=== PATIENT | male | born 1965 | race Caucasian/White ===

== ENCOUNTER 2016-10-05 10:27 | Emergency (ER) | payer OTHER ==
[2016-10-05 10:33] VITALS: BP 132/97; PULSE 76; TEMP 98; BMI 24.4
--- NOTE | 2016-10-05 11:18 | PDOC ---
History of Present Illness - General History Source: Patient, Spouse Exam Limitations: No Limitations <Jacinto Hannah - Last Filed: 10/05/16 11:18> - General History Source: Patient Exam Limitations: No Limitations - History of Present Illness Initial Comments: 10/05/16 11:23 The patient is a 51 year old male, with a significant past medical history of a- fib, HTN, seizures, EtOH abuse, who presents to the emergency department with detox for EtOH. The patient reports being sober for the past 7 months, but notes these past 2 days drinking heavily. He reports drinking several beers over the span of these past 2 days, with his last drink being at 4am. He denies any recent fevers, chills, headache or dizziness. He denies any recent nausea, vomit, diarrhea or constipation. He denies any recent chest pain or shortness of breath. He denies any recent dysuria, frequency, urgency or hematuria. Allergies: NKA Past surgical history: None reported. Social History: Nonsmoker. Denies EtOH recreational drug use. Primary Care Physician: Dr.Pushpinder Hawthorne <Ruddy Berry - Last Filed: 10/05/16 11:23> - General Chief Complaint: Alcohol intoxication Stated Complaint: INTOX Time Seen by Provider: 10/05/16 11:10 Past History - Past Medical History Anemia: No Asthma: No Cancer: No Cardiac Disorders: Yes (AFIB) CVA: No COPD: No CHF: No Dementia: No Diabetes: No GI Disorders: No Disorders: No HTN: Yes Hypercholesterolemia: No Kidney Stones: No Liver Disease: No Suicide Attempt (Hx): No Seizures: Yes (ALCOHOL RELATED) Thyroid Disease: No - Surgical History Abdominal Surgery: No Appendectomy: No Cardiac Surgery: No Cholecystectomy: No Lung Surgery: No Neurologic Surgery: No Orthopedic Surgery: No - Reproductive History Testicular Surgery: No - Psycho/Social/Smoking Cessation Hx Anxiety: No Suicidal Ideation: No Smoking History: Never smoked Have you smoked in the past 12 months: No Hx Alcohol Use: Yes Drug/Substance Use Hx: No Substance Use Type: None Hx Substance Use Treatment: Yes ([facility]) <Jacinto Hannah - Last Filed: 10/05/16 11:18> <Ruddy Berry - Last Filed: 10/05/16 11:23> - Past Medical History Allergies/Adverse Reactions: Allergies Allergy/AdvReac Type Severity Reaction Status Date / Time No Known Allergies Allergy Verified 10/05/16 10:32 Home Medications: Ambulatory Orders Dabigatran Etexilate Mesylate [Pradaxa -] 150 mg PO BID #60 cap 09/28/15 Diltiazem Cd [Cardizem Cd -] 240 mg PO DAILY #30 cap.cd.24h 09/28/15 Metoprolol Succinate [Toprol XL -] 50 mg PO DAILY #30 tab.sr.24h 09/28/15 Thiamine HCl [Vitamin B1 -] 100 mg PO DAILY #30 tablet 09/28/15 Chlordiazepoxide [Librium -] 10 mg PO QID #6 capsule MDD 4 01/03/16 Folic Acid - 1 mg PO DAILY tablet 01/03/16 Review of Systems - Review of Systems Able to Perform ROS?: Yes Comments:: 10/05/16 11:21 GENERAL/CONSTITUTIONAL: No fever or chills. No weakness. HEAD, EYES, EARS, NOSE AND THROAT: No change in vision. No ear pain or discharge. No sore throat. CARDIOVASCULAR: No chest pain or shortness of breath. RESPIRATORY: No cough, wheezing, or hemoptysis. GASTROINTESTINAL: No nausea, vomiting, diarrhea or constipation. GENITOURINARY: No dysuria, frequency, or change in urination. MUSCULOSKELETAL: No joint or muscle swelling or pain. No neck or back pain. SKIN: No rash NEUROLOGIC: No headache, vertigo, loss of consciousness, or change in strength/ sensation. ENDOCRINE: No increased thirst. No abnormal weight change. HEMATOLOGIC/LYMPHATIC: No anemia, easy bleeding, or history of blood clots. ALLERGIC/IMMUNOLOGIC: No hives or skin allergy. <Ruddy Berry - Last Filed: 10/05/16 11:23> *Physical Exam - Vital Signs Last Vital Signs Temp Pulse Resp BP Pulse Ox 98.0 F 76 20 132/97 97 10/05/16 10:29 10/05/16 10:29 10/05/16 10:29 10/05/16 10:29 10/05/16 10:29 <Jacinto Hannah - Last Filed: 10/05/16 11:18> - Vital Signs Last Vital Signs Temp Pulse Resp BP Pulse Ox 98.0 F 76 20 132/97 97 10/05/16 10:29 10/05/16 10:29 10/05/16 10:29 10/05/16 10:29 10/05/16 10:29 - Physical Exam Comments: 10/05/16 11:21 GENERAL: Awake, alert, and fully oriented, in no acute distress HEAD: No signs of trauma EYES: PERRLA, EOMI, sclera anicteric, conjunctiva clear ENT: Auricles normal inspection, hearing grossly normal, nares patent, oropharynx clear without exudates. Moist mucosa NECK: Normal ROM, supple, no lymphadenopathy, JVD, or masses LUNGS: Breath sounds equal, clear to auscultation bilaterally. No wheezes, and no crackles HEART: Regular rate and rhythm, normal S1 and S2, no murmurs, rubs or gallops ABDOMEN: Soft, nontender, normoactive bowel sounds. No guarding, no rebound. No masses EXTREMITIES: Normal range of motion, no edema. No clubbing or cyanosis. No cords, erythema, or tenderness NEUROLOGICAL: Cranial nerves II through XII grossly intact. Normal speech, normal gait SKIN: Warm, Dry, normal turgor, no rashes or lesions noted. <Ruddy Berry - Last Filed: 10/05/16 11:23> Medical Decision Making - Medical Decision Making 10/05/16 11:15 A portion of this note was documented by scribe services under my direction. I have reviewed the details of the note, within reason, and agree with the documentation with the following case summary and management plan written by me. Patient treated in the ED. Nursing notes are reviewed and incorporated into the medical decision-making. Vital signs reviewed. Peripheral IV access obtained by the nurse, laboratory studies are drawn and sent, reviewed and interpreted by myself. Vital Signs Temp Pulse Resp BP Pulse Ox 98.0 F 76 20 132/97 97 10/05/16 10:29 10/05/16 10:29 10/05/16 10:10/05/16 10:29 10/05/16 10:29 51 year old male c/ hx of atrial fibrillation on pradaxa, HTN, alcohol abuse presents with requesting alcohol detox. The patient is present with his . The patient was sober for several months until he relapsed 2 days ago. Started drinking several beers. Last drink this morning at 4 am. Came in with requesting detox. Has NO symptoms at this point. Patient is not intoxicated or in withdrawal at this time (I suspect that he is sobered up but not at point of withdrawal). I had spoken with the nurse practitioner Diandra who accepts the patient to detox. Will send patient to [facility] detox. <Jacinto Hannah - Last Filed: 10/05/16 11:18> *DC/Admit/Observation/Transfer <Jacinto Hannah - Last Filed: 10/05/16 11:18> - Attestations Scribe Attestion: 10/05/16 11:22 Documentation prepared by Ruddy Berry, acting as medical administrative technician for Jacinto Hannah MD. <Ruddy Berry - Last Filed: 10/05/16 11:23> Diagnosis at time of Disposition: Alcohol dependence Qualifiers: Substance use status: uncomplicated Qualified Code(s): F10.20 - Alcohol dependence, uncomplicated - Discharge Dispostion Disposition: I.P. ALCOHOL/SUBS ABUSE REHAB Condition at time of disposition: Stable - Referrals Referrals: Stacy Hawthorne MD [Primary Care Provider] - - Patient Instructions Printed Discharge Instructions: DI for Alcohol Abuse Additional Instructions: Please go straight to the detox center.
== END 2016-10-05 11:55 | disposition other institution (70) ==
LOC: JER 10:27
DX: F10.20 Alcohol dependence, uncomplicated (principal); I48.91 Unspecified atrial fibrillation; I10 Essential (primary) hypertension; Z86.69 Personal history of other diseases of the nervous system and sense organs
CPT/HCPCS: 99282-25

== ENCOUNTER 2016-10-05 12:18 | Inpatient (IN) | payer OTHER ==
[2016-10-05 13:33] VITALS: BMI 23.6
--- NOTE | 2016-10-05 13:38 | HP ---
CIWA Score - CIWA Score Nausea/Vomitin Muscle Tremors: 4-Moderate,w/Arms Extend Anxiety: 4-Mod. Anxious/Guarded Agitation: 4-Moderately Restless Paroxysmal Sweats: 3 Orientation: 0-Oriented Tacttile Disturbances: 0-None Auditory Disturbances: 0-None Visual Disturbances: 0-None Headache: 2-Mild CIWA-Ar Total Score: 22 Admission ROS BHS - HPI Chief Complaint: I am here today for detox from alcohol. Allergies/Adverse Reactions: Allergies Allergy/AdvReac Type Severity Reaction Status Date / Time No Known Allergies Allergy Verified 10/05/16 13:21 History of Present Illness: pt is a 51yr old male with a history of alcohol dependence seeking detox for treatment. pt was sent here from [facility] for alcohol withdrawals report received from . Exam Limitations: No Limitations - Ebola screening Have you traveled outside of the country in the last 21 days: No Have you had contact with anyone from an Ebola affected area: No Have you been sick,other than usual withdrawal symptoms: No Do you have a fever: No - Review of Systems Constitutional: Chills, Diaphoresis EENT: reports: Tearing Respiratory: reports: No Symptoms reported Cardiac: reports: No Symptoms Reported GI: reports: Nausea, Poor Appetite, Poor Fluid Intake, Vomiting, Indigestion : reports: No Symptoms Reported Musculoskeletal: reports: No Symptoms Reported Integumentary: reports: Flushing, Sweating Neuro: reports: Seizure (a year ago alcohol r/t), Tingling, Tremors Endocrine: reports: Flushing, Intolerance to Cold, Intolerance to Heat Hematology: reports: No Symptoms Reported Psychiatric: reports: Judgement Intact, Mood/Affect Appropiate, Orientated x3, Agitated, Anxious Other Systems: Reviewed and Negative Patient History - Patient Medical History Hx Anemia: No Hx Asthma: No Hx Chronic Obstructive Pulmonary Disease (COPD): No Hx Cancer: No Hx Cardiac Disorders: Yes (HX OF AFIB) Hx Congestive Heart Failure: No Hx Hypertension: Yes Hx Hypercholesterolemia: No Hx Pacemaker: No HX Cerebrovascular Accident: No Hx Seizures: Yes (ETOH RELATED LAST 1 YR AGO) Hx Dementia: No Hx Diabetes: No Hx Gastrointestinal Disorders: No Hx Liver Disease: No Hx Genitourinary Disorders: No Hx Sexually Transmitted Disorders: No Hx Renal Disease (ESRD): No Hx Thyroid Disease: No Hx Human Immunodeficiency Virus (HIV): No Hx Hepatitis C: No Hx Depression: No Hx Suicide Attempt: No (denies) Hx Bipolar Disorder: No Hx Schizophrenia: No - Patient Surgical History Past Surgical History: No Hx Neurologic Surgery: No Hx Cataract Extraction: No Hx Cardiac Surgery: No Hx Lung Surgery: No Hx Breast Surgery: No Hx Breast Biopsy: No Hx Abdominal Surgery: No Hx Appendectomy: No Hx Cholecystectomy: No Hx Genitourinary Surgery: No Hx Section: No Hx Orthopedic Surgery: No Anesthesia Reaction: No - PPD History Previous Implant?: Yes Documented Results: Negative w/o proof Implanted On Prior R Admission?: Yes PPD to be Administered?: Yes - Reproductive History Patient is a Female of Child Bearing Age (11 -55 yrs old): No - Smoking Cessation Smoking history: Never smoked Have you smoked in the past 12 months: No Hx Chewing Tobacco Use: No Initiated information on smoking cessation: No - Substance & Tx. History Hx Alcohol Use: Yes Substance Use Type: Alcohol Hx Substance Use Treatment: Yes (12months ago last detox at [facility]) - Substances Abused Alcohol Route: Oral Frequency: Daily Amount used: 12PK BEER AND MORE Age of first use: 17 Date of Last Use: 10/05/16 Family Disease History - Family Disease History Family Disease History: Other: Father ( STROKE AGE 42), Mother (HEALTHY) Admission Physical Exam S - Vital Signs Vital Signs: Vital Signs - 24 hr 10/05/16 13:29 Temperature 96.2 F L Pulse Rate 78 Respiratory 20 Rate Blood Pressure 144/110 - Physical General Appearance: Yes: Appropriately Dressed, Moderate Distress, Tremorous, Irritable, Sweating, Anxious HEENTM: Yes: Normal Voice Respiratory: Yes: Lungs Clear, Normal Breath Sounds, No Respiratory Distress Neck: Yes: No masses,lesions,Nodules Breast: Yes: Within Normal Limits Cardiology: Yes: Regular Rhythm, Regular Rate, S1, S2 Abdominal: Yes: Normal Bowel Sounds, Non Tender, Soft Genitourinary: Yes: Within Normal Limits Back: Yes: Normal Inspection Musculoskeletal: Yes: full range of Motion Extremities: Yes: Normal Inspection, Tremors Neurological: Yes: Fully Oriented, Alert, Normal Response Integumentary: Yes: Normal Color, Diaphoresis Lymphatic: Yes: Within Normal Limits - Diagnostic (1) Alcohol dependence with uncomplicated withdrawal Current Visit: Yes Status: Chronic Comment: pt stated he is scheduled to attend rehab in [place]. Pt also stated he had been in AA in the past and is ammenible to attending meeting . (2) Atrial fibrillation Current Visit: Yes Status: Chronic Qualifiers: Atrial fibrillation type: unspecified Qualified Code(s): I48.91 - Unspecified atrial fibrillation (3) HTN (hypertension) with goal to be determined Current Visit: Yes Status: Chronic (4) Seizure disorder Current Visit: No Status: Suspected Cleared for Admission [facility] - Detox or Rehab [facility] Level of Care: Medically Managed Detox Regimen/Protocol: Librium [facility] Breath Alcohol Content Breath Alcohol Content: 0.262 Urine Drug Screen - Results Drug Screen Negative: Yes
[2016-10-05] MEDS ORDERED: MAGNESIUM CITRATE 300 ML BOTTLE PO PRN (13:42)
[2016-10-05] MEDS ORDERED: MAGNESIUM HYDROX 2400MG/30ML ORAL SUSPENSION 30 ML CUP PO PRN (13:42)
[2016-10-05] MEDS ORDERED: guaiFENesin/D-METHORPHAN HB 10 ML UNIT-DOSE CUPS PO PRN (13:42)
[2016-10-05] MEDS ORDERED: IBUPROFEN 400 MG TABLET (FP) PO PRN (13:42)
[2016-10-05] MEDS ORDERED: P-EPHED 60MG/TRIPROLIDI 2.5MG TABLET PO PRN (13:42)
[2016-10-05] MEDS ORDERED: ACETAMINOPHEN 325 MG TABLET (FP) PO PRN (13:42)
[2016-10-05] MEDS ORDERED: MENTHOL/PHENOL 1 EACH UD MM PRN (13:42)
[2016-10-05] MEDS ORDERED: hydrOXYzine PAMOATE 50 MG CAPSULE (FP) PO PRN (13:42)
[2016-10-05] MEDS ORDERED: LOPERAMIDE HCL 2 MG CAPSULE PO PRN (13:42)
[2016-10-05] MEDS ORDERED: TRIMETHOBENZAMIDE HCL 300 MG CAPSULE PO PRN (13:43)
[2016-10-05] MEDS ORDERED: TRIMETHOBENZAMIDE HCL 200MG/2ML INJ IM PRN (13:43)
[2016-10-05] MEDS ORDERED: chlordiazePOXIDE HCL 25 MG CAPSULE PO ONE (14:00)
[2016-10-05] MEDS ORDERED: TRIMETHOBENZAMIDE HCL 200MG/2ML INJ IM ONE (14:00)
[2016-10-05] MEDS ORDERED: DIGOXIN 0.125 MG TABLET (FP) PO SCH (14:30)
[2016-10-05] MEDS ORDERED: LISINOPRIL 5 MG PO SCH (14:52)
[2016-10-05] MEDS: DIGOXIN 0.125 MG TABLET (FP) PO SCH (16:39)
[2016-10-05] MEDS: chlordiazePOXIDE HCL 25 MG CAPSULE PO SCH ×2 (16:40→22:17)
[2016-10-05 17:43] LABS: URINE APPEARANCE CLEAR; URINE BILIRUBIN NEGATIVE (NEGATIVE); URINE BLOOD NEGATIVE (NEGATIVE); URINE COLOR DKYELLOW; URINE GLUCOSE (UA) NEGATIVE (NEGATIVE); URINE KETONE NEGATIVE (NEGATIVE); URINE LEUK ESTERASE NEGATIVE (NEGATIVE); URINE NITRITE NEGATIVE (NEGATIVE); URINE UROBILINOGEN 2.0 E.U/dl E.U./dl (0.2-1.0)
[2016-10-05 17:44] LABS: URINE PROTEIN 1+ (NEGATIVE)
[2016-10-05 17:53] LABS: URINE MUCUS RARE; URINE RBC <1 /hpf (0-3); URINE WBC <1 /hpf (3-5)
[2016-10-05] MEDS: chlordiazePOXIDE HCL 25 MG CAPSULE PO PRN (19:05)
[2016-10-05] MEDS: diphenhydrAMINE HCL 50 MG CAPSULE PO PRN (22:17)
[2016-10-05] MEDS: METOPROLOL TARTRATE 50 MG TABLET (FP) PO SCH (22:17)
[2016-10-05] MEDS: THIAMINE HCL 100 MG TABLET (FP) PO SCH (22:17)
[2016-10-05] MEDS: DABIGATRAN ETEXILATE MESYLATE 150 MG CAPSULE PO SCH (22:17)
[2016-10-05] MEDS: MAG HYDROX/AL HYDROX/SIMETH 30 ML UNIT-DOSE CUP PO PRN (22:51)
[2016-10-06] MEDS: diphenhydrAMINE HCL 50 MG CAPSULE PO PRN ×3 (00:27→22:16)
[2016-10-06] MEDS: chlordiazePOXIDE HCL 25 MG CAPSULE PO PRN (01:26)
[2016-10-06] MEDS: chlordiazePOXIDE HCL 25 MG CAPSULE PO SCH ×4 (05:48→22:16)
[2016-10-06 09:49] LABS: MCH 30.7 pg (25.7-33.7); MCHC 34.7 g/dl (32.0-35.9); MEAN CELL VOLUME 88.4 fl (80-96); MEAN PLT VOLUME 8.7 fl (7.5-11.1); PLATELET COUNT 99 K/MM3 (134-434); RDW 13.5 % (11.9-15.9); WHITE BLOOD COUNT 5.6 K/mm3 (4.0-10.0)
[2016-10-06] MEDS: SPIRONOLACTONE 25 MG TABLET (FP) PO SCH (10:32)
[2016-10-06] MEDS: LISINOPRIL 5 MG PO SCH (10:32)
[2016-10-06] MEDS: METOPROLOL TARTRATE 50 MG TABLET (FP) PO SCH ×2 (10:32→22:16)
[2016-10-06] MEDS: DABIGATRAN ETEXILATE MESYLATE 150 MG CAPSULE PO SCH ×2 (10:32→22:16)
[2016-10-06] MEDS: DIGOXIN 0.125 MG TABLET (FP) PO SCH (10:32)
[2016-10-06] MEDS: PRENATAL VITAMINS W/ FOLIC ACID TABLET (FP) PO SCH (10:32)
--- NOTE | 2016-10-06 12:42 | EKG ---
Test Reason : Blood Pressure : / mmHG Vent. Rate : 063 BPM Atrial Rate : 063 BPM P-R Int : 168 ms QRS Dur : 102 ms QT Int : 446 ms P-R-T Axes : 045 044 -14 degrees QTc Int : 456 ms NORMAL SINUS RHYTHM NONSPECIFIC T WAVE ABNORMALITY ABNORMAL ECG WHEN COMPARED WITH ECG OF 10-FEB-2016 19:13, SINUS RHYTHM HAS REPLACED ATRIAL FIBRILLATION VENT. RATE HAS DECREASED BY 39 BPM NONSPECIFIC T WAVE ABNORMALITY, WORSE IN INFERIOR LEADS Confirmed by ISELA CRUZ MD ([id number]) on 10/06/2016 12:41:56 PM Referred By: Confirmed By:ISELA CRUZ MD
[2016-10-06 13:27] LABS: ALBUMIN 3.9 g/dl (3.4-5.0); ALK PHOS 66 U/L (45-117); ANION GAP 14 (8-16); BILIRUBIN,TOTAL 1.5 mg/dL (0.2-1.0); CALCIUM 9.3 mg/dL (8.5-10.1); CO2 28 mmol/L (21-32); GLUCOSE,RANDOM 115 mg/dL (74-106); SGOT/AST 76 U/L (15-37); SGPT/ALT 42 U/L (12-78); TOT PROT 8.2 g/dl (6.4-8.2)
--- NOTE | 2016-10-06 14:22 | PN ---
S CIWA - CIWA Score Nausea/Vomitin Muscle Tremors: 4-Moderate,w/Arms Extend Anxiety: 3 Agitation: 1-Slight > Activity Paroxysmal Sweats: 2 Orientation: 0-Oriented Tacttile Disturbances: 2-Mild Itch/Numbness/Burn Auditory Disturbances: 0-None Visual Disturbances: 2-Mild Sensitivity Headache: 0-None Present CIWA-Ar Total Score: 19 BHS 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 (SOAP) Subjective: Vomiting, Sweating, Tremors. Objective: PT. A & O X 3. NO ACUTE DISTRESS. PT. DENIES CHEST PAIN. 10/06/16 14:17 Vital Signs Temperature 97.1 F L 10/06/16 13:10 Pulse Rate 75 10/06/16 13:10 Respiratory Rate 18 10/06/16 13:10 Blood Pressure 132/95 10/06/16 13:10 O2 Sat by Pulse Oximetry (%) Laboratory Tests 10/05/16 10/06/16 10/06/16 14:00 07:00 07:00 WBC 5.6 RBC 5.27 D Hgb 16.2 D Hct 46.6 MCV 88.4 MCHC 34.7 RDW 13.5 D Plt Count 99 L D MPV 8.7 D Sodium 133 L Potassium 4.0 Chloride 91 L D Carbon Dioxide 28 Anion Gap 14 BUN 15 D Creatinine 1.0 D Creat Clearance w eGFR > 60 Random Glucose 115 H D Calcium 9.3 Total Bilirubin 1.5 H AST 76 H D ALT 42 D Alkaline Phosphatase 66 Total Protein 8.2 D Albumin 3.9 Urine Color Dkyellow Urine Appearance Clear Urine pH 5.0 Ur Specific [place] 1.020 Urine Protein 1+ H Urine Glucose (UA) Negative Urine Ketones Negative Urine Blood Negative Urine Nitrite Negative Urine Bilirubin Negative Urine Urobilinogen 2.0 e.u/dl Ur Leukocyte Esterase Negative Urine RBC <1 Urine WBC <1 Ur Epithelial Cells Rare Urine Mucus Rare LABS NOTED. 10/06/16 14:22 Assessment: 10/06/16 14:18 WITHDRAWAL SYMPTOMS. Plan: CONTINUE DETOX. REPEAT AST ON 10/08/2016 FOR ELEVATED ADMISSION LEVEL.
[2016-10-06] MEDS: MAG HYDROX/AL HYDROX/SIMETH 30 ML UNIT-DOSE CUP PO PRN (19:54)
[2016-10-06] MEDS: THIAMINE HCL 100 MG TABLET (FP) PO SCH (22:16)
[2016-10-07] MEDS: chlordiazePOXIDE HCL 25 MG CAPSULE PO SCH ×2 (05:17→10:15)
[2016-10-07] MEDS: METOPROLOL TARTRATE 50 MG TABLET (FP) PO SCH ×2 (10:15→22:19)
[2016-10-07] MEDS: DIGOXIN 0.125 MG TABLET (FP) PO SCH (10:15)
[2016-10-07] MEDS: DABIGATRAN ETEXILATE MESYLATE 150 MG CAPSULE PO SCH ×2 (10:15→22:19)
[2016-10-07] MEDS: LISINOPRIL 5 MG PO SCH (10:15)
[2016-10-07] MEDS: PRENATAL VITAMINS W/ FOLIC ACID TABLET (FP) PO SCH (10:15)
[2016-10-07] MEDS: SPIRONOLACTONE 25 MG TABLET (FP) PO SCH (10:15)
--- NOTE | 2016-10-07 12:24 | PN ---
[facility] CIWA - CIWA Score Nausea/Vomitin-Mild Nausea/No Vomiting Muscle Tremors: 4-Moderate,w/Arms Extend Anxiety: 3 Agitation: 2 Paroxysmal Sweats: 2 Orientation: 2-Disoriented Date<2 days Tacttile Disturbances: 1-Very Mild Itch/Numbness Auditory Disturbances: 0-None Visual Disturbances: 2-Mild Sensitivity Headache: 0-None Present CIWA-Ar Total Score: 17 BHS 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 (SOAP) Subjective: Tremors, Sweating. Objective: PT. A & O X 2 (DISORIENTED ABOUT DAY / DATE). PT. OBSERVED AMBULATING ON UNIT. NO ACUTE DISTRESS. PT. DENIES CHEST PAIN. 10/07/16 12:23 Vital Signs Temperature 96.4 F L 10/07/16 09:42 Pulse Rate 86 10/07/16 10:15 Respiratory Rate 18 10/07/16 09:42 Blood Pressure 126/94 10/07/16 09:42 O2 Sat by Pulse Oximetry (%) Laboratory Tests 10/05/16 10/06/16 10/06/16 14:00 07:00 07:00 WBC 5.6 RBC 5.27 D Hgb 16.2 D Hct 46.6 MCV 88.4 MCHC 34.7 RDW 13.5 D Plt Count 99 L D MPV 8.7 D Sodium 133 L Potassium 4.0 Chloride 91 L D Carbon Dioxide 28 Anion Gap 14 BUN 15 D Creatinine 1.0 D Creat Clearance w eGFR > 60 Random Glucose 115 H D Calcium 9.3 Total Bilirubin 1.5 H AST 76 H D ALT 42 D Alkaline Phosphatase 66 Total Protein 8.2 D Albumin 3.9 Urine Color Dkyellow Urine Appearance Clear Urine pH 5.0 Ur Specific [place] 1.020 Urine Protein 1+ H Urine Glucose (UA) Negative Urine Ketones Negative Urine Blood Negative Urine Nitrite Negative Urine Bilirubin Negative Urine Urobilinogen 2.0 e.u/dl Ur Leukocyte Esterase Negative Urine RBC <1 Urine WBC <1 Ur Epithelial Cells Rare Urine Mucus Rare RPR Titer 10/06/16 07:00 WBC RBC Hgb Hct MCV MCHC RDW Plt Count MPV Sodium Potassium Chloride Carbon Dioxide Anion Gap BUN Creatinine Creat Clearance w eGFR Random Glucose Calcium Total Bilirubin AST ALT Alkaline Phosphatase Total Protein Albumin Urine Color Urine Appearance Urine pH Ur Specific [place] Urine Protein Urine Glucose (UA) Urine Ketones Urine Blood Urine Nitrite Urine Bilirubin Urine Urobilinogen Ur Leukocyte Esterase Urine RBC Urine WBC Ur Epithelial Cells Urine Mucus RPR Titer Nonreactive LABS NOTED. Assessment: 10/07/16 12:23 WITHDRAWAL SYMPTOMS. Plan: CONTINUE DETOX. ADVISED PATIENT TO FOLLOW-UP WITH [facility] AFTER DISCHARGE FROM DETOX FOR GENERAL MEDICAL ASSESSMENT AND FOR LOW ADMISSION PLATELET LEVEL.
[2016-10-07] MEDS: chlordiazePOXIDE 5 MG CAPSULE PO SCH ×2 (16:46→22:18)
[2016-10-07] MEDS: THIAMINE HCL 100 MG TABLET (FP) PO SCH (22:19)
[2016-10-08] MEDS: chlordiazePOXIDE 5 MG CAPSULE PO SCH ×2 (05:42→10:23)
[2016-10-08] MEDS: PRENATAL VITAMINS W/ FOLIC ACID TABLET (FP) PO SCH (10:23)
[2016-10-08] MEDS: DIGOXIN 0.125 MG TABLET (FP) PO SCH (10:23)
[2016-10-08] MEDS: METOPROLOL TARTRATE 50 MG TABLET (FP) PO SCH ×2 (10:23→22:16)
[2016-10-08] MEDS: SPIRONOLACTONE 25 MG TABLET (FP) PO SCH (10:23)
[2016-10-08] MEDS: DABIGATRAN ETEXILATE MESYLATE 150 MG CAPSULE PO SCH ×2 (10:23→22:16)
[2016-10-08] MEDS: LISINOPRIL 5 MG PO SCH (10:26)
--- NOTE | 2016-10-08 15:51 | PN ---
BHS 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 (SOAP) Subjective: Tremors only Detox symptom reported by patient today. Objective: PT. A & O X 2 (DISORIENTED ABOUT DAY / DATE). PT. OBSERVED AMBULATING ON UNIT. NO ACUTE DISTRESS. PT. DENIES CHEST PAIN. 10/08/16 15:47 Vital Signs Temperature 97.2 F L 10/08/16 14:04 Pulse Rate 82 10/08/16 14:04 Respiratory Rate 18 10/08/16 14:04 Blood Pressure 110/77 10/08/16 14:04 O2 Sat by Pulse Oximetry (%) Laboratory Tests 10/05/16 10/06/16 10/06/16 14:00 07:00 07:00 WBC 5.6 RBC 5.27 D Hgb 16.2 D Hct 46.6 MCV 88.4 MCHC 34.7 RDW 13.5 D Plt Count 99 L D MPV 8.7 D Sodium 133 L Potassium 4.0 Chloride 91 L D Carbon Dioxide 28 Anion Gap 14 BUN 15 D Creatinine 1.0 D Creat Clearance w eGFR > 60 Random Glucose 115 H D Calcium 9.3 Total Bilirubin 1.5 H AST 76 H D ALT 42 D Alkaline Phosphatase 66 Total Protein 8.2 D Albumin 3.9 Urine Color Dkyellow Urine Appearance Clear Urine pH 5.0 Ur Specific [place] 1.020 Urine Protein 1+ H Urine Glucose (UA) Negative Urine Ketones Negative Urine Blood Negative Urine Nitrite Negative Urine Bilirubin Negative Urine Urobilinogen 2.0 e.u/dl Ur Leukocyte Esterase Negative Urine RBC <1 Urine WBC <1 Ur Epithelial Cells Rare Urine Mucus Rare RPR Titer 10/06/16 10/08/16 07:00 08:00 WBC RBC Hgb Hct MCV MCHC RDW Plt Count MPV Sodium Potassium Chloride Carbon Dioxide Anion Gap BUN Creatinine Creat Clearance w eGFR Random Glucose Calcium Total Bilirubin AST 61 H ALT Alkaline Phosphatase Total Protein Albumin Urine Color Urine Appearance Urine pH Ur Specific [place] Urine Protein Urine Glucose (UA) Urine Ketones Urine Blood Urine Nitrite Urine Bilirubin Urine Urobilinogen Ur Leukocyte Esterase Urine RBC Urine WBC Ur Epithelial Cells Urine Mucus RPR Titer Nonreactive LABS NOTED. Assessment: 10/08/16 15:49 WITHDRAWAL SYMPTOMS. Plan: CONTINUE DETOX. ADVISED PATIENT TO FOLLOW-UP WITH [facility] AFTER DISCHARGE FROM DETOX FOR GENERAL MEDICAL ASSESSMENT AND FOR LOW ADMISSION PLATELET AND ELEVATED ADMISSION AST LEVELS.
[2016-10-08] MEDS: chlordiazePOXIDE HCL 10 MG CAPSULE PO SCH ×2 (17:19→22:16)
[2016-10-08] MEDS: THIAMINE HCL 100 MG TABLET (FP) PO SCH (22:15)
[2016-10-09] MEDS: diphenhydrAMINE HCL 50 MG CAPSULE PO PRN (00:19)
[2016-10-09] MEDS: chlordiazePOXIDE HCL 10 MG CAPSULE PO SCH (05:26)
[2016-10-09 06:17] VITALS: BP 118/85; PULSE 58; TEMP 97.4
--- NOTE | 2016-10-09 11:15 | DS ---
[facility] Detox Discharge Summary Admission Date: 10/05/16 Discharge Date: 10/09/16 - History Present History: Alcohol Dependence Pertinent Past History: A fib HTN Alcohol related seizure disorder - Physical Exam Results Vital Signs: Vital Signs Temperature 97.4 F L 10/09/16 06:16 Pulse Rate 58 L 10/09/16 06:16 Respiratory Rate 18 10/09/16 06:16 Blood Pressure 118/85 10/09/16 06:16 O2 Sat by Pulse Oximetry (%) Pertinent Admission Physical Exam Findings: Withdrawal symptoms Laboratory Tests 10/05/16 10/06/16 10/06/16 14:00 07:00 07:00 WBC 5.6 RBC 5.27 D Hgb 16.2 D Hct 46.6 MCV 88.4 MCHC 34.7 RDW 13.5 D Plt Count 99 L D MPV 8.7 D Sodium 133 L Potassium 4.0 Chloride 91 L D Carbon Dioxide 28 Anion Gap 14 BUN 15 D Creatinine 1.0 D Creat Clearance w eGFR > 60 Random Glucose 115 H D Calcium 9.3 Total Bilirubin 1.5 H AST 76 H D ALT 42 D Alkaline Phosphatase 66 Total Protein 8.2 D Albumin 3.9 Urine Color Dkyellow Urine Appearance Clear Urine pH 5.0 Ur Specific [place] 1.020 Urine Protein 1+ H Urine Glucose (UA) Negative Urine Ketones Negative Urine Blood Negative Urine Nitrite Negative Urine Bilirubin Negative Urine Urobilinogen 2.0 e.u/dl Ur Leukocyte Esterase Negative Urine RBC <1 Urine WBC <1 Ur Epithelial Cells Rare Urine Mucus Rare RPR Titer 10/06/16 10/08/16 07:00 08:00 WBC RBC Hgb Hct MCV MCHC RDW Plt Count MPV Sodium Potassium Chloride Carbon Dioxide Anion Gap BUN Creatinine Creat Clearance w eGFR Random Glucose Calcium Total Bilirubin AST 61 H ALT Alkaline Phosphatase Total Protein Albumin Urine Color Urine Appearance Urine pH Ur Specific [place] Urine Protein Urine Glucose (UA) Urine Ketones Urine Blood Urine Nitrite Urine Bilirubin Urine Urobilinogen Ur Leukocyte Esterase Urine RBC Urine WBC Ur Epithelial Cells Urine Mucus RPR Titer Nonreactive Labs noted - Treatment Hospital Course: Detox Protocol Followed, Detoxed Safely, Responded well, Discharged Condition Good - Medication Discharge Medications: Ambulatory Orders Dabigatran Etexilate Mesylate [Pradaxa -] 150 mg PO BID #60 cap 09/28/15 Digoxin 125 mcg PO DAILY 10/05/16 Furosemide [Lasix -] 20 mg PO DAILY 10/05/16 Lisinopril [Zestril] 2.5 mg PO DAILY 10/05/16 Metoprolol Tartrate 100 mg PO HS 10/05/16 Metoprolol Tartrate [Lopressor] 200 mg PO DAILY 10/05/16 Spironolactone 25 mg PO DAILY 10/05/16 - Diagnosis (1) Alcohol dependence with uncomplicated withdrawal Status: Acute (2) Atrial fibrillation Status: Chronic Qualifiers: Atrial fibrillation type: unspecified Qualified Code(s): I48.91 - Unspecified atrial fibrillation (3) HTN (hypertension) with goal to be determined Status: Chronic (4) Drug-induced seizure Status: Chronic - AMA Did Patient Leave Against Medical Advice: No
== END 2016-10-09 07:00 | disposition home or self-care (01) | DRG 897 ==
LOC: YASAS 12:18 → Y3N 13:39
PROVIDERS: ADMIT Internal Medicine; ATTEND Internal Medicine
PROC: HZ2ZZZZ Detoxification Services for Substance Abuse Treatment (ICD-10-PCS; principal; 2016-10-05)
DX: F10.230 Alcohol dependence with withdrawal, uncomplicated (principal); I48.91 Unspecified atrial fibrillation; I10 Essential (primary) hypertension; Z86.69 Personal history of other diseases of the nervous system and sense organs
CPT/HCPCS: 36415; 80053; 81003; 81015; 84450; 85027; 86593; 93005; 93010

== ENCOUNTER 2016-11-08 11:25 | Inpatient (IN) | payer OTHER ==
[2016-11-08 13:05] VITALS: BMI 25.4
--- NOTE | 2016-11-08 13:42 | HP ---
CIWA Score - CIWA Score Nausea/Vomitin Muscle Tremors: 3 Anxiety: 3 Agitation: 3 Paroxysmal Sweats: 2 Orientation: 0-Oriented Tacttile Disturbances: 2-Mild Itch/Numbness/Burn Auditory Disturbances: 2-Mild Harshness/Frighten Visual Disturbances: 2-Mild Sensitivity Headache: 2-Mild CIWA-Ar Total Score: 22 Admission ROS BHS - HPI Chief Complaint: i need help to stop drinking alcohol Allergies/Adverse Reactions: Allergies Allergy/AdvReac Type Severity Reaction Status Date / Time No Known Allergies Allergy Verified 11/08/16 13:36 History of Present Illness: this 51 years old male with alcohol dependence,seeking help to stop,last treatment [facility] 10/05/16 to 10/09/16 multiple admissions in the past but relapsing history of atrial fibrillation hypertension longest period of sobriety 7 months Exam Limitations: No Limitations - Ebola screening Have you traveled outside of the country in the last 21 days: No Have you had contact with anyone from an Ebola affected area: No Have you been sick,other than usual withdrawal symptoms: No Do you have a fever: No - Review of Systems Constitutional: Chills, Loss of Appetite, Malaise, Night Sweats, Changes in sleep, Weakness EENT: reports: Tearing, Nose Congestion Respiratory: reports: No Symptoms reported Cardiac: reports: No Symptoms Reported GI: reports: Diarrhea, Nausea, Vomiting, Abdominal cramping : reports: No Symptoms Reported Musculoskeletal: reports: Back Pain, Muscle Pain Neuro: reports: Tremors Endocrine: reports: No Symptoms Reported Hematology: reports: No Symptoms Reported Psychiatric: reports: No Sypmtoms Reported Patient History - Patient Medical History Hx Anemia: No Hx Asthma: No Hx Chronic Obstructive Pulmonary Disease (COPD): No Hx Cancer: No Hx Cardiac Disorders: Yes (HX OF AFIB) Hx Congestive Heart Failure: No Hx Hypertension: Yes Hx Hypercholesterolemia: No Hx Pacemaker: No HX Cerebrovascular Accident: No Hx Seizures: Yes (ETOH RELATED LAST 1 YR AGO) Hx Dementia: No Hx Diabetes: No Hx Gastrointestinal Disorders: No Hx Liver Disease: No Hx Genitourinary Disorders: No Hx Sexually Transmitted Disorders: No Hx Renal Disease (ESRD): No Hx Thyroid Disease: No Hx Human Immunodeficiency Virus (HIV): No (last 09/07 negative) Hx Hepatitis C: No Hx Depression: No Hx Suicide Attempt: No (denies) Hx Bipolar Disorder: No Hx Schizophrenia: No Other Medical History: no suicidal,no homicidal - Patient Surgical History Past Surgical History: No Hx Neurologic Surgery: No Hx Cataract Extraction: No Hx Cardiac Surgery: No Hx Lung Surgery: No Hx Breast Surgery: No Hx Breast Biopsy: No Hx Abdominal Surgery: No Hx Appendectomy: No Hx Cholecystectomy: No Hx Genitourinary Surgery: No Hx Section: No Hx Orthopedic Surgery: No Anesthesia Reaction: No - PPD History Previous Implant?: Yes Documented Results: Negative w/proof Date: 10/07/16 Results: 0MM PPD to be Administered?: No - Smoking Cessation Smoking history: Never smoked Have you smoked in the past 12 months: No Hx Chewing Tobacco Use: No - Substance & Tx. History Hx Alcohol Use: Yes Hx Substance Use: No Substance Use Type: Alcohol Hx Substance Use Treatment: Yes ([facility] 10/05/16 to 10/09/16) - Substances Abused Alcohol Route: Oral Frequency: Daily Amount used: 15-20 beers Age of first use: 15 Date of Last Use: 11/08/16 Family Disease History - Family Disease History Family Disease History: Other: Father ( STROKE AGE 42), Mother (HEALTHY) Admission Physical Exam S - Vital Signs Vital Signs: Vital Signs - 24 hr 11/08/16 13:01 Temperature 97.5 F L Pulse Rate 78 Respiratory 18 Rate Blood Pressure 129/96 - Physical General Appearance: Yes: Moderate Distress, Tremorous, Irritable, Sweating, Anxious HEENTM: Yes: ANIL, Pharynx Normal Respiratory: Yes: Lungs Clear, Normal Breath Sounds, No Respiratory Distress Neck: Yes: Within Normal Limits, Supple, Trachea in good position Breast: Yes: Within Normal Limits Cardiology: Yes: Within Normal Limits, Regular Rhythm, Regular Rate, S1, S2 Abdominal: Yes: Within Normal Limits, Normal Bowel Sounds, Non Tender, Flat, Soft Genitourinary: Yes: Within Normal Limits Back: Yes: Normal Inspection, Muscle Spasm Musculoskeletal: Yes: Back pain, Muscle Pain Extremities: Yes: Tremors 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 Pt also stated he had been in AA in the past and is ammenible to attending meeting . (2) Atrial fibrillation Current Visit: No Status: Chronic Qualifiers: Atrial fibrillation type: unspecified Qualified Code(s): I48.91 - Unspecified atrial fibrillation (3) HTN (hypertension) with goal to be determined Current Visit: No Status: Chronic (4) Seizure disorder Current Visit: No Status: Suspected Cleared for Admission [facility] - Detox or Rehab [facility] Level of Care: Medically Managed Detox Regimen/Protocol: Librium [facility] Breath Alcohol Content Breath Alcohol Content: 0.255 Urine Drug Screen - Results Drug Screen Negative: No Urine Drug Screen Results: MET-Methamphetamine, BZO-Benzodiazepines
[2016-11-08] MEDS ORDERED: MENTHOL/PHENOL 1 EACH UD MM PRN (13:50)
[2016-11-08] MEDS ORDERED: MAGNESIUM HYDROX 2400MG/30ML ORAL SUSPENSION 30 ML CUP PO PRN (13:50)
[2016-11-08] MEDS ORDERED: IBUPROFEN 400 MG TABLET (FP) PO PRN (13:50)
[2016-11-08] MEDS ORDERED: ACETAMINOPHEN 325 MG TABLET (FP) PO PRN (13:50)
[2016-11-08] MEDS ORDERED: P-EPHED 60MG/TRIPROLIDI 2.5MG TABLET PO PRN (13:50)
[2016-11-08] MEDS ORDERED: hydrOXYzine PAMOATE 25 MG CAPSULE (FP) PO PRN (13:50)
[2016-11-08] MEDS ORDERED: chlordiazePOXIDE HCL 25 MG CAPSULE PO PRN (13:50)
[2016-11-08] MEDS ORDERED: guaiFENesin/D-METHORPHAN HB 10 ML UNIT-DOSE CUPS PO PRN (13:50)
[2016-11-08] MEDS ORDERED: MAGNESIUM CITRATE 300 ML BOTTLE PO PRN (13:50)
[2016-11-08] MEDS ORDERED: LOPERAMIDE HCL 2 MG CAPSULE PO PRN (13:50)
[2016-11-08] MEDS ORDERED: chlordiazePOXIDE HCL 25 MG CAPSULE PO ONE (14:20)
[2016-11-08] MEDS: chlordiazePOXIDE HCL 25 MG CAPSULE PO SCH ×2 (17:01→22:19)
[2016-11-08] MEDS: MAG HYDROX/AL HYDROX/SIMETH 30 ML UNIT-DOSE CUP PO PRN (18:11)
[2016-11-08] MEDS: DABIGATRAN ETEXILATE MESYLATE 150 MG CAPSULE PO SCH (22:18)
[2016-11-08] MEDS: THIAMINE HCL 100 MG TABLET (FP) PO SCH (22:18)
[2016-11-08] MEDS: METOPROLOL TARTRATE 50 MG TABLET (FP) PO SCH (22:18)
[2016-11-08] MEDS: diphenhydrAMINE HCL 50 MG CAPSULE PO PRN (22:20)
[2016-11-08 22:37] LABS: URINE APPEARANCE CLEAR; URINE BILIRUBIN NEGATIVE (NEGATIVE); URINE BLOOD NEGATIVE (NEGATIVE); URINE COLOR YELLOW; URINE GLUCOSE (UA) NEGATIVE (NEGATIVE); URINE KETONE NEGATIVE (NEGATIVE); URINE LEUK ESTERASE NEGATIVE (NEGATIVE); URINE NITRITE NEGATIVE (NEGATIVE)
[2016-11-08 22:38] LABS: URINE PROTEIN 1+ (NEGATIVE)
[2016-11-08 22:44] LABS: GRANULAR CASTS 27 /lpf; URINE HYALINE CAST 35 /lpf; URINE MUCUS RARE; URINE RBC <1 /hpf (0-3); URINE WBC <1 /hpf (3-5)
[2016-11-08] MEDS: ONDANSETRON *ODT* 4 MG TABLET SL PRN (23:23)
[2016-11-09] MEDS: chlordiazePOXIDE HCL 25 MG CAPSULE PO SCH ×4 (05:17→22:17)
[2016-11-09] MEDS: ONDANSETRON *ODT* 4 MG TABLET SL PRN ×2 (05:19→10:19)
[2016-11-09] MEDS ORDERED: METOPROLOL TARTRATE 200 MG PO SCH (10:00)
[2016-11-09] MEDS: PRENATAL VITAMINS W/ FOLIC ACID TABLET (FP) PO SCH (10:10)
[2016-11-09] MEDS: METOPROLOL TARTRATE 50 MG TABLET (FP) PO SCH ×2 (10:10→22:17)
[2016-11-09] MEDS: SPIRONOLACTONE 25 MG TABLET (FP) PO SCH (10:10)
[2016-11-09] MEDS: FUROSEMIDE 20 MG TABLET (FP) PO SCH (10:10)
[2016-11-09] MEDS: DABIGATRAN ETEXILATE MESYLATE 150 MG CAPSULE PO SCH ×2 (10:10→22:17)
[2016-11-09] MEDS: DIGOXIN 0.125 MG TABLET (FP) PO SCH (10:12)
[2016-11-09] MEDS: LISINOPRIL 5 MG TABLET (FP) PO SCH (10:12)
[2016-11-09 10:36] LABS: MCH 31.3 pg (25.7-33.7); MCHC 34.4 g/dl (32.0-35.9); MEAN CELL VOLUME 91.2 fl (80-96); MEAN PLT VOLUME 9.4 fl (7.5-11.1); PLATELET COUNT 120 K/MM3 (134-434); RDW 16.5 % (11.9-15.9); WHITE BLOOD COUNT 3.9 K/mm3 (4.0-10.0)
--- NOTE | 2016-11-09 10:54 | PN ---
S CIWA - CIWA Score Nausea/Vomitin Muscle Tremors: 4-Moderate,w/Arms Extend Anxiety: 3 Agitation: 2 Paroxysmal Sweats: 1-Minimal Palms Moist Orientation: 2-Disoriented Date<2 days Tacttile Disturbances: 2-Mild Itch/Numbness/Burn Auditory Disturbances: 0-None Visual Disturbances: 0-None Headache: 0-None Present CIWA-Ar Total Score: 19 BHS 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 (SOAP) Subjective: Tremors, Stomach Cramping, Vomiting. Objective: PT. A & O X 2 (DISORIENTED AOBUT DAY / DATE). PT. OBSERVED AMBULATING ON UNIT. NO ACUTE DISTRESS. PT. DENIES CHEST PAIN. 11/09/16 10:50 Vital Signs Temperature 97.6 F 11/09/16 09:43 Pulse Rate 136 H 11/09/16 10:12 Respiratory Rate 20 11/09/16 09:43 Blood Pressure 129/96 11/09/16 09:43 O2 Sat by Pulse Oximetry (%) Laboratory Tests 11/08/16 11/09/16 18:00 06:00 WBC 3.9 L D RBC 5.02 Hgb 15.7 Hct 45.8 MCV 91.2 MCH 31.3 MCHC 34.4 RDW 16.5 H D Plt Count 120 L D MPV 9.4 Urine Color Yellow Urine Appearance Clear Urine pH 5.0 Urine Protein 1+ H Urine Glucose (UA) Negative Urine Ketones Negative Urine Blood Negative Urine Nitrite Negative Urine Bilirubin Negative Urine Urobilinogen 2.0 Ur Leukocyte Esterase Negative Urine RBC <1 Urine WBC <1 Hyaline Casts 35 Granular Casts 27 Urine Mucus Rare LABS NOTED. COMP. META. AND RPR RESULTS PENDING. 11/09/16 10:53 Assessment: 11/09/16 10:51 WITHDRAWAL SYMPTOMS. Plan: CONTINUE DETOX.
[2016-11-09 10:55] LABS: ALK PHOS 76 U/L (45-117); ANION GAP 15 (8-16); BILIRUBIN,TOTAL 0.9 mg/dL (0.2-1.0); CALCIUM 8.9 mg/dL (8.5-10.1); CO2 23 mmol/L (21-32); CREATININE 0.9 mg/dL (0.7-1.3); GLUCOSE,RANDOM 145 mg/dL (74-106); SGPT/ALT 74 U/L (12-78); TOT PROT 8.6 g/dl (6.4-8.2)
--- NOTE | 2016-11-09 11:11 | EKG ---
Test Reason : Blood Pressure : / mmHG Vent. Rate : 069 BPM Atrial Rate : 069 BPM P-R Int : 174 ms QRS Dur : 102 ms QT Int : 406 ms P-R-T Axes : 037 012 203 degrees QTc Int : 435 ms NORMAL SINUS RHYTHM LOW VOLTAGE QRS NONSPECIFIC T WAVE ABNORMALITY ABNORMAL ECG WHEN COMPARED WITH ECG OF 05-OCT-2016 13:14, NO SIGNIFICANT CHANGE WAS FOUND Confirmed by JOSEPH PETERSEN, NURY ([id number]) on 11/09/2016 11:11:35 AM Referred By: Confirmed By:NURY RUIZ MD
[2016-11-09 11:35] LABS: SGOT/AST 177 U/L (15-37)
[2016-11-09] MEDS: MAG HYDROX/AL HYDROX/SIMETH 30 ML UNIT-DOSE CUP PO PRN (16:45)
[2016-11-09] MEDS: diphenhydrAMINE HCL 50 MG CAPSULE PO PRN (22:17)
[2016-11-09] MEDS: THIAMINE HCL 100 MG TABLET (FP) PO SCH (22:17)
[2016-11-10] MEDS: chlordiazePOXIDE HCL 25 MG CAPSULE PO SCH ×2 (05:44→10:11)
[2016-11-10] MEDS: FUROSEMIDE 20 MG TABLET (FP) PO SCH (10:10)
[2016-11-10] MEDS: DABIGATRAN ETEXILATE MESYLATE 150 MG CAPSULE PO SCH ×2 (10:11→22:16)
[2016-11-10] MEDS: SPIRONOLACTONE 25 MG TABLET (FP) PO SCH (10:11)
[2016-11-10] MEDS: LISINOPRIL 5 MG TABLET (FP) PO SCH (10:11)
[2016-11-10] MEDS: PRENATAL VITAMINS W/ FOLIC ACID TABLET (FP) PO SCH (10:11)
[2016-11-10] MEDS: METOPROLOL TARTRATE 50 MG TABLET (FP) PO SCH ×2 (10:12→22:16)
[2016-11-10] MEDS: DIGOXIN 0.125 MG TABLET (FP) PO SCH (10:12)
--- NOTE | 2016-11-10 12:23 | PN ---
[facility] CIWA - CIWA Score Nausea/Vomitin-Mild Nausea/No Vomiting Muscle Tremors: 4-Moderate,w/Arms Extend Anxiety: 4-Mod. Anxious/Guarded Agitation: 3 Paroxysmal Sweats: 2 Orientation: 0-Oriented Tacttile Disturbances: 2-Mild Itch/Numbness/Burn Auditory Disturbances: 0-None Visual Disturbances: 2-Mild Sensitivity Headache: 0-None Present CIWA-Ar Total Score: 18 [facility] 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 (SOAP) Subjective: Anxious, Tremors. Objective: PT. A & O X 3, OBSERVED AMBULATING ON UNIT. NO ACUTE DISTRESS. PT. DENIES CHEST PAIN. 11/10/16 12:21 Vital Signs Temperature 97 F L 11/10/16 09:14 Pulse Rate 140 H 11/10/16 10:12 Respiratory Rate 20 11/10/16 09:14 Blood Pressure 123/92 11/10/16 09:14 O2 Sat by Pulse Oximetry (%) Laboratory Tests 11/08/16 11/09/16 11/09/16 18:00 06:00 06:00 WBC 3.9 L D RBC 5.02 Hgb 15.7 Hct 45.8 MCV 91.2 MCH 31.3 MCHC 34.4 RDW 16.5 H D Plt Count 120 L D MPV 9.4 Sodium 131 L Potassium 3.8 Chloride 93 L Carbon Dioxide 23 Anion Gap 15 BUN 7 D Creatinine 0.9 Creat Clearance w eGFR > 60 Random Glucose 145 H D Calcium 8.9 Total Bilirubin 0.9 D AST 177 H D ALT 74 D Alkaline Phosphatase 76 Total Protein 8.6 H Albumin 4.0 Urine Color Yellow Urine Appearance Clear Urine pH 5.0 Ur Specific [place] 1.010 Urine Protein 1+ H Urine Glucose (UA) Negative Urine Ketones Negative Urine Blood Negative Urine Nitrite Negative Urine Bilirubin Negative Urine Urobilinogen 2.0 Ur Leukocyte Esterase Negative Urine RBC <1 Urine WBC <1 Hyaline Casts 35 Granular Casts 27 Urine Mucus Rare RPR Titer 11/09/16 06:00 WBC RBC Hgb Hct MCV MCH MCHC RDW Plt Count MPV Sodium Potassium Chloride Carbon Dioxide Anion Gap BUN Creatinine Creat Clearance w eGFR Random Glucose Calcium Total Bilirubin AST ALT Alkaline Phosphatase Total Protein Albumin Urine Color Urine Appearance Urine pH Ur Specific [place] Urine Protein Urine Glucose (UA) Urine Ketones Urine Blood Urine Nitrite Urine Bilirubin Urine Urobilinogen Ur Leukocyte Esterase Urine RBC Urine WBC Hyaline Casts Granular Casts Urine Mucus RPR Titer Nonreactive LABS NOTED. Assessment: 11/10/16 12:21 WITHDRAWAL SYMPTOMS. Plan: CONTINUE DETOX. BGM ACBK X 1 TOMORROW AM FOR ELEVATED ADMISSION RANDOM GLUCOSE LEVEL.
[2016-11-10] MEDS: MAG HYDROX/AL HYDROX/SIMETH 30 ML UNIT-DOSE CUP PO PRN (15:27)
[2016-11-10] MEDS: chlordiazePOXIDE 5 MG CAPSULE PO SCH ×2 (17:22→22:16)
[2016-11-10] MEDS: THIAMINE HCL 100 MG TABLET (FP) PO SCH (22:16)
[2016-11-10] MEDS: diphenhydrAMINE HCL 50 MG CAPSULE PO PRN (22:16)
[2016-11-11] MEDS: chlordiazePOXIDE 5 MG CAPSULE PO SCH ×2 (05:39→10:16)
[2016-11-11] MEDS: FUROSEMIDE 20 MG TABLET (FP) PO SCH (10:16)
[2016-11-11] MEDS: DIGOXIN 0.125 MG TABLET (FP) PO SCH (10:16)
[2016-11-11] MEDS: DABIGATRAN ETEXILATE MESYLATE 150 MG CAPSULE PO SCH ×2 (10:16→22:15)
[2016-11-11] MEDS: PRENATAL VITAMINS W/ FOLIC ACID TABLET (FP) PO SCH (10:16)
[2016-11-11] MEDS: LISINOPRIL 5 MG TABLET (FP) PO SCH (10:17)
[2016-11-11] MEDS: METOPROLOL TARTRATE 50 MG TABLET (FP) PO SCH ×2 (10:17→22:15)
[2016-11-11] MEDS: SPIRONOLACTONE 25 MG TABLET (FP) PO SCH (10:17)
--- NOTE | 2016-11-11 12:56 | PN ---
[facility] 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 (SOAP) Subjective: Tremors only detox symptom reported by patient today. Objective: PT. A & O X 2 (DISORIENTED ABOUT DAY / DATE). PT. OBSERVED AMBULATING ON UNIT. NO ACUTE DISTRESS. 11/11/16 12:55 Vital Signs Temperature 98.2 F 11/11/16 09:13 Pulse Rate 103 H 11/11/16 10:16 Respiratory Rate 18 11/11/16 09:13 Blood Pressure 123/77 11/11/16 09:13 O2 Sat by Pulse Oximetry (%) Laboratory Tests 11/08/16 11/09/16 11/09/16 18:00 06:00 06:00 WBC 3.9 L D RBC 5.02 Hgb 15.7 Hct 45.8 MCV 91.2 MCH 31.3 MCHC 34.4 RDW 16.5 H D Plt Count 120 L D MPV 9.4 Sodium 131 L Potassium 3.8 Chloride 93 L Carbon Dioxide 23 Anion Gap 15 BUN 7 D Creatinine 0.9 Creat Clearance w eGFR > 60 POC Glucometer Random Glucose 145 H D Calcium 8.9 Total Bilirubin 0.9 D AST 177 H D ALT 74 D Alkaline Phosphatase 76 Total Protein 8.6 H Albumin 4.0 Urine Color Yellow Urine Appearance Clear Urine pH 5.0 Ur Specific [place] 1.010 Urine Protein 1+ H Urine Glucose (UA) Negative Urine Ketones Negative Urine Blood Negative Urine Nitrite Negative Urine Bilirubin Negative Urine Urobilinogen 2.0 Ur Leukocyte Esterase Negative Urine RBC <1 Urine WBC <1 Hyaline Casts 35 Granular Casts 27 Urine Mucus Rare RPR Titer 11/09/16 11/11/16 06:00 05:38 WBC RBC Hgb Hct MCV MCH MCHC RDW Plt Count MPV Sodium Potassium Chloride Carbon Dioxide Anion Gap BUN Creatinine Creat Clearance w eGFR POC Glucometer 102 Random Glucose Calcium Total Bilirubin AST ALT Alkaline Phosphatase Total Protein Albumin Urine Color Urine Appearance Urine pH Ur Specific [place] Urine Protein Urine Glucose (UA) Urine Ketones Urine Blood Urine Nitrite Urine Bilirubin Urine Urobilinogen Ur Leukocyte Esterase Urine RBC Urine WBC Hyaline Casts Granular Casts Urine Mucus RPR Titer Nonreactive LABS NOTED. Assessment: 11/11/16 12:55 WITHDRAWAL SYMPTOMS. Plan: CONTINUE DETOX.
[2016-11-11] MEDS: chlordiazePOXIDE HCL 10 MG CAPSULE PO SCH ×2 (17:24→22:15)
[2016-11-11] MEDS: THIAMINE HCL 100 MG TABLET (FP) PO SCH (22:15)
[2016-11-11] MEDS: diphenhydrAMINE HCL 50 MG CAPSULE PO PRN (22:15)
[2016-11-12] MEDS: chlordiazePOXIDE HCL 10 MG CAPSULE PO SCH (05:09)
[2016-11-12 06:21] VITALS: BP 119/79; PULSE 61; TEMP 97.2
--- NOTE | 2016-11-12 22:00 | DS ---
[facility] Detox Discharge Summary Admission Date: 11/08/16 Discharge Date: 11/12/16 - History Present History: Alcohol Dependence Additional Comments: PATIENT ELECTING TO GO HOME. 12-STEP/AA PROGRAMS RECOMMENDED FOR FOLLOW-UP AFTERCARE. NOTE: PATIENT INADVERTENTLY WALKED OF UNIT AND OUT OF BUILDING WITHOUT STAFF ESCORT AND PRIOR TO COMPLETE OF DISCHARGE PROCESS AND DISCHARGE PAPERWORK. Pertinent Past History: HTN, A-Fib, History of Seizures (ETOH-Related). - Physical Exam Results Vital Signs: Vital Signs Temperature 97.2 F L 11/12/16 06:20 Pulse Rate 61 11/12/16 06:20 Respiratory Rate 18 11/12/16 06:20 Blood Pressure 119/79 11/12/16 06:20 O2 Sat by Pulse Oximetry (%) Pertinent Admission Physical Exam Findings: WITHDRAWAL SYMPTOMS. Laboratory Tests 11/08/16 11/09/16 11/09/16 18:00 06:00 06:00 WBC 3.9 L D RBC 5.02 Hgb 15.7 Hct 45.8 MCV 91.2 MCH 31.3 MCHC 34.4 RDW 16.5 H D Plt Count 120 L D MPV 9.4 Sodium 131 L Potassium 3.8 Chloride 93 L Carbon Dioxide 23 Anion Gap 15 BUN 7 D Creatinine 0.9 Creat Clearance w eGFR > 60 POC Glucometer Random Glucose 145 H D Calcium 8.9 Total Bilirubin 0.9 D AST 177 H D ALT 74 D Alkaline Phosphatase 76 Total Protein 8.6 H Albumin 4.0 Urine Color Yellow Urine Appearance Clear Urine pH 5.0 Ur Specific [place] 1.010 Urine Protein 1+ H Urine Glucose (UA) Negative Urine Ketones Negative Urine Blood Negative Urine Nitrite Negative Urine Bilirubin Negative Urine Urobilinogen 2.0 Ur Leukocyte Esterase Negative Urine RBC <1 Urine WBC <1 Hyaline Casts 35 Granular Casts 27 Urine Mucus Rare RPR Titer 11/09/16 11/11/16 11/12/16 06:00 05:38 05:10 WBC RBC Hgb Hct MCV MCH MCHC RDW Plt Count MPV Sodium Potassium Chloride Carbon Dioxide Anion Gap BUN Creatinine Creat Clearance w eGFR POC Glucometer 102 91 Random Glucose Calcium Total Bilirubin AST ALT Alkaline Phosphatase Total Protein Albumin Urine Color Urine Appearance Urine pH Ur Specific [place] Urine Protein Urine Glucose (UA) Urine Ketones Urine Blood Urine Nitrite Urine Bilirubin Urine Urobilinogen Ur Leukocyte Esterase Urine RBC Urine WBC Hyaline Casts Granular Casts Urine Mucus RPR Titer Nonreactive LABS NOTED. - Treatment Hospital Course: Detox Protocol Followed, Detoxed Safely, Responded well, Discharged Condition Good Patient has Accepted a Rehab Referral to: PT. GOING HOME. 12-STEP/AA OUTPATIENT PROGRAMS RECOMMENDED FOR AFTERCARE. - Medication Discharge Medications: Ambulatory Orders Dabigatran Etexilate Mesylate [Pradaxa -] 150 mg PO BID #60 cap 09/28/15 Digoxin 125 mcg PO DAILY 10/05/16 Furosemide [Lasix -] 20 mg PO DAILY 10/05/16 Lisinopril [Zestril] 2.5 mg PO DAILY 10/05/16 Metoprolol Tartrate 100 mg PO HS 10/05/16 Metoprolol Tartrate [Lopressor] 200 mg PO DAILY 10/05/16 Spironolactone 25 mg PO DAILY 10/05/16 - Diagnosis (1) Alcohol dependence with uncomplicated withdrawal Status: Acute (2) Atrial fibrillation Status: Chronic Qualifiers: Atrial fibrillation type: unspecified Qualified Code(s): I48.91 - Unspecified atrial fibrillation (3) HTN (hypertension) with goal to be determined Status: Chronic (4) Seizure disorder Status: Suspected - AMA Did Patient Leave Against Medical Advice: No
== END 2016-11-12 08:55 | disposition home or self-care (01) | DRG 897 ==
LOC: YASAS 11:25 → Y3N 14:03
PROVIDERS: ADMIT Internal Medicine Addiction Medicine; ATTEND Internal Medicine Addiction Medicine
PROC: HZ2ZZZZ Detoxification Services for Substance Abuse Treatment (ICD-10-PCS; principal; 2016-11-12)
DX: F10.230 Alcohol dependence with withdrawal, uncomplicated (principal); I10 Essential (primary) hypertension; I48.91 Unspecified atrial fibrillation
CPT/HCPCS: 36415; 80053; 81003; 81015; 85027; 86593; 93005; 93010

== ENCOUNTER 2018-01-15 06:06 | Emergency (ER) | payer BC, OTHER ==
[2018-01-15 06:14] VITALS: BMI 25.1
--- NOTE | 2018-01-15 07:06 | PDOC ---
History of Present Illness - General Chief Complaint: Lightheaded Stated Complaint: DIZZINESS Time Seen by Provider: 01/15/18 06:19 History Source: Patient - History of Present Illness Initial Comments: 01/15/18 07:25 The patient is a 52 year old male with a PMH of AFib (on Eliquis), HTN, ETOH abuse who presents to our ED this morning c/o acute onset of lightheadedness, vertigo and weakness. Patient states he felt weak when he woke up this morning and intermittently thinks the room is spinning. No identifiable triggering or relieving factors. Denies any associated chest pain, shortness of breath, nausea/vomiting, visual changes. No prior noted h/o similar symptoms. Notes he drinks 5-6 bottles of Budweiser beer daily and his last drink was yesterday evening prior to sleeping around 11 p.m. Patient denies chest pain, shortness of breath, abdominal pain, nausea/vomiting , diarrhea/constipation, dysuria/hematuria, recent travel or sick contacts. As per EMR, patient last evaluated in our ED 01/2016 for acute alcohol intoxication at which time he was discharged to [facility]. Patient states he has no desire to seek alcohol treatment services at this time. NKDA Surgical: denies PMD: Dr. 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 Wright Past History - Past Medical History Allergies/Adverse Reactions: Allergies Allergy/AdvReac Type Severity Reaction Status Date / Time No Known Allergies Allergy Verified 01/15/18 06:13 Home Medications: Ambulatory Orders Digoxin 125 mcg PO DAILY 10/05/16 Furosemide [Lasix -] 20 mg PO DAILY 10/05/16 Lisinopril [Zestril] 2.5 mg PO DAILY 10/05/16 Metoprolol Tartrate [Lopressor] 200 mg PO DAILY 10/05/16 Spironolactone 25 mg PO DAILY 10/05/16 Apixaban [Eliquis] 5 mg PO DAILY 01/15/18 Anemia: No Asthma: No Cancer: No Cardiac Disorders: Yes (HX OF AFIB) CVA: No COPD: No CHF: No Dementia: No Diabetes: No GI Disorders: No Disorders: No HTN: Yes Hypercholesterolemia: No Kidney Stones: No Liver Disease: No Seizures: Yes (ETOH RELATED LAST 1 YR AGO) Thyroid Disease: No - Surgical History Abdominal Surgery: No Appendectomy: No Cardiac Surgery: No Cholecystectomy: No Lung Surgery: No Neurologic Surgery: No Orthopedic Surgery: No - Reproductive History Testicular Surgery: No - Suicide/Smoking/Psychosocial Hx Smoking History: Never smoked Have you smoked in the past 12 months: No Information on smoking cessation initiated: No Hx Alcohol Use: Yes Drug/Substance Use Hx: No Substance Use Type: None Hx Substance Use Treatment: Yes ([facility]hab 10/05/16 to 10/09/16) Review of Systems - Review of Systems Constitutional: No: Chills, Fever HEENTM: No: Blurred Vision, Double Vision, Hearing Loss Respiratory: No: Cough, Shortness of Breath Cardiac (ROS): Yes: Lightheadedness. No: Chest Pain, Palpitations, Syncope ABD/GI: No: Constipated, Diarrhea : No: Burning, Dysuria *Physical Exam - Vital Signs Last Vital Signs Temp Pulse Resp BP Pulse Ox 98.6 F 68 17 119/89 98 01/15/18 06:13 01/15/18 06:50 01/15/18 06:50 01/15/18 06:50 01/15/18 06:50 - Physical Exam General Appearance: Yes: Nourished, Alcohol on Breath Neck: positive: Trachea midline, Supple Respiratory/Chest: positive: Lungs Clear, Normal Breath Sounds. 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 negative: Confused, Disoriented ED Treatment Course - LABORATORY CBC & Chemistry Diagram: 01/15/18 08:00 01/15/18 08:00 Medical Decision Making - Medical Decision Making 01/15/18 07:30 52 year old male with a PMH of alcohol abuse and AFib (on Eliquis), HTN, ETOH abuse presents to our ED c/o acute onset of lightheadedness, vertigo and weakness. VS unremarkable Neurologically intact, normal cerebellar testing, alcohol on breath. Frontal diagnosis: r/o CVA/TIA, r/o ACS, sequelae of acute alcohol intoxication. Will obtain ECG, CT head, Troponin, basic labs. Reassess. 01/15/18 08:12 ECG shows NSR, HR 73, TWI in II, III, aVF, no MISTY/STD, poor R wave progression V1-V6 - non ischemic ECG; c/w ECG dated 11/08/16 Troponin (-) x1, CBC, CMP unremarkable. Patient c/o tremors - will give OTD of Librium. Denies any h/o DTs. 01/15/18 10:42 Patient ambulatory around unit w/o any vertiginous symptoms. Case d/w patient's PMD. Dr. Stacy Hawthorne. Agrees w/ D/C home and outpatient follow-up. Patient discharged home with return precautions. I discussed the physical exam findings, ancillary test results and final diagnoses with the patient. I answered all of the patient's questions. The patient was satisfied with the care received and felt comfortable with the discharge and treatment plan. The patient will return to the ED with any new, persistent or worsening symptoms. *DC/Admit/Observation/Transfer Diagnosis at time of Disposition: Weakness, Vertigo - Discharge Dispostion Disposition: HOME Condition at time of disposition: Good Decision to Admit order: No - Referrals Referrals: Stacy Hawthorne MD [Primary Care Provider] - - Patient Instructions Additional Instructions: Please make an appointment for follow-up with your primary care doctor, Dr. Stacy Hawthorne, within the next 2-3 days. Return to the Emergency Department for any new/worsening/concerning symptoms. - Post Discharge Activity
[2018-01-15] MEDS ORDERED: SODIUM CHLORIDE 0.9% 500 ML INFUS.BAG IV ONE (07:25)
[2018-01-15 08:04] LABS: BASO % 1.3 % (0-2.0); EOS % 0.7 % (0-4.5); HEMATOCRIT 43.8 % (35.4-49); HEMOGLOBIN 15.2 GM/dL (11.7-16.9); LYMPH % 13.3 % (8-40); MCH 34.5 pg (25.7-33.7); MCHC 34.6 g/dl (32.0-35.9); MEAN CELL VOLUME 99.8 fl (80-96); MEAN PLT VOLUME 9.2 fl (7.5-11.1); MONO % 16.8 % (3.8-10.2); NEUT % 67.9 % (42.8-82.8); PLATELET COUNT 202 K/MM3 (134-434); RBC 4.39 M/mm3 (4.00-5.60); RDW 12.8 % (11.9-15.9)
[2018-01-15 09:26] LABS: ALBUMIN 2.6 g/dl (3.4-5.0); ALK PHOS 52 U/L (45-117); ANION GAP 10 MMOL/L (8-16); BILIRUBIN,TOTAL 0.9 mg/dL (0.2-1); BLOOD UREA NITROGEN 5 mg/dL (7-18); CALCIUM 7.8 mg/dL (8.5-10.1); CHLORIDE 103 mmol/L (98-107); CO2 26 mmol/L (21-32); CREATININE 0.7 mg/dL (0.55-1.3); GLUCOSE,RANDOM 112 mg/dL (74-106); POTASSIUM 3.8 mmol/L (3.5-5.1); SGOT/AST 216 U/L (15-37); SGPT/ALT 48 U/L (13-61); SODIUM 139 mmol/L (136-145); TOT PROT 7.4 g/dl (6.4-8.2)
[2018-01-15] MEDS ORDERED: chlordiazePOXIDE HCL 25 MG CAPSULE PO ONE (10:20)
[2018-01-15] MEDS ORDERED: chlordiazePOXIDE HCL 25 MG CAPSULE ONE (10:22)
--- NOTE | 2018-01-15 10:54 | PDOC ---
Attending Attestation - Resident Resident Name: Veronica Ibarra - ED Attending Attestation I have performed the following: I have examined & evaluated the patient, The case was reviewed & discussed with the resident, I agree w/resident's findings & plan, Exceptions are as noted - HPI HPI: 01/15/18 10:30 Mr Beckford is a 52 yo M who presents to the ER with a complaint of lightheadedness and vertigo He was en route to work when he noted vertigo and a frontal headache No chest pain no shortness of breath No fevers or chills Upon my assessment, pt states that he actually feels better - Physicial Exam PE: 01/15/18 10:54 GENERAL: The patient is in no acute distress. HEAD: Normal with no signs of trauma. EYES: PERRLA, EOMI, sclera anicteric, conjunctiva clear. ENT: Dry mucous membranes, tongue fasciculations NECK: Normal range of motion, supple LUNGS: Breath sounds equal, clear to auscultation bilaterally. No wheezes, and no crackles. HEART:Regular rate and rhythm, normal S1 and S2 without murmur, rub or gallop. ABDOMEN: Soft, nontender, normoactive bowel sounds. No guarding, no rebound. No masses palpable. EXTREMITIES: Normal range of motion, no edema. (+) faint tremor NEUROLOGICAL: Cranial nerves II through XII grossly intact. Normal speech. No focal neurological deficits. MUSCULOSKELETAL: Back non-tender to palpation, no CVA tenderness SKIN: stigmata of chronic alcohol abuse - Medical Decision Making 01/15/18 10:[address] head ordered prior to day team arrival 01/15/18 10:58 Laboratory Tests 01/15/18 01/15/18 08:00 08:00 WBC 6.0 Hgb 15.2 Hct 43.8 Plt Count 202 D Neutrophils % 67.9 Lymphocytes % 13.3 D BUN 5 L Creatinine 0.7 Creatine Kinase 172 Creatine Kinase Index 1.0 CK-MB (CK-2) 1.8 Troponin I < 0.02 01/15/18 10:59 CT head: no acute findings of SAH, Mass, CVA pt states he feels better Case reviewed with PMD Will plan to discharge to home Follow up with PMD Return to the Er for any other concerns or complaints
[2018-01-15] MEDS ORDERED: morphine SULFATE 4 MG/ML VIAL ONE (11:33)
--- NOTE | 2018-01-15 11:44 | EKG ---
Test Reason : Blood Pressure : / mmHG Vent. Rate : 073 BPM Atrial Rate : 073 BPM P-R Int : 176 ms QRS Dur : 106 ms QT Int : 414 ms P-R-T Axes : 026 006 -43 degrees QTc Int : 456 ms NORMAL SINUS RHYTHM CANNOT RULE OUT ANTERIOR INFARCT , AGE UNDETERMINED T WAVE ABNORMALITY, CONSIDER INFERIOR ISCHEMIA ABNORMAL ECG WHEN COMPARED WITH ECG OF 08-NOV-2016 14:11, NO SIGNIFICANT CHANGE WAS FOUND Confirmed by NARENDRA PETERSEN, RENY ([id number]) on 01/15/2018 11:44:26 AM Referred By: Confirmed By:RENY MACKEY MD
[2018-01-15 12:02] VITALS: BP 115/65; PULSE 81; TEMP 98
== END 2018-01-15 10:45 | disposition home or self-care (01) ==
LOC: JER 06:06
DX: R42 Dizziness and giddiness (principal); R53.1 Weakness; I48.91 Unspecified atrial fibrillation; Z79.01 Long term (current) use of anticoagulants; I10 Essential (primary) hypertension; F10.10 Alcohol abuse, uncomplicated
CPT/HCPCS: 36415; 70450-TC; 71045-TC-FY; 80053; 82550; 82553; 84484; 85025; 93005; 93010; 99285-25

== ENCOUNTER 2018-07-28 20:26 | Emergency (ER) | payer BC ==
[2018-07-28 20:33] VITALS: TEMP 98; BMI 25.1
--- NOTE | 2018-07-28 20:42 | PDOC ---
History of Present Illness - General Chief Complaint: Nasal Bleeding Stated Complaint: NOSE BLEED Time Seen by Provider: 07/28/18 20:36 History Source: Patient Exam Limitations: No Limitations - History of Present Illness Initial Comments: 07/28/18 20:37 53YOM with h/o of A-fib on Eliquis, HTN, ETOH abuse (with h/o alcoholic cardiomyopathy and prior withdrawal seizures) who p/w nosebleed. Past History - Past Medical History Allergies/Adverse Reactions: Allergies Allergy/AdvReac Type Severity Reaction Status Date / Time No Known Allergies Allergy Verified 07/28/18 20:33 Home Medications: Ambulatory Orders Furosemide [Lasix -] 20 mg PO DAILY 10/05/16 Lisinopril [Zestril] 2.5 mg PO DAILY 10/05/16 Spironolactone 25 mg PO DAILY 10/05/16 Apixaban [Eliquis] 5 mg PO DAILY 01/15/18 Folic Acid - 1 mg PO DAILY #30 tablet 01/31/18 Metoprolol Tartrate [Lopressor -] 100 mg PO BID #60 tablet 01/31/18 Multivitamins [Multivit ([facility] Formul[facility])] 1 tab PO DAILY #30 tab 01/31/18 Thiamine HCl [Vitamin B1 -] 100 mg PO DAILY #30 tablet 01/31/18 Anemia: No Asthma: No Cancer: No Cardiac Disorders: Yes (HX OF AFIB) CVA: No COPD: No CHF: No Dementia: No Diabetes: No GI Disorders: No Disorders: No HTN: Yes Hypercholesterolemia: No Kidney Stones: No Liver Disease: No Seizures: Yes (ETOH RELATED LAST 1 YR AGO) Thyroid Disease: No - Surgical History Abdominal Surgery: No Appendectomy: No Cardiac Surgery: No Cholecystectomy: No Lung Surgery: No Neurologic Surgery: No Orthopedic Surgery: No - Reproductive History Testicular Surgery: No - Suicide/Smoking/Psychosocial Hx Smoking History: Never smoked Have you smoked in the past 12 months: No Information on smoking cessation initiated: No Hx Alcohol Use: Yes Drug/Substance Use Hx: No Substance Use Type: None Hx Substance Use Treatment: No *Physical Exam - Vital Signs Last Vital Signs Temp Pulse Resp BP Pulse Ox 98.0 F 125 H 16 144/103 H 100 07/28/18 20:30 07/28/18 20:30 07/28/18 20:30 07/28/18 20:30 07/28/18 20:30 *DC/Admit/Observation/Transfer - Referrals Referrals: Stacy Hawthorne MD [Primary Care Provider] - - Patient Instructions - Post Discharge Activity
[2018-07-28] MEDS ORDERED: SODIUM CHLORIDE 1,000 ML IV STA (21:03)
[2018-07-28] MEDS ORDERED: LORazepam 2 MG/ML SDV VIAL ONE ×2 (21:14→22:21)
[2018-07-28 21:16] LABS: BASO % 0.3 % (0-2.0); EOS % 1.1 % (0-4.5); HEMATOCRIT 43.4 % (35.4-49); HEMOGLOBIN 14.9 GM/dL (11.7-16.9); LYMPH % 29.8 % (8-40); MCH 32.5 pg (25.7-33.7); MCHC 34.3 g/dl (32.0-35.9); MEAN CELL VOLUME 94.8 fl (80-96); MEAN PLT VOLUME 9.7 fl (7.5-11.1); MONO % 20.1 % (3.8-10.2); NEUT % 48.7 % (42.8-82.8); PLATELET COUNT 91 K/MM3 (134-434); RBC 4.57 M/mm3 (4.00-5.60); RDW 14.5 % (11.9-15.9)
[2018-07-28] MEDS ORDERED: OXYMETAZOLINE 0.05% NASAL SOLUTION 15 ML BOTTLE NS ONE (21:17)
[2018-07-28 21:27] LABS: INR 1.17 (0.83-1.09); PROTHROMBIN TIME (PATIENT) 13.8 SEC (9.7-13.0)
--- NOTE | 2018-07-28 21:32 | PDOC ---
History of Present Illness - General Chief Complaint: Nasal Bleeding Stated Complaint: NOSE BLEED Time Seen by Provider: 07/28/18 20:36 History Source: Patient Exam Limitations: No Limitations - History of Present Illness Initial Comments: 07/28/18 21:30 Patient is a 53M with history of etoh abuse with withdrawal admissions and prior seizure, afib (on eliquis), and likely CHF (Patient reports a problem with his heart, on CHF medications) here today complaining of a nose bleed. Bleed started atraumatically from the right nare at about 8pm. Endorses nausea, and some dizziness. Patient reports that he drank 3 beers today, last one at 8pm , which is less than his usual intake. Past History - Past Medical History Allergies/Adverse Reactions: Allergies Allergy/AdvReac Type Severity Reaction Status Date / Time No Known Allergies Allergy Verified 07/28/18 20:33 Home Medications: Ambulatory Orders Furosemide [Lasix -] 20 mg PO DAILY 10/05/16 Lisinopril [Zestril] 2.5 mg PO DAILY 10/05/16 Spironolactone 25 mg PO DAILY 10/05/16 Apixaban [Eliquis] 5 mg PO DAILY 01/15/18 Folic Acid - 1 mg PO DAILY #30 tablet 01/31/18 Metoprolol Tartrate [Lopressor -] 100 mg PO BID #60 tablet 01/31/18 Multivitamins [Multivit ([facility] Formul[facility])] 1 tab PO DAILY #30 tab 01/31/18 Thiamine HCl [Vitamin B1 -] 100 mg PO DAILY #30 tablet 01/31/18 Anemia: No Asthma: No Cancer: No Cardiac Disorders: Yes (HX OF AFIB) CVA: No COPD: No CHF: No Dementia: No Diabetes: No GI Disorders: No Disorders: No HTN: Yes Hypercholesterolemia: No Kidney Stones: No Liver Disease: No Seizures: Yes (ETOH RELATED LAST 1 YR AGO) Thyroid Disease: No - Surgical History Abdominal Surgery: No Appendectomy: No Cardiac Surgery: No Cholecystectomy: No Lung Surgery: No Neurologic Surgery: No Orthopedic Surgery: No - Reproductive History Testicular Surgery: No - Suicide/Smoking/Psychosocial Hx Smoking History: Never smoked Have you smoked in the past 12 months: No Information on smoking cessation initiated: No Hx Alcohol Use: Yes Drug/Substance Use Hx: No Substance Use Type: None Hx Substance Use Treatment: No Review of Systems - Review of Systems Able to Perform ROS?: Yes Comments:: 07/28/18 21:36 GENERAL/CONSTITUTIONAL: No fever or chills. No weakness. HEAD, EYES, EARS, NOSE AND THROAT: No change in vision. No ear pain or discharge. No sore throat. +nosebleed CARDIOVASCULAR: No chest pain or shortness of breath RESPIRATORY: No cough, wheezing, or hemoptysis. GASTROINTESTINAL: +nausea, no vomiting, diarrhea or constipation. GENITOURINARY: No dysuria, frequency, or change in urination. MUSCULOSKELETAL: No joint or muscle swelling or pain. No neck or back pain. SKIN: No rash NEUROLOGIC: No headache, vertigo, loss of consciousness, or change in strength/ sensation. ENDOCRINE: No increased thirst. No abnormal weight change HEMATOLOGIC/LYMPHATIC: No anemia, or history of blood clots. ALLERGIC/IMMUNOLOGIC: No hives or skin allergy. *Physical Exam - Vital Signs Last Vital Signs Temp Pulse Resp BP Pulse Ox 98.0 F 125 H 16 144/103 H 100 07/28/18 20:30 07/28/18 20:30 07/28/18 20:30 07/28/18 20:30 07/28/18 20:30 - Physical Exam Comments: 07/28/18 21:37 GENERAL: Awake, alert, and fully oriented, HEAD: No signs of trauma, normocephalic, atraumatic EYES: PERRLA, EOMI, sclera anicteric, conjunctiva clear ENT: +r lateral anterior bleed, mouth with small amount of blood NECK: Normal ROM, supple, no lymphadenopathy, JVD, or masses LUNGS: No distress, speaks full sentences, clear to auscultation bilaterally HEART: Regular rate and rhythm, normal S1 and S2, no murmurs, rubs or gallops, peripheral pulses normal and equal bilaterally. ABDOMEN: Soft, nontender, normoactive bowel sounds. No guarding, no rebound. No masses EXTREMITIES: Normal inspection, Normal range of motion, no edema. No clubbing or cyanosis. NEUROLOGICAL: Cranial nerves II through XII grossly intact. Normal speech, no focal sensorimotor deficits, tremulous SKIN: Warm, Dry, normal turgor, no rashes or lesions noted ED Treatment Course - LABORATORY CBC & Chemistry Diagram: 07/28/18 21:10 07/28/18 21:10 - Medications Given in the ED: ED Medications Discontinued Medications Generic Name Dose Route Start Last Admin Trade Name Shilo PRN Reason Stop Dose Admin Lorazepam 2 mg 07/28/18 21:03 07/28/18 21:20 Ativan Injection - IVPUSH 07/28/18 21:04 2 mg ONCE ONE Administration Medical Decision Making - Medical Decision Making 07/28/18 21:38 Patient is 53M with history of etoh abuse with history of withdrawal and seizure , afib on eliquis here today complaining of nosebleed. Vitals notable for tachycardia, bp stable. Small amount of bleeding on exam, given withdrawal symptoms (CIWA 9), suspect etoh withdrawal causing tachycardia. DDx includes, but is not limited to: withdrawal, afib with rvr, hypovolemia. HR improved to 100-110 with 2 ativan. Will workup with cbc, cmp, pt/inr, ekg. Will treat with fluids in addition to ativan. 07/28/18 22:39 CBC normal EKG shows sinus tachycardia with rate of 105. No st elevations/depressions. Normal axis. Normal intervals. No significant t wave abnormalitise CMP reassuring. Bleeding continues to stop. [facility] contacted, bed available, [facility]. *DC/Admit/Observation/Transfer Diagnosis at time of Disposition: Bleeding nose, Alcohol dependence with uncomplicated withdrawal - Discharge Dispostion Disposition: HOME Condition at time of disposition: Good Decision to Admit order: No - Referrals Referrals: Stacy Hawthorne MD [Primary Care Provider] - - Patient Instructions Printed Discharge Instructions: DI for Nosebleed, DI for Drug or Alcohol Withdrawal Additional Instructions: You were seen today in the ED for a nosebleed. Please return if you have any new, worsening or concerning symptoms, especially increased bleeding and shortness of breath. Please go to [facility] to detox. You will likely not be able to stop drinking on your own. Please return if you start shaking, having hallucinations or have palpitations. - Post Discharge Activity
[2018-07-28 21:50] LABS: ALBUMIN 3.8 g/dl (3.4-5.0); ALK PHOS 78 U/L (45-117); ANION GAP 10 MMOL/L (8-16); BILIRUBIN,TOTAL 0.8 mg/dL (0.2-1); BLOOD UREA NITROGEN 6 mg/dL (7-18); CALCIUM 8.6 mg/dL (8.5-10.1); CHLORIDE 101 mmol/L (98-107); CO2 24 mmol/L (21-32); CREATININE 0.7 mg/dL (0.55-1.3); GLUCOSE,RANDOM 135 mg/dL (74-106); SGOT/AST 140 U/L (15-37); SGPT/ALT 59 U/L (13-61); SODIUM 135 mmol/L (136-145); TOT PROT 8.9 g/dl (6.4-8.2)
--- NOTE | 2018-07-28 22:03 | PDOC ---
Attending Attestation - HPI HPI: 07/28/18 22:04 The patient is a 53-year-old male with a past medical history significant for alcohol abuse, Afib (on Eliquis), and heart failure presents to the emergency department with epistasis. The patient reports about an hour prior to arrival the patient had an atraumatic start of right nare nose bleed. The patient reports associated symptom vomiting indicates he had an episode of dizziness while vomiting. The patient reports his last drink was today, which was 3 cans of beer. Allergies: NKDA PCP: Dr. Jen Hawthorne. [employer] Laborer: Dr. Whitaker - Physicial Exam PE: 07/28/18 22:05 Vitals: Triage Vital signs reviewed General Appearance: no acute distress, well nourished well developed, Head: Atraumatic, normocephalic Nose: +Dry epistasis to the right nare. Cardiac: +tachycardia, irregular irregular, no murmurs, no rubs, no gallops, Lungs: Clear to auscultation bilateral, good air movement bilaterally, Skin: Warm and dry, no rashes or lesions, no petechiae - Medical Decision Making 07/28/18 22:05 Plan Labs: CBC, CMP, Magnesium, PT/INR EKG: [facility] transfer: Case discussed with MEDICAL SECRETARY TEACHER Diof, male bed is available. Patient can go to the [facility] for admission. 07/28/18 22:05 Documentation prepared by Silvia Song, acting as medical illustrator for Sam Lucia MD. <Silvia Song - Last Filed: 07/28/18 22:29> - Resident Resident Name: Brooks Qiu - ED Attending Attestation I have performed the following: I have examined & evaluated the patient, The case was reviewed & discussed with the resident, I agree w/resident's findings & plan, Exceptions are as noted - Medical Decision Making 53 years old with alcohol withdrawal and epistaxis Epistaxis resolved no indication for packing here in the emergency department Labs within normal limits Status post Ativan patient's withdrawal symptoms are better controlled CIWA Scale 9. Patient amenable to detox. Confirmed with [facility] there is a bed available Patient to be transported to [facility] by they are expecting him Findings, need follow-up and strict return instructions discussed with patient. <Sam Lucia - Last Filed: 07/29/18 01:19>
[2018-07-28 22:12] VITALS: BP 121/84; PULSE 105
[2018-07-28 22:19] LABS: PLATELET ESTIMATE DECREASED
--- NOTE | 2018-07-29 18:06 | EKG ---
Test Reason : Blood Pressure : / mmHG Vent. Rate : 104 BPM Atrial Rate : 104 BPM P-R Int : 170 ms QRS Dur : 094 ms QT Int : 340 ms P-R-T Axes : 015 001 029 degrees QTc Int : 447 ms SINUS TACHYCARDIA POSSIBLE ANTERIOR INFARCT (CITED ON OR BEFORE 15-JAN-2018) ABNORMAL ECG WHEN COMPARED WITH ECG OF 31-JAN-2018 11:15, VENT. RATE HAS INCREASED BY 34 BPM QUESTIONABLE CHANGE IN INITIAL FORCES OF ANTERIOR LEADS Confirmed by JEROMY MANJARREZ MD ([id number]) on 07/29/2018 6:05:55 PM Referred By: Confirmed By:JEROMY MANJARREZ MD
== END 2018-07-28 23:35 | disposition home or self-care (01) ==
LOC: JER 20:26
PROC: 3E0337Z Introduction of Electrolytic and Water Balance Substance into Peripheral Vein, Percutaneous Approach (ICD-10-PCS; principal; 2018-07-28)
PROC: 3E033NZ Introduction of Analgesics, Hypnotics, Sedatives into Peripheral Vein, Percutaneous Approach (ICD-10-PCS; 2018-07-28)
PROC: 3E033NZ Introduction of Analgesics, Hypnotics, Sedatives into Peripheral Vein, Percutaneous Approach (ICD-10-PCS; 2018-07-28)
DX: R04.0 Epistaxis (principal); F10.230 Alcohol dependence with withdrawal, uncomplicated; I48.91 Unspecified atrial fibrillation; Z79.01 Long term (current) use of anticoagulants; I11.0 Hypertensive heart disease with heart failure; I50.9 Heart failure, unspecified; Z86.69 Personal history of other diseases of the nervous system and sense organs
CPT/HCPCS: 36415; 80053; 83735; 85025; 85610; 93005; 93010; 99282-25; J7030

== ENCOUNTER 2018-07-28 23:50 | Inpatient (IN) | payer BC ==
[2018-07-29 00:14] VITALS: BMI 24.7
--- NOTE | 2018-07-29 00:27 | HP ---
CIWA Score Nausea/Vomitin-No Nausea/No Vomiting Muscle Tremors: 4-Moderate,w/Arms Extend Anxiety: 4-Mod. Anxious/Guarded Agitation: 4-Moderately Restless Paroxysmal Sweats: 3 Orientation: 3-Disoriented Date>2 days Tacttile Disturbances: 0-None Auditory Disturbances: 0-None Visual Disturbances: 0-None Headache: 0-None Present CIWA-Ar Total Score: 18 - Admission Criteria OAS Guidelines: Admission for Medically Managed Detox: Requires at least one of the followin. CIWA greater than 12 2. Seizures within the past 24 hours 3. Delirium tremens within the past 24 hours 4. Hallucinations within the past 24 hours 5. Acute intervention needed for co occurring medical disorder 6. Acute intervention needed for co occurring psychiatric disorder 7. Severe withdrawal that cannot be handled at a lower level of care (continued vomiting, continued diarrhea, abnormal vital signs) requiring intravenous medication and/or fluids 8. Patient presents the following: CIWA greater than 12 Admission Criteria Met: Admission criteria met Admission ROS [facility] Chief Complaint: SEEKING DETOX FOR C/O WITHDRAWAL SX'S Allergies/Adverse Reactions: Allergies Allergy/AdvReac Type Severity Reaction Status Date / Time No Known Allergies Allergy Verified 07/29/18 00:16 History of Present Illness: 53 Y.O. MALE WITH ALCOHOLISM HERE FOR DETOX. CLIENT IS REFERRED BY [facility] AFTER PRESENTING THERE FOR EPISTAXIS. HE HAS SINCE BEEN TREATED AND REFERRED FOR DETOX DUE TO WITHDRAWAL SX'S. CLIENT PRESENT WITH CIWA 18. REPORT HX/O WITHDRAWAL SZ. REPORTS LONGEST CLEAN TIME 2 YEARS. MOST RECENT CLEANT TIME 4 MONTH RELAPSING 04/17/2018. DENIES SI/HI/AVH, LEGALS. DOMICILIED Exam Limitations: Intoxication - Ebola screening Have you traveled outside of the country in the last 21 days: No (N) Have you had contact with anyone from an Ebola affected area: No Do you have a fever: No - Review of Systems Constitutional: No Symptoms Reported EENT: reports: No Symptoms Reported Respiratory: reports: No Symptoms reported Cardiac: reports: No Symptoms Reported GI: reports: No Symptoms Reported : reports: No Symptoms Reported Musculoskeletal: reports: No Symptoms Reported Integumentary: reports: Flushing Neuro: reports: Seizure (HX/O R/T WITHDRAWAL), Tremors, Unsteady Gait (DUE TO INTOXICATION) Endocrine: reports: No Symptoms Reported Hematology: reports: Blood Clots, Easy Bleeding Psychiatric: reports: Anxious Other Systems: Reviewed and Negative Patient History - Patient Medical History Hx Anemia: No Hx Asthma: No Hx Chronic Obstructive Pulmonary Disease (COPD): No Hx Cancer: No Hx Cardiac Disorders: Yes (HX OF AFIB) Hx Congestive Heart Failure: No Hx Hypertension: No Hx Hypercholesterolemia: No Hx Pacemaker: No HX Cerebrovascular Accident: No Hx Seizures: Yes (2017) Hx Dementia: No Hx Diabetes: No Hx Gastrointestinal Disorders: No Hx Liver Disease: No Hx Genitourinary Disorders: No Hx Sexually Transmitted Disorders: No Hx Renal Disease (ESRD): No Hx Thyroid Disease: No Hx Human Immunodeficiency Virus (HIV): No Hx Hepatitis C: No Hx Depression: Yes Hx Suicide Attempt: No (denies) Hx Bipolar Disorder: No Hx Schizophrenia: No - Patient Surgical History Past Surgical History: No Hx Neurologic Surgery: No Hx Cataract Extraction: No Hx Cardiac Surgery: No Hx Lung Surgery: No Hx Breast Surgery: No Hx Breast Biopsy: No Hx Abdominal Surgery: No Hx Appendectomy: No Hx Cholecystectomy: No Hx Genitourinary Surgery: No Hx Section: No Hx Orthopedic Surgery: No Hx Hysterectomy: No Anesthesia Reaction: No - PPD History Previous Implant?: Yes Documented Results: Negative w/proof Implanted On Prior [facility] Admission?: Yes Date: 10/07/16 Results: 0MM PPD to be Administered?: Yes - Smoking Cessation Smoking history: Never smoked Have you smoked in the past 12 months: No Hx Chewing Tobacco Use: No Initiated information on smoking cessation: No - Substance & Tx. History Hx Alcohol Use: Yes Hx Substance Use: Yes Substance Use Type: Alcohol Hx Substance Use Treatment: Yes ([facility]) - Substances abused Alcohol Other (specify): BEER Substance route: Oral Frequency: Daily Amount used: 10 BOTTLES BEER Age of first use: 20 Date of last use: 07/29/18 Family Disease History - Family Disease History Family Disease History: Other: Father ( STROKE AGE 42), Mother (HEALTHY) Admission Physical Exam [facility] - Vital Signs Vital Signs: Vital Signs - 24 hr 07/29/18 00:11 Temperature 98.4 F Pulse Rate 108 H Respiratory 18 Rate Blood Pressure 134/92 - Physical General Appearance: Yes: Appropriately Dressed (BLOODY CLOTHES FROM EPISTAXIS), Mild Distress, Intoxicated, Tremorous, Anxious HEENTM: Yes: EOMI, Normocephalic, Normal Voice, ANIL, Pharynx Normal, Other ( DRY BLOOD ON RIGHT NOSTRIL) Respiratory: Yes: Chest Non-Tender, Lungs Clear, Normal Breath Sounds, No Respiratory Distress, No Accessory Muscle Use Neck: Yes: No masses,lesions,Nodules, Supple, Trachea in good position Breast: Yes: Breast Exam Deferred Cardiology: Yes: Regular Rhythm, Tachycardia Abdominal: Yes: Non Tender, Soft, Protuberent Genitourinary: Yes: Within Normal Limits Back: Yes: Normal Inspection Musculoskeletal: Yes: Other (UNSTEADY GAIT) Extremities: Yes: Normal Capillary Refill, Tremors Neurological: Yes: Alert, Motor Strength 5/5, Disoriented (DATE), Depressed Affect Integumentary: Yes: Warm (FLUSHED), Other (DRY MUCOUS MEMBRANES) Lymphatic: Yes: Within Normal Limits - Diagnostic (1) Epistaxis not due to trauma Current Visit: Yes Status: Acute (2) Alcohol withdrawal seizure Current Visit: Yes Status: Chronic Comment: HX/O (3) Dry mucous membranes Current Visit: Yes Status: Acute (4) At risk for dehydration due to poor fluid intake Current Visit: Yes Status: Acute (5) Intoxication Current Visit: Yes Status: Acute (6) Alcohol dependence with uncomplicated withdrawal Current Visit: Yes Status: Acute Comment: pt stated he is scheduled to attend rehab in [place]. Pt also stated he had been in AA in the past and is ammenible to attending meeting . (7) Atrial fibrillation Current Visit: Yes Status: Chronic Qualifiers: Atrial fibrillation type: unspecified Qualified Code(s): I48.91 - Unspecified atrial fibrillation Cleared for Admission [facility] - Detox or Rehab [facility] Level of Care: Medically Managed Detox Regimen/Protocol: Librium Claeared for Rehab Admission: No Breathalyzer - Breathalyzer Breathalyzer: 0.179 Urine Drug Screen - Test Device Lot number: [id number] Expiration date: 04/23/20 - Control Is test valid?: Yes - Results Drug screen NEGATIVE: Yes Inpatient Rehab Admission - Rehab Decision to Admit Inpatient rehab admission?: No
[2018-07-29] MEDS ORDERED: guaiFENesin 200 MG/10 ML 10 ML UNIT-DOSE CUPS PO PRN (00:45)
[2018-07-29] MEDS ORDERED: METHOCARBAMOL 500 MG TABLET PO PRN (00:45)
[2018-07-29] MEDS ORDERED: MAGNESIUM HYDROX 2400MG/30ML ORAL SUSPENSION 30 ML CUP PO PRN (00:45)
[2018-07-29] MEDS ORDERED: P-EPHED 60MG/TRIPROLIDI 2.5MG TABLET PO PRN (00:45)
[2018-07-29] MEDS ORDERED: ACETAMINOPHEN 325 MG TABLET (FP) PO PRN ×2 (00:45)
[2018-07-29] MEDS ORDERED: IBUPROFEN 400 MG TABLET (FP) PO PRN (00:45)
[2018-07-29] MEDS ORDERED: BISMUTH SUBSALICYLATE 524 MG/30 ML UD PO PRN (00:45)
[2018-07-29] MEDS ORDERED: chlordiazePOXIDE HCL 25 MG CAPSULE PO ONE ×3 (00:45→13:09)
[2018-07-29] MEDS ORDERED: chlordiazePOXIDE HCL 25 MG CAPSULE PO PRN (00:45)
[2018-07-29] MEDS ORDERED: MAG HYDROX/AL HYDROX/SIMETH 30 ML UNIT-DOSE CUP PO PRN (00:45)
[2018-07-29] MEDS ORDERED: MAGNESIUM CITRATE 300 ML BOTTLE PO PRN (00:45)
[2018-07-29] MEDS ORDERED: MENTHOL/PHENOL 1 EACH UD MM PRN (00:45)
[2018-07-29] MEDS ORDERED: hydrOXYzine PAMOATE 25 MG CAPSULE (FP) PO PRN (00:45)
[2018-07-29] MEDS: chlordiazePOXIDE HCL 25 MG CAPSULE PO SCH ×4 (05:15→22:18)
[2018-07-29] MEDS: PRENATAL VITAMINS W/ FOLIC ACID TABLET (FP) PO SCH (10:24)
[2018-07-29] MEDS: FUROSEMIDE 20 MG TABLET (FP) PO SCH (10:24)
--- NOTE | 2018-07-29 15:13 | PN ---
S CIWA - CIWA Score Nausea/Vomitin-Mild Nausea/No Vomiting Muscle Tremors: 4-Moderate,w/Arms Extend Anxiety: 3 Agitation: 2 Paroxysmal Sweats: 1-Minimal Palms Moist Orientation: 1-Uncertain about Date Tacttile Disturbances: 0-None Auditory Disturbances: 0-None Visual Disturbances: 0-None Headache: 1-Very Mild CIWA-Ar Total Score: 13 [facility] 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 (SOAP) Subjective: pharmacist as question about eliquise life underwriter call patient's with the permission of the patient confirmed that eliquis is 5 mg po daily x 1+ year patient is using [facility] script had filled "a week ago" Objective: 07/29/18 15:15 Vital Signs Temperature 99.1 F 07/29/18 13:40 Pulse Rate 126 H 07/29/18 14:30 Respiratory Rate 18 07/29/18 13:40 Blood Pressure 152/84 07/29/18 13:40 O2 Sat by Pulse Oximetry (%) 07/29/18 15:15 patient is waiting blood to be drawn Assessment: 07/29/18 15:20 withdrawal sx medication confirmed Plan: continue detox
[2018-07-29] MEDS: THIAMINE HCL 100 MG TABLET (FP) PO SCH (22:17)
[2018-07-29] MEDS: MELATONIN 5 MG TABLETS PO PRN (22:18)
[2018-07-29] MEDS: METOPROLOL TARTRATE 50 MG TABLET (FP) PO SCH (22:18)
[2018-07-30] MEDS: chlordiazePOXIDE HCL 25 MG CAPSULE PO SCH ×4 (05:17→22:18)
[2018-07-30] MEDS: PRENATAL VITAMINS W/ FOLIC ACID TABLET (FP) PO SCH (10:10)
[2018-07-30] MEDS: FUROSEMIDE 20 MG TABLET (FP) PO SCH (10:10)
[2018-07-30] MEDS: METOPROLOL TARTRATE 50 MG TABLET (FP) PO SCH ×2 (10:10→22:17)
[2018-07-30 10:17] LABS: HEMATOCRIT 39.7 % (35.4-49); HEMOGLOBIN 13.5 GM/dL (11.7-16.9); MCHC 34.1 g/dl (32.0-35.9); MEAN CELL VOLUME 96.7 fl (80-96); MEAN PLT VOLUME 9.7 fl (7.5-11.1); PLATELET COUNT 63 K/MM3 (134-434); RBC 4.11 M/mm3 (4.00-5.60); RDW 15.2 % (11.9-15.9); WHITE BLOOD COUNT 4.5 K/mm3 (4.0-10.0)
[2018-07-30 10:32] LABS: ALBUMIN 3.4 g/dl (3.4-5.0); ALK PHOS 68 U/L (45-117); ANION GAP 7 MMOL/L (8-16); BILIRUBIN,TOTAL 1.6 mg/dL (0.2-1); BLOOD UREA NITROGEN 9 mg/dL (7-18); CALCIUM 9.3 mg/dL (8.5-10.1); CHLORIDE 104 mmol/L (98-107); CO2 28 mmol/L (21-32); CREATININE 0.7 mg/dL (0.55-1.3); GLUCOSE,RANDOM 87 mg/dL (74-106); POTASSIUM 4.2 mmol/L (3.5-5.1); SGOT/AST 102 U/L (15-37); SGPT/ALT 47 U/L (13-61); SODIUM 139 mmol/L (136-145); TOT PROT 7.9 g/dl (6.4-8.2)
--- NOTE | 2018-07-30 11:20 | PN ---
[facility] CIWA - CIWA Score Nausea/Vomitin-No Nausea/No Vomiting Muscle Tremors: 3 Anxiety: 2 Agitation: 1-Slight > Activity Paroxysmal Sweats: 1-Minimal Palms Moist Orientation: 1-Uncertain about Date Tacttile Disturbances: 0-None Auditory Disturbances: 0-None Visual Disturbances: 0-None Headache: 1-Very Mild CIWA-Ar Total Score: 9 S 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 (SOAP) Subjective: reporting that he is feeling better today can walking on hallway and tolerate food and fluid well less tremor Objective: 07/30/18 11:19 Vital Signs Temperature 97.9 F 07/30/18 09:21 Pulse Rate 94 H 07/30/18 09:21 Respiratory Rate 18 07/30/18 09:21 Blood Pressure 132/90 07/30/18 09:21 O2 Sat by Pulse Oximetry (%) Laboratory Last Values WBC 4.5 K/mm3 (4.0-10.0) 07/30/18 07:00 RBC 4.11 M/mm3 (4.00-5.60) 07/30/18 07:00 Hgb 13.5 GM/dL (11.7-16.9) 07/30/18 07:00 Hct 39.7 % (35.4-49) 07/30/18 07:00 MCV 96.7 fl (80-96) H 07/30/18 07:00 MCH 33.0 pg (25.7-33.7) 07/30/18 07:00 MCHC 34.1 g/dl (32.0-35.9) 07/30/18 07:00 RDW 15.2 % (11.9-15.9) 07/30/18 07:00 Plt Count 63 K/MM3 (134-434) L D 07/30/18 07:00 MPV 9.7 fl (7.5-11.1) 07/30/18 07:00 Sodium 139 mmol/L (136-145) 07/30/18 07:00 Potassium 4.2 mmol/L (3.5-5.1) 07/30/18 07:00 Chloride 104 mmol/L (98-107) 07/30/18 07:00 Carbon Dioxide 28 mmol/L (21-32) 07/30/18 07:00 Anion Gap 7 MMOL/L (8-16) L 07/30/18 07:00 BUN 9 mg/dL (7-18) 07/30/18 07:00 Creatinine 0.7 mg/dL (0.55-1.3) 07/30/18 07:00 Creat Clearance w eGFR 118.89 (>60) 07/30/18 07:00 Random Glucose 87 mg/dL (74-106) 07/30/18 07:00 Calcium 9.3 mg/dL (8.5-10.1) 07/30/18 07:00 Total Bilirubin 1.6 mg/dL (0.2-1) H 07/30/18 07:00 AST 102 U/L (15-37) H 07/30/18 07:00 ALT 47 U/L (13-61) 07/30/18 07:00 Alkaline Phosphatase 68 U/L (45-117) 07/30/18 07:00 Total Protein 7.9 g/dl (6.4-8.2) 07/30/18 07:00 Albumin 3.4 g/dl (3.4-5.0) 07/30/18 07:00 lab noted continue eliquis 5 mg po od as per verification with 07/30/18 11:20 07/30/18 11:20 Assessment: alcohol withdrawal sx Plan: continue detox
[2018-07-30] MEDS ORDERED: APIXABAN 5 MG TABLET PO SCH ×2 (12:15→22:00)
[2018-07-30] MEDS: THIAMINE HCL 100 MG TABLET (FP) PO SCH (22:18)
[2018-07-30] MEDS: MELATONIN 5 MG TABLETS PO PRN (22:21)
[2018-07-31] MEDS ORDERED: chlordiazePOXIDE HCL 10 MG CAPSULE PO SCH (05:00)
[2018-07-31] MEDS ORDERED: chlordiazePOXIDE HCL 10 MG CAPSULE PO PRN (05:00)
[2018-07-31 09:14] VITALS: BP 121/80; PULSE 78; TEMP 97.1
--- NOTE | 2018-07-31 14:59 | DS ---
[facility] Detox Discharge Summary Admission Date: 07/29/18 Discharge Date: 07/31/18 - History Present History: Alcohol Dependence Additional Comments: 53 years old male admitted on 07/29/18 for alcohol withdrawal stabilization insists to leave the detox alert no acute distress denies suicidal ideation patient [facility] patient call his that his call a friend to moss picker patient today Pertinent Past History: patient has 3 months medication at home as per - Physical Exam Results Vital Signs: Vital Signs Temperature 97.1 F L 07/31/18 09:13 Pulse Rate 78 07/31/18 09:13 Respiratory Rate 18 07/31/18 09:13 Blood Pressure 121/80 07/31/18 09:13 O2 Sat by Pulse Oximetry (%) Pertinent Admission Physical Exam Findings: alcohol withdrawal sx Laboratory Last Values WBC 4.5 K/mm3 (4.0-10.0) 07/30/18 07:00 RBC 4.11 M/mm3 (4.00-5.60) 07/30/18 07:00 Hgb 13.5 GM/dL (11.7-16.9) 07/30/18 07:00 Hct 39.7 % (35.4-49) 07/30/18 07:00 MCV 96.7 fl (80-96) H 07/30/18 07:00 MCH 33.0 pg (25.7-33.7) 07/30/18 07:00 MCHC 34.1 g/dl (32.0-35.9) 07/30/18 07:00 RDW 15.2 % (11.9-15.9) 07/30/18 07:00 Plt Count 63 K/MM3 (134-434) L D 07/30/18 07:00 MPV 9.7 fl (7.5-11.1) 07/30/18 07:00 Sodium 139 mmol/L (136-145) 07/30/18 07:00 Potassium 4.2 mmol/L (3.5-5.1) 07/30/18 07:00 Chloride 104 mmol/L (98-107) 07/30/18 07:00 Carbon Dioxide 28 mmol/L (21-32) 07/30/18 07:00 Anion Gap 7 MMOL/L (8-16) L 07/30/18 07:00 BUN 9 mg/dL (7-18) 07/30/18 07:00 Creatinine 0.7 mg/dL (0.55-1.3) 07/30/18 07:00 Creat Clearance w eGFR 118.89 (>60) 07/30/18 07:00 Random Glucose 87 mg/dL (74-106) 07/30/18 07:00 Calcium 9.3 mg/dL (8.5-10.1) 07/30/18 07:00 Total Bilirubin 1.6 mg/dL (0.2-1) H 07/30/18 07:00 AST 102 U/L (15-37) H 07/30/18 07:00 ALT 47 U/L (13-61) 07/30/18 07:00 Alkaline Phosphatase 68 U/L (45-117) 07/30/18 07:00 Total Protein 7.9 g/dl (6.4-8.2) 07/30/18 07:00 Albumin 3.4 g/dl (3.4-5.0) 07/30/18 07:00 RPR Titer Nonreactive (NONREACTIVE) 07/30/18 07:00 lab noted - Treatment Hospital Course: Detox Protocol Followed, Responded well Patient has Accepted a Rehab Referral [facility]: [facility] - Medication Discharge Medications: Ambulatory Orders Furosemide [Lasix -] 20 mg PO DAILY 10/05/16 Lisinopril [Zestril] 2.5 mg PO DAILY 10/05/16 Spironolactone 25 mg PO DAILY 10/05/16 Apixaban [Eliquis] 5 mg PO BID 01/15/18 Metoprolol Tartrate [Lopressor -] 100 mg PO BID #60 tablet 01/31/18 - Diagnosis (1) Alcohol dependence with uncomplicated withdrawal Status: Acute (2) HTN (hypertension) Status: Chronic Qualifiers: Hypertension type: essential hypertension Qualified Code(s): I10 - Essential (primary) hypertension (3) HTN (hypertension) with goal to be determined Status: Chronic - AMA Did Patient Leave Against Medical Advice: Yes
[2018-07-31 15:08] LABS: EPI CELLS 0.2 /HPF (0-5/HPF); PH,URINE 7.5 (5.0-8.0); URINE APPEARANCE CLEAR; URINE BACTERIA 23.5 /hpf (NEGATIVE); URINE BILIRUBIN 1+ (NEGATIVE); URINE CASTS 0 /hpf (0-8); URINE COLOR DK YELLOW; URINE GLUCOSE (UA) NEGATIVE (NEGATIVE); URINE KETONE TRACE (NEGATIVE); URINE LEUK ESTERASE TRACE (NEGATIVE); URINE NITRITE NEGATIVE (NEGATIVE); URINE PROTEIN NEGATIVE (NEGATIVE); URINE WBC 0 /hpf (0-5)
[2018-07-31 15:41] LABS: URINE CRYSTALS CALCIUM OXALATE /hpf; URINE RBC 15.8 /hpf (0-4)
[2018-08-01] MEDS ORDERED: chlordiazePOXIDE HCL 10 MG CAPSULE PO SCH (05:00)
== END 2018-07-31 09:35 | disposition left against medical advice (07) | DRG 894 ==
LOC: YASAS 23:50 → Y3N 07-29 00:25
PROVIDERS: ADMIT Surgery; ATTEND Surgery
PROC: HZ2ZZZZ Detoxification Services for Substance Abuse Treatment (ICD-10-PCS; principal; 2018-07-29)
DX: F10.230 Alcohol dependence with withdrawal, uncomplicated (principal); F32.9 Major depressive disorder, single episode, unspecified; I10 Essential (primary) hypertension; I48.91 Unspecified atrial fibrillation; Z79.01 Long term (current) use of anticoagulants; R04.0 Epistaxis; R68.2 Dry mouth, unspecified; Z86.69 Personal history of other diseases of the nervous system and sense organs; Z91.89 Other specified personal risk factors, not elsewhere classified
CPT/HCPCS: 36415; 80053; 81003; 85027; 86593

== ENCOUNTER 2019-04-02 13:05 | Emergency (ER) | payer BC, OTHER ==
[2019-04-02 13:18] VITALS: BP 107/63; PULSE 71; BMI 21.7
--- NOTE | 2019-04-02 13:43 | PDOC ---
History of Present Illness - General Chief Complaint: Pain Stated Complaint: RT FOOT INJURY Time Seen by Provider: 04/02/19 13:42 Past History - Past Medical History Allergies/Adverse Reactions: Allergies Allergy/AdvReac Type Severity Reaction Status Date / Time No Known Allergies Allergy Verified 04/02/19 13:18 Home Medications: Ambulatory Orders Furosemide [Lasix -] 20 mg PO DAILY 10/05/16 Lisinopril [Zestril] 2.5 mg PO DAILY 10/05/16 Spironolactone 25 mg PO DAILY 10/05/16 Apixaban [Eliquis] 5 mg PO BID 01/15/18 Metoprolol Tartrate [Lopressor -] 100 mg PO BID #60 tablet 01/31/18 Anemia: No Asthma: No Cancer: No Cardiac Disorders: Yes (HX OF AFIB ON ELIQUIS) CVA: No COPD: No CHF: No Dementia: No Diabetes: No GI Disorders: No Disorders: No HTN: No Hypercholesterolemia: No Kidney Stones: No Liver Disease: No Seizures: Yes (2016) Thyroid Disease: No - Surgical History Abdominal Surgery: No Appendectomy: No Cardiac Surgery: No Cholecystectomy: No Lung Surgery: No Neurologic Surgery: No Orthopedic Surgery: No - Reproductive History Testicular Surgery: No - Immunization History Immunization Up to Date: Yes - Psycho Social/Smoking Cessation Hx Smoking History: Never smoked Have you smoked in the past 12 months: No Information on smoking cessation initiated: No Hx Alcohol Use: No Drug/Substance Use Hx: No Substance Use Type: Alcohol Hx Substance Use Treatment: Yes ([facility]) *Physical Exam - Vital Signs Last Vital Signs Temp Pulse Resp BP Pulse Ox 71 18 107/63 98 04/02/19 13:12 04/02/19 13:12 04/02/19 13:12 04/02/19 13:12
--- NOTE | 2019-04-02 14:29 | PDOC ---
History of Present Illness - General Chief Complaint: Pain Stated Complaint: RT FOOT INJURY Time Seen by Provider: 04/02/19 13:42 - History of Present Illness Initial Comments: 04/02/19 14:27 53-year-old male with coronary artery disease on anticoagulation presents for evaluation of 3 weeks of atraumatic right foot pain. No systemic symptoms Past History - Past Medical History Allergies/Adverse Reactions: Allergies Allergy/AdvReac Type Severity Reaction Status Date / Time No Known Allergies Allergy Verified 04/02/19 13:18 Home Medications: Ambulatory Orders Furosemide [Lasix -] 20 mg PO DAILY 10/05/16 Lisinopril [Zestril] 2.5 mg PO DAILY 10/05/16 Spironolactone 25 mg PO DAILY 10/05/16 Apixaban [Eliquis] 5 mg PO BID 01/15/18 Metoprolol Tartrate [Lopressor -] 100 mg PO BID #60 tablet 01/31/18 Anemia: No Asthma: No Cancer: No Cardiac Disorders: Yes (HX OF AFIB ON ELIQUIS) CVA: No COPD: No CHF: No Dementia: No Diabetes: No GI Disorders: No Disorders: No HTN: No Hypercholesterolemia: No Kidney Stones: No Liver Disease: No Seizures: Yes (2017) Thyroid Disease: No - Surgical History Abdominal Surgery: No Appendectomy: No Cardiac Surgery: No Cholecystectomy: No Lung Surgery: No Neurologic Surgery: No Orthopedic Surgery: No - Reproductive History Testicular Surgery: No - Immunization History Immunization Up to Date: Yes - Psycho Social/Smoking Cessation Hx Smoking History: Never smoked Have you smoked in the past 12 months: No Information on smoking cessation initiated: No Hx Alcohol Use: No Drug/Substance Use Hx: No Substance Use Type: Alcohol Hx Substance Use Treatment: Yes ([facility]) Review of Systems - Review of Systems Constitutional: No: Fever Respiratory: No: Cough, Shortness of Breath Musculoskeletal: Yes: See HPI, Joint Pain *Physical Exam - Vital Signs Last Vital Signs Temp Pulse Resp BP Pulse Ox 71 18 107/63 98 04/02/19 13:12 04/02/19 13:12 04/02/19 13:12 04/02/19 13:12 - Physical Exam 04/02/19 14:28 Right lower extremity skin color and temperature normal. There is mild swelling at the dorsum of the foot. Tenderness over the medial tubercle of the calcaneus. There is a subungual hematoma of the right great toe. Thigh and calf are soft and nontender. Negative Homans sign neurovascularly intact no other areas of tenderness ED Treatment Course - RADIOLOGY Radiology Studies Ordered: Category Date Time Status ANKLE & FOOT-RIGHT* [RAD] Stat Radiology 04/02/19 13:45 Taken FOOT-RIGHT [RAD] Stat Radiology 04/02/19 13:45 Taken LEG TIB/FIB-RIGHT [RAD] Stat Radiology 04/02/19 13:45 Taken Medical Decision Making - Medical Decision Making 04/02/19 14:28 Plantar fasciitis, weight-bear as tolerated with crutches follow-up with orthopedic surgery Discharge - Discharge Information Problems reviewed: Yes Clinical Impression/Diagnosis: Plantar fasciitis of right foot Condition: Stable Disposition: HOME - Admission No - Follow up/Referral Referrals: Gearrdo Blevins DO [Staff Physician] - - Patient Discharge Instructions Additional Instructions: Return to the emergency room for worsening symptoms. Tylenol as directed for pain. Follow-up with orthopedic surgery without fail in 2 to 3 days for further evaluation and treatment options. - Post Discharge Activity
== END 2019-04-02 14:36 | disposition home or self-care (01) ==
LOC: JERFT 13:05
DX: M72.2 Plantar fascial fibromatosis (principal); I48.91 Unspecified atrial fibrillation; Z79.01 Long term (current) use of anticoagulants; R56.9 Unspecified convulsions
CPT/HCPCS: 73590-TC-RT-FY; 73610-TC-RT-FY; 73630-TC-RT-FY; 99282-25

== ENCOUNTER 2020-01-03 13:42 | Inpatient (IN) | payer OTHER ==
[2020-01-03] MEDS ORDERED: SODIUM CHLORIDE 2,449 ML IV ONE (14:19)
--- NOTE | 2020-01-03 15:18 | PDOC ---
History of Present Illness - General Chief Complaint: Substance Abuse Stated Complaint: ALCOHOL WITHDRAWAL Time Seen by Provider: 01/03/20 15:18 - History of Present Illness Initial Comments: 54 YOM h/o alcohol abuse and AFIB on eliquis presents for weakness and lightheadedness. Patient suspects current syptoms are 2/2 alcohol withdrawal. Mentions that his last drink was 3 hours prior to arrival. Patients reports that the patient has been lightheaded and tremulous this afternoon prior to arrival. Patient also mentions mild productive cough. Denies fever, chills, chest pain, SOB, N/V/D. Denies recent travel of sick contacts. - Physicial Exam PE: GENERAL: The patient is awake, alert, and fully oriented, Nontoxic - in no acute distress. HEAD: Normocephalic, atraumatic. EYES: extraocular movements intact, sclera anicteric, conjunctiva clear. ENT: Normal voice, Moist mucous membranes. NECK: Normal range of motion, supple without lymphadenopathy, JVD, or masses. LUNGS: +rales at left base. clear to auscultation bilaterally. No wheezes, no crackles. HEART: Regular rate and rhythm, normal S1 and S2 without murmur, rub or gallop. ABDOMEN: Soft, nontender, normoactive bowel sounds. No guarding, no rebound. No masses. EXTREMITIES: Normal range of motion, no edema. No clubbing or cyanosis. No cords, erythema, or tenderness. NEUROLOGICAL:No tremors. No facial asymmetry, Normal speech, normal gait. PSYCH: Normal mood, normal affect. SKIN: Warm, Dry, normal turgor, no rashes or lesions noted. Past History - Medical History Allergies/Adverse Reactions: Allergies Allergy/AdvReac Type Severity Reaction Status Date / Time No Known Allergies Allergy Verified 01/03/20 13:48 Home Medications: Ambulatory Orders Furosemide [Lasix -] 20 mg PO DAILY 10/05/16 Lisinopril [Zestril] 2.5 mg PO DAILY 10/05/16 Spironolactone 25 mg PO DAILY 10/05/16 Apixaban [Eliquis] 5 mg PO BID 01/15/18 Metoprolol Tartrate [Lopressor -] 100 mg PO BID #60 tablet 01/31/18 Anemia: No Asthma: No Cancer: No Cardiac Disorders: Yes (HX OF AFIB ON ELIQUIS) CVA: No COPD: No CHF: No Dementia: No Diabetes: No GI Disorders: No Disorders: No HTN: No Hypercholesterolemia: No Kidney Stones: No Liver Disease: No Seizures: Yes (2017) Thyroid Disease: No Other medical history: Alcohol abuse - Surgical History Abdominal Surgery: No Appendectomy: No Cardiac Surgery: No Cholecystectomy: No Lung Surgery: No Neurologic Surgery: No Orthopedic Surgery: No - Reproductive History Testicular Surgery: No - Immunization History Immunization Up to Date: Yes - Psycho-Social/Smoking History Smoking History: Never smoked Have you smoked in the past 12 months: No Information on smoking cessation initiated: Yes - Substance Abuse Hx (Audit-C & DAST Scrn) How often the patient has a drink containing alcohol: 4 0r more times/wk Number of drinks the patient has on a typical day: 10 or more How often the patient has six or more drinks on one occasion: Daily or almost daily Score: In Men: 4 or > Positive; In Women: 3 or > Positive: 12 Screen Result (Pos requires Nsg. Audit-10AR): Positive In the last yr the pt used illegal drug/Rx for NonMed reason: No Score: Yes response is considered Positive: 0 Screen Result (Positive result requires Nsg. DAST-10): Negative Review of Systems - Review of Systems Constitutional: Yes: See HPI HEENTM: Yes: See HPI Respiratory: Yes: See HPI Cardiac (ROS): Yes: See HPI ABD/GI: Yes: See HPI : Yes: See HPI Musculoskeletal: Yes: See HPI Integumentary: Yes: See HPI Neurological: Yes: See HPI Endocrine: Yes: See HPI Hematologic/Lymphatic: Yes: See HPI *Physical Exam - Vital Signs Last Vital Signs Temp Pulse Resp BP Pulse Ox 100.7 F H 92 H 19 101/63 97 01/03/20 13:46 01/03/20 13:46 01/03/20 13:46 01/03/20 13:46 01/03/20 13:46 ED Treatment Course - LABORATORY CBC & Chemistry Diagram: 01/03/20 15:00 01/03/20 15:00 Medical Decision Making - Medical Decision Making 54 YOM h/o alcohol presents with cough, weakness, lightheadedness and possible tremor. - Febrile to 100.7 - Rhales in left lung base - + or - tremmor - Septic w/u - elevated lactate to 4.2 - CXR reveals hazy opacities in bilateral lower hemithorax - Fluids--> recheck lactate in 3 hours - abx for community aquired pneumonia; ceftriaxone and azithromycin - Will admit for pneumonia and elevated lactate 01/03/20 17:54 01/03/20 17:56 Discharge - Discharge Information Problems reviewed: Yes Clinical Impression/Diagnosis: Alcohol dependence, Weakness, Pneumonia - Follow up/Referral Referrals: Stacy Hawthorne MD [Primary Care Provider] - - Patient Discharge Instructions - Post Discharge Activity
[2020-01-03 15:20] LABS: INR 2.49 (0.83-1.09); PROTHROMBIN TIME (PATIENT) 29.6 SEC (9.7-13.0)
[2020-01-03 15:23] LABS: ACTIVATED PTT 41.6 SECONDS (25.2-36.5)
[2020-01-03 15:39] LABS: ALBUMIN 2.9 g/dl (3.4-5.0); BILIRUBIN,TOTAL 2.8 mg/dL (0.2-1); BLOOD UREA NITROGEN 7.7 mg/dL (7-18); CREATININE 0.9 mg/dL (0.55-1.3); POTASSIUM 3.6 mmol/L (3.5-5.1); TOT PROT 7.8 g/dl (6.4-8.2)
[2020-01-03] MEDS ORDERED: AZITHROMYCIN IVPB 500 MG in DEXTROSE 5%-WATER - 250 ML IVPB ONE (16:44)
[2020-01-03] MEDS ORDERED: CEFTRIAXONE 1 GM in DEXTROSE 5%-WATER - 50 ML IVPB ONE (16:44)
[2020-01-03] MEDS ORDERED: ACETAMINOPHEN 325 MG TABLET (FP) PO ONE (16:45)
[2020-01-03 17:07] LABS: BASO % 0.6 % (0-2.0); HEMATOCRIT 39.8 % (35.4-49); HEMOGLOBIN 13.7 GM/dL (11.7-16.9); LYMPH % 4.3 % (8-40); MCH 36.2 pg (25.7-33.7); MCHC 34.5 g/dl (32.0-35.9); MEAN CELL VOLUME 104.9 fl (80-96); MONO % 15.8 % (3.8-10.2); NEUT % 79.3 % (42.8-82.8); PLATELET COUNT 58 K/MM3 (134-434); RBC 3.79 M/mm3 (4.00-5.60); RDW 13.9 % (11.9-15.9); WHITE BLOOD COUNT 11.8 K/mm3 (4.0-10.0)
[2020-01-03] MEDS ORDERED: AZITHROMYCIN IVPB 500 MG/250 ML BAG IVPB ONE (17:19)
[2020-01-03] MEDS ORDERED: CEFTRIAXONE 1 GM/50 ML BAG ONE (17:19)
[2020-01-03] MEDS ORDERED: ACETAMINOPHEN 325 MG TABLET (FP) ONE (17:19)
--- NOTE | 2020-01-03 17:26 | PDOC ---
Documentation entered by Silvia Song SCRIBE, acting as scribe for Reese Diane MD. Reese Diane MD: This documentation has been prepared by the mendyibeDuncan Lincy, SCRIBE, under my direction and personally reviewed by me in its entirety. I confirm that the documentation accurately reflects all work, treatment, procedures, and medical decision making performed by me. Attending Attestation - Resident Resident Name: Andre Longoria - ED Attending Attestation I have performed the following: I have examined & evaluated the patient, The case was reviewed & discussed with the resident, I agree w/resident's findings & plan, Exceptions are as noted - HPI HPI: 01/03/20 16:49 The patient is a 54-year-old male with a past medical history significant for Afib (on Eliquis) and chronic alcohol use (daily alcohol use, last drink was this afternoon) who presents to the emergency department with weakness and lightheadedness. The patient presents with generalized weakness and feeling lightheadedness, the patients reports the patient had an episode of lightheadedness and shaking, like he was going to pass out, denies LOC. The patient reports associated symptoms of mild productive cough. Denies fever, chills, chest pain, leg swelling, shortness of breath, nausea, vomiting, back pain. Denies recent travel or sick contact. - Physicial Exam PE: 01/03/20 16:50 GENERAL: The patient is awake, alert, and fully oriented, Nontoxic - in no acute distress. HEAD: Normocephalic, atraumatic. EYES: extraocular movements intact, sclera anicteric, conjunctiva clear. ENT: Normal voice, Moist mucous membranes. NECK: Normal range of motion, supple without lymphadenopathy, JVD, or masses. LUNGS: +rales at left base. HEART: Regular rate and rhythm, normal S1 and S2 without murmur, rub or gallop. ABDOMEN: Soft, nontender, normoactive bowel sounds. No guarding, no rebound. No masses. EXTREMITIES: Normal range of motion, no edema. No clubbing or cyanosis. No cords, erythema, or tenderness. NEUROLOGICAL:No tremors. No facial asymmetry, Normal speech, moving all 4 ext spontaneously and symmetrically PSYCH: Normal mood, normal affect. SKIN: Warm, Dry, normal turgor, no rashes or lesions noted. - Medical Decision Making 01/03/20 17:26 pt with pna and elevatd alctic acid will hydrate started no HCAP coverage will admit for further management Discharge - Discharge Information Problems reviewed: Yes Clinical Impression/Diagnosis: Weakness Alcohol dependence Qualifiers: Substance use status: uncomplicated Qualified Code(s): F10.20 - Alcohol dependence, uncomplicated Pneumonia Qualifiers: Pneumonia type: due to unspecified organism Laterality: left Lung location: lower lobe of lung Qualified Code(s): J18.9 - Pneumonia, unspecified organism Condition: Guarded - Follow up/Referral - Patient Discharge Instructions - Post Discharge Activity
[2020-01-03 18:54] LABS: N-TERMINAL BNP 483.1 pg/ml (5-125)
[2020-01-03] MEDS ORDERED: FOLIC ACID INJECTION - 1 MG, THIAMINE HCL 100 MG, MULTIVIT INJECTION ADULT 10 ML in SOD... IVPB ONE (19:28)
[2020-01-03] MEDS ORDERED: THIAMINE HCL 200 MG/2 ML VIAL IM SCH (19:30)
--- NOTE | 2020-01-03 19:33 | HP ---
Admitting History and Physical - Primary Care Physician PCP: Stacy Hawthorne - Admission History of Present Illness: Pt seen in er earlier d/w pt/ d/w Er Physician also In Summary -- PEr Er notes and I concur The patient is a 54-year-old male with a past medical history significant for Afib (on Eliquis) and chronic alcohol use (daily alcohol use, last drink was this afternoon) who presents to the emergency department with weakness and lightheadedness. The patient presents with generalized weakness and feeling lightheadedness, the patients reports the patient had an episode of lightheadedness and shaking, like he was going to pass out, denies LOC. The patient reports associated symptoms of mild productive cough. Denies fever, chills, chest pain, leg swelling, shortness of breath, nausea, vomiting, back pain. Denies recent travel or sick contact. 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 Home Medications - Allergies Allergies/Adverse Reactions: Allergies Allergy/AdvReac Type Severity Reaction Status Date / Time No Known Allergies Allergy Verified 01/03/20 13:48 - Home Medications Home Medications: Ambulatory Orders Furosemide [Lasix -] 20 mg PO DAILY 10/05/16 Lisinopril [Zestril] 2.5 mg PO DAILY 10/05/16 Spironolactone 25 mg PO DAILY 10/05/16 Apixaban [Eliquis] 5 mg PO BID 01/15/18 Metoprolol Tartrate [Lopressor -] 100 mg PO BID #60 tablet 01/31/18 Review of Systems Findings/Remarks: See [place] Physical Examination Vital Signs: Vital Signs Temperature 100.7 F H 01/03/20 13:46 Pulse Rate 94 H 01/03/20 18:51 Respiratory Rate 19 01/03/20 13:46 Blood Pressure 101/63 01/03/20 13:46 O2 Sat by Pulse Oximetry (%) 95 01/03/20 18:51 Constitutional: Yes: No Distress, Anxious. No: Mild Distress Eyes: Yes: Conjunctiva Clear Neck: Yes: Supple Cardiovascular: Yes: Regular Rate and Rhythm Respiratory: Yes: Diminished, Rales Gastrointestinal: Yes: Soft Edema: No Neurological: Yes: Alert Labs: CBC, BMP 01/03/20 15:00 01/03/20 15:00 Imaging - Results Chest X-ray: Report Reviewed Problem List - Problems (1) Alcohol dependence Code(s): F10.20 - ALCOHOL DEPENDENCE, UNCOMPLICATED (2) Pneumonia Code(s): J18.9 - PNEUMONIA, UNSPECIFIED ORGANISM (3) Alcohol dependence with uncomplicated withdrawal Code(s): F10.230 - ALCOHOL DEPENDENCE WITH WITHDRAWAL, UNCOMPLICATED (4) Atrial fibrillation Code(s): I48.91 - UNSPECIFIED ATRIAL FIBRILLATION Qualifiers: Atrial fibrillation type: unspecified Qualified Code(s): I48.91 - Unspe cified atrial fibrillation Assessment/Plan Admit to floor Abx F/u cultures Covid pending Legionella/Mycoplasma -- ordered Banana Bag I/M thiaminin Hold lasix Librium Will follow
[2020-01-03 20:46] LABS: URINE APPEARANCE CLEAR; URINE BILIRUBIN 1+ (NEGATIVE); URINE COLOR DK YELLOW; URINE GLUCOSE (UA) NEGATIVE (NEGATIVE); URINE KETONE TRACE (NEGATIVE); URINE LEUK ESTERASE NEGATIVE (NEGATIVE); URINE NITRITE NEGATIVE (NEGATIVE); URINE PROTEIN NEGATIVE (NEGATIVE); URINE UROBILINOGEN 4.0 E.U/dl mg/dL (0.2-1.0)
[2020-01-03] MEDS ORDERED: METOPROLOL TARTRATE 50 MG TABLET (FP) PO SCH (22:00)
[2020-01-03] MEDS ORDERED: chlordiazePOXIDE 5 MG CAPSULE ONE (22:05)
[2020-01-03] MEDS ORDERED: THIAMINE HCL 200 MG/2 ML VIAL ONE (22:06)
[2020-01-03] MEDS: chlordiazePOXIDE 5 MG CAPSULE PO SCH (22:45)
[2020-01-03] MEDS ORDERED: METOPROLOL TARTRATE 50 MG TABLET (FP) ONE (23:01)
[2020-01-03] MEDS ORDERED: ACETAMINOPHEN 1000 MG/100 ML VIAL (NON FORMULARY) IVPB ONE (23:05)
[2020-01-03] MEDS ORDERED: SODIUM CHLORIDE 500 ML IV STA (23:06)
[2020-01-03] MEDS ORDERED: ACETAMINOPHEN INJECTION 100 ML IVPB ONE (23:08)
[2020-01-03] MEDS ORDERED: METOPROLOL TARTRATE 5 MG/5 ML VIAL IVPUSH ONE (23:44)
--- NOTE | 2020-01-03 23:53 | HOSP ---
Subjective - Review of Symptoms Events since last encounter: Hospitalist Encounter Notified by the RN, that the patient is tachycardic, febrile and has a Lactic Acid level of 5.3, was asked to assess. Arrived to bedside, patient is alert, oriented to name reports having palpitations. Patient examined see EMR Plan: EKG- stat Ofirmev NS 500ml bolus Cardiovascular: Yes: Palpitations Physical Examination Vital Signs: Vital Signs Temperature 102.8 F H 01/03/20 21:58 Pulse Rate 98 H 01/03/20 21:58 Respiratory Rate 01/03/20 21:58 Blood Pressure 127/78 01/03/20 21:58 O2 Sat by Pulse Oximetry (%) 95 01/03/20 21:58 Constitutional: Yes: Diaphoresis, Moderate Distress Eyes: Yes: Conjunctiva Clear, EOM Intact, PERRL HENT: Yes: Atraumatic, Normocephalic Neck: Yes: Supple, Trachea Midline Cardiovascular: Yes: Tachycardia, Pulse Irregular, S1, S2 Respiratory: Yes: Accessory Muscle Use, On Nasal O2, Rhonchi, Tachypnea Gastrointestinal: Yes: Normal Bowel Sounds, Soft, Abdomen, Obese ...Rectal Exam: Yes: Deferred Renal/: Yes: WNL Breast(s): Yes: WNL Musculoskeletal: Yes: WNL Extremities: Yes: WNL Edema: No Peripheral Pulses WNL: Yes Neurological: Yes: Alert, Cran Nerves II-XII Intact, Tremors Psychiatric: Yes: Alert Labs: CBC, BMP 01/03/20 15:00 01/03/20 15:00 Hospitalist Encounter Assessment: This is a 54 y/o male with a PMHx of Alcohol Abuse, Afib (on Eliquis). Admitted for Alcohol Withdrawal, Pneumonia. Outcome: EKG - Afib with RVR 180's, septal infarct age undetermined 23:06-Patient medicated- Metoprolol 100mg po by RN 23:40-Plan: Lopressor 5mg IV now, patient upgraded to Telemetry d/w RN 00:30- notified by the RN that the patient appeared to be having seizure like activity Arrived to bedside, patient is unresponsive, thrashing arms and legs. Ativan 1mg IVP ordered 00:45- patient is unresponsive, diaphoretic, desaturating. BVM used, HOB elevated no improvement Anesthesia paged overhead for intubation for airway management. 00:50- Dr Nina arrived to the ED, discussed case briefly, plan for intubation. 01:00- Discussed case with Dr. Manny Barclayil resident, Dr Lazaro, ICU resident, who accepted the case Call placed to pt's spouse, left voice message to call back. 05:45 Mrs Sally Beckford called back and was updated on her 's status. Critical Care Total Critical Care Time (in minutes): 60 Critical Care Statement: The care of this patient involved high complexity decision making to prevent further life threatening deterioration of the patient's condition and/or to evaluate & treat vital organ system(s) failure or risk of failure.
[2020-01-04] MEDS ORDERED: METOPROLOL TARTRATE 5 MG/5 ML VIAL IVPUSH ONE ×2 (00:17→02:08)
[2020-01-04] MEDS ORDERED: ALBUTEROL SO4 HFA INHALER IH PRN ×2 (00:24→05:39)
[2020-01-04] MEDS ORDERED: LORazepam 2 MG/ML SDV VIAL IVPUSH ONE (00:41)
[2020-01-04] MEDS ORDERED: LORazepam 2 MG/ML SDV VIAL ONE (00:41)
[2020-01-04] MEDS ORDERED: RAPID SEQUENCE INTUBATION KIT NR ONE (00:50)
[2020-01-04] MEDS ORDERED: METOPROLOL TARTRATE 5 MG/5 ML VIAL ONE (00:57)
[2020-01-04] MEDS ORDERED: MIDAZOLAM HCL 2 MG/2 ML SINGLE DOSE VIAL ONE (00:59)
[2020-01-04] MEDS ORDERED: MIDAZOLAM IN 0.9 % SOD.CHLORID 1 MG/1 ML PLAST..BAG ONE (01:09)
[2020-01-04] MEDS ORDERED: PROPOFOL 1,000,000 MCG/100 ML VIAL ONE (01:09)
--- NOTE | 2020-01-04 01:09 | PROC ---
Intubation - Intubation Reason for Intubation: Airway Protection, Other Time of Intubation: 00:55 Intubation Method: orotracheal Tube Size (cm): 7.5 Tube position @ lip (cm): 21 Tube position confirmed by: Direct visualization, CO2 detector, Chest x-ray, Breath sounds Breath Sounds after Intubation: equal Post Intubation Xray: Yes Remarks: called to ER Stat for airway management on pt. having seizure with resp. failure. pt. with bilateral nasal airways in place. epistaxis noted. pt. given 1mg ativan prior to arrival. on arrival pt. being mask ventilated. 10mg IV versed and 120mg of succinylcholine given. easy intubation with glidescope. adequate oxygenation and ventilation post-intubation. directed team to check CXR and ABG. management per ED and ICU team.
[2020-01-04] MEDS: MIDAZOLAM IN 0.9 % SOD.CHLORID 100 MG/100 ML PLAST..BAG IVPB SCH ×3 (01:15→16:31)
[2020-01-04] MEDS: PROPOFOL 1,000,000 MCG/100 ML VIAL IVPB SCH ×2 (01:15→07:28)
[2020-01-04 01:59] LABS: ARTERIAL BLD GAS O2 SATURATION 93.9 mmHg (95-98); ARTERIAL BLOOD GAS PO2 81.2 mmHg (80-100); ARTERIAL BLOOD GAS pH 7.217 (7.350-7.450)
[2020-01-04 02:04] LABS: ALLENS TEST POSITIVE
[2020-01-04 02:05] LABS: VENT MODE A/C; VENT RATE 16
[2020-01-04] MEDS ORDERED: SUCCINYLCHOLINE CHLORIDE 200 MG/10 ML VIAL IVPUSH ONE (02:08)
[2020-01-04] MEDS ORDERED: MIDAZOLAM HCL 5 MG/1 ML Single Dose Vial IVPUSH ONE ×2 (02:08→03:06)
[2020-01-04] MEDS ORDERED: MIDAZOLAM HCL 2 MG/2 ML SINGLE DOSE VIAL IVPUSH ONE (03:06)
[2020-01-04] MEDS ORDERED: AMIODARONE HCL 150 MG/3 ML VIAL IVPUSH ONE ×2 (03:09→03:30)
--- NOTE | 2020-01-04 03:11 | PROC ---
Central Line Insertion Indication: Vasopressor Risks and Benefits Explained: No Consent on Chart: No (Emergent central line needed ) Central Line: Triple Lumen Catheter Anesthesia: 1% Lidocaine Sterile Technique: Yes Ultrasound Guided Assistance: Yes Position: Right Internal Jugular Post Insertion: Yes: Chest X-Ray Ordered Sterile Dressing Applied: Yes
[2020-01-04] MEDS ORDERED: AMIODARONE IN DEXTROSE,ISO-OSM 150 MG/100 ML BAG IVPB ONE (03:20)
--- NOTE | 2020-01-04 03:20 | CONSULT ---
Consultation: REQUESTING PROVIDER: CONSULT REQUEST: We have been asked to medically evaluate this patient for (specify). HISTORY OF PRESENT ILLNESS: Pt was consulted for acute resp failure and vented. Pt was intubated at bedside. Through charts pt is a 54 yo male with pmh significant for Afib (on Eliquis) and chronic alcohol use (daily alcohol use, last drink was this afternoon) who presents to the emergency department with weakness and lightheadedness. The patient presents with generalized weakness and feeling lightheadedness, the patients reports the patient had an episode of lightheadedness and shaking, like he was going to pass out, denies LOC. The patient reports associated symptoms of mild productive cough. Denies fever, chills, chest pain, leg swelling, shortness of breath, nausea, vomiting, back pain. Denies recent travel or sick contact. 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 Pt currently intubated and bucking vent. Pt was given sedation with propofol and midazolam to help with seizure activity. Pt then subsequently went hypotensive with afivb rvr of 150s pt then was started on amiodarone push and then drip with central line. PMH: Afib, EtOH abuse REVIEW OF SYSTEMS: . PHYSICAL EXAMINATION General: Pt intubated and sedated LUNGS: Dec bilateral breath sounds HEART: Irregular rate and rhythm ABDOMEN: Soft, nontender, normoactive bowel sounds. Ext: no peripheral edema 2+ pulses on bilateral lower ext Vital Signs - 24 hr 01/03/20 01/03/20 01/03/20 13:46 18:16 18:51 Temperature 100.7 F H 101.9 F H Pulse Rate 92 H 94 H Pulse Rate [ 106 H Right Radial] Respiratory 19 20 Rate Blood Pressure 101/63 Blood Pressure 100/66 [Right Arm] O2 Sat by Pulse 97 95 95 Oximetry (%) 01/03/20 01/03/20 01/03/20 21:00 21:58 23:52 Temperature 102.8 F H Pulse Rate Pulse Rate [ 98 H Right Radial] Respiratory 20 Rate Blood Pressure 123/78 Blood Pressure 127/78 [Right Arm] O2 Sat by Pulse 95 95 Oximetry (%) 01/04/20 01/04/20 00:20 01:15 Temperature Pulse Rate Pulse Rate [ Right Radial] Respiratory 18 Rate Blood Pressure 119/91 Blood Pressure [Right Arm] O2 Sat by Pulse Oximetry (%) Laboratory Results - last 24 hr 01/03/20 01/03/20 01/03/20 15:00 15:00 15:00 WBC 11.8 H RBC 3.79 L Hgb 13.7 Hct 39.8 MCV 104.9 H MCH 36.2 H MCHC 34.5 RDW 13.9 Plt Count 58 L MPV 11.0 D Absolute Neuts (auto) 9.4 H Neutrophils % 79.3 D Lymphocytes % 4.3 L D Monocytes % 15.8 H Eosinophils % 0.0 D Basophils % 0.6 Nucleated RBC % 0 PT with INR 29.60 H INR 2.49 H PTT (Actin FS) 41.6 H Anticoagulation Therapy Puncture Site Patient Temperature ABG pH ABG pCO2 ABG pO2 ABG HCO3 ABG O2 Sat (Measured) ABG O2 Content ABG Base Excess Nnamdi Test Patient On Oxygen O2 Delivery Device Oxygen Flow Rate Vent Mode Vent Rate Mechanical Rate PEEP Pressure Support Vent Sodium Potassium Chloride Carbon Dioxide Anion Gap BUN Creatinine Est GFR (CKD-EPI)AfAm Est GFR (CKD-EPI)NonAf Random Glucose Lactic Acid Calcium Total Bilirubin AST ALT Alkaline Phosphatase Troponin I 0.03 B-Natriuretic Peptide 483.1 H Total Protein Albumin Urine Color Urine Appearance Urine pH Ur Specific [place] Urine Protein Urine Glucose (UA) Urine Ketones Urine Blood Urine Nitrite Urine Bilirubin Urine Urobilinogen Ur Leukocyte Esterase 01/03/20 01/03/20 01/03/20 15:00 15:00 19:35 WBC RBC Hgb Hct MCV MCH MCHC RDW Plt Count MPV Absolute Neuts (auto) Neutrophils % Lymphocytes % Monocytes % Eosinophils % Basophils % Nucleated RBC % PT with INR INR PTT (Actin FS) Anticoagulation Therapy Puncture Site Patient Temperature ABG pH ABG pCO2 ABG pO2 ABG HCO3 ABG O2 Sat (Measured) ABG O2 Content ABG Base Excess Nnamdi Test Patient On Oxygen O2 Delivery Device Oxygen Flow Rate Vent Mode Vent Rate Mechanical Rate PEEP Pressure Support Vent Sodium 135 L Potassium 3.6 Chloride 102 Carbon Dioxide 22 Anion Gap 12 BUN 7.7 Creatinine 0.9 Est GFR (CKD-EPI)AfAm 113.41 Est GFR (CKD-EPI)NonAf 97.85 Random Glucose 101 Lactic Acid 4.2 H* Calcium 8.0 L Total Bilirubin 2.8 H AST 100 H ALT 33 Alkaline Phosphatase 48 Troponin I B-Natriuretic Peptide Total Protein 7.8 Albumin 2.9 L Urine Color Dk yellow Urine Appearance Clear Urine pH 6.0 Ur Specific [place] 1.015 Urine Protein Negative Urine Glucose (UA) Negative Urine Ketones Trace H Urine Blood Negative Urine Nitrite Negative Urine Bilirubin 1+ H Urine Urobilinogen 4.0 e.u/dl Ur Leukocyte Esterase Negative 01/03/20 01/04/20 19:35 01:45 WBC RBC Hgb Hct MCV MCH MCHC RDW Plt Count MPV Absolute Neuts (auto) Neutrophils % Lymphocytes % Monocytes % Eosinophils % Basophils % Nucleated RBC % PT with INR INR PTT (Actin FS) Anticoagulation Therapy No Result Required. Puncture Site Right radial Patient Temperature No Result Required. ABG pH 7.217 L ABG pCO2 31.50 L ABG pO2 81.2 ABG HCO3 12.5 L ABG O2 Sat (Measured) 93.9 L ABG O2 Content No Result Required. ABG Base Excess -14.0 L Nnamdi Test Positive Patient On Oxygen Yes O2 Delivery Device Vent Oxygen Flow Rate 100% Vent Mode A/c Vent Rate 16 Mechanical Rate Yes PEEP 5.0 Pressure Support Vent 450 Sodium Potassium Chloride Carbon Dioxide Anion Gap BUN Creatinine Est GFR (CKD-EPI)AfAm Est GFR (CKD-EPI)NonAf Random Glucose Lactic Acid 5.3 H* Calcium Total Bilirubin AST ALT Alkaline Phosphatase Troponin I B-Natriuretic Peptide Total Protein Albumin Urine Color Urine Appearance Urine pH Ur Specific [place] Urine Protein Urine Glucose (UA) Urine Ketones Urine Blood Urine Nitrite Urine Bilirubin Urine Urobilinogen Ur Leukocyte Esterase Active Medications Generic Name Dose Route Start Last Admin Trade Name Freq PRN Reason Stop Dose Admin Albuterol Sulfate 2 puff 01/04/20 00:24 Ventolin Hfa Inhaler - IH Q4H PRN SHORT OF BREATH/WHEEZING Apixaban 5 mg 01/04/20 08:00 Eliquis - PO BID ALFRED Chlordiazepoxide HCl 10 mg 01/03/20 23:00 Librium - PO [id number] ALFRED Chlordiazepoxide HCl 10 mg 01/03/20 23:00 01/03/20 22:45 Librium - PO 01/04/20 17:01 10 mg [id number] ALFRED Administration Chlorhexidine Gluconate 1 applic 01/04/20 22:00 Hibiclens For Decolonization - TP HS ALFRED Folic Acid 1 mg/ Thiamine HCl 1,000 mls @ 125 mls/hr 01/03/20 19:28 01/03/20 23:01 100 mg/ Multivitamins/Minerals IVPB 01/04/20 03:27 125 mls/hr 10 ml/ Sodium Chloride ONCE ONE Administration Ceftriaxone Sodium 1 gm/ 50 mls @ 100 mls/hr 01/04/20 10:00 Dextrose IVPB DAILY ALFRED Protocol Azithromycin 500 mg in 250 mls @ 250 mls/hr 01/04/20 10:00 Zithromax 500mg Ivpb (Pre-Docked) IVPB DAILY [facility] Midazolam HCl 100 mg in 100 mls @ 2 mls/hr 01/04/20 03:15 01/04/20 01:30 Midazolam 100mg/100ml-0.9%Nacl IVPB 5 mg/hr TITR ALFRED 5 mls/hr Infusion Protocol 2 MG/HR Propofol 1,000,000 mcg in 100 mls @ 2.449 mls/hr 01/04/20 03:15 01/04/20 01:30 Diprivan - IVPB 20 mcg/kg/min TITR ALFRED 9.798 mls/hr Titration Protocol 5 MCG/KG/MIN Amiodarone HCl/Dextrose 360 mg in 200 mls @ 33.333 mls/hr 01/04/20 03:30 Nexterone 360 Mg/200 Ml Bag IVPB 01/04/20 09:30 TITR ALFRED Protocol 1 MG/MIN Lisinopril 2.5 mg 01/04/20 10:00 Prinivil PO DAILY [facility] Metoprolol Tartrate 100 mg 01/03/20 22:00 01/03/20 23:06 Lopressor - PO 100 mg BID ALFRED Administration Mupirocin 1 applic 01/04/20 01:15 Bactroban Ointment (For Decolonization) - NS 01/09/20 01:14 BID [facility] Thiamine HCl 200 mg 01/03/20 19:30 01/03/20 22:45 Vitamin B1 Injection - IM 200 mg DAILY ALFR[facility] Administration ASSESSMENT/PLAN: Dispo: We will continue to follow the patient. Thank you for this consultative opportunity. 54 yo male with pmh significant for Afib (on Eliquis) and chronic alcohol use (daily alcohol use, last drink was this afternoon) coming in with PNA, afib with RVR and alcohol withdrawal seizures. Neuro - Alcohol withdrawal seizures - Will get alcohol levels - giving propofol and midazolam for sedation - chlorpoxide every 6 hours - ativan prn Cardiac - EKG shows Afib with rvr at 151 beats -Pt has received Lopressor 100mg and 5mg lopressor push 3x - Pt still in Afib avr with MAP low will start amiodarone push and drip will monitor QtC current EKG shows QTc = 488 - Pt MAP<65 will start on vasopressin and if does not work will start phenylephrine - Pt on eliquis 5mg PO QD - will appreciate cardiology consult Resp: - Pt is intubated on RR 16, TV 450 PEEP 5 FiO2 90% - CXR: Small bilateral pleural effusions - PNA tx was started with wbc and fever in ED with ceftriaxone and azithromycin - Will continue treating with doxycycline and ceftriaxone - D/c azithromycin due to prolong QTc due to amiodarone GI -PPX- protonix 40 Heme - will monitor H/H FEN - will monitor electrolytes - Mg low will replete Prophylaxis - DVT- eliquis - PUD- protonix Visit type - Emergency Visit Emergency Visit: Yes ED Registration Date: 01/03/20 Care time: The patient presented to the Emergency Department on the above date and was hospitalized for further evaluation of their emergent condition. - New Patient This patient is new to me today: Yes Date on this admission: 01/03/20 - Critical Care Critical Care patient: Yes Total Critical Care Time (in minutes): 36 Critical Care Statement: The care of this patient involved high complexity decision making to prevent further life threatening deterioration of the patient's condition and/or to evaluate & treat vital organ system(s) failure or risk of failure. ATTENDING PHYSICIAN STATEMENT I saw and evaluated the patient. I reviewed the resident's note and discussed the case with the resident. I agree with the resident's findings and plan as documented. SUBJECTIVE: OBJECTIVE: ASSESSMENT AND PLAN:
[2020-01-04] MEDS ORDERED: AMIODARONE IN DEXTROSE,ISO-OSM 360 MG/200 ML BAG IVPB SCH ×2 (03:30→09:30)
[2020-01-04 03:37] LABS: BLOOD UREA NITROGEN 8.8 mg/dL (7-18); CALCIUM 7.3 mg/dL (8.5-10.1); CREATININE 0.9 mg/dL (0.55-1.3); MAGNESIUM 1.4 mg/dL (1.8-2.4); POTASSIUM 3.7 mmol/L (3.5-5.1)
[2020-01-04] MEDS ORDERED: MAGNESIUM 2GM/50ML STERILE WATER IVPB IVPB ONE (03:51)
[2020-01-04] MEDS ORDERED: VASOPRESSIN 20 UNITS/ML VIAL IV ONE ×2 (03:56→18:18)
[2020-01-04] MEDS: VASOPRESSIN 40 UNITS in SODIUM CHLORIDE 98 ML IVPB SCH ×3 (04:28→18:23)
[2020-01-04] MEDS: MUPIROCIN 2% TOPICAL OINTMENT FOR DECOLONIZATION NS SCH ×3 (04:51→21:54)
[2020-01-04] MEDS: chlordiazePOXIDE 5 MG CAPSULE PO SCH ×2 (06:36)
[2020-01-04 07:20] LABS: BASO % 0.1 % (0-2.0); HEMOGLOBIN 12.1 GM/dL (11.7-16.9); LYMPH % 5.6 % (8-40); MCH 35.9 pg (25.7-33.7); MCHC 33.6 g/dl (32.0-35.9); MEAN CELL VOLUME 106.9 fl (80-96); MEAN PLT VOLUME 10.5 fl (7.5-11.1); MONO % 12.9 % (3.8-10.2); NEUT % 81.4 % (42.8-82.8); PLATELET COUNT 39 K/MM3 (134-434); RBC 3.37 M/mm3 (4.00-5.60); RDW 13.8 % (11.9-15.9); WHITE BLOOD COUNT 8.9 K/mm3 (4.0-10.0)
[2020-01-04 07:49] LABS: ALBUMIN 2.2 g/dl (3.4-5.0); BILIRUBIN,TOTAL 3.7 mg/dL (0.2-1); BLOOD UREA NITROGEN 9.6 mg/dL (7-18); CALCIUM 7.2 mg/dL (8.5-10.1); CREATININE 0.8 mg/dL (0.55-1.3); MAGNESIUM 2.1 mg/dL (1.8-2.4); PHOSPHOROUS 2.3 mg/dL (2.5-4.9); POTASSIUM 3.6 mmol/L (3.5-5.1); TOT PROT 6.2 g/dl (6.4-8.2)
[2020-01-04] MEDS ORDERED: APIXABAN 5 MG TABLET PO SCH (08:00)
[2020-01-04] MEDS ORDERED: LORazepam 1 MG TABLET PO PRN (08:06)
--- NOTE | 2020-01-04 08:07 | CON.CARD ---
Consult Consult Specialty:: cardiology Reason for Consultation:: AF; lightheadedness - History of Present Illness Chief Complaint: Pt is intubated and sedated History of Present Illness: Mr Beckford is a 54 YO white man with PMHx h/o acute/chronic alcohol abuse, diastolic CHF (02/08 ECHO; mild AR; mild biatrial enlargement), HTN, AFIB (on metoprolol and eliquis), now presents with weakness and lightheadedness. Patient suspects current syptoms are 2/2 alcohol withdrawal. Mentions that his last drink was 3 hours prior to arrival. Patients reports that the patient has been lightheaded and tremulous this afternoon prior to arrival. Patient also mentions mild productive cough. Denies fever, chills, chest pain, SOB, N/V/D. Denies recent travel of sick contacts. 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 Home Medications - Allergies Allergies/Adverse Reactions: Allergies Allergy/AdvReac Type Severity Reaction Status Date / Time No Known Allergies Allergy Verified 01/03/20 13:48 - Home Medications Home Medications: Ambulatory Orders Furosemide [Lasix -] 20 mg PO DAILY 10/05/16 Lisinopril [Zestril] 2.5 mg PO DAILY 10/05/16 Spironolactone 25 mg PO DAILY 10/05/16 Apixaban [Eliquis] 5 mg PO BID 01/15/18 Metoprolol Tartrate [Lopressor -] 100 mg PO BID #60 tablet 01/31/18 Review of Systems Unable to obtain ROS, reason: intubated; sedated - Risk Factors Known Risk Factors: Yes: Age, Gender, Hypercholesterolemia, Hypertension, Physical Inactivity, Other Vital Signs: Vital Signs Temperature 98.1 F 01/04/20 06:00 Pulse Rate 80 01/04/20 06:00 Respiratory Rate 26 H 01/04/20 06:00 Blood Pressure 103/78 01/04/20 06:00 O2 Sat by Pulse Oximetry (%) 98 01/04/20 06:00 Constitutional: Yes: Other Eyes: Yes: WNL HENT: Yes: Other Neck: Yes: Trachea Midline Respiratory: Yes: Mechanically Ventilated Gastrointestinal: Yes: Soft Renal/: No: Anuria Cardiovascular: Yes: Pulse Irregular JVD: No Carotid Bruit: No PMI: Non-Displaced Heart Sounds: Yes: S1 (varies in intensity), S2 Murmur: Yes: Systolic Murmur, Grade 1 Musculoskeletal: Yes: Muscle Weakness Extremities: Yes: Cool Edema: No Integumentary: Yes: WNL Neurological: Yes: Unresponsive, Other (intubated; sedated) Psychiatric: Yes: Other (addiction) - Other Data Labs, Other Data: CBC, BMP 01/04/20 05:45 01/04/20 05:45 INR, PTT INR 2.49 (0.83-1.09) H 01/03/20 15:00 Troponin, BNP 01/03/20 01/04/20 15:00 05:45 Troponin I 0.03 B-Natriuretic Peptide 483.1 H 1161.8 H Troponin, BNP 01/03/20 01/04/20 15:00 05:45 Troponin I 0.03 B-Natriuretic Peptide 483.1 H 1161.8 H Abnormal Lab Results 01/04/20 01/04/20 01/04/20 03:01 05:45 20:45 RBC Hgb Hct MCV MCH Plt Count MPV Lymphocytes % (Manual) 5.0 L D Monocytes % ABG pO2 ABG HCO3 ABG O2 Sat (Measured) ABG Base Excess Anion Gap Random Glucose Lactic Acid 3.2 H* Calcium Phosphorus Total Bilirubin AST Alkaline Phosphatase Albumin HDL Cholesterol 16 L 01/05/20 01/05/20 01/05/20 05:10 05:45 05:45 RBC 3.23 L Hgb 11.6 L Hct 34.2 L MCV 105.7 H MCH 35.8 H Plt Count 40 L MPV 11.2 H Lymphocytes % (Manual) Monocytes % 14.9 H ABG pO2 136.6 H ABG HCO3 21.9 L ABG O2 Sat (Measured) 98.8 H ABG Base Excess -2.2 L Anion Gap Random Glucose Lactic Acid 2.2 H* Calcium Phosphorus Total Bilirubin AST Alkaline Phosphatase Albumin HDL Cholesterol 01/05/20 05:45 RBC Hgb Hct MCV MCH Plt Count MPV Lymphocytes % (Manual) Monocytes % ABG pO2 ABG HCO3 ABG O2 Sat (Measured) ABG Base Excess Anion Gap 3 L Random Glucose 171 H Lactic Acid Calcium 7.5 L Phosphorus 1.4 L Total Bilirubin 1.9 H AST 50 H Alkaline Phosphatase 34 L Albumin 2.5 L HDL Cholesterol Echo: Report Reviewed Ejection Fraction %: LVEF > or = 40 % Assessment/Plan Acute/chronic alcoholism AF with RVR diastolic CHF (02/08 ECHO: normal LVEF; mild biatrial enlargement; abnormal diastolic compliance; mild AR). leukocytosis; symptoms of URI HTN hypotension Plan: On IV amiodarone; plan to convert to PO, unless contraindicated (alcoholic; liver disease) On vasopression (when BP stabilizes, plan to increase metoprolol dose as tolerated for HR and BP). IV fluids F/u daily weight, Is and Os. Keep K+ 4.0-4.5, Mg 2.0-2.4, PO4 2.5-4.9. TNI 0.02; f/u serially Serial EKGs; telemetry Repeat ECHO for LVEF, chamber sizes, valve status Detox protocol COVID status pending CC time spent 70 minutes
[2020-01-04] MEDS ORDERED: cefTRIAXone SODIUM 1 GM VIAL ONE (09:08)
[2020-01-04] MEDS ORDERED: DEXTROSE 5%-WATER - 50 ML IVPB ONE ×3 (09:08→18:08)
[2020-01-04] MEDS ORDERED: PT OWN MED DRAWER 7, Y5N ONE (09:08)
--- NOTE | 2020-01-04 09:27 | PN ---
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, Physician History of Present Illness: Pt seen/ examined in icu chart is reviewed events noted Hospitalist efforts appreciated case also d/w icu team/ RN as well as cardiology Intubated/ sedated On amiodirone drip - Current Medication List Current Medications: Active Medications Albuterol Sulfate (Ventolin Hfa Inhaler -) 2 puff IH Q4H PRN PRN Reason: SHORT OF BREATH/WHEEZING Apixaban (Eliquis -) 5 mg PO BID ALFRED Chlorhexidine Gluconate (Hibiclens For Decolonization -) 1 applic TP HS ALFRED Midazolam HCl (Midazolam 100mg/100ml-0.9%Nacl) 100 mg in 100 mls @ 2 mls/hr IVPB TITR ALFRED; Protocol Last Infusion: 01/04/20 04:30 Dose: 5 mg/hr, 5 mls/hr Documented by: Propofol (Diprivan -) 1,000,000 mcg in 100 mls @ 2.449 mls/hr IVPB TITR ALFRED; Protocol Last Admin: 01/04/20 07:28 Dose: 30 mcg/kg/min, 14.696 mls/hr Documented by: Amiodarone HCl/Dextrose (Nexterone 360 Mg/200 Ml Bag) 360 mg in 200 mls @ 33.333 mls/hr IVPB TITR ALFRED; Protocol Stop: 01/04/20 09:30 Last Admin: 01/04/20 04:15 Dose: 1 mg/min, 33.333 mls/hr Documented by: Amiodarone HCl/Dextrose (Nexterone 360 Mg/200 Ml Bag) 360 mg in 200 mls @ 16.667 mls/hr IVPB ASDIR ALFRED Stop: 01/05/20 03:30 Vasopressin 40 units/ Sodium (Chloride) 100 mls @ 5 mls/hr IVPB ASDIR ALFRED; Protocol Last Admin: 01/04/20 04:28 Dose: 6 units/hr, 15 mls/hr Documented by: Ceftriaxone Sodium 1 gm/ (Dextrose) 50 mls @ 100 mls/hr IVPB DAILY ALFRED; Protocol Doxycycline Hyclate 100 mg/ (Dextrose) 100 mls @ 100 mls/hr IVPB BID ALFRED Lisinopril (Prinivil) 2.5 mg PO DAILY [facility] Lorazepam (Ativan -) 1 mg PO 0500,1100,1700,2300 AL[facility] Stop: 01/06/20 23:01 Lorazepam (Ativan -) 1 mg PO Q4H PRN PRN Reason: Symptoms of Withdrawal Stop: 01/06/20 23:59 Lorazepam (Ativan -) 2 mg PO 0500,1100,1700,2300 [facility] Stop: 01/05/20 23:01 Lorazepam (Ativan -) 0.5 mg PO Q6H [facility] Stop: 01/07/20 23:01 Lorazepam (Ativan -) 0.5 mg PO Q4H PRN PRN Reason: Symptoms of Withdrawal Stop: 01/08/20 00:00 Lorazepam (Ativan -) 0.5 mg PO ONCE ONE Stop: 01/08/20 05:01 Metoprolol Tartrate (Lopressor -) 100 mg PO BID [facility] Mupirocin (Bactroban Ointment (For Decolonization) -) 1 applic NS BID [facility] Stop: 01/09/20 01:14 Last Admin: 01/04/20 04:51 Dose: Not Given Documented by: Pantoprazole Sodium (Protonix Iv) 40 mg IVPUSH DAILY [facility] Thiamine HCl (Vitamin B1 Injection -) 200 mg IM DAILY [facility] - Objective Vital Signs: Vital Signs Temperature 98.1 F 01/04/20 06:00 Pulse Rate 88 01/04/20 08:00 Respiratory Rate 24 H 01/04/20 08:40 Blood Pressure 95/83 01/04/20 08:00 O2 Sat by Pulse Oximetry (%) 97 01/04/20 08:40 Constitutional: Yes: Other (intubated) Cardiovascular: Yes: Pulse Irregular Respiratory: Yes: CTA Bilaterally Gastrointestinal: Yes: Soft Edema: No Neurological: Yes: Other (sedated). No: Alert Labs: CBC, BMP 01/04/20 05:45 01/04/20 05:45 INR, PTT INR 2.49 (0.83-1.09) H 01/03/20 15:00 Problem List - Problems (1) Alcohol dependence Code(s): F10.20 - ALCOHOL DEPENDENCE, UNCOMPLICATED (2) Pneumonia Code(s): J18.9 - PNEUMONIA, UNSPECIFIED ORGANISM (3) Alcohol dependence with uncomplicated withdrawal Code(s): F10.230 - ALCOHOL DEPENDENCE WITH WITHDRAWAL, UNCOMPLICATED (4) Atrial fibrillation Code(s): I48.91 - UNSPECIFIED ATRIAL FIBRILLATION Qualifiers: Atrial fibrillation type: unspecified Qualified Code(s): I48.91 - Unspecified atrial fibrillation (5) Respiratory failure Code(s): J96.90 - RESPIRATORY FAILURE, UNSP, UNSP W HYPOXIA OR HYPERCAPNIA (6) Atrial fibrillation with rapid ventricular response Code(s): I48.91 - UNSPECIFIED ATRIAL FIBRILLATION Assessment/Plan Discussed with icu team Vent support Abx Likely alcohol withdrawal seizure Pneumonia Rapid afib Continue present care d/w Dr. Coker also Will follow cc time approx 35 min
[2020-01-04] MEDS ORDERED: AZITHROMYCIN IVPB 500 MG/250 ML BAG IVPB SCH ×2 (10:00)
[2020-01-04] MEDS ORDERED: LISINOPRIL 5 MG TABLET PO SCH (10:00)
[2020-01-04] MEDS ORDERED: DOXYCYCLINE INJECTION 100 MG in DEXTROSE 5%-WATER - 100 ML IVPB SCH (10:00)
[2020-01-04] MEDS ORDERED: CEFTRIAXONE 1 GM in DEXTROSE 5%-WATER - 50 ML IVPB SCH ×2 (10:00)
[2020-01-04] MEDS ORDERED: THIAMINE HCL 200 MG/2 ML VIAL IM SCH (10:00)
[2020-01-04] MEDS: PANTOPRAZOLE SODIUM 40 MG VIAL IVPUSH SCH (10:22)
[2020-01-04] MEDS ORDERED: LORazepam 1 MG TABLET PO SCH (11:00)
[2020-01-04 11:57] LABS: ANISOCYTOSIS 0; MACROCYTOSIS 0; PLATELET ESTIMATE DECREASED
[2020-01-04] MEDS ORDERED: PIPERACILLIN/TAZOBACTAM 3.375 GM VIAL IVPB ONE ×2 (13:13→18:07)
[2020-01-04] MEDS: PIPERACILLIN/TAZOB 3.375 GM 3.375 GM in DEXTROSE 5%-WATER - 50 ML IVPB SCH ×2 (13:25→18:09)
--- NOTE | 2020-01-04 13:25 | PN ---
Teaching Attending Note Name of Resident: Aparna Mason ATTENDING PHYSICIAN STATEMENT I saw and evaluated the patient. I reviewed the resident's note and discussed the case with the resident. I agree with the resident's findings and plan as documented. SUBJECTIVE: Patient seen and examined in the ICU. Intubated and sedated. AC Mode of vent. IV Amiodarone for AFib. Intake & Output 01/01/20 01/02/20 01/03/20 01/04/20 23:59 23:59 23:59 23:59 Intake Total 179.0 Output Total 300 Balance -121.0 Weight 180 lb 209 lb 7.026 oz Last Vital Signs Temp Pulse Resp BP Pulse Ox 97.6 F 78 23 H 94/80 98 01/04/20 10:00 01/04/20 12:00 01/04/20 12:00 01/04/20 12:00 01/04/20 12:28 Active Medications Albuterol Sulfate (Ventolin Hfa Inhaler -) 2 puff IH Q4H PRN PRN Reason: SHORT OF BREATH/WHEEZING Apixaban (Eliquis -) 5 mg PO BID ALFRED Chlorhexidine Gluconate (Hibiclens For Decolonization -) 1 applic TP HS ALFRED Midazolam HCl (Midazolam 100mg/100ml-0.9%Nacl) 100 mg in 100 mls @ 2 mls/hr IVPB TITR ALFRED; Protocol Last Infusion: 01/04/20 04:30 Dose: 5 mg/hr, 5 mls/hr Documented by: Propofol (Diprivan -) 1,000,000 mcg in 100 mls @ 2.449 mls/hr IVPB TITR ALFRED; Protocol Last Admin: 01/04/20 07:28 Dose: 30 mcg/kg/min, 14.696 mls/hr Documented by: Amiodarone HCl/Dextrose (Nexterone 360 Mg/200 Ml Bag) 360 mg in 200 mls @ 16.667 mls/hr IVPB ASDIR ALFRED Stop: 01/05/20 03:30 Last Admin: 01/04/20 10:15 Dose: 16.667 mls/hr Documented by: Vasopressin 40 units/ Sodium (Chloride) 100 mls @ 5 mls/hr IVPB ASDIR ALFRED; Protocol Last Admin: 01/04/20 09:56 Dose: 6 units/hr, 15 mls/hr Documented by: Piperacillin Sod/Tazobactam (Sod 3.375 gm/ Dextrose) 50 mls @ 100 mls/hr IVPB Q8H-IV ALFRED; Protocol Lisinopril (Prinivil) 2.5 mg PO DAILY [facility] Lorazepam (Ativan -) 1 mg PO 0500,1100,1700,2300 [facility] Stop: 01/06/20 23:01 Lorazepam (Ativan -) 1 mg PO Q4H PRN PRN Reason: Symptoms of Withdrawal Stop: 01/06/20 23:59 Lorazepam (Ativan -) 2 mg PO 0500,1100,1700,2300 [facility] Stop: 01/05/20 23:01 Lorazepam (Ativan -) 0.5 mg PO Q6H [facility] Stop: 01/07/20 23:01 Lorazepam (Ativan -) 0.5 mg PO Q4H PRN PRN Reason: Symptoms of Withdrawal Stop: 01/08/20 00:00 Lorazepam (Ativan -) 0.5 mg PO ONCE ONE Stop: 01/08/20 05:01 Metoprolol Tartrate (Lopressor -) 100 mg PO BID [facility] Mupirocin (Bactroban Ointment (For Decolonization) -) 1 applic NS BID [facility] Stop: 01/09/20 01:14 Last Admin: 01/04/20 13:14 Dose: 1 applic Documented by: Pantoprazole Sodium (Protonix Iv) 40 mg IVPUSH DAILY [facility] Last Admin: 01/04/20 10:22 Dose: 40 mg Documented by: Thiamine HCl (Vitamin B1 Injection -) 200 mg IM DAILY [facility] Last Admin: 01/04/20 09:58 Dose: 200 mg Documented by: General: Pt intubated and sedated LUNGS: Vented, diminished at the bases HEART: Irregular rate and rhythm ABDOMEN: Soft, nontender, normoactive bowel sounds. Ext: no peripheral edema 2+ pulses on bilateral lower ext ORIENTOR: Sedated Laboratory Results - last 24 hr 01/03/20 01/03/20 01/03/20 15:00 15:00 15:00 WBC 11.8 H RBC 3.79 L Hgb 13.7 Hct 39.8 MCV 104.9 H MCH 36.2 H MCHC 34.5 RDW 13.9 Plt Count 58 L MPV 11.0 D Absolute Neuts (auto) 9.4 H Neutrophils % 79.3 D Neutrophils % (Manual) Band Neutrophils % Lymphocytes % 4.3 L D Lymphocytes % (Manual) Monocytes % 15.8 H Monocytes % (Manual) Eosinophils % 0.0 D Eosinophils % (Manual) Basophils % 0.6 Basophils % (Manual) Myelocytes % (Man) Promyelocytes % (Man) Blast Cells % (Manual) Nucleated RBC % 0 Metamyelocytes Hypochromia Platelet Estimate Polychromasia Poikilocytosis Anisocytosis Microcytosis Macrocytosis PT with INR 29.60 H INR 2.49 H PTT (Actin FS) 41.6 H Anticoagulation Therapy Puncture Site Patient Temperature ABG pH ABG pCO2 ABG pO2 ABG HCO3 ABG O2 Sat (Measured) ABG O2 Content ABG Base Excess Nnamdi Test Patient On Oxygen O2 Delivery Device Oxygen Flow Rate Vent Mode Vent Rate Mechanical Rate PEEP Pressure Support Vent Sodium Potassium Chloride Carbon Dioxide Anion Gap BUN Creatinine Est GFR (CKD-EPI)AfAm Est GFR (CKD-EPI)NonAf POC Glucometer Random Glucose Lactic Acid Calcium Phosphorus Magnesium Total Bilirubin AST ALT Alkaline Phosphatase Troponin I 0.03 B-Natriuretic Peptide 483.1 H Total Protein Albumin Triglycerides Cholesterol Total LDL Cholesterol HDL Cholesterol TSH Urine Color Urine Appearance Urine pH Ur Specific Lenora Urine Protein Urine Glucose (UA) Urine Ketones Urine Blood Urine Nitrite Urine Bilirubin Urine Urobilinogen Ur Leukocyte Esterase Alcohol, Quantitative COVID-19 (STEVE) 01/03/20 01/03/20 01/03/20 15:00 15:00 15:00 WBC RBC Hgb Hct MCV MCH MCHC RDW Plt Count MPV Absolute Neuts (auto) Neutrophils % Neutrophils % (Manual) Band Neutrophils % Lymphocytes % Lymphocytes % (Manual) Monocytes % Monocytes % (Manual) Eosinophils % Eosinophils % (Manual) Basophils % Basophils % (Manual) Myelocytes % (Man) Promyelocytes % (Man) Blast Cells % (Manual) Nucleated RBC % Metamyelocytes Hypochromia Platelet Estimate Polychromasia Poikilocytosis Anisocytosis Microcytosis Macrocytosis PT with INR INR PTT (Actin FS) Anticoagulation Therapy Puncture Site Patient Temperature ABG pH ABG pCO2 ABG pO2 ABG HCO3 ABG O2 Sat (Measured) ABG O2 Content ABG Base Excess Nnamdi Test Patient On Oxygen O2 Delivery Device Oxygen Flow Rate Vent Mode Vent Rate Mechanical Rate PEEP Pressure Support Vent Sodium 135 L Potassium 3.6 Chloride 102 Carbon Dioxide 22 Anion Gap 12 BUN 7.7 Creatinine 0.9 Est GFR (CKD-EPI)AfAm 113.41 Est GFR (CKD-EPI)NonAf 97.85 POC Glucometer Random Glucose 101 Lactic Acid 4.2 H* Calcium 8.0 L Phosphorus Magnesium Total Bilirubin 2.8 H AST 100 H ALT 33 Alkaline Phosphatase 48 Troponin I B-Natriuretic Peptide Total Protein 7.8 Albumin 2.9 L Triglycerides Cholesterol Total LDL Cholesterol HDL Cholesterol TSH Urine Color Urine Appearance Urine pH Ur Specific Lenora Urine Protein Urine Glucose (UA) Urine Ketones Urine Blood Urine Nitrite Urine Bilirubin Urine Urobilinogen Ur Leukocyte Esterase Alcohol, Quantitative COVID-19 (STEVE) Not detected 01/03/20 01/03/20 01/04/20 19:35 19:35 01:45 WBC RBC Hgb Hct MCV MCH MCHC RDW Plt Count MPV Absolute Neuts (auto) Neutrophils % Neutrophils % (Manual) Band Neutrophils % Lymphocytes % Lymphocytes % (Manual) Monocytes % Monocytes % (Manual) Eosinophils % Eosinophils % (Manual) Basophils % Basophils % (Manual) Myelocytes % (Man) Promyelocytes % (Man) Blast Cells % (Manual) Nucleated RBC % Metamyelocytes Hypochromia Platelet Estimate Polychromasia Poikilocytosis Anisocytosis Microcytosis Macrocytosis PT with INR INR PTT (Actin FS) Anticoagulation Therapy No Result Required. Puncture Site Right radial Patient Temperature No Result Required. ABG pH 7.217 L ABG pCO2 31.50 L ABG pO2 81.2 ABG HCO3 12.5 L ABG O2 Sat (Measured) 93.9 L ABG O2 Content No Result Required. ABG Base Excess -14.0 L Nnamdi Test Positive Patient On Oxygen Yes O2 Delivery Device Vent Oxygen Flow Rate 100% Vent Mode A/c Vent Rate 16 Mechanical Rate Yes PEEP 5.0 Pressure Support Vent 450 Sodium Potassium Chloride Carbon Dioxide Anion Gap BUN Creatinine Est GFR (CKD-EPI)AfAm Est GFR (CKD-EPI)NonAf POC Glucometer Random Glucose Lactic Acid 5.3 H* Calcium Phosphorus Magnesium Total Bilirubin AST ALT Alkaline Phosphatase Troponin I B-Natriuretic Peptide Total Protein Albumin Triglycerides Cholesterol Total LDL Cholesterol HDL Cholesterol TSH Urine Color Dk yellow Urine Appearance Clear Urine pH 6.0 Ur Specific Lenora 1.015 Urine Protein Negative Urine Glucose (UA) Negative Urine Ketones Trace H Urine Blood Negative Urine Nitrite Negative Urine Bilirubin 1+ H Urine Urobilinogen 4.0 e.u/dl Ur Leukocyte Esterase Negative Alcohol, Quantitative COVID-19 (STEVE) 01/04/20 01/04/20 01/04/20 03:01 03:01 05:45 WBC 8.9 RBC 3.37 L Hgb 12.1 Hct 36.0 MCV 106.9 H MCH 35.9 H MCHC 33.6 RDW 13.8 Plt Count 39 L D MPV 10.5 Absolute Neuts (auto) 7.3 Neutrophils % 81.4 Neutrophils % (Manual) 58.0 Band Neutrophils % 27.0 Lymphocytes % 5.6 L D Lymphocytes % (Manual) 5.0 L D Monocytes % 12.9 H Monocytes % (Manual) 7 Eosinophils % 0.0 Eosinophils % (Manual) 0.0 D Basophils % 0.1 Basophils % (Manual) 0.0 Myelocytes % (Man) 0 Promyelocytes % (Man) 0 Blast Cells % (Manual) 0 Nucleated RBC % 0 Metamyelocytes 1 Hypochromia 0 Platelet Estimate Decreased Polychromasia 0 Poikilocytosis 0 Anisocytosis 0 Microcytosis 0 Macrocytosis 0 PT with INR INR PTT (Actin FS) Anticoagulation Therapy Puncture Site Patient Temperature ABG pH ABG pCO2 ABG pO2 ABG HCO3 ABG O2 Sat (Measured) ABG O2 Content ABG Base Excess Nnamdi Test Patient On Oxygen O2 Delivery Device Oxygen Flow Rate Vent Mode Vent Rate Mechanical Rate PEEP Pressure Support Vent Sodium 139 Potassium 3.7 Chloride 107 Carbon Dioxide 19 L Anion Gap 13 BUN 8.8 Creatinine 0.9 Est GFR (CKD-EPI)AfAm 113.41 Est GFR (CKD-EPI)NonAf 97.85 POC Glucometer Random Glucose 104 Lactic Acid Calcium 7.3 L Phosphorus Magnesium 1.4 L Total Bilirubin AST ALT Alkaline Phosphatase Troponin I B-Natriuretic Peptide Total Protein Albumin Triglycerides 136 Cholesterol 85 Total LDL Cholesterol 65 HDL Cholesterol 16 L TSH Urine Color Urine Appearance Urine pH Ur Specific Lenora Urine Protein Urine Glucose (UA) Urine Ketones Urine Blood Urine Nitrite Urine Bilirubin Urine Urobilinogen Ur Leukocyte Esterase Alcohol, Quantitative 29.3 H COVID-19 (STEVE) 01/04/20 01/04/20 01/04/20 05:45 05:45 08:35 WBC RBC Hgb Hct MCV MCH MCHC RDW Plt Count MPV Absolute Neuts (auto) Neutrophils % Neutrophils % (Manual) Band Neutrophils % Lymphocytes % Lymphocytes % (Manual) Monocytes % Monocytes % (Manual) Eosinophils % Eosinophils % (Manual) Basophils % Basophils % (Manual) Myelocytes % (Man) Promyelocytes % (Man) Blast Cells % (Manual) Nucleated RBC % Metamyelocytes Hypochromia Platelet Estimate Polychromasia Poikilocytosis Anisocytosis Microcytosis Macrocytosis PT with INR INR PTT (Actin FS) Anticoagulation Therapy Puncture Site Patient Temperature ABG pH ABG pCO2 ABG pO2 ABG HCO3 ABG O2 Sat (Measured) ABG O2 Content ABG Base Excess Nnamdi Test Patient On Oxygen O2 Delivery Device Oxygen Flow Rate Vent Mode Vent Rate Mechanical Rate PEEP Pressure Support Vent Sodium 137 Potassium 3.6 Chloride 106 Carbon Dioxide 22 Anion Gap 10 BUN 9.6 Creatinine 0.8 Est GFR (CKD-EPI)AfAm 119.04 Est GFR (CKD-EPI)NonAf 102.71 POC Glucometer 204 Random Glucose 144 H Lactic Acid Calcium 7.2 L Phosphorus 2.3 L Magnesium 2.1 Total Bilirubin 3.7 H AST 71 H ALT 28 Alkaline Phosphatase 39 L Troponin I B-Natriuretic Peptide 1161.8 H Total Protein 6.2 L Albumin 2.2 L Triglycerides Cholesterol Total LDL Cholesterol HDL Cholesterol TSH 0.47 D Urine Color Urine Appearance Urine pH Ur Specific Lenora Urine Protein Urine Glucose (UA) Urine Ketones Urine Blood Urine Nitrite Urine Bilirubin Urine Urobilinogen Ur Leukocyte Esterase Alcohol, Quantitative COVID-19 (STEVE) 01/04/20 13:07 WBC RBC Hgb Hct MCV MCH MCHC RDW Plt Count MPV Absolute Neuts (auto) Neutrophils % Neutrophils % (Manual) Band Neutrophils % Lymphocytes % Lymphocytes % (Manual) Monocytes % Monocytes % (Manual) Eosinophils % Eosinophils % (Manual) Basophils % Basophils % (Manual) Myelocytes % (Man) Promyelocytes % (Man) Blast Cells % (Manual) Nucleated RBC % Metamyelocytes Hypochromia Platelet Estimate Polychromasia Poikilocytosis Anisocytosis Microcytosis Macrocytosis PT with INR INR PTT (Actin FS) Anticoagulation Therapy Puncture Site Patient Temperature ABG pH ABG pCO2 ABG pO2 ABG HCO3 ABG O2 Sat (Measured) ABG O2 Content ABG Base Excess Nnamdi Test Patient On Oxygen O2 Delivery Device Oxygen Flow Rate Vent Mode Vent Rate Mechanical Rate PEEP Pressure Support Vent Sodium Potassium Chloride Carbon Dioxide Anion Gap BUN Creatinine Est GFR (CKD-EPI)AfAm Est GFR (CKD-EPI)NonAf POC Glucometer 260 Random Glucose Lactic Acid Calcium Phosphorus Magnesium Total Bilirubin AST ALT Alkaline Phosphatase Troponin I B-Natriuretic Peptide Total Protein Albumin Triglycerides Cholesterol Total LDL Cholesterol HDL Cholesterol TSH Urine Color Urine Appearance Urine pH Ur Specific Lenora Urine Protein Urine Glucose (UA) Urine Ketones Urine Blood Urine Nitrite Urine Bilirubin Urine Urobilinogen Ur Leukocyte Esterase Alcohol, Quantitative COVID-19 (STEVE) ASSESSMENT/PLAN: Acute Respiratory Failure due to PNA : CAp versus Aspiration AFib (on Eliquis) Chronic alcohol abuse R/O Alcohol withdrawal seizures. (?) Alcohol Ketoacidosis AC Mode of vent ABX per ID Sedate with Propofol and Versed Strict I & O Ativan PRN VTE prophylaxis Rate control with Amiodarone Cardiology evaluation noted Requires continued ICU monitoring Dr Carmen Critical care time spent in reviewing chart, evaluating patient and formulating plan - 36 minutes.
[2020-01-04] MEDS ORDERED: LORazepam 2 MG/ML SDV VIAL IVPUSH PRN (13:45)
[2020-01-04] MEDS ORDERED: THIAMINE HCL 100 MG TABLET (FP) PO SCH (13:45)
--- NOTE | 2020-01-04 14:20 | PN ---
Physical Exam: SUBJECTIVE: Patient seen and examined at the bedside, intubated and sedated. OBJECTIVE: Vital Signs Period Temp Pulse Resp BP Sys/Redman Pulse Ox Last 24 Hr 96.3 F-102.8 F 73-158 18-32 74-127/51-92 77-100 GENERAL: Intubated and sedated LUNGS: Decreased breath sounds B/L HEART: Irregular rate ABDOMEN: Soft, nontender, nondistended, normoactive bowel sounds, no guarding, no rebound, no hepatosplenomegaly, no masses. EXTREMITIES: 2+ pulses, warm, well-perfused, no edema. NEUROLOGICAL: Sedated Laboratory Results - last 24 hr 01/03/20 01/03/20 01/03/20 15:00 15:00 15:00 WBC 11.8 H RBC 3.79 L Hgb 13.7 Hct 39.8 MCV 104.9 H MCH 36.2 H MCHC 34.5 RDW 13.9 Plt Count 58 L MPV 11.0 D Absolute Neuts (auto) 9.4 H Neutrophils % 79.3 D Neutrophils % (Manual) Band Neutrophils % Lymphocytes % 4.3 L D Lymphocytes % (Manual) Monocytes % 15.8 H Monocytes % (Manual) Eosinophils % 0.0 D Eosinophils % (Manual) Basophils % 0.6 Basophils % (Manual) Myelocytes % (Man) Promyelocytes % (Man) Blast Cells % (Manual) Nucleated RBC % 0 Metamyelocytes Hypochromia Platelet Estimate Polychromasia Poikilocytosis Anisocytosis Microcytosis Macrocytosis PT with INR 29.60 H INR 2.49 H PTT (Actin FS) 41.6 H Anticoagulation Therapy Puncture Site Patient Temperature ABG pH ABG pCO2 ABG pO2 ABG HCO3 ABG O2 Sat (Measured) ABG O2 Content ABG Base Excess Nnamdi Test Patient On Oxygen O2 Delivery Device Oxygen Flow Rate Vent Mode Vent Rate Mechanical Rate PEEP Pressure Support Vent Sodium Potassium Chloride Carbon Dioxide Anion Gap BUN Creatinine Est GFR (CKD-EPI)AfAm Est GFR (CKD-EPI)NonAf POC Glucometer Random Glucose Lactic Acid Calcium Phosphorus Magnesium Total Bilirubin AST ALT Alkaline Phosphatase Troponin I 0.03 B-Natriuretic Peptide 483.1 H Total Protein Albumin Triglycerides Cholesterol Total LDL Cholesterol HDL Cholesterol TSH Urine Color Urine Appearance Urine pH Ur Specific [place] Urine Protein Urine Glucose (UA) Urine Ketones Urine Blood Urine Nitrite Urine Bilirubin Urine Urobilinogen Ur Leukocyte Esterase Alcohol, Quantitative COVID-19 (STEVE) 01/03/20 01/03/20 01/03/20 15:00 15:00 15:00 WBC RBC Hgb Hct MCV MCH MCHC RDW Plt Count MPV Absolute Neuts (auto) Neutrophils % Neutrophils % (Manual) Band Neutrophils % Lymphocytes % Lymphocytes % (Manual) Monocytes % Monocytes % (Manual) Eosinophils % Eosinophils % (Manual) Basophils % Basophils % (Manual) Myelocytes % (Man) Promyelocytes % (Man) Blast Cells % (Manual) Nucleated RBC % Metamyelocytes Hypochromia Platelet Estimate Polychromasia Poikilocytosis Anisocytosis Microcytosis Macrocytosis PT with INR INR PTT (Actin FS) Anticoagulation Therapy Puncture Site Patient Temperature ABG pH ABG pCO2 ABG pO2 ABG HCO3 ABG O2 Sat (Measured) ABG O2 Content ABG Base Excess Nnamdi Test Patient On Oxygen O2 Delivery Device Oxygen Flow Rate Vent Mode Vent Rate Mechanical Rate PEEP Pressure Support Vent Sodium 135 L Potassium 3.6 Chloride 102 Carbon Dioxide 22 Anion Gap 12 BUN 7.7 Creatinine 0.9 Est GFR (CKD-EPI)AfAm 113.41 Est GFR (CKD-EPI)NonAf 97.85 POC Glucometer Random Glucose 101 Lactic Acid 4.2 H* Calcium 8.0 L Phosphorus Magnesium Total Bilirubin 2.8 H AST 100 H ALT 33 Alkaline Phosphatase 48 Troponin I B-Natriuretic Peptide Total Protein 7.8 Albumin 2.9 L Triglycerides Cholesterol Total LDL Cholesterol HDL Cholesterol TSH Urine Color Urine Appearance Urine pH Ur Specific [place] Urine Protein Urine Glucose (UA) Urine Ketones Urine Blood Urine Nitrite Urine Bilirubin Urine Urobilinogen Ur Leukocyte Esterase Alcohol, Quantitative COVID-19 (STEVE) Not detected 01/03/20 01/03/20 01/04/20 19:35 19:35 01:45 WBC RBC Hgb Hct MCV MCH MCHC RDW Plt Count MPV Absolute Neuts (auto) Neutrophils % Neutrophils % (Manual) Band Neutrophils % Lymphocytes % Lymphocytes % (Manual) Monocytes % Monocytes % (Manual) Eosinophils % Eosinophils % (Manual) Basophils % Basophils % (Manual) Myelocytes % (Man) Promyelocytes % (Man) Blast Cells % (Manual) Nucleated RBC % Metamyelocytes Hypochromia Platelet Estimate Polychromasia Poikilocytosis Anisocytosis Microcytosis Macrocytosis PT with INR INR PTT (Actin FS) Anticoagulation Therapy No Result Required. Puncture Site Right radial Patient Temperature No Result Required. ABG pH 7.217 L ABG pCO2 31.50 L ABG pO2 81.2 ABG HCO3 12.5 L ABG O2 Sat (Measured) 93.9 L ABG O2 Content No Result Required. ABG Base Excess -14.0 L Nnamdi Test Positive Patient On Oxygen Yes O2 Delivery Device Vent Oxygen Flow Rate 100% Vent Mode A/c Vent Rate 16 Mechanical Rate Yes PEEP 5.0 Pressure Support Vent 450 Sodium Potassium Chloride Carbon Dioxide Anion Gap BUN Creatinine Est GFR (CKD-EPI)AfAm Est GFR (CKD-EPI)NonAf POC Glucometer Random Glucose Lactic Acid 5.3 H* Calcium Phosphorus Magnesium Total Bilirubin AST ALT Alkaline Phosphatase Troponin I B-Natriuretic Peptide Total Protein Albumin Triglycerides Cholesterol Total LDL Cholesterol HDL Cholesterol TSH Urine Color Dk yellow Urine Appearance Clear Urine pH 6.0 Ur Specific [place] 1.015 Urine Protein Negative Urine Glucose (UA) Negative Urine Ketones Trace H Urine Blood Negative Urine Nitrite Negative Urine Bilirubin 1+ H Urine Urobilinogen 4.0 e.u/dl Ur Leukocyte Esterase Negative Alcohol, Quantitative COVID-19 (STEVE) 01/04/20 01/04/20 01/04/20 03:01 03:01 05:45 WBC 8.9 RBC 3.37 L Hgb 12.1 Hct 36.0 MCV 106.9 H MCH 35.9 H MCHC 33.6 RDW 13.8 Plt Count 39 L D MPV 10.5 Absolute Neuts (auto) 7.3 Neutrophils % 81.4 Neutrophils % (Manual) 58.0 Band Neutrophils % 27.0 Lymphocytes % 5.6 L D Lymphocytes % (Manual) 5.0 L D Monocytes % 12.9 H Monocytes % (Manual) 7 Eosinophils % 0.0 Eosinophils % (Manual) 0.0 D Basophils % 0.1 Basophils % (Manual) 0.0 Myelocytes % (Man) 0 Promyelocytes % (Man) 0 Blast Cells % (Manual) 0 Nucleated RBC % 0 Metamyelocytes 1 Hypochromia 0 Platelet Estimate Decreased Polychromasia 0 Poikilocytosis 0 Anisocytosis 0 Microcytosis 0 Macrocytosis 0 PT with INR INR PTT (Actin FS) Anticoagulation Therapy Puncture Site Patient Temperature ABG pH ABG pCO2 ABG pO2 ABG HCO3 ABG O2 Sat (Measured) ABG O2 Content ABG Base Excess Nnamdi Test Patient On Oxygen O2 Delivery Device Oxygen Flow Rate Vent Mode Vent Rate Mechanical Rate PEEP Pressure Support Vent Sodium 139 Potassium 3.7 Chloride 107 Carbon Dioxide 19 L Anion Gap 13 BUN 8.8 Creatinine 0.9 Est GFR (CKD-EPI)AfAm 113.41 Est GFR (CKD-EPI)NonAf 97.85 POC Glucometer Random Glucose 104 Lactic Acid Calcium 7.3 L Phosphorus Magnesium 1.4 L Total Bilirubin AST ALT Alkaline Phosphatase Troponin I B-Natriuretic Peptide Total Protein Albumin Triglycerides 136 Cholesterol 85 Total LDL Cholesterol 65 HDL Cholesterol 16 L TSH Urine Color Urine Appearance Urine pH Ur Specific [place] Urine Protein Urine Glucose (UA) Urine Ketones Urine Blood Urine Nitrite Urine Bilirubin Urine Urobilinogen Ur Leukocyte Esterase Alcohol, Quantitative 29.3 H COVID-19 (STEVE) 01/04/20 01/04/20 01/04/20 05:45 05:45 08:35 WBC RBC Hgb Hct MCV MCH MCHC RDW Plt Count MPV Absolute Neuts (auto) Neutrophils % Neutrophils % (Manual) Band Neutrophils % Lymphocytes % Lymphocytes % (Manual) Monocytes % Monocytes % (Manual) Eosinophils % Eosinophils % (Manual) Basophils % Basophils % (Manual) Myelocytes % (Man) Promyelocytes % (Man) Blast Cells % (Manual) Nucleated RBC % Metamyelocytes Hypochromia Platelet Estimate Polychromasia Poikilocytosis Anisocytosis Microcytosis Macrocytosis PT with INR INR PTT (Actin FS) Anticoagulation Therapy Puncture Site Patient Temperature ABG pH ABG pCO2 ABG pO2 ABG HCO3 ABG O2 Sat (Measured) ABG O2 Content ABG Base Excess Nnamdi Test Patient On Oxygen O2 Delivery Device Oxygen Flow Rate Vent Mode Vent Rate Mechanical Rate PEEP Pressure Support Vent Sodium 137 Potassium 3.6 Chloride 106 Carbon Dioxide 22 Anion Gap 10 BUN 9.6 Creatinine 0.8 Est GFR (CKD-EPI)AfAm 119.04 Est GFR (CKD-EPI)NonAf 102.71 POC Glucometer 204 Random Glucose 144 H Lactic Acid Calcium 7.2 L Phosphorus 2.3 L Magnesium 2.1 Total Bilirubin 3.7 H AST 71 H ALT 28 Alkaline Phosphatase 39 L Troponin I B-Natriuretic Peptide 1161.8 H Total Protein 6.2 L Albumin 2.2 L Triglycerides Cholesterol Total LDL Cholesterol HDL Cholesterol TSH 0.47 D Urine Color Urine Appearance Urine pH Ur Specific [place] Urine Protein Urine Glucose (UA) Urine Ketones Urine Blood Urine Nitrite Urine Bilirubin Urine Urobilinogen Ur Leukocyte Esterase Alcohol, Quantitative COVID-19 (STEVE) 01/04/20 13:07 WBC RBC Hgb Hct MCV MCH MCHC RDW Plt Count MPV Absolute Neuts (auto) Neutrophils % Neutrophils % (Manual) Band Neutrophils % Lymphocytes % Lymphocytes % (Manual) Monocytes % Monocytes % (Manual) Eosinophils % Eosinophils % (Manual) Basophils % Basophils % (Manual) Myelocytes % (Man) Promyelocytes % (Man) Blast Cells % (Manual) Nucleated RBC % Metamyelocytes Hypochromia Platelet Estimate Polychromasia Poikilocytosis Anisocytosis Microcytosis Macrocytosis PT with INR INR PTT (Actin FS) Anticoagulation Therapy Puncture Site Patient Temperature ABG pH ABG pCO2 ABG pO2 ABG HCO3 ABG O2 Sat (Measured) ABG O2 Content ABG Base Excess Nnamdi Test Patient On Oxygen O2 Delivery Device Oxygen Flow Rate Vent Mode Vent Rate Mechanical Rate PEEP Pressure Support Vent Sodium Potassium Chloride Carbon Dioxide Anion Gap BUN Creatinine Est GFR (CKD-EPI)AfAm Est GFR (CKD-EPI)NonAf POC Glucometer 260 Random Glucose Lactic Acid Calcium Phosphorus Magnesium Total Bilirubin AST ALT Alkaline Phosphatase Troponin I B-Natriuretic Peptide Total Protein Albumin Triglycerides Cholesterol Total LDL Cholesterol HDL Cholesterol TSH Urine Color Urine Appearance Urine pH Ur Specific [place] Urine Protein Urine Glucose (UA) Urine Ketones Urine Blood Urine Nitrite Urine Bilirubin Urine Urobilinogen Ur Leukocyte Esterase Alcohol, Quantitative COVID-19 (STEVE) Active Medications Generic Name Dose Route Start Last Admin Trade Name Freq PRN Reason Stop Dose Admin Albuterol Sulfate 2 puff 01/04/20 05:39 Ventolin Hfa Inhaler - IH Q4H PRN SHORT OF BREATH/WHEEZING Apixaban 5 mg 01/04/20 08:00 Eliquis - PO BID ALFRED Chlorhexidine Gluconate 1 applic 01/04/20 22:00 Hibiclens For Decolonization - TP HS ALFRED Folic Acid 1 mg 01/05/20 10:00 Folic Acid - PO DAILY ALFRED Midazolam HCl 100 mg in 100 mls @ 2 mls/hr 01/04/20 03:15 01/04/20 04:30 Midazolam 100mg/100ml-0.9%Nacl IVPB 5 mg/hr TITR ALFRED 5 mls/hr Infusion Protocol 2 MG/HR Propofol 1,000,000 mcg in 100 mls @ 2.449 mls/hr 01/04/20 03:15 01/04/20 07:28 Diprivan - IVPB 30 mcg/kg/min TITR ALFRED 14.696 mls/hr Administration Protocol 5 MCG/KG/MIN Amiodarone HCl/Dextrose 360 mg in 200 mls @ 16.667 mls/hr 01/04/20 09:30 01/04/20 10:15 Nexterone 360 Mg/200 Ml Bag IVPB 01/05/20 03:30 16.667 mls/hr ASDIR ALFRED Administration 0.5 MG/MIN Vasopressin 40 units/ Sodium 100 mls @ 5 mls/hr 01/04/20 04:00 01/04/20 10:00 Chloride IVPB 5 units/hr ASDIR ALFRED 12.5 mls/hr Titration Protocol 2 UNITS/HR Piperacillin Sod/Tazobactam 50 mls @ 100 mls/hr 01/04/20 12:15 01/04/20 13:25 Sod 3.375 gm/ Dextrose IVPB 100 mls/hr Q8H-IV ALFRED Administration Protocol Lactated Ringer's 1,000 ml in 1,000 mls @ 83 mls/hr 01/04/20 13:45 Lactated Ringers Solution IV ASDIR ALFRED Lisinopril 2.5 mg 01/04/20 10:00 Prinivil PO DAILY ALFRED Lorazepam 1 mg 01/04/20 13:45 Ativan Injection - IVPUSH Q2H PRN WITHDRAWAL(CONT SUBST) Metoprolol Tartrate 100 mg 01/04/20 10:00 Lopressor - PO BID ALFRED Mupirocin 1 applic 01/04/20 01:15 01/04/20 13:14 Bactroban Ointment (For Decolonization) - NS 01/09/20 01:14 1 applic BID ALFRED Administration Pantoprazole Sodium 40 mg 01/04/20 10:00 01/04/20 10:22 Protonix Iv IVPUSH 40 mg DAILY ALFRED Administration Thiamine HCl 100 mg 01/05/20 10:00 Vitamin B1 - PO DAILY ALFRED ASSESSMENT/PLAN: 54 year old M with PMH of AFib (on Eliquis), chronic alcohol use (last drink yest afternoon), admitted for PNA, found to be in AF w RVR, with seizures, was given Librium 10mg, Ativan 1mg, Lopressor 100mg PO and 5mg IV, and was admitted to the ICU and started on Amio drip. 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 - Intubated and sedated, on Propofol, Midazolam - Alcohol withdrawal seizures, pt already on Benzos (Midazolam), started on IV Ativan PRN - Thiamine/Folic Acid daily #CVS - AFib with RVR, cardio consulted, plan to convert IV to PO Amiodarone - Resumed home Eliquis for AC - On Vasopressin for pressor support - Echo for LVEF - Qtc 488 #Resp - Intubated PEEP 5 FiO2 decreased from 90 -> 70 - CXR: Small BL pleuaral effusions #GI - NG placed for PO meds/nutrition, position confirmed - Protonix 40mg - AST/ALT 71/28, mildly elevated, will continue to monitor #ID - PNA terated with Ceftriaxone/Azithro, switched to Zosyn as per ID - ID on board #Renal - Cr 0.8 - Vo in place, making urine #Heme/Onc - Thrombocytopenia 39k, likely 2/2 sepsis, will continue to monitor #FEN - NG placed, dietary consulted for feeds #Prophylaxis - Protonix, on Eliquis for AF AC #Dispo - ICU monitoring, vent weaning when appropriate ATTENDING PHYSICIAN STATEMENT I saw and evaluated the patient. I reviewed the resident's note and discussed the case with the resident. I agree with the resident's findings and plan as documented. SUBJECTIVE: OBJECTIVE: ASSESSMENT AND PLAN:
[2020-01-04] MEDS: LISINOPRIL 5 MG TABLET PO SCH (14:37)
[2020-01-04] MEDS: METOPROLOL TARTRATE 50 MG TABLET (FP) PO SCH ×2 (14:37→21:55)
[2020-01-04] MEDS: APIXABAN 5 MG TABLET PO SCH ×2 (14:37→21:53)
[2020-01-04] MEDS: LACTATED RINGERS SOLUTION 1,000 ML/1,000 ML INFUS.BAG IV SCH (14:37)
--- NOTE | 2020-01-04 16:37 | PN ---
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 (short form) - Note 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: ID CONSULT DICTATED S/P SEIZURE RESP FAILURE PROBABLE ASP PNEUMONIA GRAM NEGATIVE BACTEREMIA R/O SEPSIS SECONDARY TO LUNG SOURCE LACTIC ACIDOSIS RAPID AFIB THROMBOCYTOPENIA ETOH ABUSE CONTINUE VENTILATORY SUPPORT EMPIRIC ZOSYN CRITICAL CARE TIME 35MIN
--- NOTE | 2020-01-04 18:14 | CONS ---
INFECTIOUS DISEASE CONSULTATION DATE OF CONSULTATION: DATE OF DICTATION: 01/04/2020 The patient is a 54-year-old male with a history of chronic alcohol abuse evaluated for probable aspiration pneumonia. The patient had presented to the hospital on January 03, 2020, with complaints of generalized weakness, lightheadedness. He had attributed symptoms to alcohol withdrawal. His clinical course was significant for tachycardia. He was found to be in rapid atrial fibrillation. He subsequently developed fever to 102.8 and had a generalized seizure. He required intubation, placement on mechanical ventilation, and admission to the intensive care unit. Course was further complicated by rapid atrial fibrillation. Blood cultures are now positive for gram-negative rods. At the present time, he is intubated. He is sedated on the ventilator. Chest x-ray shows bilateral increased markings consistent with pleural effusions, possible underlying consolidations. PAST MEDICAL HISTORY: Positive for chronic alcohol abuse, hypertension. SOCIAL HISTORY: Positive for alcohol abuse. He is a nonsmoker. SYSTEMS REVIEW: Neurologic: As per HPI. Cardiac: Negative chest pain or palpitations. Respiratory: Status post respiratory failure. Gastrointestinal: Negative vomiting or diarrhea. Genitourinary: Negative for urinary tract infection. LABORATORY DATA: White count 8.9; neutrophils 81, bands 27, lymphocytes 5, monocytes 12; hematocrit 36.0; platelets 39. Coagulation studies: INR 2.49. Creatinine 0.8, total bilirubin 3.7, alkaline phosphatase 39, AST 71. Urinalysis negative. Toxicology: Alcohol level 29. COVID-19 negative. Blood cultures: Gram-negative rods. Sputum and urine legionella antigen pending. PHYSICAL EXAMINATION: General: He is intubated. Vital Signs: T-max 102.8; blood pressure 86/72; pulse 78, regular; respirations 23 per minute. HEENT: Patient is orally intubated. Heart: Sounds S1, S2. Irregular. Lungs: Air entry bilaterally. Abdomen: Soft and nontender. Extremities: Negative for edema. IMPRESSION: 1. Status post seizure. 2. Respiratory failure. 3. Probable aspiration pneumonia in the setting of seizures. 4. Gram-negative bacteremia, likely lung source. 5. Rule out sepsis secondary to lung source. 6. Lactic acidosis. 7. Rapid atrial fibrillation. 8. Thrombocytopenia. 9. Alcohol abuse. Await sepsis workup. Empiric antibiotic coverage with Zosyn. Monitor platelet count. Continue ventilatory support. CRITICAL CARE TIME SPENT: Thirty-five minutes. Thank you for the kind referral. EARNEST CARROLL M.D. [id number]
[2020-01-04] MEDS: CHLORHEXIDINE GLUCONATE 4% CLEANSER FOR DECOLONIZATION TP SCH (21:54)
[2020-01-05] MEDS ORDERED: PIPERACILLIN/TAZOBACTAM 3.375 GM VIAL IVPB ONE ×3 (00:24→17:24)
[2020-01-05] MEDS ORDERED: DEXTROSE 5%-WATER - 50 ML IVPB ONE ×3 (00:25→17:24)
[2020-01-05] MEDS: PIPERACILLIN/TAZOB 3.375 GM 3.375 GM in DEXTROSE 5%-WATER - 50 ML IVPB SCH ×3 (02:04→17:34)
[2020-01-05] MEDS: LACTATED RINGERS SOLUTION 1,000 ML/1,000 ML INFUS.BAG IV SCH ×2 (04:08→18:18)
[2020-01-05 05:21] LABS: ARTERIAL BLD GAS O2 SATURATION 98.8 mmHg (95-98); ARTERIAL BLOOD GAS BASE EXCESS -2.2 mmol/L (-2-2); ARTERIAL BLOOD GAS PO2 136.6 mmHg (80-100); ARTERIAL BLOOD GAS pH 7.409 (7.350-7.450)
[2020-01-05 05:30] LABS: ALLENS TEST POSITIVE; VENT MODE A/C; VENT RATE 16
[2020-01-05 07:04] LABS: BASO % 0.4 % (0-2.0); EOS % 0.2 % (0-4.5); HEMATOCRIT 34.2 % (35.4-49); HEMOGLOBIN 11.6 GM/dL (11.7-16.9); LYMPH % 11.5 % (8-40); MCH 35.8 pg (25.7-33.7); MCHC 33.9 g/dl (32.0-35.9); MEAN CELL VOLUME 105.7 fl (80-96); MEAN PLT VOLUME 11.2 fl (7.5-11.1); MONO % 14.9 % (3.8-10.2); PLATELET COUNT 40 K/MM3 (134-434); RBC 3.23 M/mm3 (4.00-5.60); RDW 13.8 % (11.9-15.9); WHITE BLOOD COUNT 7.1 K/mm3 (4.0-10.0)
[2020-01-05 07:41] LABS: ALBUMIN 2.5 g/dl (3.4-5.0); BLOOD UREA NITROGEN 16.9 mg/dL (7-18); CALCIUM 7.5 mg/dL (8.5-10.1); MAGNESIUM 2.3 mg/dL (1.8-2.4); POTASSIUM 3.6 mmol/L (3.5-5.1)
[2020-01-05 07:47] LABS: BILIRUBIN,TOTAL 1.9 mg/dL (0.2-1); CREATININE 0.7 mg/dL (0.55-1.3); PHOSPHOROUS 1.4 mg/dL (2.5-4.9); TOT PROT 6.5 g/dl (6.4-8.2)
[2020-01-05] MEDS ORDERED: NAPH,MB-DB/K PH,MBDB POWDER PACKET PO ONE (08:17)
[2020-01-05] MEDS: MIDAZOLAM IN 0.9 % SOD.CHLORID 100 MG/100 ML PLAST..BAG IVPB SCH (08:43)
[2020-01-05] MEDS: FOLIC ACID 1 MG TABLET (FP) PO SCH (09:09)
[2020-01-05] MEDS: PANTOPRAZOLE SODIUM 40 MG VIAL IVPUSH SCH (09:10)
[2020-01-05] MEDS: METOPROLOL TARTRATE 50 MG TABLET (FP) PO SCH (09:10)
[2020-01-05] MEDS: LISINOPRIL 5 MG TABLET PO SCH (09:10)
[2020-01-05] MEDS: APIXABAN 5 MG TABLET PO SCH ×2 (09:10→21:51)
[2020-01-05] MEDS: MUPIROCIN 2% TOPICAL OINTMENT FOR DECOLONIZATION NS SCH ×2 (09:10→21:11)
[2020-01-05] MEDS: THIAMINE HCL 100 MG TABLET (FP) PO SCH (09:11)
--- NOTE | 2020-01-05 09:31 | PN ---
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, Physician Chief Complaint: Pt remains intubated, sedated History of Present Illness: Mr Beckford is a 54 YO white man with PMHx h/o acute/chronic alcohol abuse, diastolic CHF (02/08 ECHO; mild AR; mild biatrial enlargement), HTN, AFIB (on metoprolol and eliquis), now presents with weakness and lightheadedness. Patient suspects current syptoms are 2/2 alcohol withdrawal. Mentions that his last drink was 3 hours prior to arrival. Patients reports that the patient has been lightheaded and tremulous this afternoon prior to arrival. Patient also mentions mild productive cough. Denies fever, chills, chest pain, SOB, N/V/D. Denies recent travel of sick contacts. - Current Medication List Current Medications: Active Medications Albuterol Sulfate (Ventolin Hfa Inhaler -) 2 puff IH Q4H PRN PRN Reason: SHORT OF BREATH/WHEEZING Apixaban (Eliquis -) 5 mg PO BID [facility] Last Admin: 01/05/20 09:10 Dose: 5 mg Documented by: Chlorhexidine Gluconate (Hibiclens For Decolonization -) 1 applic TP HS ALFRED Last Admin: 01/04/20 21:54 Dose: 1 applic Documented by: Folic Acid (Folic Acid -) 1 mg PO DAILY ALFRED Last Admin: 01/05/20 09:09 Dose: 1 mg Documented by: Midazolam HCl (Midazolam 100mg/100ml-0.9%Nacl) 100 mg in 100 mls @ 2 mls/hr IVPB TITR ALFRED; Protocol Last Admin: 01/05/20 08:43 Dose: 5 mg/hr, 5 mls/hr Documented by: Propofol (Diprivan -) 1,000,000 mcg in 100 mls @ 2.449 mls/hr IVPB TITR ALFRED; Protocol Last Titration: 01/05/20 04:03 Dose: 25 mcg/kg/min, 12.247 mls/hr Documented by: Vasopressin 40 units/ Sodium (Chloride) 100 mls @ 5 mls/hr IVPB ASDIR ALFRED; Protocol Last Titration: 01/05/20 02:31 Dose: 5 units/hr, 12.5 mls/hr Documented by: Piperacillin Sod/Tazobactam (Sod 3.375 gm/ Dextrose) 50 mls @ 100 mls/hr IVPB Q8H-IV ALFRED; Protocol Last Admin: 01/05/20 09:11 Dose: 100 mls/hr Documented by: Lactated Ringer's (Lactated Ringers Solution) 1,000 ml in 1,000 mls @ 83 mls/hr IV ASDIR [facility] Last Admin: 01/05/20 04:08 Dose: 83 mls/hr Documented by: Lisinopril (Prinivil) 2.5 mg PO DAILY [facility] Last Admin: 01/05/20 09:10 Dose: Not Given Documented by: Lorazepam (Ativan Injection -) 1 mg IVPUSH Q2H PRN PRN Reason: WITHDRAWAL(CONT SUBST) Metoprolol Tartrate (Lopressor -) 100 mg PO BID [facility] Last Admin: 01/05/20 09:10 Dose: Not Given Documented by: Mupirocin (Bactroban Ointment (For Decolonization) -) 1 applic NS BID [facility] Stop: 01/09/20 01:14 Last Admin: 01/05/20 09:10 Dose: 1 applic Documented by: Pantoprazole Sodium (Protonix Iv) 40 mg IVPUSH DAILY [facility] Last Admin: 01/05/20 09:10 Dose: 40 mg Documented by: Thiamine HCl (Vitamin B1 -) 100 mg PO DAILY [facility] Last Admin: 01/05/20 09:11 Dose: 100 mg Documented by: - Objective Vital Signs: Vital Signs Temperature 97.9 F 01/04/20 21:00 Pulse Rate 77 01/05/20 08:00 Respiratory Rate 12 01/05/20 08:00 Blood Pressure 96/72 01/05/20 08:00 O2 Sat by Pulse Oximetry (%) 100 01/05/20 08:00 Constitutional: Yes: Other Eyes: Yes: WNL HENT: Yes: WNL Neck: Yes: Decreased ROM Cardiovascular: Yes: S1, S2 Respiratory: Yes: Diminished, Mechanically Ventilated Gastrointestinal: Yes: Soft Genitourinary: Yes: Vo Present. No: Anuria Musculoskeletal: Yes: Muscle Weakness Extremities: Yes: Cool Edema: No Peripheral Pulses WNL: Yes Integumentary: Yes: WNL Neurological: Yes: Unresponsive, Other Psychiatric: Yes: Other (addiction) Labs: CBC, BMP 01/05/20 05:45 01/05/20 05:45 INR, PTT INR 2.49 (0.83-1.09) H 01/03/20 15:00 Abnormal Lab Results 01/05/20 01/05/20 01/05/20 05:10 05:45 05:45 RBC 3.23 L Hgb 11.6 L Hct 34.2 L MCV 105.7 H MCH 35.8 H Plt Count 40 L MPV 11.2 H Monocytes % 14.9 H ABG pO2 136.6 H ABG HCO3 21.9 L ABG O2 Sat (Measured) 98.8 H ABG Base Excess -2.2 L Anion Gap Random Glucose Lactic Acid 2.2 H* Calcium Phosphorus Total Bilirubin AST Alkaline Phosphatase Albumin 01/05/20 05:45 RBC Hgb Hct MCV MCH Plt Count MPV Monocytes % ABG pO2 ABG HCO3 ABG O2 Sat (Measured) ABG Base Excess Anion Gap 3 L Random Glucose 171 H Lactic Acid Calcium 7.5 L Phosphorus 1.4 L Total Bilirubin 1.9 H AST 50 H Alkaline Phosphatase 34 L Albumin 2.5 L - ....Imaging Chest X-ray: Image Reviewed EKG: Image Reviewed Assessment/Plan Acute/chronic alcoholism Respiratory failure:intubated; mechanically ventilated; ? aspiration PNA. AF with RVR diastolic CHF (02/08 ECHO: normal LVEF; mild biatrial enlargement; abnormal diastolic compliance; mild AR). leukocytosis; symptoms of URI HTN hypotension TSH WNL LDL cholesterol 67 mg/dL Plan: Now off amiodarone. AF, relatively well-controlled VR. As discussed with Dr. Carmen, pt's alcoholism and liver abnormality mitigates against starting PO amiodarone. On vasopression; wean off as tolerated. Will start low-dose metoprolol tartrate and f/u BP and HR carefully. On lisinopril 2.5 mg daily. On IV fluids F/u daily weight, Is and Os. Replete K and PO4 (receiving neutrophos); keep K+ 4.0-4.5, Mg 2.0-2.4, PO4 2.5- 4.9. TNI 0.03; f/u serially Serial EKGs; telemetry Repeat ECHO for LVEF, chamber sizes, valve status Antibiotics per ID (on Zosyn). Continue detox protocol CC time spent 40 minutes
[2020-01-05] MEDS: METOPROLOL TARTRATE 25 MG TABLET (FP) PO SCH ×2 (10:05→21:52)
--- NOTE | 2020-01-05 11:15 | PN ---
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, Physician History of Present Illness: Pt seen/ examined in icu chart is reviewed case also d/w icu team as well as with RN Intubated/ sedated Off amiodirone drip afebrile - Current Medication List Current Medications: Active Medications Albuterol Sulfate (Ventolin Hfa Inhaler -) 2 puff IH Q4H PRN PRN Reason: SHORT OF BREATH/WHEEZING Apixaban (Eliquis -) 5 mg PO BID [facility] Last Admin: 01/05/20 09:10 Dose: 5 mg Documented by: Chlorhexidine Gluconate (Hibiclens For Decolonization -) 1 applic TP HS [facility] Last Admin: 01/04/20 21:54 Dose: 1 applic Documented by: Folic Acid (Folic Acid -) 1 mg PO DAILY [facility] Last Admin: 01/05/20 09:09 Dose: 1 mg Documented by: Midazolam HCl (Midazolam 100mg/100ml-0.9%Nacl) 100 mg in 100 mls @ 2 mls/hr IVPB TITR [facility]; Protocol Last Admin: 01/05/20 08:43 Dose: 5 mg/hr, 5 mls/hr Documented by: Propofol (Diprivan -) 1,000,000 mcg in 100 mls @ 2.449 mls/hr IVPB TITR [facility]; Protocol Last Titration: 01/05/20 04:03 Dose: 25 mcg/kg/min, 12.247 mls/hr Documented by: Vasopressin 40 units/ Sodium (Chloride) 100 mls @ 5 mls/hr IVPB ASDIR [facility]; Protocol Last Titration: 01/05/20 02:31 Dose: 5 units/hr, 12.5 mls/hr Documented by: Piperacillin Sod/Tazobactam (Sod 3.375 gm/ Dextrose) 50 mls @ 100 mls/hr IVPB Q8H-IV [facility]; Protocol Last Admin: 01/05/20 09:11 Dose: 100 mls/hr Documented by: Lactated Ringer's (Lactated Ringers Solution) 1,000 ml in 1,000 mls @ 83 mls/hr IV ASDIR [facility] Last Admin: 01/05/20 04:08 Dose: 83 mls/hr Documented by: Lisinopril (Prinivil) 2.5 mg PO DAILY [facility] Last Admin: 01/05/20 09:10 Dose: Not Given Documented by: Lorazepam (Ativan Injection -) 1 mg IVPUSH Q2H PRN PRN Reason: WITHDRAWAL(CONT SUBST) Metoprolol Tartrate (Lopressor -) 12.5 mg PO BID [facility] Last Admin: 01/05/20 10:05 Dose: 12.5 mg Documented by: Mupirocin (Bactroban Ointment (For Decolonization) -) 1 applic NS BID [facility] Stop: 01/09/20 01:14 Last Admin: 01/05/20 09:10 Dose: 1 applic Documented by: Pantoprazole Sodium (Protonix Iv) 40 mg IVPUSH DAILY [facility] Last Admin: 01/05/20 09:10 Dose: 40 mg Documented by: Thiamine HCl (Vitamin B1 -) 100 mg PO DAILY [facility] Last Admin: 01/05/20 09:11 Dose: 100 mg Documented by: - Objective Vital Signs: Vital Signs Temperature 96.8 F L 01/05/20 10:00 Pulse Rate 80 01/05/20 10:00 Respiratory Rate 18 01/05/20 10:00 Blood Pressure 99/78 01/05/20 10:00 O2 Sat by Pulse Oximetry (%) 98 01/05/20 10:00 Constitutional: Yes: Other (intubatede/ sedated) Cardiovascular: Yes: Pulse Irregular Respiratory: Yes: Diminished Gastrointestinal: Yes: Soft Genitourinary: Yes: Vo Present Edema: No Labs: CBC, BMP 01/05/20 05:45 01/05/20 05:45 INR, PTT INR 2.49 (0.83-1.09) H 01/03/20 15:00 Problem List - Problems (1) Alcohol dependence Code(s): F10.20 - ALCOHOL DEPENDENCE, UNCOMPLICATED (2) Pneumonia Code(s): J18.9 - PNEUMONIA, UNSPECIFIED ORGANISM (3) Alcohol dependence with uncomplicated withdrawal Code(s): F10.230 - ALCOHOL DEPENDENCE WITH WITHDRAWAL, UNCOMPLICATED (4) Atrial fibrillation Code(s): I48.91 - UNSPECIFIED ATRIAL FIBRILLATION Qualifiers: Atrial fibrillation type: unspecified Qualified Code(s): I48.91 - Unspecified atrial fibrillation (5) Respiratory failure Code(s): J96.90 - RESPIRATORY FAILURE, UNSP, UNSP W HYPOXIA OR HYPERCAPNIA (6) Atrial fibrillation with rapid ventricular response Code(s): I48.91 - UNSPECIFIED ATRIAL FIBRILLATION Assessment/Plan Continue present care Vent support-- weaning as tolerated Abx Likely alcohol withdrawal seizure Pneumonia Rapid afib Gm -v bactremia Continue present care Will follow cc time approx 30 min
[2020-01-05] MEDS: VASOPRESSIN 40 UNITS in SODIUM CHLORIDE 98 ML IVPB SCH (11:34)
[2020-01-05] MEDS: PROPOFOL 1,000,000 MCG/100 ML VIAL IVPB SCH (11:38)
--- NOTE | 2020-01-05 12:45 | PN ---
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 (short form) - Note 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: Patient seen and examined in the ICU. Intubated and sedated. AC Mode of vent. NE @ 5 mcq for hemodynamic support. AFib better rate controlled. Intake & Output 01/02/20 01/03/20 01/04/20 01/05/20 23:59 23:59 23:59 23:59 Intake Total 1257.0 1678.0 Output Total 1075 760 Balance 182.0 918.0 Weight 180 lb 209 lb 7.026 oz Last Vital Signs Temp Pulse Resp BP Pulse Ox 96.8 F L 86 20 99/80 99 01/05/20 10:00 01/05/20 12:00 01/05/20 12:00 01/05/20 12:00 01/05/20 12:00 Active Medications Albuterol Sulfate (Ventolin Hfa Inhaler -) 2 puff IH Q4H PRN PRN Reason: SHORT OF BREATH/WHEEZING Apixaban (Eliquis -) 5 mg PO BID [facility] Last Admin: 01/05/20 09:10 Dose: 5 mg Documented by: Chlorhexidine Gluconate (Hibiclens For Decolonization -) 1 applic TP HS [facility] Last Admin: 01/04/20 21:54 Dose: 1 applic Documented by: Folic Acid (Folic Acid -) 1 mg PO DAILY [facility] Last Admin: 01/05/20 09:09 Dose: 1 mg Documented by: Midazolam HCl (Midazolam 100mg/100ml-0.9%Nacl) 100 mg in 100 mls @ 2 mls/hr IVPB TITR [facility]; Protocol Last Admin: 01/05/20 08:43 Dose: 5 mg/hr, 5 mls/hr Documented by: Propofol (Diprivan -) 1,000,000 mcg in 100 mls @ 2.449 mls/hr IVPB TITR [facility]; Protocol Last Admin: 01/05/20 11:38 Dose: 25 mcg/kg/min, 12.247 mls/hr Documented by: Vasopressin 40 units/ Sodium (Chloride) 100 mls @ 5 mls/hr IVPB ASDIR [facility]; Protocol Last Admin: 01/05/20 11:34 Dose: 5 units/hr, 12.5 mls/hr Documented by: Piperacillin Sod/Tazobactam (Sod 3.375 gm/ Dextrose) 50 mls @ 100 mls/hr IVPB Q8H-IV [facility]; Protocol Last Admin: 01/05/20 09:11 Dose: 100 mls/hr Documented by: Lactated Ringer's (Lactated Ringers Solution) 1,000 ml in 1,000 mls @ 83 mls/hr IV ASDIR [facility] Last Admin: 01/05/20 04:08 Dose: 83 mls/hr Documented by: Lisinopril (Prinivil) 2.5 mg PO DAILY [facility] Last Admin: 01/05/20 09:10 Dose: Not Given Documented by: Lorazepam (Ativan Injection -) 1 mg IVPUSH Q2H PRN PRN Reason: WITHDRAWAL(CONT SUBST) Metoprolol Tartrate (Lopressor -) 12.5 mg PO BID [facility] Last Admin: 01/05/20 10:05 Dose: 12.5 mg Documented by: Mupirocin (Bactroban Ointment (For Decolonization) -) 1 applic NS BID [facility] Stop: 01/09/20 01:14 Last Admin: 01/05/20 09:10 Dose: 1 applic Documented by: Pantoprazole Sodium (Protonix Iv) 40 mg IVPUSH DAILY [facility] Last Admin: 01/05/20 09:10 Dose: 40 mg Documented by: Thiamine HCl (Vitamin B1 -) 100 mg PO DAILY [facility] Last Admin: 01/05/20 09:11 Dose: 100 mg Documented by: General: Pt intubated and sedated LUNGS: Vented, diminished at the bases HEART: Irregular rate and rhythm ABDOMEN: Soft, nontender, normoactive bowel sounds. Ext: no peripheral edema 2+ pulses on bilateral lower ext [employer]: Sedated Laboratory Results - last 24 hr 01/04/20 01/04/20 01/04/20 13:07 17:23 20:45 WBC RBC Hgb Hct MCV MCH MCHC RDW Plt Count MPV Absolute Neuts (auto) Neutrophils % Lymphocytes % Monocytes % Eosinophils % Basophils % Nucleated RBC % Anticoagulation Therapy Puncture Site Patient Temperature ABG pH ABG pCO2 ABG pO2 ABG HCO3 ABG O2 Sat (Measured) ABG O2 Content ABG Base Excess Nnamdi Test Patient On Oxygen O2 Delivery Device Oxygen Flow Rate Vent Mode Vent Rate Mechanical Rate PEEP Pressure Support Vent Sodium Potassium Chloride Carbon Dioxide Anion Gap BUN Creatinine Est GFR (CKD-EPI)AfAm Est GFR (CKD-EPI)NonAf POC Glucometer 260 234 Random Glucose Lactic Acid 3.2 H* Calcium Phosphorus Magnesium Total Bilirubin AST ALT Alkaline Phosphatase Total Protein Albumin 01/05/20 01/05/20 01/05/20 05:10 05:45 05:45 WBC 7.1 RBC 3.23 L Hgb 11.6 L Hct 34.2 L MCV 105.7 H MCH 35.8 H MCHC 33.9 RDW 13.8 Plt Count 40 L MPV 11.2 H Absolute Neuts (auto) 5.2 Neutrophils % 73.0 Lymphocytes % 11.5 D Monocytes % 14.9 H Eosinophils % 0.2 D Basophils % 0.4 D Nucleated RBC % 0 Anticoagulation Therapy No Result Required. Puncture Site Right radial Patient Temperature No Result Required. ABG pH 7.409 ABG pCO2 35.50 ABG pO2 136.6 H ABG HCO3 21.9 L ABG O2 Sat (Measured) 98.8 H ABG O2 Content No Result Required. ABG Base Excess -2.2 L Nnamdi Test Positive Patient On Oxygen Yes O2 Delivery Device Vent Oxygen Flow Rate 70% Vent Mode A/c Vent Rate 16 Mechanical Rate Yes PEEP 5.0 Pressure Support Vent 450 Sodium Potassium Chloride Carbon Dioxide Anion Gap BUN Creatinine Est GFR (CKD-EPI)AfAm Est GFR (CKD-EPI)NonAf POC Glucometer Random Glucose Lactic Acid 2.2 H* Calcium Phosphorus Magnesium Total Bilirubin AST ALT Alkaline Phosphatase Total Protein Albumin 01/05/20 05:45 WBC RBC Hgb Hct MCV MCH MCHC RDW Plt Count MPV Absolute Neuts (auto) Neutrophils % Lymphocytes % Monocytes % Eosinophils % Basophils % Nucleated RBC % Anticoagulation Therapy Puncture Site Patient Temperature ABG pH ABG pCO2 ABG pO2 ABG HCO3 ABG O2 Sat (Measured) ABG O2 Content ABG Base Excess Nnamdi Test Patient On Oxygen O2 Delivery Device Oxygen Flow Rate Vent Mode Vent Rate Mechanical Rate PEEP Pressure Support Vent Sodium 138 Potassium 3.6 Chloride 106 Carbon Dioxide 29 Anion Gap 3 L BUN 16.9 Creatinine 0.7 Est GFR (CKD-EPI)AfAm 125.75 Est GFR (CKD-EPI)NonAf 108.50 POC Glucometer Random Glucose 171 H Lactic Acid Calcium 7.5 L Phosphorus 1.4 L Magnesium 2.3 Total Bilirubin 1.9 H AST 50 H ALT 26 Alkaline Phosphatase 34 L Total Protein 6.5 Albumin 2.5 L ASSESSMENT/PLAN: Acute Respiratory Failure due to PNA : CAP versus Aspiration AFib (on Eliquis) Chronic alcohol abuse R/O Alcohol withdrawal seizures. (?) Alcohol Ketoacidosis AC Mode of vent ABX per ID Sedate with Propofol and Versed Strict I & O Ativan PRN VTE prophylaxis No contraindication to add Beta Rufina Requires continued ICU monitoring Dr Carmen Critical care time spent in reviewing chart, evaluating patient and formulating plan - 36 minutes.
--- NOTE | 2020-01-05 20:22 | PN ---
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, Physician History of Present Illness: SEDATED ON VENTILATOR NO ACUTE DISTRESS AFEBRILE - Current Medication List Current Medications: Active Medications Albuterol Sulfate (Ventolin Hfa Inhaler -) 2 puff IH Q4H PRN PRN Reason: SHORT OF BREATH/WHEEZING Apixaban (Eliquis -) 5 mg PO BID [facility] Last Admin: 01/05/20 09:10 Dose: 5 mg Documented by: Chlorhexidine Gluconate (Hibiclens For Decolonization -) 1 applic TP HS [facility] Last Admin: 01/04/20 21:54 Dose: 1 applic Documented by: Folic Acid (Folic Acid -) 1 mg PO DAILY [facility] Last Admin: 01/05/20 09:09 Dose: 1 mg Documented by: Midazolam HCl (Midazolam 100mg/100ml-0.9%Nacl) 100 mg in 100 mls @ 2 mls/hr IVPB TITR [facility]; Protocol Last Admin: 01/05/20 08:43 Dose: 5 mg/hr, 5 mls/hr Documented by: Propofol (Diprivan -) 1,000,000 mcg in 100 mls @ 2.449 mls/hr IVPB TITR [facility]; Protocol Last Admin: 01/05/20 11:38 Dose: 25 mcg/kg/min, 12.247 mls/hr Documented by: Vasopressin 40 units/ Sodium (Chloride) 100 mls @ 5 mls/hr IVPB ASDIR [facility]; Protocol Last Titration: 01/05/20 18:10 Dose: 1 units/hr, 2.5 mls/hr Documented by: Piperacillin Sod/Tazobactam (Sod 3.375 gm/ Dextrose) 50 mls @ 100 mls/hr IVPB Q8H-IV [facility]; Protocol Last Admin: 01/05/20 17:34 Dose: 100 mls/hr Documented by: Lactated Ringer's (Lactated Ringers Solution) 1,000 ml in 1,000 mls @ 83 mls/hr IV ASDIR [facility] Last Admin: 01/05/20 18:18 Dose: 83 mls/hr Documented by: Lisinopril (Prinivil) 2.5 mg PO DAILY [facility] Last Admin: 01/05/20 09:10 Dose: Not Given Documented by: Lorazepam (Ativan Injection -) 1 mg IVPUSH Q2H PRN PRN Reason: WITHDRAWAL(CONT SUBST) Metoprolol Tartrate (Lopressor -) 12.5 mg PO BID [facility] Last Admin: 01/05/20 10:05 Dose: 12.5 mg Documented by: Mupirocin (Bactroban Ointment (For Decolonization) -) 1 applic NS BID [facility] Stop: 01/09/20 01:14 Last Admin: 01/05/20 09:10 Dose: 1 applic Documented by: Pantoprazole Sodium (Protonix Iv) 40 mg IVPUSH DAILY [facility] Last Admin: 01/05/20 09:10 Dose: 40 mg Documented by: Thiamine HCl (Vitamin B1 -) 100 mg PO DAILY [facility] Last Admin: 01/05/20 09:11 Dose: 100 mg Documented by: - Objective Vital Signs: Vital Signs Temperature 98.9 F 01/05/20 18:00 Pulse Rate 96 H 01/05/20 18:10 Respiratory Rate 21 H 01/05/20 20:16 Blood Pressure 106/77 01/05/20 18:10 O2 Sat by Pulse Oximetry (%) 99 01/05/20 20:16 Constitutional: Yes: No Distress Eyes: Yes: Conjunctiva Clear Cardiovascular: Yes: Regular Rate and Rhythm, S1, S2 Respiratory: Yes: CTA Bilaterally, Mechanically Ventilated Gastrointestinal: Yes: Normal Bowel Sounds, Soft Edema: No Labs: CBC, BMP 01/05/20 05:45 01/05/20 05:45 INR, PTT INR 2.49 (0.83-1.09) H 01/03/20 15:00 Assessment/Plan RESP FAILURE GRAM NEGATIVE SEPSIS PROBABLE ASP PNEUMONIA LACTIC ACIDOSIS THROMBOCYTOPENIA AWAIT FINAL C/S CONTINUE ZOSYN
[2020-01-05] MEDS: CHLORHEXIDINE GLUCONATE 4% CLEANSER FOR DECOLONIZATION TP SCH (21:11)
[2020-01-06] MEDS ORDERED: DEXTROSE 5%-WATER - 50 ML IVPB ONE ×2 (02:00→09:18)
[2020-01-06] MEDS ORDERED: PIPERACILLIN/TAZOBACTAM 3.375 GM VIAL IVPB ONE ×2 (02:00→09:17)
[2020-01-06] MEDS: PIPERACILLIN/TAZOB 3.375 GM 3.375 GM in DEXTROSE 5%-WATER - 50 ML IVPB SCH ×2 (02:04→09:44)
[2020-01-06] MEDS ORDERED: LORazepam 1 MG TABLET PO SCH (05:00)
[2020-01-06] MEDS: PROPOFOL 1,000,000 MCG/100 ML VIAL IVPB SCH (06:36)
[2020-01-06] MEDS: MIDAZOLAM IN 0.9 % SOD.CHLORID 100 MG/100 ML PLAST..BAG IVPB SCH (06:37)
[2020-01-06 06:40] LABS: BASO % 0.4 % (0-2.0); EOS % 1.6 % (0-4.5); HEMATOCRIT 34.1 % (35.4-49); HEMOGLOBIN 11.5 GM/dL (11.7-16.9); LYMPH % 11.6 % (8-40); MCH 35.9 pg (25.7-33.7); MCHC 33.8 g/dl (32.0-35.9); MEAN CELL VOLUME 106.2 fl (80-96); MEAN PLT VOLUME 11.1 fl (7.5-11.1); MONO % 13.2 % (3.8-10.2); NEUT % 73.2 % (42.8-82.8); PLATELET COUNT 51 K/MM3 (134-434); RBC 3.21 M/mm3 (4.00-5.60); RDW 13.8 % (11.9-15.9); WHITE BLOOD COUNT 6.1 K/mm3 (4.0-10.0)
[2020-01-06 09:09] LABS: ANION GAP 4 MMOL/L (8-16); BLOOD UREA NITROGEN 13.5 mg/dL (7-18); CALCIUM 7.7 mg/dL (8.5-10.1); CHLORIDE 109 mmol/L (98-107); CO2 30 mmol/L (21-32); CREATININE 0.5 mg/dL (0.55-1.3); GLUCOSE,RANDOM 92 mg/dL (74-106); PHOSPHOROUS 1.4 mg/dL (2.5-4.9); POTASSIUM 3.2 mmol/L (3.5-5.1); SODIUM 143 mmol/L (136-145)
--- NOTE | 2020-01-06 09:15 | PN ---
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, Physician History of Present Illness: Pt seen/ examined in icu chart is reviewed case also d/w icu team as well as with RN again today Intubated/ sedated +ve BC -- Acinobactor. Assisting Vent Afebrile - Current Medication List Current Medications: Active Medications Albuterol Sulfate (Ventolin Hfa Inhaler -) 2 puff IH Q4H PRN PRN Reason: SHORT OF BREATH/WHEEZING Apixaban (Eliquis -) 5 mg PO BID [facility] Last Admin: 01/05/20 21:51 Dose: 5 mg Documented by: Chlorhexidine Gluconate (Hibiclens For Decolonization -) 1 applic TP HS [facility] Last Admin: 01/05/20 21:11 Dose: 1 applic Documented by: Folic Acid (Folic Acid -) 1 mg PO DAILY [facility] Last Admin: 01/05/20 09:09 Dose: 1 mg Documented by: Midazolam HCl (Midazolam 100mg/100ml-0.9%Nacl) 100 mg in 100 mls @ 2 mls/hr IVP B TITR [facility]; Protocol Last Admin: 01/06/20 06:37 Dose: 5 mg/hr, 5 mls/hr Documented by: Propofol (Diprivan -) 1,000,000 mcg in 100 mls @ 2.449 mls/hr IVPB TITR [facility]; Protocol Last Admin: 01/06/20 06:36 Dose: 25 mcg/kg/min, 12.247 mls/hr Documented by: Vasopressin 40 units/ Sodium (Chloride) 100 mls @ 5 mls/hr IVPB ASDIR [facility]; Protocol Last Titration: 01/05/20 18:10 Dose: 1 units/hr, 2.5 mls/hr Documented by: Piperacillin Sod/Tazobactam (Sod 3.375 gm/ Dextrose) 50 mls @ 100 mls/hr IVPB Q8H-IV [facility]; Protocol Last Admin: 01/06/20 02:04 Dose: 100 mls/hr Documented by: Lactated Ringer's (Lactated Ringers Solution) 1,000 ml in 1,000 mls @ 83 mls/hr IV ASDIR [facility] Last Admin: 01/05/20 18:18 Dose: 83 mls/hr Documented by: Lisinopril (Prinivil) 2.5 mg PO DAILY [facility] Last Admin: 09/13/20 09:10 Dose: Not Given Documented by: Metoprolol Tartrate (Lopressor -) 12.5 mg PO BID [facility] Last Admin: 01/05/20 21:52 Dose: 12.5 mg Documented by: Mupirocin (Bactroban Ointment (For Decolonization) -) 1 applic NS BID [facility] Stop: 01/09/20 01:14 Last Admin: 01/05/20 21:11 Dose: 1 applic Documented by: Pantoprazole Sodium (Protonix Iv) 40 mg IVPUSH DAILY [facility] Last Admin: 01/05/20 09:10 Dose: 40 mg Documented by: Thiamine HCl (Vitamin B1 -) 100 mg PO DAILY [facility] Last Admin: 01/05/20 09:11 Dose: 100 mg Documented by: - Objective Vital Signs: Vital Signs Temperature 98.5 F 01/06/20 08:00 Pulse Rate 117 H 01/06/20 08:49 Respiratory Rate 33 H 01/06/20 08:49 Blood Pressure 118/89 01/06/20 08:00 O2 Sat by Pulse Oximetry (%) 99 01/06/20 08:49 Constitutional: Yes: Other Neck: Yes: Supple Cardiovascular: Yes: Pulse Irregular Respiratory: Yes: Diminished Gastrointestinal: Yes: Soft Genitourinary: Yes: Vo Present Edema: No Labs: CBC, BMP 01/06/20 05:11 01/06/20 05:11 INR, PTT INR 2.49 (0.83-1.09) H 01/03/20 15:00 - ....Imaging Chest X-ray: Report Reviewed Problem List - Problems (1) Alcohol dependence Code(s): F10.20 - ALCOHOL DEPENDENCE, UNCOMPLICATED (2) Pneumonia Code(s): J18.9 - PNEUMONIA, UNSPECIFIED ORGANISM (3) Alcohol dependence with uncomplicated withdrawal Code(s): F10.230 - ALCOHOL DEPENDENCE WITH WITHDRAWAL, UNCOMPLICATED (4) Atrial fibrillation Code(s): I48.91 - UNSPECIFIED ATRIAL FIBRILLATION Qualifiers: Atrial fibrillation type: unspecified Qualified Code(s): I48.91 - Unspecified atrial fibrillation (5) Respiratory failure Code(s): J96.90 - RESPIRATORY FAILURE, UNSP, UNSP W HYPOXIA OR HYPERCAPNIA (6) Atrial fibrillation with rapid ventricular response Code(s): I48.91 - UNSPECIFIED ATRIAL FIBRILLATION Assessment/Plan Continue present care Vent support-- weaning as tolerated Abx Likely alcohol withdrawal seizure Pneumonia Rapid afib-- better Acinobactor Bactremeia i/d following Continue present care Will continue to follow D/w Pts also in detail today cc time approx 30 min .
[2020-01-06] MEDS: THIAMINE HCL 100 MG TABLET (FP) PO SCH (09:44)
[2020-01-06] MEDS: APIXABAN 5 MG TABLET PO SCH ×2 (09:44→22:00)
[2020-01-06] MEDS: LISINOPRIL 5 MG TABLET PO SCH (09:44)
[2020-01-06] MEDS: METOPROLOL TARTRATE 25 MG TABLET (FP) PO SCH ×2 (09:44→22:00)
[2020-01-06] MEDS: MUPIROCIN 2% TOPICAL OINTMENT FOR DECOLONIZATION NS SCH ×2 (09:44→22:00)
[2020-01-06] MEDS: FOLIC ACID 1 MG TABLET (FP) PO SCH (09:44)
[2020-01-06] MEDS: PANTOPRAZOLE SODIUM 40 MG VIAL IVPUSH SCH (09:44)
[2020-01-06] MEDS: KCL 10 MEQ IVPB 10 MEQ/100 ML INFUS.BAG IVPB SCH ×3 (10:04→12:23)
--- NOTE | 2020-01-06 10:52 | PN ---
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, Physician History of Present Illness: Mr is a 54 YO white man with PMHx h/o acute/chronic alcohol abuse, diastolic CHF (02/08 ECHO; mild AR; mild biatrial enlargement), HTN, AFIB (on metoprolol and eliquis), now presents with weakness and lightheadedness. Patient suspects current syptoms are 2/2 alcohol withdrawal. Mentions that his last drink was 3 hours prior to arrival. Patients reports that the patient has been lightheaded and tremulous this afternoon prior to arrival. Patient also mentions mild productive cough. Denies fever, chills, chest pain, SOB, N/V/D. Denies recent travel of sick contacts. - Current Medication List Current Medications: Active Medications Albuterol Sulfate (Ventolin Hfa Inhaler -) 2 puff IH Q4H PRN PRN Reason: SHORT OF BREATH/WHEEZING Apixaban (Eliquis -) 5 mg PO BID [facility] Last Admin: 01/06/20 09:44 Dose: 5 mg Documented by: Chlorhexidine Gluconate (Hibiclens For Decolonization -) 1 applic TP HS [facility] Last Admin: 01/05/20 21:11 Dose: 1 applic Documented by: Folic Acid (Folic Acid -) 1 mg PO DAILY [facility] Last Admin: 01/06/20 09:44 Dose: 1 mg Documented by: Midazolam HCl (Midazolam 100mg/100ml-0.9%Nacl) 100 mg in 100 mls @ 2 mls/hr IVPB TITR [facility]; Protocol Last Admin: 01/06/20 06:37 Dose: 5 mg/hr, 5 mls/hr Documented by: Propofol (Diprivan -) 1,000,000 mcg in 100 mls @ 2.449 mls/hr IVPB TITR [facility]; Protocol Last Admin: 01/06/20 06:36 Dose: 25 mcg/kg/min, 12.247 mls/hr Documented by: Vasopressin 40 units/ Sodium (Chloride) 100 mls @ 5 mls/hr IVPB ASDIR [facility]; Protocol Last Titration: 01/06/20 09:42 Dose: 1 units/hr, 2.5 mls/hr Documented by: Piperacillin Sod/Tazobactam (Sod 3.375 gm/ Dextrose) 50 mls @ 100 mls/hr IVPB Q8H-IV [facility]; Protocol Last Admin: 01/06/20 09:44 Dose: 100 mls/hr Documented by: Lactated Ringer's (Lactated Ringers Solution) 1,000 ml in 1,000 mls @ 83 mls/hr IV ASDIR [facility] Last Admin: 01/05/20 18:18 Dose: 83 mls/hr Documented by: Potassium Chloride (Potassium Chloride 10 Meq Premix Ivpb -) 10 meq in 100 mls @ 100 mls/hr IVPB Q60M [facility] Stop: 01/06/20 12:49 Last Admin: 01/06/20 10:04 Dose: 100 mls/hr Documented by: Lisinopril (Prinivil) 2.5 mg PO DAILY [facility] Last Admin: 01/06/20 09:44 Dose: 2.5 mg Documented by: Metoprolol Tartrate (Lopressor -) 12.5 mg PO BID [facility] Last Admin: 01/06/20 09:44 Dose: 12.5 mg Documented by: Mupirocin (Bactroban Ointment (For Decolonization) -) 1 applic NS BID [facility] Stop: 01/09/20 01:14 Last Admin: 01/06/20 09:44 Dose: 1 applic Documented by: Pantoprazole Sodium (Protonix Iv) 40 mg IVPUSH DAILY [facility] Last Admin: 01/06/20 09:44 Dose: 40 mg Documented by: Thiamine HCl (Vitamin B1 -) 100 mg PO DAILY [facility] Last Admin: 01/06/20 09:44 Dose: 100 mg Documented by: - Objective Vital Signs: Vital Signs Temperature 98.5 F 01/06/20 08:00 Pulse Rate 105 H 01/06/20 09:42 Respiratory Rate 33 H 01/06/20 08:49 Blood Pressure 109/86 01/06/20 09:42 O2 Sat by Pulse Oximetry (%) 99 01/06/20 08:49 Eyes: Yes: WNL, Conjunctiva Clear, EOM Intact HENT: Yes: WNL, Atraumatic, Normocephalic Neck: Yes: WNL, Supple, Trachea Midline Cardiovascular: Yes: Pulse Irregular Respiratory: Yes: Intubated, Mechanically Ventilated Gastrointestinal: Yes: WNL, Normal Bowel Sounds Genitourinary: Yes: WNL Musculoskeletal: Yes: WNL Extremities: Yes: WNL Edema: No Integumentary: Yes: WNL Labs: CBC, BMP 01/06/20 05:11 01/06/20 05:11 INR, PTT INR 2.49 (0.83-1.09) H 01/03/20 15:00 Assessment/Plan Acute/chronic alcoholism Respiratory failure:intubated; mechanically ventilated; ? aspiration PNA. AF with RVR diastolic CHF (02/08 ECHO: normal LVEF; mild biatrial enlargement; abnormal diastolic compliance; mild AR). leukocytosis; symptoms of URI HTN hypotension TSH WNL LDL cholesterol 67 mg/dL Plan: Now off amiodarone. AF, relatively well-controlled VR. pt's alcoholism and liver abnormality mitigates against starting PO amiodarone. On vasopression; wean off as tolerated. Will start low-dose metoprolol tartrate and f/u BP and HR carefully. On lisinopril 2.5 mg daily. On IV fluids F/u daily weight, Is and Os. Replete K and PO4 (receiving neutrophos); keep K+ 4.0-4.5, Mg 2.0-2.4, PO4 2.5- 4.9. TNI 0.03; f/u serially Serial EKGs; telemetry Repeat ECHO for LVEF, chamber sizes, valve status Antibiotics per ID (on Zosyn). Continue detox protocol CC time spent 40 minutes
--- NOTE | 2020-01-06 11:02 | EKG ---
Test Reason : Blood Pressure : / mmHG Vent. Rate : 097 BPM Atrial Rate : 131 BPM P-R Int : 000 ms QRS Dur : 106 ms QT Int : 410 ms P-R-T Axes : 000 -07 204 degrees QTc Int : 520 ms ATRIAL FIBRILLATION CANNOT RULE OUT ANTERIOR INFARCT (CITED ON OR BEFORE 04-JAN-2020) T WAVE ABNORMALITY, CONSIDER LATERAL ISCHEMIA PROLONGED QT ABNORMAL ECG WHEN COMPARED WITH ECG OF 04-JAN-2020 03:03, VENT. RATE HAS DECREASED BY 54 BPM Confirmed by RENY MACKEY MD ([id number]) on 01/06/2020 11:01:53 AM Referred By: Confirmed By:RENY MACKEY MD
[2020-01-06 11:03] LABS: ANISOCYTOSIS 2+; MACROCYTOSIS 2+
--- NOTE | 2020-01-06 11:33 | EKG ---
Test Reason : Blood Pressure : / mmHG Vent. Rate : 180 BPM Atrial Rate : 166 BPM P-R Int : 000 ms QRS Dur : 098 ms QT Int : 254 ms P-R-T Axes : 000 022 234 degrees QTc Int : 439 ms ATRIAL FIBRILLATION WITH RAPID VENTRICULAR RESPONSE WITH PREMATURE VENTRICULAR OR ABERRANTLY CONDUCTED COMPLEXES LOW VOLTAGE QRS ABRAM SEPTAL INFARCT (CITED ON OR BEFORE 15-JAN-2018) POOR R WAVE PROGRESSION ABNORMAL ECG WHEN COMPARED WITH ECG OF 03-JAN-2020 15:39, VENT. RATE HAS INCREASED BY 61 BPM T WAVE VARIATION Confirmed by RENY MACKEY MD ([id number]) on 01/06/2020 11:33:18 AM Referred By: Confirmed By:RENY MACKEY MD
--- NOTE | 2020-01-06 11:35 | PN ---
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, Physician History of Present Illness: REMAINS INTUBATED SEDATED ON VENTILATOR NO ACUTE DISTRESS TEMPS DOWN AFEBRILE NO FURTHER SEIZURES REPORTED BC ACINETOBACTER CXR LLL INFILTRATE - Current Medication List Current Medications: Active Medications Albuterol Sulfate (Ventolin Hfa Inhaler -) 2 puff IH Q4H PRN PRN Reason: SHORT OF BREATH/WHEEZING Apixaban (Eliquis -) 5 mg PO BID [facility] Last Admin: 01/06/20 09:44 Dose: 5 mg Documented by: Chlorhexidine Gluconate (Hibiclens For Decolonization -) 1 applic TP HS [facility] Last Admin: 01/05/20 21:11 Dose: 1 applic Documented by: Folic Acid (Folic Acid -) 1 mg PO DAILY [facility] Last Admin: 01/06/20 09:44 Dose: 1 mg Documented by: Midazolam HCl (Midazolam 100mg/100ml-0.9%Nacl) 100 mg in 100 mls @ 2 mls/hr IVPB TITR [facility]; Protocol Last Admin: 01/06/20 06:37 Dose: 5 mg/hr, 5 mls/hr Documented by: Propofol (Diprivan -) 1,000,000 mcg in 100 mls @ 2.449 mls/hr IVPB TITR [facility]; Protocol Last Admin: 01/06/20 06:36 Dose: 25 mcg/kg/min, 12.247 mls/hr Documented by: Vasopressin 40 units/ Sodium (Chloride) 100 mls @ 5 mls/hr IVPB ASDIR [facility]; Protocol Last Titration: 01/06/20 09:42 Dose: 1 units/hr, 2.5 mls/hr Documented by: Piperacillin Sod/Tazobactam (Sod 3.375 gm/ Dextrose) 50 mls @ 100 mls/hr IVPB Q8H-IV [facility]; Protocol Last Admin: 01/06/20 09:44 Dose: 100 mls/hr Documented by: Lactated Ringer's (Lactated Ringers Solution) 1,000 ml in 1,000 mls @ 83 mls/hr IV ASDIR [facility] Last Admin: 01/05/20 18:18 Dose: 83 mls/hr Documented by: Potassium Chloride (Potassium Chloride 10 Meq Premix Ivpb -) 10 meq in 100 mls @ 100 mls/hr IVPB Q60M [facility] Stop: 01/06/20 12:49 Last Admin: 01/06/20 10:04 Dose: 100 mls/hr Documented by: Lisinopril (Prinivil) 2.5 mg PO DAILY [facility] Last Admin: 01/06/20 09:44 Dose: 2.5 mg Documented by: Metoprolol Tartrate (Lopressor -) 12.5 mg PO BID [facility] Last Admin: 01/06/20 09:44 Dose: 12.5 mg Documented by: Mupirocin (Bactroban Ointment (For Decolonization) -) 1 applic NS BID [facility] Stop: 01/09/20 01:14 Last Admin: 01/06/20 09:44 Dose: 1 applic Documented by: Pantoprazole Sodium (Protonix Iv) 40 mg IVPUSH DAILY [facility] Last Admin: 01/06/20 09:44 Dose: 40 mg Documented by: Thiamine HCl (Vitamin B1 -) 100 mg PO DAILY [facility] Last Admin: 01/06/20 09:44 Dose: 100 mg Documented by: - Objective Vital Signs: Vital Signs Temperature 98.4 F 01/06/20 10:00 Pulse Rate 98 H 01/06/20 10:00 Respiratory Rate 18 01/06/20 10:00 Blood Pressure 100/74 01/06/20 10:00 O2 Sat by Pulse Oximetry (%) 95 01/06/20 10:00 Constitutional: Yes: No Distress Cardiovascular: Yes: Regular Rate and Rhythm, S1, S2 Respiratory: Yes: Mechanically Ventilated Gastrointestinal: Yes: Normal Bowel Sounds, Soft. No: Tenderness Edema: No Labs: CBC, BMP 01/06/20 05:11 01/06/20 05:11 INR, PTT INR 2.49 (0.83-1.09) H 01/03/20 15:00 Assessment/Plan RESP FAILURE GRAM NEGATIVE SEPSIS ACINETOBACTER PROBABLE ASP PNEUMONIA LACTIC ACIDOSIS THROMBOCYTOPENIA SUBSTITUTE CEFTAZIDIME 1GM Q8H VENTILATORY SUPPORT
--- NOTE | 2020-01-06 11:39 | EKG ---
Test Reason : Blood Pressure : / mmHG Vent. Rate : 119 BPM Atrial Rate : 117 BPM P-R Int : 000 ms QRS Dur : 100 ms QT Int : 300 ms P-R-T Axes : 000 -08 209 degrees QTc Int : 422 ms ATRIAL FIBRILLATION WITH RAPID VENTRICULAR RESPONSE LOW VOLTAGE QRS CANNOT RULE OUT ANTERIOR INFARCT (CITED ON OR BEFORE 15-JAN-2018) T WAVE ABNORMALITY, CONSIDER LATERAL ISCHEMIA ABNORMAL ECG WHEN COMPARED WITH ECG OF 28-JUL-2018 21:50, ATRIAL FIBRILLATION HAS REPLACED SINUS RHYTHM Confirmed by RENY MACKEY MD ([id number]) on 01/06/2020 11:39:14 AM Referred By: Confirmed By:RENY MACKEY MD
--- NOTE | 2020-01-06 11:52 | PN ---
Teaching Attending Note Name of Resident: Ruddy Colby ATTENDING PHYSICIAN STATEMENT I saw and evaluated the patient. I reviewed the resident's note and discussed the case with the resident. I agree with the resident's findings and plan as documented. SUBJECTIVE: Pt seen and examined in the ICU. Remains intubated, sedated on vasopressin gtt. Heart rates better controlled. Vented on volume assist control with 70% FiO2. OBJECTIVE: Vital Signs Period Temp Pulse Resp BP Sys/Redman Pulse Ox Last 24 Hr 97.8 F-99.2 F 79-117 17-33 99-118/73-89 94-100 Intake & Output 01/03/20 01/04/20 01/05/20 01/06/20 23:59 23:59 23:59 23:59 Intake Total 1257.0 3138.0 1704.2 Output Total 1075 1260 600 Balance 182.0 1878.0 1104.2 Weight 81.647 kg 95 kg 94.801 kg Gen: intubated, sedated Heart: RRR Lung: scattered rhonchi Abd: soft, nontender Ext: no edema CBC, BMP 01/06/20 05:11 01/06/20 05:11 Active Medications Albuterol Sulfate (Ventolin Hfa Inhaler -) 2 puff IH Q4H PRN PRN Reason: SHORT OF BREATH/WHEEZING Apixaban (Eliquis -) 5 mg PO BID [facility] Last Admin: 01/06/20 09:44 Dose: 5 mg Documented by: Chlorhexidine Gluconate (Hibiclens For Decolonization -) 1 applic TP HS [facility] Last Admin: 01/05/20 21:11 Dose: 1 applic Documented by: Folic Acid (Folic Acid -) 1 mg PO DAILY [facility] Last Admin: 01/06/20 09:44 Dose: 1 mg Documented by: Midazolam HCl (Midazolam 100mg/100ml-0.9%Nacl) 100 mg in 100 mls @ 2 mls/hr IVPB TITR [facility]; Protocol Last Admin: 01/06/20 06:37 Dose: 5 mg/hr, 5 mls/hr Documented by: Propofol (Diprivan -) 1,000,000 mcg in 100 mls @ 2.449 mls/hr IVPB TITR [facility]; Protocol Last Admin: 01/06/20 06:36 Dose: 25 mcg/kg/min, 12.247 mls/hr Documented by: Vasopressin 40 units/ Sodium (Chloride) 100 mls @ 5 mls/hr IVPB ASDIR [facility]; Protocol Last Titration: 01/06/20 09:42 Dose: 1 units/hr, 2.5 mls/hr Documented by: Lactated Ringer's (Lactated Ringers Solution) 1,000 ml in 1,000 mls @ 83 mls/hr IV ASDIR [facility] Last Admin: 01/05/20 18:18 Dose: 83 mls/hr Documented by: Potassium Chloride (Potassium Chloride 10 Meq Premix Ivpb -) 10 meq in 100 mls @ 100 mls/hr IVPB Q60M [facility] Stop: 01/06/20 12:49 Last Admin: 01/06/20 10:04 Dose: 100 mls/hr Documented by: Ceftazidime 1 gm/ Dextrose 50 mls @ 100 mls/hr IVPB Q8H-IV [facility]; Protocol Lisinopril (Prinivil) 2.5 mg PO DAILY [facility] Last Admin: 01/06/20 09:44 Dose: 2.5 mg Documented by: Metoprolol Tartrate (Lopressor -) 12.5 mg PO BID [facility] Last Admin: 01/06/20 09:44 Dose: 12.5 mg Documented by: Mupirocin (Bactroban Ointment (For Decolonization) -) 1 applic NS BID [facility] Stop: 01/09/20 01:14 Last Admin: 01/06/20 09:44 Dose: 1 applic Documented by: Pantoprazole Sodium (Protonix Iv) 40 mg IVPUSH DAILY [facility] Last Admin: 01/06/20 09:44 Dose: 40 mg Documented by: Thiamine HCl (Vitamin B1 -) 100 mg PO DAILY [facility] Last Admin: 01/06/20 09:44 Dose: 100 mg Documented by: ASSESSMENT AND PLAN: Acute Hypoxic Respiratory Failure Pneumonia likely Aspiration Septic Shock Lactic Acidosis Atrial Fibrillation Alcohol Abuse Seizures - r/o Alcohol Withdrawal HTN - continue antibiotics - f/u cultures - IVF - monitor urine output, creatinine - rate control - continue anticoagulation - titrate pressors to maintain MAP >65 - hold sedation in AM to assess mental status - spontaneous breathing trials as tolerated when mental status improved - enteral feeds - DVT/GI prophylaxis - continue ICU monitoring critical care time spent in reviewing chart, evaluating patient and formulating plan 35 min
[2020-01-06] MEDS: LACTATED RINGERS SOLUTION 1,000 ML/1,000 ML INFUS.BAG IV SCH (13:00)
[2020-01-06] MEDS ORDERED: PT OWN MED DRAWER 7, Y5N ONE ×2 (13:02→17:25)
[2020-01-06] MEDS: CEFTAZIDIME PENTAHYDRATE 1 GM in DEXTROSE 5%-WATER - 50 ML IVPB SCH ×2 (13:08→17:49)
--- NOTE | 2020-01-06 13:46 | PN ---
Physical Exam: SUBJECTIVE: Patient seen and examined. Intubated and sedated with midazolam 5 mg/h, propofol 40 mg/kg/min. Overnight, patient desaturated to 80% and had copious bloody secretion. After patient was lavaged, his Sat improved to 99% O2. OBJECTIVE: Vital Signs Period Temp Pulse Resp BP Sys/Redman Pulse Ox Last 24 Hr 97.8 F-99.2 F 79-117 17-33 92-118/71-89 94-100 GENERAL: Intubated and sedated HEENT: Normal with no signs of trauma. PERRL, No ptosis. dry moist mucous membranes. LUNGS: decreased breath sounds in bases, no wheezes, no crackles, no accessory muscle use. HEART:irregular rate, S1, S2 without murmur, rub or gallop. ABDOMEN: Soft, nontender, nondistended, normoactive bowel sounds, no guarding, no rebound EXTREMITIES: 2+ pulses, warm, well-perfused, no edema. Laboratory Results - last 24 hr 01/06/20 01/06/20 01/06/20 05:11 05:11 11:45 WBC 6.1 RBC 3.21 L Hgb 11.5 L Hct 34.1 L MCV 106.2 H MCH 35.9 H MCHC 33.8 RDW 13.8 Plt Count 51 L D MPV 11.1 Absolute Neuts (auto) 4.5 Total Counted 100 Neutrophils % 73.2 Neutrophils % (Manual) 68.0 Band Neutrophils % 5.0 Lymphocytes % 11.6 Lymphocytes % (Manual) 10.0 D Monocytes % 13.2 H Monocytes % (Manual) 12 H Eosinophils % 1.6 D Eosinophils % (Manual) 3.0 D Basophils % 0.4 Basophils % (Manual) 1.0 D Nucleated RBC % 0 Metamyelocytes 1 Anisocytosis 2+ Macrocytosis 2+ Sodium 143 Potassium 3.2 L Chloride 109 H Carbon Dioxide 30 Anion Gap 4 L BUN 13.5 Creatinine 0.5 L Est GFR (CKD-EPI)AfAm 144.40 Est GFR (CKD-EPI)NonAf 124.59 Random Glucose 92 Lactic Acid 1.5 Calcium 7.7 L Phosphorus 1.4 L Magnesium 2.0 Creatine Kinase 56 Troponin I < 0.02 Active Medications Generic Name Dose Route Start Last Admin Trade Name Freq PRN Reason Stop Dose Admin Albuterol Sulfate 2 puff 01/04/20 05:39 Ventolin Hfa Inhaler - IH Q4H PRN SHORT OF BREATH/WHEEZING Apixaban 5 mg 01/04/20 08:00 01/06/20 09:44 Eliquis - PO 5 mg BID [facility] Administration Chlorhexidine Gluconate 1 applic 01/04/20 22:00 01/05/20 21:11 Hibiclens For Decolonization - TP 1 applic HS [facility] Administration Folic Acid 1 mg 01/05/20 10:00 01/06/20 09:44 Folic Acid - PO 1 mg DAILY [facility] Administration Midazolam HCl 100 mg in 100 mls @ 2 mls/hr 01/04/20 03:15 01/06/20 06:37 Midazolam 100mg/100ml-0.9%Nacl IVPB 5 mg/hr TITR [facility] 5 mls/hr Administration Protocol 2 MG/HR Propofol 1,000,000 mcg in 100 mls @ 2.449 mls/hr 01/04/20 03:15 01/06/20 06:36 Diprivan - IVPB 25 mcg/kg/min TITR [facility] 12.247 mls/hr Administration Protocol 5 MCG/KG/MIN Vasopressin 40 units/ Sodium 100 mls @ 5 mls/hr 01/04/20 04:00 01/06/20 09:42 Chloride IVPB 1 units/hr ASDIR [facility] 2.5 mls/hr Titration Protocol 2 UNITS/HR Lactated Ringer's 1,000 ml in 1,000 mls @ 83 mls/hr 01/04/20 13:45 01/05/20 18:18 Lactated Ringers Solution IV 83 mls/hr ASDIR [facility] Administration Ceftazidime 1 gm/ Dextrose 50 mls @ 100 mls/hr 01/06/20 11:45 01/06/20 13:08 IVPB 100 mls/hr Q8H-IV [facility] Administration Protocol Lisinopril 2.5 mg 01/04/20 10:00 01/06/20 09:44 Prinivil PO 2.5 mg DAILY [facility] Administration Metoprolol Tartrate 12.5 mg 01/05/20 10:00 01/06/20 09:44 Lopressor - PO 12.5 mg BID [facility] Administration Mupirocin 1 applic 01/04/20 01:15 01/06/20 09:44 Bactroban Ointment (For Decolonization) - NS 01/09/20 01:14 1 applic BID [facility] Administration Pantoprazole Sodium 40 mg 01/04/20 10:00 01/06/20 09:44 Protonix Iv IVPUSH 40 mg DAILY [facility] Administration Thiamine HCl 100 mg 01/05/20 10:00 01/06/20 09:44 Vitamin B1 - PO 100 mg DAILY [facility] Administration ASSESSMENT/PLAN: 54 year old M with PMH afib (on eliquis), alcohol use disorder , diastolic CHF (02/08 ECHO; mild AR; mild biatrial enlargement), HTN, AFIB presented with weakness, lightheadedness, shaking. Was given Librium 10mg, Ativan 1mg for alcohol withdrawal and found to have PNA on CXR. Admitted to ICU for Afib w/ RVR, now s/p Amio drip and respiratory failure with seizures. #Neuro - Intubated and sedated, on Propofol, Midazolam - Alcohol withdrawal seizures: patient already being given a benzodiazepine, (Midazolam) - continue with folic acid, thiamine daily -discussed with neuro (Dr. Don). Ordered CTH to r/o bleed and ordered EEG. Started Keppra 1000 mg BID IVPB #Cardio AFib with RVR -s/p Amio drip. - On vasopressin, wean as tolerated. Maintain MAP >65 - continue with lopressor 12.5 mg PO BID & lisinopril 2.5 mg PO daily -c/w home eliquis 5 mg PO BID -given pt's history of alcohol use and elevated liver enzymes, hold off on starting PO amiodarone -Echo ordered for LVEF -EKG: afib, atrial rate 131 bpm, vent. rate 97 bpm, QTC 520 #Pulm - CXR: congestive changes with R base atelectasis & L base fluid w/ atelectasis/infiltrate -CXR today: no significant change since prior cxr -Rate 16, TV 450, FIO2 60%, PEEP 5, Pplat 15 -will attempt weaning tomorrow once outside DT window #GI - NG in place - Protonix 40mg - AST/ALT trended down from 71/28 to 50/26 yesterday. will continue to monitor #ID - PNA likely Aspiration - s/p Ceftriaxone/Azithroycin. s/p Zosyn 3.375 gm (01/03-01/05). -blood culture X2: acinetobacter baumannii/haemolo -Mycoplasma pnuemoniae IgG titer elevated at 180. Mycoplasma pneumoniae IgM titer is WNL <770. -ID consult appreciated. started on CEFTAZIDIME 1GM Q8H for gram neg sepsis 2/2 acinetobacter #Renal - BUN/Cr 13.5/0.5 - Vo in place, making urine -3180 Intake/1260 mL Output/1878 mL Balance #Heme/Onc - Thrombocytopenia -plts improved from 40 to 51. likely 2/2 sepsis. will continue to monitor #FEN LR@83 ml/hr monitor lytes. K+ 3.2. was repleted with 3 bags KCl osmolite @45 ml/hr with H2O flush @ 20/ ml/hr #Prophylaxis eliquis 5 mg PO BID #Dispo maintain ICU Visit type - Emergency Visit Emergency Visit: Yes ED Registration Date: 01/03/20 Care time: The patient presented to the Emergency Department on the above date and was hospitalized for further evaluation of their emergent condition. - New Patient This patient is new to me today: No - Critical Care Critical Care patient: No ATTENDING PHYSICIAN STATEMENT I saw and evaluated the patient. I reviewed the resident's note and discussed the case with the resident. I agree with the resident's findings and plan as documented. SUBJECTIVE: OBJECTIVE: ASSESSMENT AND PLAN:
[2020-01-06 14:06] LABS: MYCOPLASMA PNEUMONIAE,IG G AB 180 U/mL (0-99); MYCOPLASMA PNEUMONIAE,IGM AB <770 U/mL (0-769)
[2020-01-06] MEDS: levETIRAcetam 500 MG/5 ML INJECTION VIAL IVPB SCH (22:00)
[2020-01-06] MEDS: CHLORHEXIDINE GLUCONATE 4% CLEANSER FOR DECOLONIZATION TP SCH (22:00)
[2020-01-07] MEDS ORDERED: LORazepam 0.5 MG TABLET PO PRN
[2020-01-07] MEDS: CEFTAZIDIME PENTAHYDRATE 1 GM in DEXTROSE 5%-WATER - 50 ML IVPB SCH ×3 (02:14→17:30)
[2020-01-07] MEDS: PROPOFOL 1,000,000 MCG/100 ML VIAL IVPB SCH ×5 (03:00→22:00)
[2020-01-07] MEDS ORDERED: LORazepam 0.5 MG TABLET PO SCH (05:00)
[2020-01-07 06:03] LABS: ARTERIAL BLD GAS O2 SATURATION 92.3 mmHg (95-98); ARTERIAL BLOOD GAS PO2 61.5 mmHg (80-100); ARTERIAL BLOOD GAS pH 7.432 (7.350-7.450)
[2020-01-07 06:09] LABS: ALLENS TEST POSITIVE
[2020-01-07 06:10] LABS: VENT MODE A/C; VENT RATE 16
[2020-01-07 06:18] LABS: BASO % 0.7 % (0-2.0); EOS % 1.8 % (0-4.5); HEMATOCRIT 36.3 % (35.4-49); HEMOGLOBIN 12.4 GM/dL (11.7-16.9); LYMPH % 9.3 % (8-40); MCH 36.1 pg (25.7-33.7); MCHC 34.1 g/dl (32.0-35.9); MEAN CELL VOLUME 105.9 fl (80-96); MEAN PLT VOLUME 10.4 fl (7.5-11.1); MONO % 16.6 % (3.8-10.2); NEUT % 71.6 % (42.8-82.8); PLATELET COUNT 59 K/MM3 (134-434); RBC 3.43 M/mm3 (4.00-5.60); RDW 13.8 % (11.9-15.9); WHITE BLOOD COUNT 6.4 K/mm3 (4.0-10.0)
[2020-01-07 06:26] LABS: ALBUMIN 2.2 g/dl (3.4-5.0); BILIRUBIN,TOTAL 1.9 mg/dL (0.2-1); CALCIUM 7.6 mg/dL (8.5-10.1); CREATININE 0.6 mg/dL (0.55-1.3); MAGNESIUM 1.5 mg/dL (1.8-2.4); PHOSPHOROUS 2.9 mg/dL (2.5-4.9); POTASSIUM 3.5 mmol/L (3.5-5.1); TOT PROT 6.2 g/dl (6.4-8.2)
[2020-01-07] MEDS: VASOPRESSIN 40 UNITS in SODIUM CHLORIDE 98 ML IVPB SCH ×2 (06:45→22:00)
[2020-01-07] MEDS: MIDAZOLAM IN 0.9 % SOD.CHLORID 100 MG/100 ML PLAST..BAG IVPB SCH ×4 (06:47→22:00)
--- NOTE | 2020-01-07 06:50 | CON.NEURO ---
Consult - Past Medical History CSO: Yes: Seizure (withdrawal seizures) Cardio/Vascular: Yes: AFIB, CHF (diastolic ), HTN, Murmur (AR) Gastrointestinal: Yes: Other (hepatomegaly. 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 Home Medications - Allergies Allergies/Adverse Reactions: Allergies Allergy/AdvReac Type Severity Reaction Status Date / Time No Known Allergies Allergy Verified 01/03/20 13:48 - Home Medications Home Medications: Ambulatory Orders Furosemide [Lasix -] 20 mg PO DAILY 10/05/16 Lisinopril [Zestril] 2.5 mg PO DAILY 10/05/16 Spironolactone 25 mg PO DAILY 10/05/16 Apixaban [Eliquis] 5 mg PO BID 01/15/18 Metoprolol Tartrate [Lopressor -] 100 mg PO BID #60 tablet 01/31/18 Physical Exam-Neuro Vital Signs: Vital Signs Temperature 100.1 F H 01/07/20 06:00 Pulse Rate 106 H 01/07/20 06:00 Respiratory Rate 20 01/07/20 06:00 Blood Pressure 108/73 01/07/20 06:00 O2 Sat by Pulse Oximetry (%) 96 01/07/20 06:00 Labs: CBC, BMP 01/07/20 05:35 01/07/20 05:35 INR, PTT INR 2.49 (0.83-1.09) H 01/03/20 15:00 Assessment/Plan cc Breakthrough seizure , alcohol withdrawal seizure HPI 54 year old male history of atrial fibrillation, alcohol abuse. htn. He was seen his at bed side. He came to hospital on january 03. He was brought to hospital for seizure. He has been drinking heavy and he has history of hepatomegaly and fatty liver. Patient was intubated , for airway protection and pneumonia and covid negative. He has ct head on january 05 it was negative. He is intubated and sedated. PMH as above. 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 pupils reactive, dolls eye movement present no face asymmetry gag and corneal reflex is present\ neck is supple ct head is normal Assessment/Plan 54 year old male history of alcohol abuse, atrial fibrillation and htn. He came with alcohol withdrawal seizure. Ct head is negative. Supect alcohol withdrawal seizure. Plan: ct head reviewed was wnl - suggest to start keppra 1 gm iv bid till patient woke up and can be discontinue medicaiton - eeg - supportive care -cc time 35 min Thanking you so much Dilan Don MD
[2020-01-07] MEDS ORDERED: MAGNESIUM SULF 50% (8.12 MEQ/2 ML-1 GM VIAL) IVPB ONE (07:45)
[2020-01-07 09:20] LABS: ANISOCYTOSIS 2+; MACROCYTOSIS 2+; PLATELET ESTIMATE DECREASED
[2020-01-07] MEDS: LISINOPRIL 5 MG TABLET PO SCH (10:44)
[2020-01-07] MEDS: FOLIC ACID 1 MG TABLET (FP) PO SCH (10:45)
[2020-01-07] MEDS: METOPROLOL TARTRATE 25 MG TABLET (FP) PO SCH ×2 (10:45→22:00)
[2020-01-07] MEDS: PANTOPRAZOLE SODIUM 40 MG VIAL IVPUSH SCH (10:45)
[2020-01-07] MEDS: APIXABAN 5 MG TABLET PO SCH ×2 (10:45→21:59)
[2020-01-07] MEDS: levETIRAcetam 500 MG/5 ML INJECTION VIAL IVPB SCH ×2 (10:45→21:59)
[2020-01-07] MEDS: THIAMINE HCL 100 MG TABLET (FP) PO SCH (10:46)
[2020-01-07] MEDS: MUPIROCIN 2% TOPICAL OINTMENT FOR DECOLONIZATION NS SCH ×2 (10:46→21:58)
--- NOTE | 2020-01-07 11:04 | PN ---
Teaching Attending Note Name of Resident: Ruddy Colby ATTENDING PHYSICIAN STATEMENT I saw and evaluated the patient. I reviewed the resident's note and discussed the case with the resident. I agree with the resident's findings and plan as documented. SUBJECTIVE: Pt seen and examined in the ICU. Remains intubated, sedated on vasopressin gtt. Vented on volume assist control with 60% FiO2. Still with copious bloody secretions. OBJECTIVE: Vital Signs Period Temp Pulse Resp BP Sys/Redman Pulse Ox Last 24 Hr 98.2 F-100.1 F 86-113 17-29 91-129/70-98 93-99 Intake & Output 01/04/20 01/05/20 01/06/20 01/07/20 23:59 23:59 23:59 23:59 Intake Total 1257.0 3138.0 3317.2 2506 Output Total 1075 1260 1400 700 Balance 182.0 1878.0 1917.2 1806 Weight 95 kg 94.801 kg Gen: intubated, sedated Heart: RRR Lung: scattered rhonchi Abd: soft, nontender Ext: no edema CBC, BMP 01/07/20 05:35 01/07/20 05:35 Active Medications Albuterol Sulfate (Ventolin Hfa Inhaler -) 2 puff IH Q4H PRN PRN Reason: SHORT OF BREATH/WHEEZING Apixaban (Eliquis -) 5 mg PO BID [facility] Last Admin: 01/07/20 10:45 Dose: 5 mg Documented by: Chlorhexidine Gluconate (Hibiclens For Decolonization -) 1 applic TP HS [facility] Last Admin: 01/06/20 22:00 Dose: 1 applic Documented by: Folic Acid (Folic Acid -) 1 mg PO DAILY [facility] Last Admin: 01/07/20 10:45 Dose: 1 mg Documented by: Midazolam HCl (Midazolam 100mg/100ml-0.9%Nacl) 100 mg in 100 mls @ 2 mls/hr IVPB TITR [facility]; Protocol Last Admin: 01/07/20 10:00 Dose: 10 mg/hr, 10 mls/hr Documented by: Propofol (Diprivan -) 1,000,000 mcg in 100 mls @ 2.449 mls/hr IVPB TITR [facility]; Protocol Last Admin: 01/07/20 10:48 Dose: 50 mcg/kg/min, 24.494 mls/hr Documented by: Vasopressin 40 units/ Sodium (Chloride) 100 mls @ 5 mls/hr IVPB ASDIR [facility]; Protocol Last Titration: 01/07/20 09:00 Dose: 0.5 units/hr, 1.25 mls/hr Documented by: Ceftazidime 1 gm/ Dextrose 50 mls @ 100 mls/hr IVPB Q8H-IV [facility]; Protocol Last Admin: 01/07/20 10:42 Dose: 100 mls/hr Documented by: Levetiracetam (Keppra Injection -) 1,000 mg IVPB BID [facility] Last Admin: 01/07/20 10:45 Dose: 1,000 mg Documented by: Lisinopril (Prinivil) 2.5 mg PO DAILY [facility] Last Admin: 01/07/20 10:44 Dose: 2.5 mg Documented by: Metoprolol Tartrate (Lopressor -) 12.5 mg PO BID [facility] Last Admin: 01/07/20 10:45 Dose: 12.5 mg Documented by: Mupirocin (Bactroban Ointment (For Decolonization) -) 1 applic NS BID [facility] Stop: 01/09/20 01:14 Last Admin: 01/07/20 10:46 Dose: 1 applic Documented by: Pantoprazole Sodium (Protonix Iv) 40 mg IVPUSH DAILY [facility] Last Admin: 01/07/20 10:45 Dose: 40 mg Documented by: Thiamine HCl (Vitamin B1 -) 100 mg PO DAILY [facility] Last Admin: 01/07/20 10:46 Dose: 100 mg Documented by: ASSESSMENT AND PLAN: Acute Hypoxic Respiratory Failure Pneumonia likely Aspiration Septic Shock Lactic Acidosis Atrial Fibrillation Alcohol Abuse Thrombocytopenia Seizures - r/o Alcohol Withdrawal HTN - continue antibiotics - monitor urine output, creatinine - rate control - continue anticoagulation - titrate pressors to maintain MAP >65 - when oxygen requirements decrease hold sedation to assess mental status - spontaneous breathing trials as tolerated when mental status improved - enteral feeds - DVT/GI prophylaxis - continue ICU monitoring critical care time spent in reviewing chart, evaluating patient and formulating plan 35 min
--- NOTE | 2020-01-07 11:47 | PN ---
Physical Exam: SUBJECTIVE: Patient seen and examined. Patient seen and examined. Intubated and sedated with midazolam 10 mg/h, propofol 50 mg/kg/min. On vasopressin 0.5 units/H. Attempted to wean patient off of the vent, so decreased FIO2 to 40%, but patient began to desaturate. Patient continues to have copious bloody secretions. OBJECTIVE: Vital Signs Period Temp Pulse Resp BP Sys/Redman Pulse Ox Last 24 Hr 98.2 F-100.1 F 86-113 17-29 91-129/70-98 93-99 GENERAL: Intubated and sedated HEENT: Normal with no signs of trauma. PERRL, No ptosis. dry mucous membranes LUNGS: decreased breath sounds in bases, no wheezes, no crackles, no accessory muscle use. HEART:irregular rate, S1, S2 without murmur, rub or gallop. ABDOMEN: Soft, nontender, nondistended, normoactive bowel sounds, no guarding, no rebound EXTREMITIES: 2+ pulses, warm, well-perfused, no edema. Laboratory Results - last 24 hr 01/04/20 01/06/20 01/07/20 05:45 11:45 05:35 WBC 6.4 RBC 3.43 L Hgb 12.4 Hct 36.3 MCV 105.9 H MCH 36.1 H MCHC 34.1 RDW 13.8 Plt Count 59 L MPV 10.4 Absolute Neuts (auto) 4.6 Neutrophils % 71.6 Neutrophils % (Manual) 76.0 Band Neutrophils % 3.0 Lymphocytes % 9.3 Lymphocytes % (Manual) 6.0 L D Monocytes % 16.6 H Monocytes % (Manual) 9 Eosinophils % 1.8 Eosinophils % (Manual) 0.0 D Basophils % 0.7 Basophils % (Manual) 0.0 Myelocytes % (Man) 0 Promyelocytes % (Man) 0 Blast Cells % (Manual) 0 Nucleated RBC % 0 Metamyelocytes 0 D Hypochromia 1+ Platelet Estimate Decreased Polychromasia 1+ Poikilocytosis 1+ Anisocytosis 2+ Microcytosis 0 Macrocytosis 2+ Stomatocytes 1+ Anticoagulation Therapy Puncture Site Patient Temperature ABG pH ABG pCO2 ABG pO2 ABG HCO3 ABG O2 Sat (Measured) ABG O2 Content ABG Base Excess Nnamdi Test Patient On Oxygen O2 Delivery Device Oxygen Flow Rate Vent Mode Vent Rate Mechanical Rate PEEP Pressure Support Vent Sodium Potassium Chloride Carbon Dioxide Anion Gap BUN Creatinine Est GFR (CKD-EPI)AfAm Est GFR (CKD-EPI)NonAf Random Glucose Lactic Acid 1.5 Calcium Phosphorus Magnesium Total Bilirubin AST ALT Alkaline Phosphatase Total Protein Albumin M.pneumoniae IgG Titer 180 H M.pneumoniae IgM Titer <770 01/07/20 01/07/20 05:35 06:00 WBC RBC Hgb Hct MCV MCH MCHC RDW Plt Count MPV Absolute Neuts (auto) Neutrophils % Neutrophils % (Manual) Band Neutrophils % Lymphocytes % Lymphocytes % (Manual) Monocytes % Monocytes % (Manual) Eosinophils % Eosinophils % (Manual) Basophils % Basophils % (Manual) Myelocytes % (Man) Promyelocytes % (Man) Blast Cells % (Manual) Nucleated RBC % Metamyelocytes Hypochromia Platelet Estimate Polychromasia Poikilocytosis Anisocytosis Microcytosis Macrocytosis Stomatocytes Anticoagulation Therapy No Result Required. Puncture Site Right radial Patient Temperature No Result Required. ABG pH 7.432 ABG pCO2 40.60 ABG pO2 61.5 L ABG HCO3 26.5 ABG O2 Sat (Measured) 92.3 L ABG O2 Content No Result Required. ABG Base Excess 2.0 Nnamdi Test Positive Patient On Oxygen Yes O2 Delivery Device Vent Oxygen Flow Rate 70% Vent Mode A/c Vent Rate 16 Mechanical Rate Yes PEEP 5.0 Pressure Support Vent 450 Sodium 142 Potassium 3.5 Chloride 108 H Carbon Dioxide 30 Anion Gap 3 L BUN 12.0 Creatinine 0.6 Est GFR (CKD-EPI)AfAm 133.98 Est GFR (CKD-EPI)NonAf 115.60 Random Glucose 102 Lactic Acid Calcium 7.6 L Phosphorus 2.9 Magnesium 1.5 L Total Bilirubin 1.9 H AST 62 H ALT 34 Alkaline Phosphatase 54 Total Protein 6.2 L Albumin 2.2 L M.pneumoniae IgG Titer M.pneumoniae IgM Titer Active Medications Generic Name Dose Route Start Last Admin Trade Name Freq PRN Reason Stop Dose Admin Albuterol Sulfate 2 puff 01/04/20 05:39 Ventolin Hfa Inhaler - IH Q4H PRN SHORT OF BREATH/WHEEZING Apixaban 5 mg 01/04/20 08:00 01/07/20 10:45 Eliquis - PO 5 mg BID ALFRED Administration Chlorhexidine Gluconate 1 applic 01/04/20 22:00 01/06/20 22:00 Hibiclens For Decolonization - TP 1 applic HS ALFRED Administration Folic Acid 1 mg 01/05/20 10:00 01/07/20 10:45 Folic Acid - PO 1 mg DAILY ALFRED Administration Midazolam HCl 100 mg in 100 mls @ 2 mls/hr 01/04/20 03:15 01/07/20 10:00 Midazolam 100mg/100ml-0.9%Nacl IVPB 10 mg/hr TITR ALFRED 10 mls/hr Administration Protocol 2 MG/HR Propofol 1,000,000 mcg in 100 mls @ 2.449 mls/hr 01/04/20 03:15 01/07/20 10:48 Diprivan - IVPB 50 mcg/kg/min TITR ALFRED 24.494 mls/hr Administration Protocol 5 MCG/KG/MIN Vasopressin 40 units/ Sodium 100 mls @ 5 mls/hr 01/04/20 04:00 01/07/20 09:00 Chloride IVPB 0.5 units/hr ASDIR ALFRED 1.25 mls/hr Titration Protocol 2 UNITS/HR Ceftazidime 1 gm/ Dextrose 50 mls @ 100 mls/hr 01/06/20 11:45 01/07/20 10:42 IVPB 100 mls/hr Q8H-IV ALFRED Administration Protocol Levetiracetam 1,000 mg 01/06/20 22:00 01/07/20 10:45 Keppra Injection - IVPB 1,000 mg BID ALFRED Administration Lisinopril 2.5 mg 01/04/20 10:00 01/07/20 10:44 Prinivil PO 2.5 mg DAILY ALFRED Administration Metoprolol Tartrate 12.5 mg 01/05/20 10:00 01/07/20 10:45 Lopressor - PO 12.5 mg BID ALFRED Administration Mupirocin 1 applic 01/04/20 01:15 01/07/20 10:46 Bactroban Ointment (For Decolonization) - NS 01/09/20 01:14 1 applic BID ALFRED Administration Pantoprazole Sodium 40 mg 01/04/20 10:00 01/07/20 10:45 Protonix Iv IVPUSH 40 mg DAILY ALFRED Administration Thiamine HCl 100 mg 01/05/20 10:00 01/07/20 10:46 Vitamin B1 - PO 100 mg DAILY ALFRED Administration ASSESSMENT/PLAN: 54 year old M with PMH afib (on eliquis), alcohol use disorder , diastolic CHF (02/08 ECHO; mild AR; mild biatrial enlargement), HTN, AFIB presented with wea kness, lightheadedness, shaking. Was given Librium 10mg, Ativan 1mg for alcohol withdrawal and found to have PNA on CXR. Admitted to ICU for Afib w/ RVR, now s/p Amio drip and respiratory failure with seizures. #Neuro - Intubated and sedated, on Propofol, Midazolam - Alcohol withdrawal seizures: patient already being given a benzodiazepine, (Midazolam) - continue with folic acid, thiamine daily -CTH: no significant change. moderate ventricular dilatation. generalized volume loss. mild periventricular chronic microvascular ischemic disease changes -f/u EEG -c/w Keppra 1000 mg BID IVPB #Cardio AFib with RVR -s/p Amio drip. - On vasopressin, wean as tolerated. Maintain MAP >65 - continue with lopressor 12.5 mg PO BID & lisinopril 2.5 mg PO daily -c/w home eliquis 5 mg PO BID -given pt's history of alcohol use and elevated liver enzymes, hold off on starting PO amiodarone -EKG: afib, atrial rate 131 bpm, vent. rate 97 bpm, QTC 520 -ECHO: LV normal size. Moderate global LV systolic dysfunction. EF 40-45%. RV mild-moderately dilated. RV systoltic function mildly reduced. LA/RA mildly dilated. Mild aortic sclerosis #Pulm - CXR: congestive changes with R base atelectasis & L base fluid w/ atelectasis/infiltrate -CXR today: no significant change. b/l pulmonary and pleural changes with prominent mediastinum -Rate 16, TV 450, FIO2 60%, PEEP 5, Pplat 19 -will attempt weaning once secretions decrease and patient able to saturate well with lower FIO2 -advance ETT 3 cm #GI - NG in place - Protonix 40mg - AST/ALT trended to 62/34. will continue to monitor #ID - PNA likely Aspiration - s/p Ceftriaxone/Azithroycin. s/p Zosyn 3.375 gm (01/03-01/05). -blood culture X2: acinetobacter baumannii/haemolo -Mycoplasma pnuemoniae IgG titer elevated at 180. Mycoplasma pneumoniae IgM titer is WNL <770. -continue with CEFTAZIDIME 1GM Q8H (01/05) for gram neg sepsis 2/2 acinetobacter #Renal - BUN/Cr 12/0.6 - Vo in place, making urine -3317.2 Intake/1400 mL Output/1917.2 mL Balance #Heme/Onc - Thrombocytopenia -plts improved from 51 to 59. likely 2/2 sepsis. will continue to monitor #FEN IV fluids were dc monitor lytes osmolite @55 ml/hr with H2O flush @ 20/ ml/hr #Prophylaxis eliquis 5 mg PO BID Lines R IJ triple lumen central line (01/03) ETT (01/03) #Dispo maintain ICU Visit type - Emergency Visit Emergency Visit: Yes ED Registration Date: 01/03/20 Care time: The patient presented to the Emergency Department on the above date and was hospitalized for further evaluation of their emergent condition. - New Patient This patient is new to me today: No - Critical Care Critical Care patient: No ATTENDING PHYSICIAN STATEMENT I saw and evaluated the patient. I reviewed the resident's note and discussed the case with the resident. I agree with the resident's findings and plan as documented. SUBJECTIVE: OBJECTIVE: ASSESSMENT AND PLAN:
--- NOTE | 2020-01-07 12:36 | PN ---
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 (short form) - Note 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: events noted pt examined in ICU spoke with ICU team Sedated and on vent no seizures so far Vital Signs - 24 hr 01/06/20 01/06/20 01/06/20 18:00 19:00 20:00 Temperature 98.6 F Pulse Rate 86 86 92 H Respiratory 26 H 21 H 19 Rate Blood Pressure 102/79 103/77 110/70 O2 Sat by Pulse 94 L 94 L 94 L Oximetry (%) 01/06/20 01/06/20 01/06/20 21:00 22:00 23:00 Temperature 99.3 F Pulse Rate 105 H 93 H 92 H Respiratory 29 H 19 19 Rate Blood Pressure 129/98 121/94 110/70 O2 Sat by Pulse 95 94 L 94 L Oximetry (%) 01/07/20 01/07/20 01/07/20 00:00 00:13 02:00 Temperature 98.9 F Pulse Rate 91 H 101 H Respiratory 22 H 24 H 24 H Rate Blood Pressure 124/96 122/90 O2 Sat by Pulse 93 L 96 Oximetry (%) 01/07/20 01/07/20 01/07/20 04:00 04:20 06:00 Temperature 100.1 F H Pulse Rate 98 H 106 H Respiratory 21 H 23 H 20 Rate Blood Pressure 114/88 108/73 O2 Sat by Pulse 96 96 Oximetry (%) 01/07/20 01/07/20 01/07/20 07:00 08:00 08:19 Temperature 99 F Pulse Rate 102 H 107 H 113 H Respiratory 20 20 19 Rate Blood Pressure 102/71 108/87 O2 Sat by Pulse 97 95 Oximetry (%) 01/07/20 01/07/20 01/07/20 09:00 09:57 11:51 Temperature 98.8 F Pulse Rate 107 H Respiratory 17 17 18 Rate Blood Pressure 111/87 O2 Sat by Pulse 96 96 95 Oximetry (%) 01/07/20 01/07/20 01/07/20 12:00 14:00 15:55 Temperature 98.2 F Pulse Rate 90 94 H Respiratory 19 19 16 Rate Blood Pressure 92/75 98/81 O2 Sat by Pulse 95 95 93 L Oximetry (%) Current Medications Generic Name Dose Route Start Last Admin Trade Name Freq PRN Reason Stop Dose Admin Albuterol Sulfate 2 puff 01/04/20 05:39 Ventolin Hfa Inhaler - IH Q4H PRN SHORT OF BREATH/WHEEZING Apixaban 5 mg 01/04/20 08:00 01/07/20 10:45 Eliquis - PO 5 mg BID ALFRED Administration Chlorhexidine Gluconate 1 applic 01/04/20 22:00 01/06/20 22:00 Hibiclens For Decolonization - TP 1 applic HS ALFRED Administration Folic Acid 1 mg 01/05/20 10:00 01/07/20 10:45 Folic Acid - PO 1 mg DAILY ALFRED Administration Midazolam HCl 100 mg in 100 mls @ 2 mls/hr 01/04/20 03:15 01/07/20 10:00 Midazolam 100mg/100ml-0.9%Nacl IVPB 10 mg/hr TITR ALFRED 10 mls/hr Administration Protocol 2 MG/HR Propofol 1,000,000 mcg in 100 mls @ 2.449 mls/hr 01/04/20 03:15 01/07/20 10:48 Diprivan - IVPB 50 mcg/kg/min TITR ALFRED 24.494 mls/hr Administration Protocol 5 MCG/KG/MIN Vasopressin 40 units/ Sodium 100 mls @ 5 mls/hr 01/04/20 04:00 01/07/20 09:00 Chloride IVPB 0.5 units/hr ASDIR ALFRED 1.25 mls/hr Titration Protocol 2 UNITS/HR Ceftazidime 1 gm/ Dextrose 50 mls @ 100 mls/hr 01/06/20 11:45 01/07/20 10:42 IVPB 100 mls/hr Q8H-IV ALFRED Administration Protocol Levetiracetam 1,000 mg 01/06/20 22:00 01/07/20 10:45 Keppra Injection - IVPB 1,000 mg BID ALFRED Administration Lisinopril 2.5 mg 01/04/20 10:00 01/07/20 10:44 Prinivil PO 2.5 mg DAILY ALFRED Administration Metoprolol Tartrate 12.5 mg 01/05/20 10:00 01/07/20 10:45 Lopressor - PO 12.5 mg BID ALFRED Administration Mupirocin 1 applic 01/04/20 01:15 01/07/20 10:46 Bactroban Ointment (For Decolonization) - NS 01/09/20 01:14 1 applic BID ALFRED Administration Pantoprazole Sodium 40 mg 01/04/20 10:00 01/07/20 10:45 Protonix Iv IVPUSH 40 mg DAILY ALFRED Administration Thiamine HCl 100 mg 01/05/20 10:00 01/07/20 10:46 Vitamin B1 - PO 100 mg DAILY ALFRED Administration Laboratory Results - last 24 hr 01/07/20 01/07/20 01/07/20 05:35 05:35 06:00 WBC 6.4 RBC 3.43 L Hgb 12.4 Hct 36.3 MCV 105.9 H MCH 36.1 H MCHC 34.1 RDW 13.8 Plt Count 59 L MPV 10.4 Absolute Neuts (auto) 4.6 Neutrophils % 71.6 Neutrophils % (Manual) 76.0 Band Neutrophils % 3.0 Lymphocytes % 9.3 Lymphocytes % (Manual) 6.0 L D Monocytes % 16.6 H Monocytes % (Manual) 9 Eosinophils % 1.8 Eosinophils % (Manual) 0.0 D Basophils % 0.7 Basophils % (Manual) 0.0 Myelocytes % (Man) 0 Promyelocytes % (Man) 0 Blast Cells % (Manual) 0 Nucleated RBC % 0 Metamyelocytes 0 D Hypochromia 1+ Platelet Estimate Decreased Polychromasia 1+ Poikilocytosis 1+ Anisocytosis 2+ Microcytosis 0 Macrocytosis 2+ Stomatocytes 1+ Anticoagulation Therapy No Result Required. Puncture Site Right radial Patient Temperature No Result Required. ABG pH 7.432 ABG pCO2 40.60 ABG pO2 61.5 L ABG HCO3 26.5 ABG O2 Sat (Measured) 92.3 L ABG O2 Content No Result Required. ABG Base Excess 2.0 Nnamdi Test Positive Patient On Oxygen Yes O2 Delivery Device Vent Oxygen Flow Rate 70% Vent Mode A/c Vent Rate 16 Mechanical Rate Yes PEEP 5.0 Pressure Support Vent 450 Sodium 142 Potassium 3.5 Chloride 108 H Carbon Dioxide 30 Anion Gap 3 L BUN 12.0 Creatinine 0.6 Est GFR (CKD-EPI)AfAm 133.98 Est GFR (CKD-EPI)NonAf 115.60 Random Glucose 102 Calcium 7.6 L Phosphorus 2.9 Magnesium 1.5 L Total Bilirubin 1.9 H AST 62 H ALT 34 Alkaline Phosphatase 54 Total Protein 6.2 L Albumin 2.2 L Constitutional: Yes: Other Neck: Yes: Supple Cardiovascular: Yes: Pulse Irregular Respiratory: Yes: Diminished, intubated on vent Gastrointestinal: Yes: Soft Genitourinary: Yes: Vo Present Edema: No PLAN IV antibiotics IV fluids ON Iv Keppra Neurology eval noted seizures due to alcohol withdrawal replace magnesium monitor platelets if decreasing, will need to dc Eliquis Problem List - Problems (1) Alcohol dependence Code(s): F10.20 - ALCOHOL DEPENDENCE, UNCOMPLICATED Qualifiers: Substance use status: uncomplicated Qualified Code(s): F10.20 - Alcohol dependence, uncomplicated (2) Pneumonia Code(s): J18.9 - PNEUMONIA, UNSPECIFIED ORGANISM Qualifiers: Pneumonia type: due to unspecified organism Laterality: left Lung location: lower lobe of lung Qualified Code(s): J18.9 - Pneumonia, unspecified organism (3) Respiratory failure Code(s): J96.90 - RESPIRATORY FAILURE, UNSP, UNSP W HYPOXIA OR HYPERCAPNIA (4) Weakness Code(s): R53.1 - WEAKNESS (5) Alcohol abuse Code(s): F10.10 - ALCOHOL ABUSE, UNCOMPLICATED (6) Alcohol dependence with uncomplicated withdrawal Code(s): F10.230 - ALCOHOL DEPENDENCE WITH WITHDRAWAL, UNCOMPLICATED (7) Atrial fibrillation Code(s): I48.91 - UNSPECIFIED ATRIAL FIBRILLATION Qualifiers: Atrial fibrillation type: unspecified Qualified Code(s): I48.91 - Unspecified atrial fibrillation (8) HTN (hypertension) Code(s): I10 - ESSENTIAL (PRIMARY) HYPERTENSION Qualifiers: Hypertension type: essential hypertension Qualified Code(s): I10 - Essential (primary) hypertension
--- NOTE | 2020-01-07 13:58 | ECHO ---
Name: DIO EMANUELIAN Exam:Adult Echocardiogram Study Date: 01/07/2020 09:45 AM Age: 54 yrs Reason For Study: chf Height: 72 in Weight: 209 lb BSA: 2.2 m2 MMode/2D Measurements & Calculations IVSd: 0.92 cm Ao root diam: 3.2 cm LVIDd: 5.0 cm LA dimension: 3.3 cm LVIDs: 3.5 cm LVPWd: 1.1 cm EDV(Teich): 119.3 ml LVOT diam: 2.1 cm ESV(Teich): 49.8 ml Doppler Measurements & Calculations MV E max saleem: 75.3 cm/sec Ao V2 max: 95.0 cm/sec MV A max saleem: 62.4 cm/sec Ao max P.6 mmHg MV E/A: 1.2 MV dec time: 0.08 sec RAGHAV(V,D): 2.0 cm2 LV V1 max P.2 mmHg MR max saleem: 241.0 cm/sec LV V1 max: 55.8 cm/sec MR max P.2 mmHg TR max saleem: 240.8 cm/sec PA V2 max: 96.5 cm/sec TR max P.2 mmHg PA max P.7 mmHg Med Peak E' Saleem: 4.8 cm/sec Med E/e': 15.7 Lat Peak E' Saleem: 6.0 cm/sec Lat E/e': 12.6 Left Ventricle The left ventricle is normal in size. Moderate global left ventricular systolic dysfunction. Ejection Fraction = 40-45%. The transmitral spectral Doppler flow pattern is suggestive of impaired LV relaxation. Right Ventricle The right ventricle is mild to moderately dilated. The right ventricular systolic function is mildly reduced. Atria The left atrium is mildly dilated. The right atrium is mildly dilated. Mitral Valve The mitral valve is normal in structure and function. There is no mitral regurgitation noted. Tricuspid Valve The tricuspid valve is not well visualized, but is grossly normal. There is trace tricuspid regurgita tion. Right ventricular systolic pressure is 33 mmhg. Assuming the RA pressure is 10 mmHg. Aortic Valve There is mild aortic sclerosis.;. No hemodynamically significant valvular aortic stenosis. Pulmonic Valve The pulmonic valve is not well visualized. Great Vessels The aortic root is normal size. Pericardium/Pleura There is no pericardial effusion. Interpretation Summary The left ventricle is normal in size. Moderate global left ventricular systolic dysfunction. Ejection Fraction = 40-45%. The right ventricle is mild to moderately dilated. The right ventricular systolic function is mildly reduced. The left atrium is mildly dilated. The right atrium is mildly dilated. The mitral valve is normal in structure and function. There is no mitral regurgitation noted. There is mild aortic sclerosis.; No hemodynamically significant valvular aortic stenosis. MD Marisabel Richards 01/07/2020 01:58 PM
--- NOTE | 2020-01-07 14:07 | EKG ---
Test Reason : Blood Pressure : / mmHG Vent. Rate : 151 BPM Atrial Rate : 250 BPM P-R Int : 000 ms QRS Dur : 102 ms QT Int : 308 ms P-R-T Axes : 000 -01 223 degrees QTc Int : 488 ms ATRIAL FIBRILLATION WITH RAPID VENTRICULAR RESPONSE LOW VOLTAGE QRS CANNOT RULE OUT ANTERIOR INFARCT , AGE UNDETERMINED ABNORMAL ECG WHEN COMPARED WITH ECG OF 04-JAN-2020 01:11, MINIMAL CRITERIA FOR ANTERIOR INFARCT ARE NOW PRESENT Confirmed by Porter Polanco MD ([id number]) on 01/07/2020 2:07:05 PM Referred By: Confirmed By:Porter Polanco MD
--- NOTE | 2020-01-07 14:07 | EKG ---
Test Reason : Blood Pressure : / mmHG Vent. Rate : 168 BPM Atrial Rate : 208 BPM P-R Int : 000 ms QRS Dur : 108 ms QT Int : 282 ms P-R-T Axes : 000 009 216 degrees QTc Int : 471 ms ATRIAL FIBRILLATION WITH RAPID VENTRICULAR RESPONSE LOW VOLTAGE QRS INCOMPLETE LEFT BUNDLE BRANCH BLOCK NONSPECIFIC T WAVE ABNORMALITY ABNORMAL ECG WHEN COMPARED WITH ECG OF 03-JAN-2020 23:17, CRITERIA FOR SEPTAL INFARCT ARE NO LONGER PRESENT Confirmed by Porter Polanco MD ([id number]) on 01/07/2020 2:07:11 PM Referred By: Confirmed By:Porter Polanco MD
[2020-01-07] MEDS ORDERED: PT OWN MED DRAWER 7, Y5N ONE (16:17)
[2020-01-07] MEDS ORDERED: METOCLOPRAMIDE HCL INJECTION 10 MG/2 ML VIAL IVPUSH ONE (18:19)
--- NOTE | 2020-01-07 21:44 | PN ---
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, Physician History of Present Illness: REMAINS INTUBATED SEDATED ON VENTILATOR NO ACUTE DISTRESS TEMPS DOWN AFEBRILE NO FURTHER SEIZURES REPORTED BC ACINETOBACTER CXR LLL INFILTRATE - Current Medication List Current Medications: Active Medications Albuterol Sulfate (Ventolin Hfa Inhaler -) 2 puff IH Q4H PRN PRN Reason: SHORT OF BREATH/WHEEZING Apixaban (Eliquis -) 5 mg PO BID [facility] Last Admin: 01/07/20 10:45 Dose: 5 mg Documented by: Chlorhexidine Gluconate (Hibiclens For Decolonization -) 1 applic TP HS ALFRED Last Admin: 01/06/20 22:00 Dose: 1 applic Documented by: Folic Acid (Folic Acid -) 1 mg PO DAILY [facility] Last Admin: 01/07/20 10:45 Dose: 1 mg Documented by: Midazolam HCl (Midazolam 100mg/100ml-0.9%Nacl) 100 mg in 100 mls @ 2 mls/hr IVPB TITR [facility]; Protocol Last Admin: 01/07/20 17:31 Dose: 10 mg/hr, 10 mls/hr Documented by: Propofol (Diprivan -) 1,000,000 mcg in 100 mls @ 2.449 mls/hr IVPB TITR ALFRED; Protocol Last Admin: 01/07/20 14:10 Dose: 50 mcg/kg/min, 24.494 mls/hr Documented by: Vasopressin 40 units/ Sodium (Chloride) 100 mls @ 5 mls/hr IVPB ASDIR ALFRED; Protocol Last Titration: 01/07/20 09:00 Dose: 0.5 units/hr, 1.25 mls/hr Documented by: Ceftazidime 1 gm/ Dextrose 50 mls @ 100 mls/hr IVPB Q8H-IV ALFRED; Protocol Last Admin: 01/07/20 17:30 Dose: 100 mls/hr Documented by: Levetiracetam (Keppra Injection -) 1,000 mg IVPB BID [facility] Last Admin: 01/07/20 10:45 Dose: 1,000 mg Documented by: Lisinopril (Prinivil) 2.5 mg PO DAILY [facility] Last Admin: 01/07/20 10:44 Dose: 2.5 mg Documented by: Metoprolol Tartrate (Lopressor -) 12.5 mg PO BID [facility] Last Admin: 01/07/20 10:45 Dose: 12.5 mg Documented by: Mupirocin (Bactroban Ointment (For Decolonization) -) 1 applic NS BID [facility] Stop: 01/09/20 01:14 Last Admin: 01/07/20 10:46 Dose: 1 applic Documented by: Pantoprazole Sodium (Protonix Iv) 40 mg IVPUSH DAILY [facility] Last Admin: 01/07/20 10:45 Dose: 40 mg Documented by: Thiamine HCl (Vitamin B1 -) 100 mg PO DAILY [facility] Last Admin: 01/07/20 10:46 Dose: 100 mg Documented by: - Objective Vital Signs: Vital Signs Temperature 97.1 F L 01/07/20 18:00 Pulse Rate 91 H 01/07/20 20:10 Respiratory Rate 16 01/07/20 20:10 Blood Pressure 98/50 L 01/07/20 20:00 O2 Sat by Pulse Oximetry (%) 95 01/07/20 20:10 Constitutional: Yes: No Distress Cardiovascular: Yes: Regular Rate and Rhythm, S1, S2 Respiratory: Yes: Mechanically Ventilated Gastrointestinal: Yes: Normal Bowel Sounds, Soft Edema: No Labs: CBC, BMP 01/07/20 05:35 01/07/20 05:35 INR, PTT INR 2.49 (0.83-1.09) H 01/03/20 15:00 Assessment/Plan RESP FAILURE GRAM NEGATIVE SEPSIS ACINETOBACTER PROBABLE ASP PNEUMONIA LACTIC ACIDOSIS THROMBOCYTOPENIA CONTINUE CEFTAZIDIME 1GM Q8H VENTILATORY SUPPORT DISCUSSED WITH AT BEDSIDE
[2020-01-07] MEDS: CHLORHEXIDINE GLUCONATE 4% CLEANSER FOR DECOLONIZATION TP SCH (21:59)
--- NOTE | 2020-01-08 00:50 | PN ---
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, Physician Chief Complaint: Pt remains intubated, sedated. Off pressors. History of Present Illness: Mr is a 54 YO white man with PMHx h/o acute/chronic alcohol abuse, diastolic CHF (02/08 ECHO; mild AR; mild biatrial enlargement), HTN, AFIB (on metoprolol and eliquis), now presents with weakness and lightheadedness. Patient suspects current syptoms are 2/2 alcohol withdrawal. Mentions that his last drink was 3 hours prior to arrival. Patients reports that the patient has been lightheaded and tremulous this afternoon prior to arrival. Patient also mentions mild productive cough. Denies fever, chills, chest pain, SOB, N/V/D. Denies recent travel of sick contacts. - Current Medication List Current Medications: Active Medications Albuterol Sulfate (Ventolin Hfa Inhaler -) 2 puff IH Q4H PRN PRN Reason: SHORT OF BREATH/WHEEZING Apixaban (Eliquis -) 5 mg PO BID [facility] Last Admin: 01/07/20 21:59 Dose: 5 mg Documented by: Chlorhexidine Gluconate (Hibiclens For Decolonization -) 1 applic TP HS [facility] Last Admin: 01/07/20 21:59 Dose: 1 applic Documented by: Folic Acid (Folic Acid -) 1 mg PO DAILY [facility] Last Admin: 01/07/20 10:45 Dose: 1 mg Documented by: Midazolam HCl (Midazolam 100mg/100ml-0.9%Nacl) 100 mg in 100 mls @ 2 mls/hr I VPB TITR [facility]; Protocol Last Admin: 01/07/20 22:00 Dose: 10 mg/hr, 10 mls/hr Documented by: Propofol (Diprivan -) 1,000,000 mcg in 100 mls @ 2.449 mls/hr IVPB TITR [facility]; Protocol Last Admin: 01/07/20 22:00 Dose: 50 mcg/kg/min, 24.494 mls/hr Documented by: Vasopressin 40 units/ Sodium (Chloride) 100 mls @ 5 mls/hr IVPB [facility]; Protocol Last Admin: 01/07/20 22:00 Dose: 0.5 units/hr, 1.25 mls/hr Documented by: Ceftazidime 1 gm/ Dextrose 50 mls @ 100 mls/hr IVPB Q8H-IV [facility]; Protocol Last Admin: 01/07/20 17:30 Dose: 100 mls/hr Documented by: Levetiracetam (Keppra Injection -) 1,000 mg IVPB BID [facility] Last Admin: 01/07/20 21:59 Dose: 1,000 mg Documented by: Lisinopril (Prinivil) 2.5 mg PO DAILY [facility] Last Admin: 01/07/20 10:44 Dose: 2.5 mg Documented by: Metoprolol Tartrate (Lopressor -) 12.5 mg PO BID [facility] Last Admin: 01/07/20 22:00 Dose: 12.5 mg Documented by: Mupirocin (Bactroban Ointment (For Decolonization) -) 1 applic NS BID [facility] Stop: 01/09/20 01:14 Last Admin: 01/07/20 21:58 Dose: 1 applic Documented by: Pantoprazole Sodium (Protonix Iv) 40 mg IVPUSH DAILY [facility] Last Admin: 01/07/20 10:45 Dose: 40 mg Documented by: Thiamine HCl (Vitamin B1 -) 100 mg PO DAILY [facility] Last Admin: 01/07/20 10:46 Dose: 100 mg Documented by: - Objective Vital Signs: Vital Signs Temperature 97.2 F L 01/07/20 22:00 Pulse Rate 88 01/08/20 00:00 Respiratory Rate 16 01/08/20 00:11 Blood Pressure 95/76 01/08/20 00:00 O2 Sat by Pulse Oximetry (%) 95 01/08/20 00:11 Constitutional: Yes: Other Eyes: Yes: WNL HENT: Yes: Other Neck: Yes: Decreased ROM Cardiovascular: Yes: Pulse Irregular, S1 (varies in intensity), S2 Respiratory: Yes: Diminished, Mechanically Ventilated Gastrointestinal: Yes: Soft Genitourinary: No: Anuria Musculoskeletal: Yes: Muscle Weakness Extremities: Yes: Cool Edema: No Peripheral Pulses WNL: Yes Integumentary: Yes: WNL Neurological: Yes: Unresponsive (sedated), Other Psychiatric: Yes: Other (addiction) Labs: CBC, BMP 01/07/20 05:35 01/07/20 05:35 INR, PTT INR 2.49 (0.83-1.09) H 01/03/20 15:00 Abnormal Lab Results 01/07/20 01/07/2001/06/20 05:35 05:35 06:00 RBC 3.43 L MCV 105.9 H MCH 36.1 H Plt Count 59 L Lymphocytes % (Manual) 6.0 L D Monocytes % 16.6 H ABG pO2 61.5 L ABG O2 Sat (Measured) 92.3 L Chloride 108 H Anion Gap 3 L Calcium 7.6 L Magnesium 1.5 L Total Bilirubin 1.9 H AST 62 H Total Protein 6.2 L Albumin 2.2 L - ....Imaging Chest X-ray: Image Reviewed EKG: Image Reviewed Assessment/Plan Acute/chronic alcoholism Respiratory failure:intubated; mechanically ventilated; ? aspiration PNA. AF (initially RVR) diastolic CHF (02/08 ECHO: normal LVEF; mild biatrial enlargement; abnormal diastolic compliance; mild AR). leukocytosis; symptoms of URI HTN hypotension TSH WNL LDL cholesterol 67 mg/dL Plan: Now off amiodarone. AF, relatively well-controlled VR. As discussed with Dr. Carmen, pt's alcoholism and liver abnormality mitigates against starting PO amiodarone. Now off pressor. On low-dose metoprolol tartrate 12.5 mg bid;titrate up and f/u BP and HR carefully. On lisinopril 2.5 mg daily. F/u daily weight, Is and Os. PO4 now WNL; replete K and Mg; keep K+ 4.0-4.5, Mg 2.0-2.4, PO4 2.5-4.9. TNI 0.03-->0.02. Repeat ECHO for LVEF, chamber sizes, valve status and modify medications accordingly. Antibiotics per ID (on Zosyn). Continue detox protocol CC time spent 35 minutes
[2020-01-08] MEDS: CEFTAZIDIME PENTAHYDRATE 1 GM in DEXTROSE 5%-WATER - 50 ML IVPB SCH ×3 (02:00→17:13)
[2020-01-08] MEDS: PROPOFOL 1,000,000 MCG/100 ML VIAL IVPB SCH ×3 (03:00→23:00)
[2020-01-08] MEDS: MIDAZOLAM IN 0.9 % SOD.CHLORID 100 MG/100 ML PLAST..BAG IVPB SCH (03:30)
[2020-01-08] MEDS ORDERED: LORazepam 0.5 MG TABLET PO ONE (05:00)
[2020-01-08 05:24] LABS: ARTERIAL BLD GAS O2 SATURATION 92.7 mmHg (95-98); ARTERIAL BLOOD GAS BASE EXCESS 0.4 mmol/L (-2-2); ARTERIAL BLOOD GAS PO2 66.4 mmHg (80-100); ARTERIAL BLOOD GAS pH 7.376 (7.350-7.450)
[2020-01-08 05:27] LABS: ALLENS TEST POSITIVE; VENT MODE A/C; VENT RATE 16
[2020-01-08 06:40] LABS: BASO % 0.6 % (0-2.0); EOS % 1.9 % (0-4.5); HEMATOCRIT 35.9 % (35.4-49); LYMPH % 7.5 % (8-40); MCH 35.6 pg (25.7-33.7); MCHC 33.4 g/dl (32.0-35.9); MEAN CELL VOLUME 106.4 fl (80-96); MEAN PLT VOLUME 9.9 fl (7.5-11.1); MONO % 21.5 % (3.8-10.2); NEUT % 68.5 % (42.8-82.8); PLATELET COUNT 63 K/MM3 (134-434); RBC 3.38 M/mm3 (4.00-5.60); RDW 13.8 % (11.9-15.9); WHITE BLOOD COUNT 7.4 K/mm3 (4.0-10.0)
[2020-01-08 07:10] LABS: ALBUMIN 1.9 g/dl (3.4-5.0); BILIRUBIN,TOTAL 1.7 mg/dL (0.2-1); BLOOD UREA NITROGEN 11.7 mg/dL (7-18); CALCIUM 7.7 mg/dL (8.5-10.1); CREATININE 0.4 mg/dL (0.55-1.3); MAGNESIUM 1.9 mg/dL (1.8-2.4); POTASSIUM 3.8 mmol/L (3.5-5.1); TOT PROT 5.8 g/dl (6.4-8.2)
[2020-01-08] MEDS ORDERED: PROPOFOL 1,000,000 MCG/100 ML VIAL ONE (10:10)
[2020-01-08] MEDS ORDERED: PT OWN MED DRAWER 7, Y5N ONE ×5 (10:11→16:51)
[2020-01-08] MEDS: APIXABAN 5 MG TABLET PO SCH ×2 (10:15→21:57)
[2020-01-08] MEDS: MUPIROCIN 2% TOPICAL OINTMENT FOR DECOLONIZATION NS SCH ×2 (10:15→21:57)
[2020-01-08] MEDS: levETIRAcetam 500 MG/5 ML INJECTION VIAL IVPB SCH ×2 (10:15→21:57)
[2020-01-08] MEDS: FOLIC ACID 1 MG TABLET (FP) PO SCH (10:15)
[2020-01-08] MEDS: LISINOPRIL 5 MG TABLET PO SCH (10:16)
[2020-01-08] MEDS: METOPROLOL TARTRATE 25 MG TABLET (FP) PO SCH ×2 (10:16→21:57)
[2020-01-08] MEDS: THIAMINE HCL 100 MG TABLET (FP) PO SCH (10:16)
[2020-01-08] MEDS: PANTOPRAZOLE SODIUM 40 MG VIAL IVPUSH SCH (10:16)
[2020-01-08 10:28] LABS: ANISOCYTOSIS 1+; MACROCYTOSIS 0; PLATELET ESTIMATE DECREASED
[2020-01-08] MEDS ORDERED: FUROSEMIDE 40 MG/4 ML INJECTABLE VIAL IVPUSH ONE ×2 (10:54→18:00)
[2020-01-08] MEDS ORDERED: MIDAZOLAM IN 0.9 % SOD.CHLORID 1 MG/1 ML PLAST..BAG ONE (11:23)
--- NOTE | 2020-01-08 11:34 | PN ---
Physical Exam: SUBJECTIVE: Patient seen and examined. Overnight, patient's MAP decreased to 50's, so Vasopressin was increased to 2 units/h. Continues to have copious bloody secretions and today has shannen colored urine. He desaturated after decreasing FIO2 to 50%. Increased FIO2 back to 60% OBJECTIVE: Vital Signs Period Temp Pulse Resp BP Sys/Redman Pulse Ox Last 24 Hr 95.3 F-98.2 F 83-97 16-19 92-118/50-94 93-96 GENERAL: Intubated and sedated HEENT: Normal with no signs of trauma. PERRL, No ptosis. dry mucous membranes LUNGS: decreased breath sounds in bases, no wheezes, no crackles, no accessory muscle use. HEART:irregular rate, S1, S2 without murmur, rub or gallop. ABDOMEN: Soft, nontender, nondistended, normoactive bowel sounds, no guarding, no rebound EXTREMITIES: 2+ pulses, warm, well-perfused, no edema. Laboratory Results - last 24 hr 01/08/20 01/08/20 01/08/20 05:00 05:30 05:30 WBC 7.4 RBC 3.38 L Hgb 12.0 Hct 35.9 MCV 106.4 H MCH 35.6 H MCHC 33.4 RDW 13.8 Plt Count 63 L MPV 9.9 Absolute Neuts (auto) 5.1 Neutrophils % 68.5 Lymphocytes % 7.5 L Monocytes % 21.5 H Eosinophils % 1.9 Basophils % 0.6 Nucleated RBC % 0 Anticoagulation Therapy No Result Required. Puncture Site Right radial Patient Temperature No Result Required. ABG pH 7.376 ABG pCO2 45.30 H ABG pO2 66.4 L ABG HCO3 26.0 ABG O2 Sat (Measured) 92.7 L ABG O2 Content No Result Required. ABG Base Excess 0.4 Nnamdi Test Positive Patient On Oxygen Yes O2 Delivery Device Vent Oxygen Flow Rate 60% Vent Mode A/c Vent Rate 16 Mechanical Rate Yes PEEP 5.0 Pressure Support Vent 450 Sodium 141 Potassium 3.8 Chloride 106 Carbon Dioxide 31 Anion Gap 4 L BUN 11.7 Creatinine 0.4 L Est GFR (CKD-EPI)AfAm 158.27 Est GFR (CKD-EPI)NonAf 136.56 Random Glucose 113 H Calcium 7.7 L Phosphorus 3.0 Magnesium 1.9 Total Bilirubin 1.7 H AST 57 H ALT 27 Alkaline Phosphatase 53 Total Protein 5.8 L Albumin 1.9 L Active Medications Generic Name Dose Route Start Last Admin Trade Name Freq PRN Reason Stop Dose Admin Albuterol Sulfate 2 puff 01/04/20 05:39 Ventolin Hfa Inhaler - IH Q4H PRN SHORT OF BREATH/WHEEZING Apixaban 5 mg 01/04/20 08:00 01/08/20 10:15 Eliquis - PO 5 mg BID [facility] Administration Chlorhexidine Gluconate 1 applic 01/04/20 22:00 01/07/20 21:59 Hibiclens For Decolonization - TP 1 applic HS [facility] Administration Folic Acid 1 mg 01/05/20 10:00 01/08/20 10:15 Folic Acid - PO 1 mg DAILY [facility] Administration Furosemide 40 mg 01/08/20 18:00 Lasix Injection - IVPUSH 01/08/20 18:01 ONCE ONE Midazolam HCl 100 mg in 100 mls @ 2 mls/hr 01/04/20 03:15 01/08/20 03:30 Midazolam 100mg/100ml-0.9%Nacl IVPB 10 mg/hr TITR [facility] 10 mls/hr Administration Protocol 2 MG/HR Propofol 1,000,000 mcg in 100 mls @ 2.449 mls/hr 01/04/20 03:15 01/08/20 03:00 Diprivan - IVPB 50 mcg/kg/min TITR [facility] 24.494 mls/hr Administration Protocol 5 MCG/KG/MIN Vasopressin 40 units/ Sodium 100 mls @ 5 mls/hr 01/04/20 04:00 01/07/20 22:00 Chloride IVPB 0.5 units/hr [facility] 1.25 mls/hr Administration Protocol 2 UNITS/HR Ceftazidime 1 gm/ Dextrose 50 mls @ 100 mls/hr 01/06/20 11:45 01/08/20 10:15 IVPB 100 mls/hr Q8H-IV [facility] Administration Protocol Levetiracetam 1,000 mg 01/06/20 22:00 01/08/20 10:15 Keppra Injection - IVPB 1,000 mg BID [facility] Administration Lisinopril 2.5 mg 01/04/20 10:00 01/08/20 10:16 Prinivil PO 2.5 mg DAILY [facility] Administration Metoprolol Tartrate 12.5 mg 01/05/20 10:00 01/08/20 10:16 Lopressor - PO 12.5 mg BID [facility] Administration Mupirocin 1 applic 01/04/20 01:15 01/08/20 10:15 Bactroban Ointment (For Decolonization) - NS 01/09/20 01:14 1 applic BID [facility] Administration Pantoprazole Sodium 40 mg 01/04/20 10:00 01/08/20 10:16 Protonix Iv IVPUSH 40 mg DAILY [facility] Administration Thiamine HCl 100 mg 01/05/20 10:00 01/08/20 10:16 Vitamin B1 - PO 100 mg DAILY [facility] Administration ASSESSMENT/PLAN: 54 year old M with PMH afib (on eliquis), alcohol use disorder , diastolic CHF (02/08 ECHO; mild AR; mild biatrial enlargement), HTN, AFIB presented with weakness, lightheadedness, shaking. Was given Librium 10mg, Ativan 1mg for alcohol withdrawal and found to have PNA on CXR. Admitted to ICU for Afib w/ RVR, now s/p Amio drip and respiratory failure with seizures. #Neuro - Intubated and sedated, on Propofol, Midazolam - Alcohol withdrawal seizures: patient already being given a benzodiazepine, (Midazolam) - continue with folic acid, thiamine daily -CTH: no significant change. moderate ventricular dilatation. generalized volume loss. mild periventricular chronic microvascular ischemic disease changes -f/u EEG -c/w Keppra 1000 mg BID IVPB #Cardio AFib with RVR -s/p Amio drip. - On vasopressin, wean as tolerated. Maintain MAP >65 - continue with lopressor 12.5 mg PO BID & lisinopril 2.5 mg PO daily -c/w home eliquis 5 mg PO BID -given pt's history of alcohol use and elevated liver enzymes, hold off on starting PO amiodarone -EKG: afib, atrial rate 131 bpm, vent. rate 97 bpm, QTC 520 -ECHO: LV normal size. Moderate global LV systolic dysfunction. EF 40-45%. RV mild-moderately dilated. RV systoltic function mildly reduced. LA/RA mildly dilated. Mild aortic sclerosis. -Will consider POP and beta edwin once patient improves #Pulm -CXR: worse. Progressive R pulmonary & pleural changes. Extensive L pulmonary pleural changes persist -Rate 16, TV 450, FIO2 60%, PEEP 5, Pplat 19 -desaturated after decreasing FIO2 to 50%. will attempt weaning once secretions decrease and patient able to saturate well with lower FIO2 -ABG: INCREASED CO2 45.3/DECREASED O2 66.4/WNL pH 7.376, HCO3 26 -Lasix 40 IV push for AM. Lasix 40 IV push ordered for another PM dose. #GI - NG in place - Protonix 40mg - AST/ALT trended down to from 62/34 to 57/27. will continue to monitor #ID - PNA likely Aspiration - s/p Ceftriaxone/Azithroycin. s/p Zosyn 3.375 gm (01/03-01/05). -blood culture X2: acinetobacter baumannii/haemolo -Mycoplasma pnuemoniae IgG titer elevated at 180. Mycoplasma pneumoniae IgM titer is WNL <770. -sputum culture (01/03): non-lactose fermenting GNB -continue with CEFTAZIDIME 1GM Q8H (01/05) for gram neg sepsis 2/2 acinetobacter #Renal - BUN/Cr 11.7/0.4 - Vo in place, making urine -4317 Intake/1750 mL Output/2567 mL Balance #Heme/Onc - Thrombocytopenia -plts improved from 59 to 63. H/o thrombocytopenia, h/o alcohol use disorder, previous PT/INR PTT were prolonged and prior ultrasound showed hepatomegaly (18.5 cm) with diffuse fatty infiltration of liver and contracted/thick walled gall bladder that could be related to hepatocellular disease. REPEAT Coag ordered possibly thrombocytopenia 2/2 liver disease vs sepsis. AFP ordered. will continue to monitor #FEN IV fluids were dc monitor lytes osmolite @55 ml/hr with H2O flush @ 20/ ml/hr #Prophylaxis eliquis 5 mg PO BID Lines R IJ triple lumen central line (01/03) ETT (01/03) #Dispo maintain ICU Visit type - Emergency Visit Emergency Visit: Yes ED Registration Date: 01/03/20 Care time: The patient presented to the Emergency Department on the above date and was hospitalized for further evaluation of their emergent condition. - New Patient This patient is new to me today: No - Critical Care Critical Care patient: No ATTENDING PHYSICIAN STATEMENT I saw and evaluated the patient. I reviewed the resident's note and discussed the case with the resident. I agree with the resident's findings and plan as documented. SUBJECTIVE: OBJECTIVE: ASSESSMENT AND PLAN:
--- NOTE | 2020-01-08 12:12 | PN ---
Teaching Attending Note Name of Resident: Ruddy Colby ATTENDING PHYSICIAN STATEMENT I saw and evaluated the patient. I reviewed the resident's note and discussed the case with the resident. I agree with the resident's findings and plan as documented. SUBJECTIVE: Pt seen and examined in the ICU. Remains intubated, sedated on vasopressin gtt. Vented on volume assist control with 60% FiO2. OBJECTIVE: Vital Signs Period Temp Pulse Resp BP Sys/Redman Pulse Ox Last 24 Hr 95.3 F-98.2 F 83-97 16-19 95-118/50-94 93-96 Intake & Output 01/05/20 01/06/20 01/07/20 01/08/20 23:59 23:59 23:59 23:59 Intake Total 3138.0 3317.2 4317 1366 Output Total 1260 1400 1750 980 Balance 1878.0 1917.2 2567 386 Weight 94.801 kg Gen: intubated, sedated Heart: RRR Lung: scattered rhonchi Abd: soft, nontender Ext: + edema CBC, BMP 01/08/20 05:30 01/08/20 05:30 Active Medications Albuterol Sulfate (Ventolin Hfa Inhaler -) 2 puff IH Q4H PRN PRN Reason: SHORT OF BREATH/WHEEZING Apixaban (Eliquis -) 5 mg PO BID [facility] Last Admin: 01/08/20 10:15 Dose: 5 mg Documented by: Chlorhexidine Gluconate (Hibiclens For Decolonization -) 1 applic TP HS [facility] Last Admin: 01/07/20 21:59 Dose: 1 applic Documented by: Folic Acid (Folic Acid -) 1 mg PO DAILY [facility] Last Admin: 01/08/20 10:15 Dose: 1 mg Documented by: Furosemide (Lasix Injection -) 40 mg IVPUSH ONCE ONE Stop: 01/08/20 18:01 Midazolam HCl (Midazolam 100mg/100ml-0.9%Nacl) 100 mg in 100 mls @ 2 mls/hr IVPB TITR [facility]; Protocol Last Admin: 01/08/20 03:30 Dose: 10 mg/hr, 10 mls/hr Documented by: Propofol (Diprivan -) 1,000,000 mcg in 100 mls @ 2.449 mls/hr IVPB TITR [facility]; Protocol Last Admin: 01/08/20 03:00 Dose: 50 mcg/kg/min, 24.494 mls/hr Documented by: Vasopressin 40 units/ Sodium (Chloride) 100 mls @ 5 mls/hr IVPB ASDIR [facility]; Protocol Last Admin: 01/07/20 22:00 Dose: 0.5 units/hr, 1.25 mls/hr Documented by: Ceftazidime 1 gm/ Dextrose 50 mls @ 100 mls/hr IVPB Q8H-IV [facility]; Protocol Last Admin: 01/08/20 10:15 Dose: 100 mls/hr Documented by: Levetiracetam (Keppra Injection -) 1,000 mg IVPB BID [facility] Last Admin: 01/08/20 10:15 Dose: 1,000 mg Documented by: Lisinopril (Prinivil) 2.5 mg PO DAILY [facility] Last Admin: 01/08/20 10:16 Dose: 2.5 mg Documented by: Metoprolol Tartrate (Lopressor -) 12.5 mg PO BID [facility] Last Admin: 01/08/20 10:16 Dose: 12.5 mg Documented by: Mupirocin (Bactroban Ointment (For Decolonization) -) 1 applic NS BID [facility] Stop: 01/09/20 01:14 Last Admin: 01/08/20 10:15 Dose: 1 applic Documented by: Pantoprazole Sodium (Protonix Iv) 40 mg IVPUSH DAILY [facility] Last Admin: 01/08/20 10:16 Dose: 40 mg Documented by: Thiamine HCl (Vitamin B1 -) 100 mg PO DAILY [facility] Last Admin: 01/08/20 10:16 Dose: 100 mg Documented by: ASSESSMENT AND PLAN: Acute Hypoxic Respiratory Failure Pneumonia likely Aspiration Septic Shock Lactic Acidosis Atrial Fibrillation Alcohol Abuse Thrombocytopenia Seizures - r/o Alcohol Withdrawal HTN - continue antibiotics - lasix today - monitor urine output, creatinine - rate control - continue anticoagulation - titrate pressors to maintain MAP >65 - when oxygen requirements decrease hold sedation to assess mental status - spontaneous breathing trials as tolerated when mental status improved - enteral feeds - DVT/GI prophylaxis - continue ICU monitoring critical care time spent in reviewing chart, evaluating patient and formulating plan 35 min
[2020-01-08] MEDS: AMINO ACIDS/PROTEIN HYDROLYS 30 ML LIQUID.PKT PO SCH (13:01)
--- NOTE | 2020-01-08 14:09 | PN ---
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, Physician History of Present Illness: Mr Beckford is a 54 YO white man with PMHx h/o acute/chronic alcohol abuse, diastolic CHF (02/08 ECHO; mild AR; mild biatrial enlargement), HTN, AFIB (on metoprolol and eliquis), now presents with weakness and lightheadedness. Patient suspects current syptoms are 2/2 alcohol withdrawal. Mentions that his last drink was 3 hours prior to arrival. Patients reports that the patient has been lightheaded and tremulous this afternoon prior to arrival. Patient also mentions mild productive cough. Denies fever, chills, chest pain, SOB, N/V/D. Denies recent travel of sick contacts. - Current Medication List Current Medications: Active Medications Albuterol Sulfate (Ventolin Hfa Inhaler -) 2 puff IH Q4H PRN PRN Reason: SHORT OF BREATH/WHEEZING Amino Acids (Prosource No Carb Liquid Pkt) 30 ml PO DAILY [facility] Last Admin: 01/08/20 13:01 Dose: 30 ml Documented by: Apixaban (Eliquis -) 5 mg PO BID [facility] Last Admin: 01/08/20 10:15 Dose: 5 mg Documented by: Chlorhexidine Gluconate (Hibiclens For Decolonization -) 1 applic TP HS [facility] Last Admin: 01/07/20 21:59 Dose: 1 applic Documented by: Folic Acid (Folic Acid -) 1 mg PO DAILY [facility] Last Admin: 01/08/20 10:15 Dose: 1 mg Documented by: Furosemide (Lasix Injection -) 40 mg IVPUSH ONCE ONE Stop: 01/08/20 18:01 Midazolam HCl (Midazolam 100mg/100ml-0.9%Nacl) 100 mg in 100 mls @ 2 mls/hr IVPB TITR [facility]; Protocol Last Admin: 01/08/20 03:30 Dose: 10 mg/hr, 10 mls/hr Documented by: Propofol (Diprivan -) 1,000,000 mcg in 100 mls @ 2.449 mls/hr IVPB TITR [facility]; Protocol Last Admin: 01/08/20 03:00 Dose: 50 mcg/kg/min, 24.494 mls/hr Documented by: Vasopressin 40 units/ Sodium (Chloride) 100 mls @ 5 mls/hr IVPB [facility]; Protocol Last Admin: 01/07/20 22:00 Dose: 0.5 units/hr, 1.25 mls/hr Documented by: Ceftazidime 1 gm/ Dextrose 50 mls @ 100 mls/hr IVPB Q8H-IV [facility]; Protocol Last Admin: 01/08/20 10:15 Dose: 100 mls/hr Documented by: Levetiracetam (Keppra Injection -) 1,000 mg IVPB BID [facility] Last Admin: 01/08/20 10:15 Dose: 1,000 mg Documented by: Lisinopril (Prinivil) 2.5 mg PO DAILY [facility] Last Admin: 01/08/20 10:16 Dose: 2.5 mg Documented by: Metoprolol Tartrate (Lopressor -) 12.5 mg PO BID [facility] Last Admin: 01/08/20 10:16 Dose: 12.5 mg Documented by: Mupirocin (Bactroban Ointment (For Decolonization) -) 1 applic NS BID [facility] Stop: 01/09/20 01:14 Last Admin: 01/08/20 10:15 Dose: 1 applic Documented by: Pantoprazole Sodium (Protonix Iv) 40 mg IVPUSH DAILY [facility] Last Admin: 01/08/20 10:16 Dose: 40 mg Documented by: Thiamine HCl (Vitamin B1 -) 100 mg PO DAILY [facility] Last Admin: 01/08/20 10:16 Dose: 100 mg Documented by: - Objective Vital Signs: Vital Signs Temperature 96.4 F L 01/08/20 13:59 Pulse Rate 101 H 01/08/20 13:59 Respiratory Rate 16 01/08/20 13:59 Blood Pressure 99/72 01/08/20 13:59 O2 Sat by Pulse Oximetry (%) 97 01/08/20 13:59 Eyes: Yes: WNL, Conjunctiva Clear, EOM Intact HENT: Yes: WNL, Atraumatic, Normocephalic Neck: Yes: WNL, Supple, Trachea Midline Cardiovascular: Yes: WNL, Regular Rate and Rhythm Respiratory: Yes: Intubated, Mechanically Ventilated Gastrointestinal: Yes: WNL, Normal Bowel Sounds Genitourinary: Yes: WNL Musculoskeletal: Yes: WNL Extremities: Yes: WNL Edema: No Integumentary: Yes: WNL Neurological: Yes: WNL, Alert, Oriented ...Motor Strength: WNL Psychiatric: Yes: WNL Labs: CBC, BMP 01/08/20 05:30 01/08/20 05:30 INR, PTT INR 2.49 (0.83-1.09) H 01/03/20 15:00 Assessment/Plan Acute/chronic alcoholism Respiratory failure:intubated; mechanically ventilated; ? aspiration PNA. AF (initially RVR) diastolic CHF (02/08 ECHO: normal LVEF; mild biatrial enlargement; abnormal diastolic compliance; mild AR). leukocytosis; symptoms of URI HTN hypotension TSH WNL LDL cholesterol 67 mg/dL Plan: Now off amiodarone. AF, relatively well-controlled VR. As discussed with Dr. Carmen, pt's alcoholism and liver abnormality mitigates against starting PO amiodarone. Now off pressor. On low-dose metoprolol tartrate 12.5 mg bid;titrate up and f/u BP and HR carefully. On lisinopril 2.5 mg daily. F/u daily weight, Is and Os. PO4 now WNL; replete K and Mg; keep K+ 4.0-4.5, Mg 2.0-2.4, PO4 2.5-4.9. TNI 0.03-->0.02. Repeat ECHO for LVEF, chamber sizes, valve status and modify medications accordingly. Antibiotics per ID (on Zosyn). Continue detox protocol CC time spent 35 minutes
[2020-01-08 14:11] LABS: INR 2.09 (0.83-1.09); PROTHROMBIN TIME (PATIENT) 24.8 SEC (9.7-13.0)
[2020-01-08 14:14] LABS: ACTIVATED PTT 38.3 SECONDS (25.2-36.5)
--- NOTE | 2020-01-08 14:19 | PN ---
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 (short form) - Note 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: events noted pt examined in ICU spoke with ICU team Sedated and on vent no seizures so far pt is hypothermic Vital Signs - 24 hr 01/07/20 01/07/20 01/07/20 20:00 20:10 22:00 Temperature 97.2 F L Pulse Rate 84 91 H 86 Respiratory 16 16 16 Rate Blood Pressure 98/50 L 106/81 O2 Sat by Pulse 94 L 95 95 Oximetry (%) 01/08/20 01/08/20 01/08/20 00:00 00:11 02:00 Temperature 97.4 F L Pulse Rate 88 88 Respiratory 16 16 16 Rate Blood Pressure 95/76 104/83 O2 Sat by Pulse 95 95 96 Oximetry (%) 01/08/20 01/08/20 01/08/20 04:00 04:18 06:00 Temperature 95.3 F L Pulse Rate 90 88 86 Respiratory 16 16 16 Rate Blood Pressure 107/88 118/94 O2 Sat by Pulse 96 95 95 Oximetry (%) 01/08/20 01/08/20 01/08/20 08:39 09:00 10:00 Temperature Pulse Rate 97 H 88 Respiratory 16 16 16 Rate Blood Pressure 108/82 O2 Sat by Pulse 95 95 Oximetry (%) 01/08/20 01/08/20 01/08/20 12:00 12:22 13:59 Temperature 95.0 F L 96.4 F L Pulse Rate 80 101 H Respiratory 16 16 16 Rate Blood Pressure 114/93 99/72 O2 Sat by Pulse 95 97 Oximetry (%) 01/08/20 01/08/20 01/08/20 15:51 16:23 16:47 Temperature 98.5 F Pulse Rate 110 H 104 H Respiratory 16 16 16 Rate Blood Pressure 88/61 L 94/70 O2 Sat by Pulse 94 L 94 L Oximetry (%) 01/08/20 18:00 Temperature 99.5 F Pulse Rate 101 H Respiratory 16 Rate Blood Pressure 90/65 O2 Sat by Pulse 95 Oximetry (%) Current Medications Generic Name Dose Route Start Last Admin Trade Name Freq PRN Reason Stop Dose Admin Albuterol Sulfate 2 puff 01/04/20 05:39 Ventolin Hfa Inhaler - IH Q4H PRN SHORT OF BREATH/WHEEZING Amino Acids 30 ml 01/08/20 12:45 01/08/20 13:01 Prosource No Carb Liquid Pkt PO 30 ml DAILY ALFRED Administration Apixaban 5 mg 01/04/20 08:00 01/08/20 10:15 Eliquis - PO 5 mg BID ALFRED Administration Chlorhexidine Gluconate 1 applic 01/04/20 22:00 01/07/20 21:59 Hibiclens For Decolonization - TP 1 applic HS ALFRED Administration Folic Acid 1 mg 01/05/20 10:00 01/08/20 10:15 Folic Acid - PO 1 mg DAILY ALFRED Administration Midazolam HCl 100 mg in 100 mls @ 2 mls/hr 01/04/20 03:15 01/08/20 03:30 Midazolam 100mg/100ml-0.9%Nacl IVPB 10 mg/hr TITR ALFRED 10 mls/hr Administration Protocol 2 MG/HR Propofol 1,000,000 mcg in 100 mls @ 2.449 mls/hr 01/04/20 03:15 01/08/20 03:00 Diprivan - IVPB 50 mcg/kg/min TITR ALFRED 24.494 mls/hr Administration Protocol 5 MCG/KG/MIN Vasopressin 40 units/ Sodium 100 mls @ 5 mls/hr 01/04/20 04:00 01/07/20 22:00 Chloride IVPB 0.5 units/hr ASDIR ALFRED 1.25 mls/hr Administration Protocol 2 UNITS/HR Ceftazidime 1 gm/ Dextrose 50 mls @ 100 mls/hr 01/06/20 11:45 01/08/20 17:13 IVPB 100 mls/hr Q8H-IV ALFRED Administration Protocol Levetiracetam 1,000 mg 01/06/20 22:00 01/08/20 10:15 Keppra Injection - IVPB 1,000 mg BID ALFRED Administration Lisinopril 2.5 mg 01/04/20 10:00 01/08/20 10:16 Prinivil PO 2.5 mg DAILY ALFRED Administration Metoprolol Tartrate 12.5 mg 01/05/20 10:00 01/08/20 10:16 Lopressor - PO 12.5 mg BID ALFRED Administration Mupirocin 1 applic 01/04/20 01:15 01/08/20 10:15 Bactroban Ointment (For Decolonization) - NS 01/09/20 01:14 1 applic BID ALFRED Administration Pantoprazole Sodium 40 mg 01/04/20 10:00 01/08/20 10:16 Protonix Iv IVPUSH 40 mg DAILY ALFRED Administration Thiamine HCl 100 mg 01/05/20 10:00 01/08/20 10:16 Vitamin B1 - PO 100 mg DAILY ALFRED Administration Laboratory Results - last 24 hr 01/08/20 01/08/20 01/08/20 05:00 05:30 05:30 WBC 7.4 RBC 3.38 L Hgb 12.0 Hct 35.9 MCV 106.4 H MCH 35.6 H MCHC 33.4 RDW 13.8 Plt Count 63 L MPV 9.9 Absolute Neuts (auto) 5.1 Neutrophils % 68.5 Neutrophils % (Manual) 69.8 Band Neutrophils % 5.2 Lymphocytes % 7.5 L Lymphocytes % (Manual) 7.3 L D Monocytes % 21.5 H Monocytes % (Manual) 13 H Eosinophils % 1.9 Eosinophils % (Manual) 2.1 D Basophils % 0.6 Basophils % (Manual) 0.0 Myelocytes % (Man) 2 D Promyelocytes % (Man) 0 Blast Cells % (Manual) 0 Nucleated RBC % 0 Metamyelocytes 1 D Hypochromia 0 Platelet Estimate Decreased Polychromasia 1+ Poikilocytosis 1+ Anisocytosis 1+ Microcytosis 0 Macrocytosis 0 PT with INR INR PTT (Actin FS) Anticoagulation Therapy No Result Required. Puncture Site Right radial Patient Temperature No Result Required. ABG pH 7.376 ABG pCO2 45.30 H ABG pO2 66.4 L ABG HCO3 26.0 ABG O2 Sat (Measured) 92.7 L ABG O2 Content No Result Required. ABG Base Excess 0.4 Nnamdi Test Positive Patient On Oxygen Yes O2 Delivery Device Vent Oxygen Flow Rate 60% Vent Mode A/c Vent Rate 16 Mechanical Rate Yes PEEP 5.0 Pressure Support Vent 450 Sodium 141 Potassium 3.8 Chloride 106 Carbon Dioxide 31 Anion Gap 4 L BUN 11.7 Creatinine 0.4 L Est GFR (CKD-EPI)AfAm 158.27 Est GFR (CKD-EPI)NonAf 136.56 Random Glucose 113 H Calcium 7.7 L Phosphorus 3.0 Magnesium 1.9 Total Bilirubin 1.7 H AST 57 H ALT 27 Alkaline Phosphatase 53 Total Protein 5.8 L Albumin 1.9 L 01/08/20 12:00 WBC RBC Hgb Hct MCV MCH MCHC RDW Plt Count MPV Absolute Neuts (auto) Neutrophils % Neutrophils % (Manual) Band Neutrophils % Lymphocytes % Lymphocytes % (Manual) Monocytes % Monocytes % (Manual) Eosinophils % Eosinophils % (Manual) Basophils % Basophils % (Manual) Myelocytes % (Man) Promyelocytes % (Man) Blast Cells % (Manual) Nucleated RBC % Metamyelocytes Hypochromia Platelet Estimate Polychromasia Poikilocytosis Anisocytosis Microcytosis Macrocytosis PT with INR 24.80 H INR 2.09 H PTT (Actin FS) 38.3 H Anticoagulation Therapy Puncture Site Patient Temperature ABG pH ABG pCO2 ABG pO2 ABG HCO3 ABG O2 Sat (Measured) ABG O2 Content ABG Base Excess Nnamdi Test Patient On Oxygen O2 Delivery Device Oxygen Flow Rate Vent Mode Vent Rate Mechanical Rate PEEP Pressure Support Vent Sodium Potassium Chloride Carbon Dioxide Anion Gap BUN Creatinine Est GFR (CKD-EPI)AfAm Est GFR (CKD-EPI)NonAf Random Glucose Calcium Phosphorus Magnesium Total Bilirubin AST ALT Alkaline Phosphatase Total Protein Albumin Constitutional: Yes: Other Neck: Yes: Supple Cardiovascular: Yes: Pulse Irregular Respiratory: Yes: Diminished, intubated on vent Gastrointestinal: Yes: Soft Genitourinary: Yes: Vo Present Edema: No PLAN IV antibiotics IV fluids ON Iv Keppra seizures due to alcohol withdrawal monitor platelets if decreasing, will need to dc Eliquis pt is hypothermic-- angélica hugger placed, septic repeat blood cultures pt unable to wean off from vent given lasix today for worsening pleural effusion ' spoke with pt's today Problem List - Problems (1) Alcohol dependence Code(s): F10.20 - ALCOHOL DEPENDENCE, UNCOMPLICATED Qualifiers: Substance use status: uncomplicated Qualified Code(s): F10.20 - Alcohol dependence, uncomplicated (2) Pneumonia Code(s): J18.9 - PNEUMONIA, UNSPECIFIED ORGANISM Qualifiers: Pneumonia type: due to unspecified organism Laterality: left Lung location: lower lobe of lung Qualified Code(s): J18.9 - Pneumonia, unspecified organism (3) Respiratory failure Code(s): J96.90 - RESPIRATORY FAILURE, UNSP, UNSP W HYPOXIA OR HYPERCAPNIA (4) Weakness Code(s): R53.1 - WEAKNESS (5) Alcohol abuse Code(s): F10.10 - ALCOHOL ABUSE, UNCOMPLICATED (6) Alcohol dependence with uncomplicated withdrawal Code(s): F10.230 - ALCOHOL DEPENDENCE WITH WITHDRAWAL, UNCOMPLICATED (7) Atrial fibrillation Code(s): I48.91 - UNSPECIFIED ATRIAL FIBRILLATION Qualifiers: Atrial fibrillation type: unspecified Qualified Code(s): I48.91 - Unspecified atrial fibrillation (8) HTN (hypertension) Code(s): I10 - ESSENTIAL (PRIMARY) HYPERTENSION Qualifiers: Hypertension type: essential hypertension Qualified Code(s): I10 - Essential (primary) hypertension
[2020-01-08] MEDS: CHLORHEXIDINE GLUCONATE 4% CLEANSER FOR DECOLONIZATION TP SCH (21:57)
[2020-01-08] MEDS: VASOPRESSIN 40 UNITS in SODIUM CHLORIDE 98 ML IVPB SCH (21:58)
[2020-01-09] MEDS: CEFTAZIDIME PENTAHYDRATE 1 GM in DEXTROSE 5%-WATER - 50 ML IVPB SCH ×3 (01:24→17:29)
[2020-01-09 06:18] LABS: ARTERIAL BLD GAS O2 SATURATION 94.4 mmHg (95-98); ARTERIAL BLOOD GAS BASE EXCESS 4.4 mmol/L (-2-2); ARTERIAL BLOOD GAS PO2 70.2 mmHg (80-100); ARTERIAL BLOOD GAS pH 7.429 (7.350-7.450)
[2020-01-09 06:25] LABS: ALLENS TEST POSITIVE
[2020-01-09 06:26] LABS: VENT MODE A/C
[2020-01-09 06:27] LABS: VENT RATE 14
[2020-01-09 07:28] LABS: BASO % 0.7 % (0-2.0); EOS % 2.4 % (0-4.5); HEMATOCRIT 34.8 % (35.4-49); HEMOGLOBIN 11.8 GM/dL (11.7-16.9); LYMPH % 12.1 % (8-40); MCH 35.8 pg (25.7-33.7); MCHC 33.9 g/dl (32.0-35.9); MEAN CELL VOLUME 105.4 fl (80-96); MEAN PLT VOLUME 10.6 fl (7.5-11.1); MONO % 25.8 % (3.8-10.2); PLATELET COUNT 80 K/MM3 (134-434); RDW 13.7 % (11.9-15.9); WHITE BLOOD COUNT 7.3 K/mm3 (4.0-10.0)
[2020-01-09 08:04] LABS: ALBUMIN 1.9 g/dl (3.4-5.0); BILIRUBIN,TOTAL 1.2 mg/dL (0.2-1); CALCIUM 7.6 mg/dL (8.5-10.1); CREATININE 0.5 mg/dL (0.55-1.3); MAGNESIUM 1.7 mg/dL (1.8-2.4); PHOSPHOROUS 2.5 mg/dL (2.5-4.9); POTASSIUM 3.8 mmol/L (3.5-5.1); TOT PROT 5.8 g/dl (6.4-8.2)
[2020-01-09] MEDS: MIDAZOLAM IN 0.9 % SOD.CHLORID 100 MG/100 ML PLAST..BAG IVPB SCH ×2 (08:07→17:26)
[2020-01-09] MEDS: PROPOFOL 1,000,000 MCG/100 ML VIAL IVPB SCH ×3 (08:07→17:21)
[2020-01-09 08:57] LABS: ANISOCYTOSIS 1+; MACROCYTOSIS 1+; PLATELET ESTIMATE DECREASED
[2020-01-09] MEDS ORDERED: PT OWN MED DRAWER 7, Y5N ONE ×2 (09:32→17:15)
[2020-01-09] MEDS: FOLIC ACID 1 MG TABLET (FP) PO SCH (09:57)
[2020-01-09] MEDS: APIXABAN 5 MG TABLET PO SCH ×2 (09:57→21:35)
[2020-01-09] MEDS: levETIRAcetam 500 MG/5 ML INJECTION VIAL IVPB SCH ×2 (09:57→21:35)
[2020-01-09] MEDS: THIAMINE HCL 100 MG TABLET (FP) PO SCH (09:58)
[2020-01-09] MEDS: AMINO ACIDS/PROTEIN HYDROLYS 30 ML LIQUID.PKT PO SCH (09:58)
[2020-01-09] MEDS: METOPROLOL TARTRATE 25 MG TABLET (FP) PO SCH ×2 (09:58→21:35)
[2020-01-09] MEDS: LISINOPRIL 5 MG TABLET PO SCH (09:58)
[2020-01-09] MEDS: PANTOPRAZOLE SODIUM 40 MG VIAL IVPUSH SCH (09:58)
[2020-01-09] MEDS ORDERED: MAGNESIUM SULF 50% (8.12 MEQ/2 ML-1 GM VIAL) IVPB ONE (10:00)
[2020-01-09] MEDS ORDERED: FUROSEMIDE 40 MG/4 ML INJECTABLE VIAL IVPUSH ONE ×2 (10:50→22:00)
--- NOTE | 2020-01-09 11:20 | PN ---
Physical Exam: SUBJECTIVE: Patient seen and examined. Overnight, ventilator showed that circuit had a leak, so the ventilator was switched. Continues to have bloody secretions. Decreased FIO2 from 60% to 50% this AM, however he began to desaturate to the 80s. OBJECTIVE: Vital Signs Period Temp Pulse Resp BP Sys/Redman Pulse Ox Last 24 Hr 95.0 F-99.5 F 80-110 12-18 88-125/61-93 94-99 GENERAL: Intubated and sedated HEENT: Normal with no signs of trauma. PERRL, No ptosis. dry mucous membranes LUNGS: decreased breath sounds in bases, no wheezes, no crackles, no accessory muscle use. HEART:irregular rate, S1, S2 without murmur, rub or gallop. ABDOMEN: Soft, nontender, nondistended, normoactive bowel sounds, no guarding, no rebound EXTREMITIES: 2+ pulses, warm, well-perfused, no edema. Laboratory Results - last 24 hr 01/08/20 01/08/20 01/09/20 05:30 12:00 06:00 WBC 7.3 RBC 3.30 L Hgb 11.8 Hct 34.8 L MCV 105.4 H MCH 35.8 H MCHC 33.9 RDW 13.7 Plt Count 80 L D MPV 10.6 Absolute Neuts (auto) 4.3 Neutrophils % 59.0 Neutrophils % (Manual) 69.8 63.0 Band Neutrophils % 5.2 1.0 Lymphocytes % 12.1 D Lymphocytes % (Manual) 7.3 L D 11.0 D Monocytes % 25.8 H Monocytes % (Manual) 13 H 22 H Eosinophils % 2.4 Eosinophils % (Manual) 2.1 D 1.0 Basophils % 0.7 Basophils % (Manual) 0.0 0.0 Myelocytes % (Man) 2 D 0 D Promyelocytes % (Man) 0 0 Blast Cells % (Manual) 0 0 Nucleated RBC % 0 0 Metamyelocytes 1 D 1 Hypochromia 0 0 Platelet Estimate Decreased Decreased Polychromasia 1+ 0 Poikilocytosis 1+ 0 Anisocytosis 1+ 1+ Microcytosis 0 0 Macrocytosis 0 1+ PT with INR 24.80 H INR 2.09 H PTT (Actin FS) 38.3 H Anticoagulation Therapy Puncture Site Patient Temperature ABG pH ABG pCO2 ABG pO2 ABG HCO3 ABG O2 Sat (Measured) ABG O2 Content ABG Base Excess Nnamdi Test Patient On Oxygen O2 Delivery Device Oxygen Flow Rate Vent Mode Vent Rate Mechanical Rate PEEP Pressure Support Vent Sodium Potassium Chloride Carbon Dioxide Anion Gap BUN Creatinine Est GFR (CKD-EPI)AfAm Est GFR (CKD-EPI)NonAf Random Glucose Calcium Phosphorus Magnesium Total Bilirubin AST ALT Alkaline Phosphatase Total Protein Albumin 01/09/20 01/09/20 06:00 06:00 WBC RBC Hgb Hct MCV MCH MCHC RDW Plt Count MPV Absolute Neuts (auto) Neutrophils % Neutrophils % (Manual) Band Neutrophils % Lymphocytes % Lymphocytes % (Manual) Monocytes % Monocytes % (Manual) Eosinophils % Eosinophils % (Manual) Basophils % Basophils % (Manual) Myelocytes % (Man) Promyelocytes % (Man) Blast Cells % (Manual) Nucleated RBC % Metamyelocytes Hypochromia Platelet Estimate Polychromasia Poikilocytosis Anisocytosis Microcytosis Macrocytosis PT with INR INR PTT (Actin FS) Anticoagulation Therapy No Result Required. Puncture Site Left radial Patient Temperature No Result Required. ABG pH 7.429 ABG pCO2 45.40 H ABG pO2 70.2 L ABG HCO3 29.4 H ABG O2 Sat (Measured) 94.4 L ABG O2 Content No Result Required. ABG Base Excess 4.4 H Nnamdi Test Positive Patient On Oxygen Yes O2 Delivery Device Vent Oxygen Flow Rate 60 Vent Mode A/c Vent Rate 14 Mechanical Rate Vent PEEP 10.0 Pressure Support Vent 450 Sodium 140 Potassium 3.8 Chloride 103 Carbon Dioxide 35 H Anion Gap 2 L BUN 14.0 Creatinine 0.5 L Est GFR (CKD-EPI)AfAm 144.40 Est GFR (CKD-EPI)NonAf 124.59 Random Glucose 126 H Calcium 7.6 L Phosphorus 2.5 Magnesium 1.7 L Total Bilirubin 1.2 H AST 65 H ALT 30 Alkaline Phosphatase 62 Total Protein 5.8 L Albumin 1.9 L Active Medications Generic Name Dose Route Start Last Admin Trade Name Freq PRN Reason Stop Dose Admin Albuterol Sulfate 2 puff 01/04/20 05:39 Ventolin Hfa Inhaler - IH Q4H PRN SHORT OF BREATH/WHEEZING Amino Acids 30 ml 01/08/20 12:45 01/09/20 09:58 Prosource No Carb Liquid Pkt PO 30 ml DAILY ALFRED Administration Apixaban 5 mg 01/04/20 08:00 01/09/20 09:57 Eliquis - PO 5 mg BID ALFRED Administration Chlorhexidine Gluconate 1 applic 01/04/20 22:00 01/08/20 21:57 Hibiclens For Decolonization - TP 1 applic HS ALFRED Administration Folic Acid 1 mg 01/05/20 10:00 01/09/20 09:57 Folic Acid - PO 1 mg DAILY ALFRED Administration Furosemide 40 mg 01/09/20 10:50 Lasix Injection - IVPUSH 01/09/20 10:51 ONCE ONE Furosemide 40 mg 01/09/20 22:00 Lasix Injection - IVPUSH 01/09/20 22:01 ONCE ONE Midazolam HCl 100 mg in 100 mls @ 2 mls/hr 01/04/20 03:15 01/09/20 08:07 Midazolam 100mg/100ml-0.9%Nacl IVPB 10 mg/hr TITR ALFRED 10 mls/hr Administration Protocol 2 MG/HR Propofol 1,000,000 mcg in 100 mls @ 2.449 mls/hr 01/04/20 03:15 01/09/20 11:09 Diprivan - IVPB 60 mcg/kg/min TITR ALFRED 29.393 mls/hr Administration Protocol 5 MCG/KG/MIN Vasopressin 40 units/ Sodium 100 mls @ 5 mls/hr 01/04/20 04:00 01/09/20 08:07 Chloride IVPB 1 units/hr ASDIR ALFRED 2.5 mls/hr Titration Protocol 2 UNITS/HR Ceftazidime 1 gm/ Dextrose 50 mls @ 100 mls/hr 01/06/20 11:45 01/09/20 09:57 IVPB 100 mls/hr Q8H-IV ALFRED Administration Protocol Levetiracetam 1,000 mg 01/06/20 22:00 01/09/20 09:57 Keppra Injection - IVPB 1,000 mg BID ALFRED Administration Lisinopril 2.5 mg 01/04/20 10:00 01/09/20 09:58 Prinivil PO 2.5 mg DAILY ALFRED Administration Metoprolol Tartrate 12.5 mg 01/05/20 10:00 01/09/20 09:58 Lopressor - PO 12.5 mg BID ALFRED Administration Pantoprazole Sodium 40 mg 01/04/20 10:00 01/09/20 09:58 Protonix Iv IVPUSH 40 mg DAILY ALFRED Administration Thiamine HCl 100 mg 01/05/20 10:00 01/09/20 09:58 Vitamin B1 - PO 100 mg DAILY ALFRED Administration ASSESSMENT/PLAN: 54 year old M with PMH afib (on eliquis), alcohol use disorder , diastolic CHF (02/08 ECHO; mild AR; mild biatrial enlargement), HTN, AFIB presented with weakness, lightheadedness, shaking. Was given Librium 10mg, Ativan 1mg for alcohol withdrawal and found to have PNA on CXR. Admitted to ICU for Afib w/ RVR, now s/p Amio drip and respiratory failure with seizures. #Neuro - Intubated and sedated, on Propofol, Midazolam - Alcohol withdrawal seizures: patient already being given a benzodiazepine, (Midazolam) - continue with folic acid, thiamine daily -CTH: no significant change. moderate ventricular dilatation. generalized volume loss. mild periventricular chronic microvascular ischemic disease changes -c/w Keppra 1000 mg BID IVPB -EEG performed today. F/u results #Cardio AFib with RVR -s/p Amio drip. - On vasopressin, wean as tolerated. Maintain MAP >65 - continue with lopressor 12.5 mg PO BID & lisinopril 2.5 mg PO daily -c/w home eliquis 5 mg PO BID -given pt's history of alcohol use and elevated liver enzymes, hold off on starting PO amiodarone -EKG: afib, atrial rate 131 bpm, vent. rate 97 bpm, QTC 520 -ECHO: LV normal size. Moderate global LV systolic dysfunction. EF 40-45%. RV mild-moderately dilated. RV systoltic function mildly reduced. LA/RA mildly dilated. Mild aortic sclerosis. -Will consider POP and beta edwin once patient improves #Pulm -CXR: unchanged. b/l pulmonary pleural changes. Left is worse than Right. prominent mediastinum. -Rate 16, TV 450, FIO2 60%, PEEP 10, Pplat 26 -desaturated after decreasing FIO2 to 50%. will attempt weaning once secretions decrease and patient able to saturate well with lower FIO2 -ABG: INCREASED CO2 45.4, HCO3 29.4/DECREASED O2 70.2/WNL pH 7.429 -another Lasix 40 IV push for AM. Lasix 40 IV push ordered again for another PM dose. #GI - NG in place - Protonix 40mg - AST/ALT trended to 65/30. will continue to monitor - endorses liver disease that she attributes to alcohol use. H/o thrombocyt openia, h/o alcohol use disorder, previous PT/INR PTT were prolonged and prior ultrasound showed hepatomegaly (18.5 cm) with diffuse fatty infiltration of liver and contracted/thick walled gall bladder that could be related to hepatocellular disease. PT/INR PTT elevated #ID - PNA likely Aspiration - s/p Ceftriaxone/Azithroycin. s/p Zosyn 3.375 gm (01/03-01/05). -blood culture X2: acinetobacter baumannii/haemolo -Mycoplasma pnuemoniae IgG titer elevated at 180. Mycoplasma pneumoniae IgM titer is WNL <770. -sputum culture (01/03): non-lactose fermenting GNB: ochrobactrum anthropi -continue with CEFTAZIDIME 1GM Q8H (01/05) for gram neg sepsis 2/2 acinetobacter #Renal - BUN/Cr 11.7/0.4 - Vo in place, making urine -2628 Intake/2680 mL Output/2567 mL Balance #Heme/Onc - Thrombocytopenia -plts improved from 63 to 80. H/o thrombocytopenia, h/o alcohol use disorder, previous PT/INR PTT were prolonged and prior ultrasound showed hepatomegaly (18.5 cm) with diffuse fatty infiltration of liver and contracted/thick walled gall bladder that could be related to hepatocellular disease. PT/INR PTT elevated possibly thrombocytopenia 2/2 liver disease vs sepsis. -f/u AFP #FEN no IVF monitor lytes Promote @55 ml/hr with H2O flush @ 20/ ml/hr #Prophylaxis eliquis 5 mg PO BID Lines R IJ triple lumen central line (01/03) ETT (01/03) #Dispo maintain ICU Visit type - Emergency Visit Emergency Visit: Yes ED Registration Date: 01/03/20 Care time: The patient presented to the Emergency Department on the above date and was hospitalized for further evaluation of their emergent condition. - New Patient This patient is new to me today: No - Critical Care Critical Care patient: No ATTENDING PHYSICIAN STATEMENT I saw and evaluated the patient. I reviewed the resident's note and discussed the case with the resident. I agree with the resident's findings and plan as documented. SUBJECTIVE: OBJECTIVE: ASSESSMENT AND PLAN:
--- NOTE | 2020-01-09 11:45 | PN ---
Teaching Attending Note Name of Resident: Ruddy Colby ATTENDING PHYSICIAN STATEMENT I saw and evaluated the patient. I reviewed the resident's note and discussed the case with the resident. I agree with the resident's findings and plan as documented. SUBJECTIVE: Pt seen and examined in the ICU. Remains intubated, sedated on vasopressin gtt. Vented on volume assist control with 60% FiO2. OBJECTIVE: Vital Signs Period Temp Pulse Resp BP Sys/Redman Pulse Ox Last 24 Hr 95.0 F-99.5 F 80-110 12-18 88-125/61-93 94-99 Intake & Output 01/06/20 01/07/20 01/08/20 01/09/20 23:59 23:59 23:59 23:59 Intake Total 3317.2 4317 2628 1470.4 Output Total 1400 1750 2680 300 Balance 1917.2 2567 -52 1170.4 Gen: intubated, sedated Heart: RRR Lung: scattered rhonchi Abd: soft, nontender Ext: + edema CBC, BMP 01/09/20 06:00 01/09/20 06:00 Active Medications Albuterol Sulfate (Ventolin Hfa Inhaler -) 2 puff IH Q4H PRN PRN Reason: SHORT OF BREATH/WHEEZING Amino Acids (Prosource No Carb Liquid Pkt) 30 ml PO DAILY [facility] Last Admin: 01/09/20 09:58 Dose: 30 ml Documented by: Apixaban (Eliquis -) 5 mg PO BID [facility] Last Admin: 01/09/20 09:57 Dose: 5 mg Documented by: Chlorhexidine Gluconate (Hibiclens For Decolonization -) 1 applic TP HS [facility] Last Admin: 01/08/20 21:57 Dose: 1 applic Documented by: Folic Acid (Folic Acid -) 1 mg PO DAILY [facility] Last Admin: 01/09/20 09:57 Dose: 1 mg Documented by: Furosemide (Lasix Injection -) 40 mg IVPUSH ONCE ONE Stop: 01/09/20 10:51 Furosemide (Lasix Injection -) 40 mg IVPUSH ONCE ONE Stop: 01/09/20 22:01 Midazolam HCl (Midazolam 100mg/100ml-0.9%Nacl) 100 mg in 100 mls @ 2 mls/hr IVPB TITR [facility]; Protocol Last Admin: 01/09/20 08:07 Dose: 10 mg/hr, 10 mls/hr Documented by: Propofol (Diprivan -) 1,000,000 mcg in 100 mls @ 2.449 mls/hr IVPB TITR [facility]; Protocol Last Admin: 01/09/20 11:09 Dose: 60 mcg/kg/min, 29.393 mls/hr Documented by: Vasopressin 40 units/ Sodium (Chloride) 100 mls @ 5 mls/hr IVPB ASDIR [facility]; Protocol Last Titration: 01/09/20 08:07 Dose: 1 units/hr, 2.5 mls/hr Documented by: Ceftazidime 1 gm/ Dextrose 50 mls @ 100 mls/hr IVPB Q8H-IV [facility]; Protocol Last Admin: 01/09/20 09:57 Dose: 100 mls/hr Documented by: Levetiracetam (Keppra Injection -) 1,000 mg IVPB BID [facility] Last Admin: 01/09/20 09:57 Dose: 1,000 mg Documented by: Lisinopril (Prinivil) 2.5 mg PO DAILY [facility] Last Admin: 01/09/20 09:58 Dose: 2.5 mg Documented by: Metoprolol Tartrate (Lopressor -) 12.5 mg PO BID [facility] Last Admin: 01/09/20 09:58 Dose: 12.5 mg Documented by: Pantoprazole Sodium (Protonix Iv) 40 mg IVPUSH DAILY [facility] Last Admin: 01/09/20 09:58 Dose: 40 mg Documented by: Thiamine HCl (Vitamin B1 -) 100 mg PO DAILY [facility] Last Admin: 01/09/20 09:58 Dose: 100 mg Documented by: ASSESSMENT AND PLAN: Acute Hypoxic Respiratory Failure Pneumonia likely Aspiration Septic Shock Lactic Acidosis Atrial Fibrillation Alcohol Abuse Thrombocytopenia Seizures - r/o Alcohol Withdrawal HTN - continue antibiotics - lasix today - monitor urine output, creatinine - rate control - continue anticoagulation - titrate pressors to maintain MAP >65 - when oxygen requirements decrease hold sedation to assess mental status - spontaneous breathing trials as tolerated when mental status improved - enteral feeds - DVT/GI prophylaxis - continue ICU monitoring critical care time spent in reviewing chart, evaluating patient and formulating plan 35 min
--- NOTE | 2020-01-09 12:05 | PN ---
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 (short form) - Note 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: events noted pt examined in ICU spoke with ICU team Sedated and on vent no seizures so far cxr -- same Vital Signs - 24 hr 01/08/20 01/08/20 01/08/20 12:22 13:59 15:51 Temperature 96.4 F L 98.5 F Pulse Rate 101 H 110 H Respiratory 16 16 16 Rate Blood Pressure 99/72 88/61 L O2 Sat by Pulse 97 94 L Oximetry (%) 01/08/20 01/08/20 01/08/20 16:23 16:47 18:00 Temperature 99.5 F Pulse Rate 104 H 101 H Respiratory 16 16 16 Rate Blood Pressure 94/70 90/65 O2 Sat by Pulse 94 L 95 Oximetry (%) 01/08/20 01/08/20 01/08/20 19:00 20:00 20:29 Temperature Pulse Rate 104 H 106 H 97 H Respiratory 18 14 14 Rate Blood Pressure 94/64 107/84 O2 Sat by Pulse 99 99 99 Oximetry (%) 01/08/20 01/08/20 01/08/20 21:00 22:00 23:00 Temperature 99.5 F Pulse Rate 105 H 100 H 103 H Respiratory 17 15 14 Rate Blood Pressure 107/82 102/80 96/74 O2 Sat by Pulse 99 99 99 Oximetry (%) 01/08/20 01/09/20 01/09/20 23:29 00:00 01:00 Temperature Pulse Rate 98 H 104 H Respiratory 14 14 16 Rate Blood Pressure 116/87 114/91 O2 Sat by Pulse 99 99 Oximetry (%) 01/09/20 01/09/20 01/09/20 02:00 04:00 06:00 Temperature 98.4 F 98.4 F 98.1 F Pulse Rate 100 H 93 H 90 Respiratory 18 14 12 Rate Blood Pressure 114/85 104/79 125/87 O2 Sat by Pulse 98 98 94 L Oximetry (%) 01/09/20 01/09/20 01/09/20 07:00 07:56 08:00 Temperature 97.6 F Pulse Rate 96 H Respiratory 14 14 14 Rate Blood Pressure 112/80 O2 Sat by Pulse 95 94 L 95 Oximetry (%) 01/09/20 01/09/20 01/09/20 08:07 08:15 08:22 Temperature Pulse Rate 98 H Respiratory 14 Rate Blood Pressure 112/80 O2 Sat by Pulse 96 95 Oximetry (%) 01/09/20 01/09/20 01/09/20 08:42 10:00 11:48 Temperature 97.4 F L Pulse Rate 94 H 92 H Respiratory 14 14 14 Rate Blood Pressure 104/73 107/82 O2 Sat by Pulse 94 L 96 Oximetry (%) Current Medications Generic Name Dose Route Start Last Admin Trade Name Freq PRN Reason Stop Dose Admin Albuterol Sulfate 2 puff 01/04/20 05:39 Ventolin Hfa Inhaler - IH Q4H PRN SHORT OF BREATH/WHEEZING Amino Acids 30 ml 01/08/20 12:45 01/09/20 09:58 Prosource No Carb Liquid Pkt PO 30 ml DAILY ALFRED Administration Apixaban 5 mg 01/04/20 08:00 01/09/20 09:57 Eliquis - PO 5 mg BID ALFRED Administration Chlorhexidine Gluconate 1 applic 01/04/20 22:00 01/08/20 21:57 Hibiclens For Decolonization - TP 1 applic HS ALFRED Administration Folic Acid 1 mg 01/05/20 10:00 01/09/20 09:57 Folic Acid - PO 1 mg DAILY [facility] Administration Furosemide 40 mg 01/09/20 22:00 Lasix Injection - IVPUSH 01/09/20 22:01 ONCE ONE Midazolam HCl 100 mg in 100 mls @ 2 mls/hr 01/04/20 03:15 01/09/20 08:07 Midazolam 100mg/100ml-0.9%Nacl IVPB 10 mg/hr TITR [facility] 10 mls/hr Administration Protocol 2 MG/HR Propofol 1,000,000 mcg in 100 mls @ 2.449 mls/hr 01/04/20 03:15 01/09/20 11:09 Diprivan - IVPB 60 mcg/kg/min TITR [facility] 29.393 mls/hr Administration Protocol 5 MCG/KG/MIN Vasopressin 40 units/ Sodium 100 mls @ 5 mls/hr 01/04/20 04:00 01/09/20 08:07 Chloride IVPB 1 units/hr ASDIR ALFRED 2.5 mls/hr Titration Protocol 2 UNITS/HR Ceftazidime 1 gm/ Dextrose 50 mls @ 100 mls/hr 01/06/20 11:45 09/17/20 09:57 IVPB 100 mls/hr Q8H-IV ALFRED Administration Protocol Levetiracetam 1,000 mg 01/06/20 22:00 01/09/20 09:57 Keppra Injection - IVPB 1,000 mg BID AL[facility]ED Administration Lisinopril 2.5 mg 01/04/20 10:00 01/09/20 09:58 Prinivil PO 2.5 mg DAILY AL[facility] Administration Metoprolol Tartrate 12.5 mg 01/05/20 10:00 01/09/20 09:58 Lopressor - PO 12.5 mg BID AL[facility]ED Administration Pantoprazole Sodium 40 mg 01/04/20 10:00 01/09/20 09:58 Protonix Iv IVPUSH 40 mg DAILY AL[facility] Administration Thiamine HCl 100 mg 01/05/20 10:00 01/09/20 09:58 Vitamin B1 - PO 100 mg DAILY ALFRED Administration Laboratory Results - last 24 hr 01/08/20 01/09/20 01/09/20 12:00 06:00 06:00 WBC 7.3 RBC 3.30 L Hgb 11.8 Hct 34.8 L MCV 105.4 H MCH 35.8 H MCHC 33.9 RDW 13.7 Plt Count 80 L D MPV 10.6 Absolute Neuts (auto) 4.3 Neutrophils % 59.0 Neutrophils % (Manual) 63.0 Band Neutrophils % 1.0 Lymphocytes % 12.1 D Lymphocytes % (Manual) 11.0 D Monocytes % 25.8 H Monocytes % (Manual) 22 H Eosinophils % 2.4 Eosinophils % (Manual) 1.0 Basophils % 0.7 Basophils % (Manual) 0.0 Myelocytes % (Man) 0 D Promyelocytes % (Man) 0 Blast Cells % (Manual) 0 Nucleated RBC % 0 Metamyelocytes 1 Hypochromia 0 Platelet Estimate Decreased Polychromasia 0 Poikilocytosis 0 Anisocytosis 1+ Microcytosis 0 Macrocytosis 1+ PT with INR 24.80 H INR 2.09 H PTT (Actin FS) 38.3 H Anticoagulation Therapy Puncture Site Patient Temperature ABG pH ABG pCO2 ABG pO2 ABG HCO3 ABG O2 Sat (Measured) ABG O2 Content ABG Base Excess Nnamdi Test Patient On Oxygen O2 Delivery Device Oxygen Flow Rate Vent Mode Vent Rate Mechanical Rate PEEP Pressure Support Vent Sodium 140 Potassium 3.8 Chloride 103 Carbon Dioxide 35 H Anion Gap 2 L BUN 14.0 Creatinine 0.5 L Est GFR (CKD-EPI)AfAm 144.40 Est GFR (CKD-EPI)NonAf 124.59 Random Glucose 126 H Calcium 7.6 L Phosphorus 2.5 Magnesium 1.7 L Total Bilirubin 1.2 H AST 65 H ALT 30 Alkaline Phosphatase 62 Total Protein 5.8 L Albumin 1.9 L 01/09/20 06:00 WBC RBC Hgb Hct MCV MCH MCHC RDW Plt Count MPV Absolute Neuts (auto) Neutrophils % Neutrophils % (Manual) Band Neutrophils % Lymphocytes % Lymphocytes % (Manual) Monocytes % Monocytes % (Manual) Eosinophils % Eosinophils % (Manual) Basophils % Basophils % (Manual) Myelocytes % (Man) Promyelocytes % (Man) Blast Cells % (Manual) Nucleated RBC % Metamyelocytes Hypochromia Platelet Estimate Polychromasia Poikilocytosis Anisocytosis Microcytosis Macrocytosis PT with INR INR PTT (Actin FS) Anticoagulation Therapy No Result Required. Puncture Site Left radial Patient Temperature No Result Required. ABG pH 7.429 ABG pCO2 45.40 H ABG pO2 70.2 L ABG HCO3 29.4 H ABG O2 Sat (Measured) 94.4 L ABG O2 Content No Result Required. ABG Base Excess 4.4 H Nnamdi Test Positive Patient On Oxygen Yes O2 Delivery Device Vent Oxygen Flow Rate 60 Vent Mode A/c Vent Rate 14 Mechanical Rate Vent PEEP 10.0 Pressure Support Vent 450 Sodium Potassium Chloride Carbon Dioxide Anion Gap BUN Creatinine Est GFR (CKD-EPI)AfAm Est GFR (CKD-EPI)NonAf Random Glucose Calcium Phosphorus Magnesium Total Bilirubin AST ALT Alkaline Phosphatase Total Protein Albumin Microbiology 01/04/20 16:45 Gram Stain - Final Sputum - Endotrachea Suction/Ventilator Sputum Culture - Preliminary Ochrobactrum Anthropi 01/08/20 12:00 Urine Culture - Final Urine - Urine Vo NO GROWTH OBTAINED Constitutional: Yes: Other Neck: Yes: Supple Cardiovascular: Yes: Pulse Irregular Respiratory: Yes: Diminished, intubated on vent Gastrointestinal: Yes: Soft Genitourinary: Yes: Vo Present Edema: No PLAN IV antibiotics IV fluids ON Iv Keppra seizures due to alcohol withdrawal monitor platelets if decreasing, will need to dc Eliquis repeated blood cultures pt unable to wean off from vent Problem List - Problems (1) Alcohol dependence Code(s): F10.20 - ALCOHOL DEPENDENCE, UNCOMPLICATED Qualifiers: Substance use status: uncomplicated Qualified Code(s): F10.20 - Alcohol dependence, uncomplicated (2) Pneumonia Code(s): J18.9 - PNEUMONIA, UNSPECIFIED ORGANISM Qualifiers: Pneumonia type: due to unspecified organism Laterality: left Lung location: lower lobe of lung Qualified Code(s): J18.9 - Pneumonia, unspecified organism (3) Respiratory failure Code(s): J96.90 - RESPIRATORY FAILURE, UNSP, UNSP W HYPOXIA OR HYPERCAPNIA (4) Weakness Code(s): R53.1 - WEAKNESS (5) Alcohol abuse Code(s): F10.10 - ALCOHOL ABUSE, UNCOMPLICATED (6) Alcohol dependence with uncomplicated withdrawal Code(s): F10.230 - ALCOHOL DEPENDENCE WITH WITHDRAWAL, UNCOMPLICATED (7) Atrial fibrillation Code(s): I48.91 - UNSPECIFIED ATRIAL FIBRILLATION Qualifiers: Atrial fibrillation type: unspecified Qualified Code(s): I48.91 - Unspecified atrial fibrillation (8) HTN (hypertension) Code(s): I10 - ESSENTIAL (PRIMARY) HYPERTENSION Qualifiers: Hypertension type: essential hypertension Qualified Code(s): I10 - Essential (primary) hypertension
--- NOTE | 2020-01-09 14:41 | PN ---
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 (short form) - Note 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: c Breakthrough seizure , alcohol withdrawal seizure HPI 54 year old male history of atrial fibrillation, alcohol abuse. htn. He was seen his at bed side. He came to hospital on january 03. He was brought to hospital for seizure. He has been drinking heavy and he has history of hepatomegaly and fatty liver. Patient was intubated , for airway protection and pneumonia and covid negative. He has ct head on january 05 it was negative. He is intubated and sedated. -- No more clinical seizure, he has been deeply sedated and intubaed. eeg was done yesterday NEUROLOGICAL EXAMINATION Patient is intubated and sedated. pupils reactive, dolls eye movement present no face asymmetry gag and corneal reflex is present\ neck is supple ct head is normal eeg showed shparp wave activity Assessment/Plan 54 year old male history of alcohol abuse, atrial fibrillation and htn. He came with alcohol withdrawal seizure. Ct head is negative. Supect alcohol withdrawal seizure. eeg showed sharp wave activity Plan:-- continue keppra 1 gm iv bid till patient woke up woudl repeat eeg - continue supportive care, -cc time 35 minute Thanking you so much Dilan Don MD
[2020-01-09] MEDS: CHLORHEXIDINE GLUCONATE 4% CLEANSER FOR DECOLONIZATION TP SCH (21:35)
[2020-01-10] MEDS: CEFTAZIDIME PENTAHYDRATE 1 GM in DEXTROSE 5%-WATER - 50 ML IVPB SCH ×3 (03:20→18:27)
[2020-01-10] MEDS: PROPOFOL 1,000,000 MCG/100 ML VIAL IVPB SCH (03:22)
[2020-01-10] MEDS: MIDAZOLAM IN 0.9 % SOD.CHLORID 100 MG/100 ML PLAST..BAG IVPB SCH (03:23)
[2020-01-10] MEDS ORDERED: MIDAZOLAM HCL 5 MG/1 ML Single Dose Vial IVPUSH ONE (04:48)
[2020-01-10 06:54] LABS: ARTERIAL BLD GAS O2 SATURATION 87.7 mmHg (95-98); ARTERIAL BLOOD GAS BASE EXCESS 5.1 mmol/L (-2-2); ARTERIAL BLOOD GAS PO2 51.4 mmHg (80-100); ARTERIAL BLOOD GAS pH 7.447 (7.350-7.450)
[2020-01-10 07:05] LABS: ALLENS TEST POSITIVE; VENT MODE A/C
[2020-01-10 07:06] LABS: VENT RATE 14
[2020-01-10 07:36] LABS: HEMATOCRIT 34.8 % (35.4-49); HEMOGLOBIN 11.7 GM/dL (11.7-16.9); MCH 35.7 pg (25.7-33.7); MCHC 33.7 g/dl (32.0-35.9); MEAN CELL VOLUME 105.8 fl (80-96); MEAN PLT VOLUME 10.5 fl (7.5-11.1); PLATELET COUNT 103 K/MM3 (134-434); RBC 3.29 M/mm3 (4.00-5.60); WHITE BLOOD COUNT 9.1 K/mm3 (4.0-10.0)
--- NOTE | 2020-01-10 07:40 | PN ---
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, Physician Chief Complaint: Pt remains intubated, ventilated (AC), sedated. Again on vasopressin History of Present Illness: Mr Beckford is a 54 YO white man with PMHx h/o acute/chronic alcohol abuse, diastolic CHF (02/08 ECHO; mild AR; mild biatrial enlargement), HTN, AFIB (on metoprolol and eliquis), now presents with weakness and lightheadedness. Patient suspects current syptoms are 2/2 alcohol withdrawal. Mentions that his last drink was 3 hours prior to arrival. Patients reports that the patient has been lightheaded and tremulous this afternoon prior to arrival. Patient also mentions mild productive cough. Denies fever, chills, chest pain, SOB, N/V/D. Denies recent travel of sick contacts. - Current Medication List Current Medications: Active Medications Albuterol Sulfate (Ventolin Hfa Inhaler -) 2 puff IH Q4H PRN PRN Reason: SHORT OF BREATH/WHEEZING Amino Acids (Prosource No Carb Liquid Pkt) 30 ml PO DAILY ALFRED Last Admin: 01/09/20 09:58 Dose: 30 ml Documented by: Apixaban (Eliquis -) 5 mg PO BID ALFRED Last Admin: 01/09/20 21:35 Dose: 5 mg Documented by: Chlorhexidine Gluconate (Hibiclens For Decolonization -) 1 applic TP HS ALFRED Last Admin: 01/09/20 21:35 Dose: 1 applic Documented by: Folic Acid (Folic Acid -) 1 mg PO DAILY [facility]FRED Last Admin: 01/09/20 09:57 Dose: 1 mg Documented by: Midazolam HCl (Midazolam 100mg/100ml-0.9%Nacl) 100 mg in 100 mls @ 2 mls/hr IVPB TITR [facility]FR[facility]; Protocol Last Admin: 01/10/20 03:23 Dose: 10 mg/hr, 10 mls/hr Documented by: Propofol (Diprivan -) 1,000,000 mcg in 100 mls @ 2.449 mls/hr IVPB TITR [facility]; Protocol Last Admin: 01/10/20 03:22 Dose: 50 mcg/kg/min, 24.494 mls/hr Documented by: Vasopressin 40 units/ Sodium (Chloride) 100 mls @ 5 mls/hr IVPB ASDIR [facility]FR[facility]; Protocol Last Titration: 01/09/20 22:44 Dose: 1 units/hr, 2.5 mls/hr Documented by: Ceftazidime 1 gm/ Dextrose 50 mls @ 100 mls/hr IVPB Q8H-IV [facility]FR[facility]; Protocol Last Admin: 01/10/20 03:20 Dose: 100 mls/hr Documented by: Levetiracetam (Keppra Injection -) 1,000 mg IVPB BID [facility] Last Admin: 01/09/20 21:35 Dose: 1,000 mg Documented by: Lisinopril (Prinivil) 2.5 mg PO DAILY [facility] Last Admin: 01/09/20 09:58 Dose: 2.5 mg Documented by: Metoprolol Tartrate (Lopressor -) 12.5 mg PO BID [facility] Last Admin: 01/09/20 21:35 Dose: 12.5 mg Documented by: Pantoprazole Sodium (Protonix Iv) 40 mg IVPUSH DAILY [facility] Last Admin: 01/09/20 09:58 Dose: 40 mg Documented by: Thiamine HCl (Vitamin B1 -) 100 mg PO DAILY [facility] Last Admin: 01/09/20 09:58 Dose: 100 mg Documented by: - Objective Vital Signs: Vital Signs Temperature 99.6 F 01/10/20 06:00 Pulse Rate 108 H 01/10/20 06:00 Respiratory Rate 15 01/10/20 06:00 Blood Pressure 92/66 01/10/20 06:00 O2 Sat by Pulse Oximetry (%) 92 L 01/10/20 06:00 Constitutional: Yes: Obese Eyes: Yes: WNL Cardiovascular: Yes: Tachycardia, S1 (varies in intensity), S2 Respiratory: Yes: Diminished, Intubated, Mechanically Ventilated Gastrointestinal: Yes: Soft Genitourinary: Yes: Vo Present. No: Anuria Musculoskeletal: Yes: Muscle Weakness Extremities: Yes: Cool Edema: Yes Edema: LLE: Trace, RLE: Trace Peripheral Pulses WNL: No Peripheral Pulses: Left Doralis Pedis: 1+, Right Dorsalis Pedis: 1+ Integumentary: Yes: Venous Stasis Changes Neurological: Yes: Unresponsive (sedated) Psychiatric: Yes: Other (addiction) Labs: INR, PTT INR 2.09 (0.83-1.09) H 01/08/20 12:00 - ....Imaging Chest X-ray: Image Reviewed Other: Image Reviewed (telemetry: AF; periods of RVR) Assessment/Plan Acute/chronic alcoholism Respiratory failure:intubated; mechanically ventilated; ? aspiration PNA. Acute systolic/diastolic CHF AF, with periods of RVR leukocytosis; symptoms of URI Hx HTN; periods of hypotension this admission-->pressor TSH WNL LDL cholesterol 67 mg/dL Plan: Now off amiodarone. AF, relatively well-controlled VR. As discussed with critical care team, pt's alcoholism and liver abnormality mitigates against starting PO amiodarone. On metoprolol for HR control (and ECHO now shows systolic dysfunction). On vasopressin. ECHO: moderately reduced LVEF; normal LV size; mild-moderate RV dilatation, with mildly reduced RVEF; mild LAE. CXR: bilateral pleural changes, relatively unchanged. Continue low-dose metoprolol tartrate 12.5 mg bid for systolic CHF, AF HR control;titrate up when BP allows (problematic, given "dependence" on vasopressin). On lisinopril 2.5 mg daily. Diuresis. F/u daily weight, Is and Os. Limit fluids. PO4 now WNL; replete K and Mg; keep K+ 4.0-4.5, Mg 2.0-2.4, PO4 2.5-4.9. TNI 0.03-->0.02. Antibiotics per ID (on Zosyn). Continue detox protocol CC time spent 40 minutes
[2020-01-10 08:12] LABS: POTASSIUM 3.6 mmol/L (3.5-5.1)
[2020-01-10 08:34] LABS: ALBUMIN 1.9 g/dl (3.4-5.0); BILIRUBIN,TOTAL 1.2 mg/dL (0.2-1); BLOOD UREA NITROGEN 19.3 mg/dL (7-18); CALCIUM 7.9 mg/dL (8.5-10.1); CREATININE 0.5 mg/dL (0.55-1.3); MAGNESIUM 1.9 mg/dL (1.8-2.4); PHOSPHOROUS 2.6 mg/dL (2.5-4.9); TOT PROT 6.1 g/dl (6.4-8.2)
--- NOTE | 2020-01-10 09:00 | PN ---
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, Physician History of Present Illness: Mr is a 54 YO white man with PMHx h/o acute/chronic alcohol abuse, diastolic CHF (02/08 ECHO; mild AR; mild biatrial enlargement), HTN, AFIB (on metoprolol and eliquis), now presents with weakness and lightheadedness. Patient suspects current syptoms are 2/2 alcohol withdrawal. Mentions that his last drink was 3 hours prior to arrival. Patients reports that the patient has been lightheaded and tremulous this afternoon prior to arrival. Patient also mentions mild productive cough. Denies fever, chills, chest pain, SOB, N/V/D. Denies recent travel of sick contacts. - Current Medication List Current Medications: Active Medications Albuterol Sulfate (Ventolin Hfa Inhaler -) 2 puff IH Q4H PRN PRN Reason: SHORT OF BREATH/WHEEZING Amino Acids (Prosource No Carb Liquid Pkt) 30 ml PO DAILY ALFRED Last Admin: 01/09/20 09:58 Dose: 30 ml Documented by: Apixaban (Eliquis -) 5 mg PO BID ALFRED Last Admin: 01/09/20 21:35 Dose: 5 mg Documented by: Chlorhexidine Gluconate (Hibiclens For Decolonization -) 1 applic TP HS ALFRED Last Admin: 01/09/20 21:35 Dose: 1 applic Documented by: Folic Acid (Folic Acid -) 1 mg PO DAILY ALFRED Last Admin: 01/09/20 09:57 Dose: 1 mg Documented by: Midazolam HCl (Midazolam 100mg/100ml-0.9%Nacl) 100 mg in 100 mls @ 2 mls/hr IVPB TITR [facility]; Protocol Last Admin: 01/10/20 03:23 Dose: 10 mg/hr, 10 mls/hr Documented by: Propofol (Diprivan -) 1,000,000 mcg in 100 mls @ 2.449 mls/hr IVPB TITR [facility]; Protocol Last Admin: 01/10/20 03:22 Dose: 50 mcg/kg/min, 24.494 mls/hr Documented by: Vasopressin 40 units/ Sodium (Chloride) 100 mls @ 5 mls/hr IVPB ASDIR [facility]FRED; Protocol Last Titration: 01/09/20 22:44 Dose: 1 units/hr, 2.5 mls/hr Documented by: Ceftazidime 1 gm/ Dextrose 50 mls @ 100 mls/hr IVPB Q8H-IV [facility]FR[facility]; Protocol Last Admin: 01/10/20 03:20 Dose: 100 mls/hr Documented by: Levetiracetam (Keppra Injection -) 1,000 mg IVPB BID [facility] Last Admin: 01/09/20 21:35 Dose: 1,000 mg Documented by: Lisinopril (Prinivil) 2.5 mg PO DAILY [facility] Last Admin: 01/09/20 09:58 Dose: 2.5 mg Documented by: Metoprolol Tartrate (Lopressor -) 12.5 mg PO BID [facility] Last Admin: 01/09/20 21:35 Dose: 12.5 mg Documented by: Pantoprazole Sodium (Protonix Iv) 40 mg IVPUSH DAILY [facility] Last Admin: 01/09/20 09:58 Dose: 40 mg Documented by: Thiamine HCl (Vitamin B1 -) 100 mg PO DAILY [facility] Last Admin: 01/09/20 09:58 Dose: 100 mg Documented by: - Objective Vital Signs: Vital Signs Temperature 99.4 F 01/10/20 08:00 Pulse Rate 98 H 01/10/20 08:06 Respiratory Rate 17 01/10/20 08:20 Blood Pressure 97/70 01/10/20 08:00 O2 Sat by Pulse Oximetry (%) 92 L 01/10/20 08:28 Eyes: Yes: WNL, Conjunctiva Clear, EOM Intact HENT: Yes: WNL, Atraumatic, Normocephalic Neck: Yes: WNL, Supple, Trachea Midline Cardiovascular: Yes: Pulse Irregular Respiratory: Yes: Diminished, Mechanically Ventilated Gastrointestinal: Yes: WNL, Normal Bowel Sounds Genitourinary: Yes: WNL Musculoskeletal: Yes: WNL Extremities: Yes: WNL Edema: No Integumentary: Yes: WNL Labs: CBC, BMP 01/10/20 05:40 01/10/20 05:40 INR, PTT INR 2.09 (0.83-1.09) H 01/08/20 12:00 Assessment/Plan Acute/chronic alcoholism Respiratory failure:intubated; mechanically ventilated; ? aspiration PNA. Acute systolic/diastolic CHF AF, with periods of RVR leukocytosis; symptoms of URI Hx HTN; periods of hypotension this admission-->pressor TSH WNL LDL cholesterol 67 mg/dL Plan: Now off amiodarone. AF, relatively well-controlled VR. As discussed with critical care team, pt's alcoholism and liver abnormality mitigates against starting PO amiodarone. On metoprolol for HR control (and ECHO now shows systolic dysfunction). On vasopressin. ECHO: moderately reduced LVEF; normal LV size; mild-moderate RV dilatation, with mildly reduced RVEF; mild LAE. CXR: bilateral pleural changes, relatively unchanged. Continue low-dose metoprolol tartrate 12.5 mg bid for systolic CHF, AF HR control;titrate up when BP allows (problematic, given "dependence" on vasopressin). On lisinopril 2.5 mg daily. Diuresis. F/u daily weight, Is and Os. Limit fluids. PO4 now WNL; replete K and Mg; keep K+ 4.0-4.5, Mg 2.0-2.4, PO4 2.5-4.9. TNI 0.03-->0.02. Antibiotics per ID (on Zosyn). Continue detox protocol CC time spent 40 minutes
[2020-01-10] MEDS: AMINO ACIDS/PROTEIN HYDROLYS 30 ML LIQUID.PKT PO SCH (09:42)
[2020-01-10] MEDS: FOLIC ACID 1 MG TABLET (FP) PO SCH (09:43)
[2020-01-10] MEDS: levETIRAcetam 500 MG/5 ML INJECTION VIAL IVPB SCH ×2 (09:43→21:11)
[2020-01-10] MEDS: PANTOPRAZOLE SODIUM 40 MG VIAL IVPUSH SCH (09:43)
[2020-01-10] MEDS: THIAMINE HCL 100 MG TABLET (FP) PO SCH (09:43)
[2020-01-10] MEDS: APIXABAN 5 MG TABLET PO SCH ×2 (09:44→21:11)
[2020-01-10] MEDS: LISINOPRIL 5 MG TABLET PO SCH (09:44)
[2020-01-10] MEDS: METOPROLOL TARTRATE 25 MG TABLET (FP) PO SCH ×2 (09:46→21:11)
--- NOTE | 2020-01-10 09:57 | PN ---
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, Physician History of Present Illness: Pt seen/ examined in icu. chart is reviewed Remains Intubated case also d/w icu team as well as with RN again today Sedated Unable to wean off yet Repat cultures -ve so far EEG - noted -- Abnormal. - Current Medication List Current Medications: Active Medications Albuterol Sulfate (Ventolin Hfa Inhaler -) 2 puff IH Q4H PRN PRN Reason: SHORT OF BREATH/WHEEZING Amino Acids (Prosource No Carb Liquid Pkt) 30 ml PO DAILY [facility] Last Admin: 01/10/20 09:42 Dose: 30 ml Documented by: Apixaban (Eliquis -) 5 mg PO BID [facility] Last Admin: 01/10/20 09:44 Dose: 5 mg Documented by: Chlorhexidine Gluconate (Hibiclens For Decolonization -) 1 applic TP HS ALFRED Last Admin: 01/09/20 21:35 Dose: 1 applic Documented by: Folic Acid (Folic Acid -) 1 mg PO DAILY [facility] Last Admin: 01/10/20 09:43 Dose: 1 mg Documented by: Midazolam HCl (Midazolam 100mg/100ml-0.9%Nacl) 100 mg in 100 mls @ 2 mls/hr IVPB TITR [facility]; Protocol Last Admin: 01/10/20 03:23 Dose: 10 mg/hr, 10 mls/hr Documented by: Propofol (Diprivan -) 1,000,000 mcg in 100 mls @ 2.449 mls/hr IVPB TITR [facility]; Protocol Last Admin: 01/10/20 03:22 Dose: 50 mcg/kg/min, 24.494 mls/hr Documented by: Vasopressin 40 units/ Sodium (Chloride) 100 mls @ 5 mls/hr IVPB [facility]; Protocol Last Titration: 01/09/20 22:44 Dose: 1 units/hr, 2.5 mls/hr Documented by: Ceftazidime 1 gm/ Dextrose 50 mls @ 100 mls/hr IVPB Q8H-IV [facility]; Protocol Last Admin: 01/10/20 03:20 Dose: 100 mls/hr Documented by: Levetiracetam (Keppra Injection -) 1,000 mg IVPB BID [facility] Last Admin: 01/10/20 09:43 Dose: 1,000 mg Documented by: Lisinopril (Prinivil) 2.5 mg PO DAILY [facility] Last Admin: 01/10/20 09:44 Dose: Not Given Documented by: Metoprolol Tartrate (Lopressor -) 12.5 mg PO BID [facility] Last Admin: 01/10/20 09:46 Dose: 12.5 mg Documented by: Pantoprazole Sodium (Protonix Iv) 40 mg IVPUSH DAILY [facility] Last Admin: 01/10/20 09:43 Dose: 40 mg Documented by: Thiamine HCl (Vitamin B1 -) 100 mg PO DAILY [facility] Last Admin: 01/10/20 09:43 Dose: 100 mg Documented by: - Objective Vital Signs: Vital Signs Temperature 99.4 F 01/10/20 08:00 Pulse Rate 98 H 01/10/20 08:06 Respiratory Rate 17 01/10/20 08:20 Blood Pressure 97/70 01/10/20 08:00 O2 Sat by Pulse Oximetry (%) 92 L 01/10/20 08:28 Constitutional: Yes: Other (Intubated/ sedated) Neck: Yes: Supple Cardiovascular: Yes: Pulse Irregular Respiratory: Yes: Diminished Gastrointestinal: Yes: Soft Edema: LLE: 1+, RLE: 1+ Labs: CBC, BMP 01/10/20 05:40 01/10/20 05:40 INR, PTT INR 2.09 (0.83-1.09) H 01/08/20 12:00 - ....Imaging Chest X-ray: Report Reviewed Problem List - Problems (1) Alcohol dependence Problems reviewed: Yes Code(s): F10.20 - ALCOHOL DEPENDENCE, UNCOMPLICATED Qualifiers: Substance use status: other alcohol-induced disorder Qualified Code(s): F10.288 - Alcohol dependence with other alcohol-induced disorder (2) Pneumonia Code(s): J18.9 - PNEUMONIA, UNSPECIFIED ORGANISM Qualifiers: Pneumonia type: due to unspecified organism Laterality: left Lung locati on: lower lobe of lung Qualified Code(s): J18.9 - Pneumonia, unspecified organism (3) Alcohol dependence with uncomplicated withdrawal Code(s): F10.230 - ALCOHOL DEPENDENCE WITH WITHDRAWAL, UNCOMPLICATED (4) Atrial fibrillation Code(s): I48.91 - UNSPECIFIED ATRIAL FIBRILLATION Qualifiers: Atrial fibrillation type: unspecified Qualified Code(s): I48.91 - Unspecified atrial fibrillation (5) Respiratory failure Code(s): J96.90 - RESPIRATORY FAILURE, UNSP, UNSP W HYPOXIA OR HYPERCAPNIA (6) Atrial fibrillation with rapid ventricular response Code(s): I48.91 - UNSPECIFIED ATRIAL FIBRILLATION Assessment/Plan remains Vent dependent Continue present care Vent support-- weaning as tolerated Abx Diffuse metabolic Encephalopathy Pneumonia Afib-- Acinobactor Bactremeia Repeat cutures -ve so far Continue present care Will continue to follow cc time approx 35 min .
[2020-01-10] MEDS ORDERED: PT OWN MED DRAWER 7, Y5N ONE (10:21)
--- NOTE | 2020-01-10 13:28 | PN ---
Teaching Attending Note Name of Resident: Ruddy Colby ATTENDING PHYSICIAN STATEMENT I saw and evaluated the patient. I reviewed the resident's note and discussed the case with the resident. I agree with the resident's findings and plan as documented. SUBJECTIVE: Patient seen and examined in the ICU. Remains intubated and fully sedated. Low dose Vasopressin drip. CXR: Bilateral congestive changes and pleural effusions. OBJECTIVE: Intake & Output 01/07/20 01/08/20 01/09/20 01/10/20 23:59 23:59 23:59 23:59 Intake Total 4317 2628 3748.9 1169 Output Total 1750 2680 1100 1400 Balance 2567 -52 2648.9 -231 Weight 102 lb 8 oz 226 lb 10.163 oz Last Vital Signs Temp Pulse Resp BP Pulse Ox 100.3 F H 106 H 19 115/89 91 L 01/10/20 12:00 01/10/20 12:00 01/10/20 12:07 01/10/20 12:00 01/10/20 12:07 Active Medications Albuterol Sulfate (Ventolin Hfa Inhaler -) 2 puff IH Q4H PRN PRN Reason: SHORT OF BREATH/WHEEZING Amino Acids (Prosource No Carb Liquid Pkt) 30 ml PO DAILY ON LICENSE OF [facility] Last Admin: 01/10/20 09:42 Dose: 30 ml Documented by: Apixaban (Eliquis -) 5 mg PO BID ON LICENSE OF [facility] Last Admin: 01/10/20 09:44 Dose: 5 mg Documented by: Chlorhexidine Gluconate (Hibiclens For Decolonization -) 1 applic TP HS ON LICENSE OF [facility] Last Admin: 01/09/20 21:35 Dose: 1 applic Documented by: Folic Acid (Folic Acid -) 1 mg PO DAILY ON LICENSE OF [facility] Last Admin: 01/10/20 09:43 Dose: 1 mg Documented by: Midazolam HCl (Midazolam 100mg/100ml-0.9%Nacl) 100 mg in 100 mls @ 2 mls/hr IVPB TITR ALFRED; Protocol Last Admin: 01/10/20 03:23 Dose: 10 mg/hr, 10 mls/hr Documented by: Propofol (Diprivan -) 1,000,000 mcg in 100 mls @ 2.449 mls/hr IVPB TITR ALFRED; P rotocol Last Admin: 01/10/20 03:22 Dose: 50 mcg/kg/min, 24.494 mls/hr Documented by: Vasopressin 40 units/ Sodium (Chloride) 100 mls @ 5 mls/hr IVPB ASDIR ON LICENSE OF [facility]; Protocol Last Titration: 01/09/20 22:44 Dose: 1 units/hr, 2.5 mls/hr Documented by: Ceftazidime 1 gm/ Dextrose 50 mls @ 100 mls/hr IVPB Q8H-IV ALFRED; Protocol Last Admin: 01/10/20 11:32 Dose: 100 mls/hr Documented by: Levetiracetam (Keppra Injection -) 1,000 mg IVPB BID ON LICENSE OF [facility] Last Admin: 01/10/20 09:43 Dose: 1,000 mg Documented by: Lisinopril (Prinivil) 2.5 mg PO DAILY ON LICENSE OF [facility] Last Admin: 01/10/20 09:44 Dose: Not Given Documented by: Metoprolol Tartrate (Lopressor -) 12.5 mg PO BID ON LICENSE OF [facility] Last Admin: 01/10/20 09:46 Dose: 12.5 mg Documented by: Pantoprazole Sodium (Protonix Iv) 40 mg IVPUSH DAILY ON LICENSE OF [facility] Last Admin: 01/10/20 09:43 Dose: 40 mg Documented by: Thiamine HCl (Vitamin B1 -) 100 mg PO DAILY ON LICENSE OF [facility] Last Admin: 01/10/20 09:43 Dose: 100 mg Documented by: Gen: intubated, sedated Heart: RRR Lung: scattered rhonchi Abd: soft, nontender Ext: + edema Laboratory Results - last 24 hr 01/09/20 01/10/20 01/10/20 06:00 05:40 05:40 WBC 9.1 RBC 3.29 L Hgb 11.7 Hct 34.8 L MCV 105.8 H MCH 35.7 H MCHC 33.7 RDW 14.0 Plt Count 103 L D MPV 10.5 Anticoagulation Therapy Puncture Site Patient Temperature ABG pH ABG pCO2 ABG pO2 ABG HCO3 ABG O2 Sat (Measured) ABG O2 Content ABG Base Excess Nnamdi Test Patient On Oxygen O2 Delivery Device Oxygen Flow Rate Vent Mode Vent Rate Mechanical Rate PEEP Pressure Support Vent Sodium 138 Potassium 3.6 Chloride 101 Carbon Dioxide 34 H Anion Gap 3 L BUN 19.3 H Creatinine 0.5 L Est GFR (CKD-EPI)AfAm 144.40 Est GFR (CKD-EPI)NonAf 124.59 Random Glucose 95 Calcium 7.9 L Phosphorus 2.6 Magnesium 1.9 Total Bilirubin 1.2 H AST 66 H ALT 30 Alkaline Phosphatase 68 Total Protein 6.1 L Albumin 1.9 L Tumor Marker AFP 3.8 01/10/20 06:10 WBC RBC Hgb Hct MCV MCH MCHC RDW Plt Count MPV Anticoagulation Therapy No Result Required. Puncture Site Right radial Patient Temperature No Result Required. ABG pH 7.447 ABG pCO2 44.10 ABG pO2 51.4 L ABG HCO3 29.8 H ABG O2 Sat (Measured) 87.7 L ABG O2 Content No Result Required. ABG Base Excess 5.1 H Nnamdi Test Positive Patient On Oxygen Yes O2 Delivery Device Vent Oxygen Flow Rate 60% Vent Mode A/c Vent Rate 14 Mechanical Rate Yes PEEP 10.0 Pressure Support Vent 450 Sodium Potassium Chloride Carbon Dioxide Anion Gap BUN Creatinine Est GFR (CKD-EPI)AfAm Est GFR (CKD-EPI)NonAf Random Glucose Calcium Phosphorus Magnesium Total Bilirubin AST ALT Alkaline Phosphatase Total Protein Albumin Tumor Marker AFP ASSESSMENT AND PLAN: Acute Hypoxic Respiratory Failure Pneumonia likely Aspiration Septic Shock Lactic Acidosis Atrial Fibrillation Alcohol Abuse Thrombocytopenia Seizures - r/o Alcohol Withdrawal HTN - continue antibiotics - lasix - monitor urine output, creatinine - rate control - continue anticoagulation - titrate pressors to maintain MAP >65 - Hold sedation to assess mental status - Spontaneous breathing trials as tolerated when mental status improved - enteral feeds - DVT/GI prophylaxis - continue ICU monitoring May require Tracheostomy if not extubated by early next week Dr Carmen Critical care time spent in reviewing chart, evaluating patient and formulating plan 35 min
--- NOTE | 2020-01-10 16:57 | PN ---
Physical Exam: SUBJECTIVE: Patient seen and examined. Overnight, patient desaturated to 80% while on FIO2 50%, so FIO2 was increased to 60%. However, in the morning, the day team decreased the FIO2 to 50% and turned off the sedation, and the patient continued to saturate in the low 90's. Patient did not wake up despite sedation being turned off. Did not respond to sternal rub or pain. Overnight, he also had blood-tinged sputum. OBJECTIVE: Vital Signs Period Temp Pulse Resp BP Sys/Redman Pulse Ox Last 24 Hr 99 F-100.6 F 96-117 14-22 89-123/56-97 89-96 GENERAL: Intubated and sedated HEENT: Normal with no signs of trauma. PERRL, No ptosis. dry mucous membranes LUNGS: decreased breath sounds in bases, no wheezes, no crackles, no accessory muscle use. HEART:irregular rate, S1, S2 without murmur, rub or gallop. ABDOMEN: Soft, nontender, nondistended, normoactive bowel sounds, no guarding, no rebound EXTREMITIES: 2+ pulses, warm, well-perfused, no edema. Laboratory Results - last 24 hr 01/09/20 01/10/20 01/10/20 06:00 05:40 05:40 WBC 9.1 RBC 3.29 L Hgb 11.7 Hct 34.8 L MCV 105.8 H MCH 35.7 H MCHC 33.7 RDW 14.0 Plt Count 103 L D MPV 10.5 Anticoagulation Therapy Puncture Site Patient Temperature ABG pH ABG pCO2 ABG pO2 ABG HCO3 ABG O2 Sat (Measured) ABG O2 Content ABG Base Excess Nnamdi Test Patient On Oxygen O2 Delivery Device Oxygen Flow Rate Vent Mode Vent Rate Mechanical Rate PEEP Pressure Support Vent Sodium 138 Potassium 3.6 Chloride 101 Carbon Dioxide 34 H Anion Gap 3 L BUN 19.3 H Creatinine 0.5 L Est GFR (CKD-EPI)AfAm 144.40 Est GFR (CKD-EPI)NonAf 124.59 Random Glucose 95 Calcium 7.9 L Phosphorus 2.6 Magnesium 1.9 Total Bilirubin 1.2 H AST 66 H ALT 30 Alkaline Phosphatase 68 Total Protein 6.1 L Albumin 1.9 L Tumor Marker AFP 3.8 01/10/20 06:10 WBC RBC Hgb Hct MCV MCH MCHC RDW Plt Count MPV Anticoagulation Therapy No Result Required. Puncture Site Right radial Patient Temperature No Result Required. ABG pH 7.447 ABG pCO2 44.10 ABG pO2 51.4 L ABG HCO3 29.8 H ABG O2 Sat (Measured) 87.7 L ABG O2 Content No Result Required. ABG Base Excess 5.1 H Nnamdi Test Positive Patient On Oxygen Yes O2 Delivery Device Vent Oxygen Flow Rate 60% Vent Mode A/c Vent Rate 14 Mechanical Rate Yes PEEP 10.0 Pressure Support Vent 450 Sodium Potassium Chloride Carbon Dioxide Anion Gap BUN Creatinine Est GFR (CKD-EPI)AfAm Est GFR (CKD-EPI)NonAf Random Glucose Calcium Phosphorus Magnesium Total Bilirubin AST ALT Alkaline Phosphatase Total Protein Albumin Tumor Marker AFP Active Medications Generic Name Dose Route Start Last Admin Trade Name Freq PRN Reason Stop Dose Admin Albuterol Sulfate 2 puff 01/04/20 05:39 Ventolin Hfa Inhaler - IH Q4H PRN SHORT OF BREATH/WHEEZING Amino Acids 30 ml 01/08/20 12:45 01/10/20 09:42 Prosource No Carb Liquid Pkt PO 30 ml DAILY ALFRED Administration Apixaban 5 mg 01/04/20 08:00 01/10/20 09:44 Eliquis - PO 5 mg BID ALFRED Administration Chlorhexidine Gluconate 1 applic 01/04/20 22:00 01/09/20 21:35 Hibiclens For Decolonization - TP 1 applic HS ALFRED Administration Folic Acid 1 mg 01/05/20 10:00 01/10/20 09:43 Folic Acid - PO 1 mg DAILY ALFRED Administration Midazolam HCl 100 mg in 100 mls @ 2 mls/hr 01/04/20 03:15 01/10/20 03:23 Midazolam 100mg/100ml-0.9%Nacl IVPB 10 mg/hr TITR ALFRED 10 mls/hr Administration Protocol 2 MG/HR Propofol 1,000,000 mcg in 100 mls @ 2.449 mls/hr 01/04/20 03:15 01/10/20 03:22 Diprivan - IVPB 50 mcg/kg/min TITR ALFRED 24.494 mls/hr Administration Protocol 5 MCG/KG/MIN Vasopressin 40 units/ Sodium 100 mls @ 5 mls/hr 01/04/20 04:00 01/09/20 22:44 Chloride IVPB 1 units/hr ASDIR ALFRED 2.5 mls/hr Titration Protocol 2 UNITS/HR Ceftazidime 1 gm/ Dextrose 50 mls @ 100 mls/hr 01/06/20 11:45 01/10/20 11:32 IVPB 100 mls/hr Q8H-IV ALFRED Administration Protocol Levetiracetam 1,000 mg 01/06/20 22:00 01/10/20 09:43 Keppra Injection - IVPB 1,000 mg BID ALFRED Administration Lisinopril 2.5 mg 01/04/20 10:00 01/10/20 09:44 Prinivil PO Not Given DAILY ALFRED Metoprolol Tartrate 12.5 mg 01/05/20 10:00 01/10/20 09:46 Lopressor - PO 12.5 mg BID ALFRED Administration Pantoprazole Sodium 40 mg 01/04/20 10:00 01/10/20 09:43 Protonix Iv IVPUSH 40 mg DAILY ALFRED Administration Thiamine HCl 100 mg 01/05/20 10:00 01/10/20 09:43 Vitamin B1 - PO 100 mg DAILY ALFRED Administration ASSESSMENT/PLAN: 54 year old M with PMH afib (on eliquis), alcohol use disorder , diastolic CHF (02/08 ECHO; mild AR; mild biatrial enlargement), HTN, AFIB presented with weakness, lightheadedness, shaking. Was given Librium 10mg, Ativan 1mg for alcohol withdrawal and found to have PNA on CXR. Admitted to ICU for Afib w/ RVR, now s/p Amio drip and respiratory failure with seizures. #Neuro - Intubated and sedated, on Propofol, Midazolam - Alcohol withdrawal seizures: patient already being given a benzodiazepine, (Midazolam) - continue with folic acid, thiamine daily -CTH: no significant change. moderate ventricular dilatation. generalized volume loss. mild periventricular chronic microvascular ischemic disease changes -c/w Keppra 1000 mg BID IVPB -EEG: sharp wave activity -sedation was turned off today. Patient did not wake up. Likely decreased clearance of sedative 2/2 liver cirrhosis? #Cardio AFib with RVR -s/p Amio drip. - On vasopressin, wean as tolerated. Maintain MAP >65 - continue with lopressor 12.5 mg PO BID & lisinopril 2.5 mg PO daily -c/w home eliquis 5 mg PO BID -given pt's history of alcohol use and elevated liver enzymes, hold off on starting PO amiodarone -EKG: afib, atrial rate 131 bpm, vent. rate 97 bpm, QTC 520 -ECHO: LV normal size. Moderate global LV systolic dysfunction. EF 40-45%. RV mild-moderately dilated. RV systoltic function mildly reduced. LA/RA mildly dilated. Mild aortic sclerosis. -Will consider POP and beta edwin once patient improves #Pulm -CXR: Right pulmonary & pleural changes have diminished while the Left pulmonary pleural changes have increased -Rate 14, TV 450, FIO2 60%, PEEP 10, Pplat 27 -FIO2 decreased to 50% and sedation was turned off today; patient saturating in low 90's -ABG: INCREASED HCO3 29.8/DECREASED O2 51.4/WNL pH 7.429, CO2 44.1 -team discussed possibility of Tracheostomy with #GI - NG in place - Protonix 40mg - AST/ALT trended to 665/30. will continue to monitor - endorses liver disease that she attributes to alcohol use. H/o thrombocytopenia, h/o alcohol use disorder, previous PT/INR PTT were prolonged and prior ultrasound showed hepatomegaly (18.5 cm) with diffuse fatty infiltration of liver and contracted/thick walled gall bladder that could be related to hepatocellular disease. PT/INR PTT elevated -AFP 3.8 WNL #ID - PNA likely Aspiration - s/p Ceftriaxone/Azithroycin. s/p Zosyn 3.375 gm (01/03-01/05). -blood culture X2: acinetobacter baumannii/haemolo -Mycoplasma pnuemoniae IgG titer elevated at 180. Mycoplasma pneumoniae IgM ti ter is WNL <770. -sputum culture (01/03): non-lactose fermenting GNB: ochrobactrum anthropi -ID consult appreciated. continue with CEFTAZIDIME 1GM Q8H (01/05) for gram neg sepsis 2/2 acinetobacter #Renal - BUN/Cr 19.3/0.5 - Vo in place, making urine -3789.9 Intake/1110 mL Output/2648.9 mL Balance #Heme/Onc - Thrombocytopenia -plts improved from 80 to 103. H/o thrombocytopenia, h/o alcohol use disorder, previous PT/INR PTT were prolonged and prior ultrasound showed hepatomegaly (18.5 cm) with diffuse fatty infiltration of liver and contracted/thick walled gall bladder that could be related to hepatocellular disease. PT/INR PTT elevated possibly thrombocytopenia 2/2 liver disease vs sepsis. -AFP WNL (3.8) #FEN no IVF monitor lytes Promote @55 ml/hr with H2O flush @ 20/ ml/hr #Prophylaxis eliquis 5 mg PO BID Lines R IJ triple lumen central line (01/03) ETT (01/03) #Dispo maintain ICU Visit type - Emergency Visit Emergency Visit: Yes ED Registration Date: 01/03/20 Care time: The patient presented to the Emergency Department on the above date and was hospitalized for further evaluation of their emergent condition. - New Patient This patient is new to me today: No - Critical Care Critical Care patient: No ATTENDING PHYSICIAN STATEMENT I saw and evaluated the patient. I reviewed the resident's note and discussed the case with the resident. I agree with the resident's findings and plan as documented. SUBJECTIVE: OBJECTIVE: ASSESSMENT AND PLAN:
--- NOTE | 2020-01-10 17:08 | PN ---
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, Physician History of Present Illness: REMAINS INTUBATED OFF SEDATION SINCE THIS AM NO ACUTE DISTRESS LOW GRADE FEVER NO FURTHER SEIZURES REPORTED BC ACINETOBACTER CXR LLL INFILTRATE - Current Medication List Current Medications: Active Medications Albuterol Sulfate (Ventolin Hfa Inhaler -) 2 puff IH Q4H PRN PRN Reason: SHORT OF BREATH/WHEEZING Amino Acids (Prosource No Carb Liquid Pkt) 30 ml PO DAILY [facility] Last Admin: 01/10/20 09:42 Dose: 30 ml Documented by: Apixaban (Eliquis -) 5 mg PO BID [facility] Last Admin: 01/10/20 09:44 Dose: 5 mg Documented by: Chlorhexidine Gluconate (Hibiclens For Decolonization -) 1 applic TP HS [facility] Last Admin: 01/09/20 21:35 Dose: 1 applic Documented by: Folic Acid (Folic Acid -) 1 mg PO DAILY [facility] Last Admin: 01/10/20 09:43 Dose: 1 mg Documented by: Midazolam HCl (Midazolam 100mg/100ml-0.9%Nacl) 100 mg in 100 mls @ 2 mls/hr IVP B TITR ALFRED; Protocol Last Admin: 01/10/20 03:23 Dose: 10 mg/hr, 10 mls/hr Documented by: Propofol (Diprivan -) 1,000,000 mcg in 100 mls @ 2.449 mls/hr IVPB TITR ALFRED; Protocol Last Admin: 01/10/20 03:22 Dose: 50 mcg/kg/min, 24.494 mls/hr Documented by: Vasopressin 40 units/ Sodium (Chloride) 100 mls @ 5 mls/hr IVPB ASDIR ALFRED; Protocol Last Titration: 01/09/20 22:44 Dose: 1 units/hr, 2.5 mls/hr Documented by: Ceftazidime 1 gm/ Dextrose 50 mls @ 100 mls/hr IVPB Q8H-IV ALFRED; Protocol Last Admin: 01/10/20 11:32 Dose: 100 mls/hr Documented by: Levetiracetam (Keppra Injection -) 1,000 mg IVPB BID [facility] Last Admin: 01/10/20 09:43 Dose: 1,000 mg Documented by: Lisinopril (Prinivil) 2.5 mg PO DAILY [facility] Last Admin: 01/10/20 09:44 Dose: Not Given Documented by: Metoprolol Tartrate (Lopressor -) 12.5 mg PO BID [facility] Last Admin: 01/10/20 09:46 Dose: 12.5 mg Documented by: Pantoprazole Sodium (Protonix Iv) 40 mg IVPUSH DAILY [facility] Last Admin: 01/10/20 09:43 Dose: 40 mg Documented by: Thiamine HCl (Vitamin B1 -) 100 mg PO DAILY [facility] Last Admin: 01/10/20 09:43 Dose: 100 mg Documented by: - Objective Vital Signs: Vital Signs Temperature 100.3 F H 01/10/20 12:00 Pulse Rate 106 H 01/10/20 12:00 Respiratory Rate 21 H 01/10/20 16:10 Blood Pressure 115/89 01/10/20 12:00 O2 Sat by Pulse Oximetry (%) 92 L 01/10/20 16:10 Constitutional: Yes: No Distress Cardiovascular: Yes: Regular Rate and Rhythm, S1, S2 Respiratory: Yes: Mechanically Ventilated Gastrointestinal: Yes: Normal Bowel Sounds, Soft. No: Tenderness Edema: Yes Labs: CBC, BMP 01/10/20 05:40 01/10/20 05:40 INR, PTT INR 2.09 (0.83-1.09) H 01/08/20 12:00 Assessment/Plan RESP FAILURE GRAM NEGATIVE SEPSIS ACINETOBACTER PROBABLE ASP PNEUMONIA LACTIC ACIDOSIS THROMBOCYTOPENIA IMPROVED CONTINUE CEFTAZIDIME 1GM Q8H VENTILATORY SUPPORT DISCUSSED WITH AT BEDSIDE
--- NOTE | 2020-01-10 17:23 | PN ---
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 (short form) - Note 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: cc Breakthrough seizure , alcohol withdrawal seizure 54 year old male history of atrial fibrillation, alcohol abuse. htn. He was seen his at bed side. He came to hospital on january 03. He was brought to hospital for seizure. He has been drinking heavy and he has history of hepatomegaly and fatty liver. Patient was intubated , for airway protection and pneumonia and covid negative. He has ct head on january 05 it was negative. He is intubatd. -- No more clinical seizure, his sedation has been off since late morning and he is not waking up NEUROLOGICAL EXAMINATION Patient is intubated no reponse to verbal stimuli and painful stimuli pupils reactive, dolls eye movement present no face asymmetry gag and corneal reflex is present\ neck is supple ct head is normal eeg showed shparp wave activity Assessment/Plan 54 year old male history of alcohol abuse, atrial fibrillation and htn. He came with alcohol withdrawal seizure. Ct head is negative. Supect alcohol withdrawal seizure. - not wakign up after stopping sedation, sedative not being cleared due to liver cirrhosis eeg showed sharp wave activity Plan:-- continue keppra 1 gm iv bid till patient woke up woudl repeat eeg - continue supportive care, - repeat ct head to assess any interval change as he is not waking up after stopping sedation. -cc time 35 minute Thanking you so much Dilan Don MD
[2020-01-10] MEDS: CHLORHEXIDINE GLUCONATE 4% CLEANSER FOR DECOLONIZATION TP SCH (21:11)
[2020-01-11] MEDS: VASOPRESSIN 40 UNITS in SODIUM CHLORIDE 98 ML IVPB SCH (03:34)
[2020-01-11] MEDS: CEFTAZIDIME PENTAHYDRATE 1 GM in DEXTROSE 5%-WATER - 50 ML IVPB SCH ×3 (03:34→17:33)
[2020-01-11] MEDS: PROPOFOL 1,000,000 MCG/100 ML VIAL IVPB SCH (03:37)
[2020-01-11] MEDS: MIDAZOLAM IN 0.9 % SOD.CHLORID 100 MG/100 ML PLAST..BAG IVPB SCH (03:37)
[2020-01-11 05:56] LABS: ARTERIAL BLD GAS O2 SATURATION 94.8 mmHg (95-98); ARTERIAL BLOOD GAS BASE EXCESS 5.9 mmol/L (-2-2); ARTERIAL BLOOD GAS PO2 67.8 mmHg (80-100); ARTERIAL BLOOD GAS pH 7.487 (7.350-7.450)
[2020-01-11 05:57] LABS: ALLENS TEST POSITIVE; VENT MODE A/C
[2020-01-11 05:58] LABS: VENT RATE 14
[2020-01-11 06:47] LABS: HEMATOCRIT 34.8 % (35.4-49); HEMOGLOBIN 11.8 GM/dL (11.7-16.9); MCH 35.6 pg (25.7-33.7); MCHC 33.9 g/dl (32.0-35.9); MEAN PLT VOLUME 10.2 fl (7.5-11.1); PLATELET COUNT 112 K/MM3 (134-434); RBC 3.32 M/mm3 (4.00-5.60); RDW 13.7 % (11.9-15.9); WHITE BLOOD COUNT 9.8 K/mm3 (4.0-10.0)
[2020-01-11 07:11] LABS: ALBUMIN 1.9 g/dl (3.4-5.0); BILIRUBIN,TOTAL 1.2 mg/dL (0.2-1); BLOOD UREA NITROGEN 16.8 mg/dL (7-18); CREATININE 0.4 mg/dL (0.55-1.3); MAGNESIUM 1.8 mg/dL (1.8-2.4); PHOSPHOROUS 2.2 mg/dL (2.5-4.9); POTASSIUM 3.6 mmol/L (3.5-5.1); TOT PROT 6.2 g/dl (6.4-8.2)
[2020-01-11 07:12] LABS: CALCIUM 7.4 mg/dL (8.5-10.1)
--- NOTE | 2020-01-11 07:23 | PN ---
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 (short form) - Note 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: Coverage for Dr. Whitaker Chief Complaint: Events noted, notes reviewed, intubated and sedated, on pressors History of Present Illness: Seen and examined in the ICU. Events noted, notes reviewed, intubated and sedated, on pressors Medications: Current Medications Generic Name Dose Route Start Last Admin Trade Name Freq PRN Reason Stop Dose Admin Albuterol Sulfate 2 puff 01/04/20 05:39 Ventolin Hfa Inhaler - IH Q4H PRN SHORT OF BREATH/WHEEZING Amino Acids 30 ml 01/08/20 12:45 01/10/20 09:42 Prosource No Carb Liquid Pkt PO 30 ml DAILY ALFRED Administration Apixaban 5 mg 01/04/20 08:00 01/10/20 21:11 Eliquis - PO 5 mg BID ALFRED Administration Chlorhexidine Gluconate 1 applic 01/04/20 22:00 01/10/20 21:11 Hibiclens For Decolonization - TP 1 applic HS ALFRED Administration Folic Acid 1 mg 01/05/20 10:00 01/10/20 09:43 Folic Acid - PO 1 mg DAILY ALFRED Administration Midazolam HCl 100 mg in 100 mls @ 2 mls/hr 01/04/20 03:15 01/11/20 03:37 Midazolam 100mg/100ml-0.9%Nacl IVPB 10 mg/hr TITR ALFRED 10 mls/hr Administration Protocol 2 MG/HR Propofol 1,000,000 mcg in 100 mls @ 2.449 mls/hr 01/04/20 03:15 01/11/20 03:37 Diprivan - IVPB 30 mcg/kg/min TITR ALFRED 14.696 mls/hr Administration Protocol 5 MCG/KG/MIN Vasopressin 40 units/ Sodium 100 mls @ 5 mls/hr 01/04/20 04:00 01/11/20 03:34 Chloride IVPB 1 units/hr ASDIR ALFRED 2.5 mls/hr Administration Protocol 2 UNITS/HR Ceftazidime 1 gm/ Dextrose 50 mls @ 100 mls/hr 01/06/20 11:45 01/11/20 03:34 IVPB 100 mls/hr Q8H-IV ALFRED Administration Protocol Levetiracetam 1,000 mg 01/06/20 22:00 09/18/20 21:11 Keppra Injection - IVPB 1,000 mg BID ALFRED Administration Lisinopril 2.5 mg 01/04/20 10:00 01/10/20 09:44 Prinivil PO Not Given DAILY ALFRED Metoprolol Tartrate 12.5 mg 01/05/20 10:00 01/10/20 21:11 Lopressor - PO 12.5 mg BID ALFRED Administration Pantoprazole Sodium 40 mg 01/04/20 10:00 01/10/20 09:43 Protonix Iv IVPUSH 40 mg DAILY ALFRED Administration Thiamine HCl 100 mg 01/05/20 10:00 01/10/20 09:43 Vitamin B1 - PO 100 mg DAILY ALFRED Administration Review of Systems Unable to obtain/intubated and sedated Vital Signs: Last Vital Signs Temp Pulse Resp BP Pulse Ox 98.2 F 101 H 17 102/74 96 01/11/20 06:00 01/11/20 06:00 01/11/20 06:00 01/11/20 06:00 01/11/20 06:00 Intake & Output 01/08/20 01/09/20 01/10/20 01/11/20 23:59 23:59 23:59 23:59 Intake Total 2628 3748.9 1817 215 Output Total 2680 1100 2300 900 Balance -52 2648.9 -483 -685 Weight 102 lb 8 oz 226 lb 10.163 oz Neck: Supple Negative JVD Respiratory: Diminished Breath Sounds at the Bases Cardiovascular: S1 S2 Irregularly Irregular Gastrointestinal: Soft Benign Normal Bowel Sounds Ext: Edema Bilaterally Labs: CBC, BMP 01/11/20 05:14 01/11/20 05:14 Hepatic Panel Total Bilirubin 1.2 mg/dL (0.2-1) H 01/11/20 05:14 AST 65 U/L (15-37) H 01/11/20 05:14 ALT 29 U/L (13-61) 01/11/20 05:14 Alkaline Phosphatase 70 U/L (45-117) 01/11/20 05:14 Albumin 1.9 g/dl (3.4-5.0) L 01/11/20 05:14 INR, PTT INR 2.09 (0.83-1.09) H 01/08/20 12:00 Assessment/Plan ASSESSMENT: 1. Acute hypoxic respiratory failure related to probable aspiration pneumonia with sepsis syndrome in conjunction with... 2. 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 Persistent atrial fibrillation [id number] score of 2 on anticoagulation therapy with Eliquis 4. Hypertension- currently hypotensive on pressors, related to the above noted sepsis syndrome 5. Acute/chronic alcoholism 6. Anemia/thrombocytopenia PLAN: 1. Antibiotics as per the primary team 2. Continue Lopressor therapy, once off of pressors- hemodynamics permitting 3. Continue Lisinopril therapy, once off of pressors- hemodynamics permitting 4. IV Lasix as needed 5. Ventilator management as per the critical care team Casa Olmos MD
[2020-01-11] MEDS ORDERED: PT OWN MED DRAWER 7, Y5N ONE ×2 (08:49→17:21)
[2020-01-11] MEDS ORDERED: levETIRAcetam 500 MG/5 ML INJECTION VIAL IVPB ONE (08:57)
[2020-01-11] MEDS: APIXABAN 5 MG TABLET PO SCH ×2 (09:42→21:20)
[2020-01-11] MEDS: PANTOPRAZOLE SODIUM 40 MG VIAL IVPUSH SCH (09:43)
[2020-01-11] MEDS: FOLIC ACID 1 MG TABLET (FP) PO SCH (09:43)
[2020-01-11] MEDS: LISINOPRIL 5 MG TABLET PO SCH (09:43)
[2020-01-11] MEDS: levETIRAcetam 500 MG/5 ML INJECTION VIAL IVPB SCH ×2 (09:43→21:20)
[2020-01-11] MEDS: AMINO ACIDS/PROTEIN HYDROLYS 30 ML LIQUID.PKT PO SCH (09:43)
[2020-01-11] MEDS: METOPROLOL TARTRATE 25 MG TABLET (FP) PO SCH ×2 (09:43→21:22)
[2020-01-11] MEDS: THIAMINE HCL 100 MG TABLET (FP) PO SCH (09:44)
--- NOTE | 2020-01-11 09:46 | PN ---
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 (short form) - Note 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: remains intubated and sedated intermittent fevers Vital Signs Period Temp Pulse Resp BP Sys/Redman Pulse Ox Last 24 Hr 98.2 F-101 F 99-122 14-22 91-130/74-96 88-96 cor-rrr llungs decreased bs at bases abd soft,nt ext no edema +CVP +VO CBC, BMP 01/11/20 05:14 01/11/20 05:[address] no acute changes eeg abnormal cxray improved bilateral lung chavis Microbiology 01/08/20 11:30 Blood - Peripheral Venous Blood Culture - Preliminary NO GROWTH OBTAINED AFTER 48 HOURS, INCUBATION TO CONTINUE FOR 3 DAYS. 01/08/20 12:00 Blood - Peripheral Venous Blood Culture - Preliminary NO GROWTH OBTAINED AFTER 48 HOURS, INCUBATION TO CONTINUE FOR 3 DAYS. 01/04/20 16:45 Sputum - Endotrachea Suction/Ventilator Gram Stain - Final 01/04/20 16:45 Sputum - Endotrachea Suction/Ventilator Sputum Culture - Final Ochrobactrum Anthropi 01/08/20 12:00 Urine - Urine Vo Urine Culture - Final NO GROWTH OBTAINED 01/03/20 15:00 Blood - Peripheral Venous Blood Culture - Final Acinetobacter Baumannii/Haemol 01/03/20 15:00 Blood - Peripheral Venous Blood Culture - Final Acinetobacter Baumannii/Haemol 01/03/20 19:55 Urine - Urine Clean Catch Urine Culture - Final NO GROWTH OBTAINED Active Medications Albuterol Sulfate (Ventolin Hfa Inhaler -) 2 puff IH Q4H PRN PRN Reason: SHORT OF BREATH/WHEEZING Amino Acids (Prosource No Carb Liquid Pkt) 30 ml PO DAILY [facility] Last Admin: 01/11/20 09:43 Dose: 30 ml Documented by: Apixaban (Eliquis -) 5 mg PO BID [facility] Last Admin: 01/11/20 09:42 Dose: 5 mg Documented by: Chlorhexidine Gluconate (Hibiclens For Decolonization -) 1 applic TP HS [facility] Last Admin: 01/10/20 21:11 Dose: 1 applic Documented by: Folic Acid (Folic Acid -) 1 mg PO DAILY [facility] Last Admin: 01/11/20 09:43 Dose: 1 mg Documented by: Midazolam HCl (Midazolam 100mg/100ml-0.9%Nacl) 100 mg in 100 mls @ 2 mls/hr IVPB TITR [facility]; Protocol Last Admin: 01/11/20 03:37 Dose: 10 mg/hr, 10 mls/hr Documented by: Propofol (Diprivan -) 1,000,000 mcg in 100 mls @ 2.449 mls/hr IVPB TITR [facility]; Protocol Last Admin: 01/11/20 03:37 Dose: 30 mcg/kg/min, 14.696 mls/hr Documented by: Vasopressin 40 units/ Sodium (Chloride) 100 mls @ 5 mls/hr IVPB [facility]IR [facility]; Protocol Last Admin: 01/11/20 03:34 Dose: 1 units/hr, 2.5 mls/hr Documented by: Ceftazidime 1 gm/ Dextrose 50 mls @ 100 mls/hr IVPB Q8H-IV [facility]; Protocol Last Admin: 01/11/20 09:43 Dose: 100 mls/hr Documented by: Levetiracetam (Keppra Injection -) 1,000 mg IVPB BID [facility] Last Admin: 01/11/20 09:43 Dose: 1,000 mg Documented by: Lisinopril (Prinivil) 2.5 mg PO DAILY [facility] Last Admin: 01/11/20 09:43 Dose: 2.5 mg Documented by: Metoprolol Tartrate (Lopressor -) 12.5 mg PO BID [facility] Last Admin: 01/11/20 09:43 Dose: 12.5 mg Documented by: Pantoprazole Sodium (Protonix Iv) 40 mg IVPUSH DAILY [facility] Last Admin: 01/11/20 09:43 Dose: 40 mg Documented by: Thiamine HCl (Vitamin B1 -) 100 mg PO DAILY [facility] Last Admin: 01/11/20 09:44 Dose: 100 mg Documented by: a/p resp failure intermittent fevers acinetobacter bacteremia- repeat blood cultures improved, continue ceftazidime abnl EEG- needs neurology f/u thrombocytopenia improving
--- NOTE | 2020-01-11 10:24 | PN ---
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 (short form) - Note 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: PULM/CCM SUBJECTIVE: Patient seen and examined in the ICU. -deeply sedated, edematous -CT head negative for infarct/bleed CXR: still with Bilateral congestive changes and pleural effusions, lagely unchanged OBJECTIVE: Vital Signs Temp 98.7 F 01/11/20 10:00 Pulse 106 H 01/11/20 10:00 Resp 17 01/11/20 10:00 BP 111/89 01/11/20 10:00 Pulse Ox 93 L 01/11/20 10:00 Intake & Output 01/10/20 01/10/20 01/11/20 11:59 23:59 11:59 Intake Total 1169 858 215 Output Total 1400 900 900 Balance -231 -42 -685 Weight 102.8 kg 105.6 kg Intake: IV 219 258 165 DIPRIVAN - 1,000,000 mcg 144 147 90 In 100 ml @ 5 MCG/KG/MIN 2.449 mls/hr IVPB TITR [facility] Rx#:[id number] MIDAZOLAM 100MG/100ML-0.9 60 71 60 %NACL 100 mg In 100 ml @ 2 MG/HR 2 mls/hr IVPB TITR [facility] Rx#:[id number] Pitressin - 40 Units In 15 40 15 Normal Saline - 98 ml @ 2 UNITS/HR 5 mls/hr IVPB ASDIR [facility] Rx#:[id number] IVPB 50 300 50 Oral 0 Oral Supplement 450 Tube Feeding 330 220 Tube Irrigant (Tube 120 80 Feeding Water) Output: Urine 1400 900 900 Vo 1400 900 900 Other: Voiding Method Indwelling Catheter Indwelling Catheter Indwelling Catheter Bowel Movement No Weight Measurement Method [facility] Active Medications Albuterol Sulfate (Ventolin Hfa Inhaler -) 2 puff IH Q4H PRN PRN Reason: SHORT OF BREATH/WHEEZING Amino Acids (Prosource No Carb Liquid Pkt) 30 ml PO DAILY [facility] Last Admin: 01/11/20 09:43 Dose: 30 ml Documented by: Apixaban (Eliquis -) 5 mg PO BID [facility] Last Admin: 01/11/20 09:42 Dose: 5 mg Documented by: Chlorhexidine Gluconate (Hibiclens For Decolonization -) 1 applic TP HS [facility] Last Admin: 01/10/20 21:11 Dose: 1 applic Documented by: Folic Acid (Folic Acid -) 1 mg PO DAILY [facility] Last Admin: 01/11/20 09:43 Dose: 1 mg Documented by: Ceftazidime 1 gm/ Dextrose 50 mls @ 100 mls/hr IVPB Q8H-IV [facility]; Protocol Last Admin: 01/11/20 09:43 Dose: 100 mls/hr Documented by: Levetiracetam (Keppra Injection -) 1,000 mg IVPB BID [facility] Last Admin: 01/11/20 09:43 Dose: 1,000 mg Documented by: Lisinopril (Prinivil) 2.5 mg PO DAILY [facility] Last Admin: 01/11/20 09:43 Dose: 2.5 mg Documented by: Lorazepam (Ativan Injection -) 2 mg IVPUSH Q2H PRN PRN Reason: AGITATION Metoprolol Tartrate (Lopressor -) 12.5 mg PO BID [facility] Last Admin: 01/11/20 09:43 Dose: 12.5 mg Documented by: Pantoprazole Sodium (Protonix Iv) 40 mg IVPUSH DAILY [facility] Last Admin: 01/11/20 09:43 Dose: 40 mg Documented by: Thiamine HCl (Vitamin B1 -) 100 mg PO DAILY [facility] Last Admin: 01/11/20 09:44 Dose: 100 mg Documented by: Gen: intubated, deeply sedated Heart: RRR Lung: scattered rhonchi Abd: soft, nontender Ext: + dependent edema throughout CBC, BMP 01/11/20 05:14 01/11/20 05:14 ABG Results ABG pH 7.487 (7.350-7.450) H 01/11/20 05:10 ABG HCO3 29.7 mmol/L (22-27) H 01/11/20 05:10 ABG O2 Sat (Measured) 94.8 mmHg (95-98) L 01/11/20 05:10 ABG O2 Content No Result Required. 01/11/20 05:10 ABG Base Excess 5.9 mmol/L (-2-2) H 01/11/20 05:10 ASSESSMENT AND PLAN: Acute Hypoxic Respiratory Failure Pneumonia likely Aspiration Septic Shock Lactic Acidosis Atrial Fibrillation Alcohol Abuse Thrombocytopenia Seizures - r/o Alcohol Withdrawal HTN - continue antibiotics - lasix for out 1-2L daily - monitor urine output, creatinine - rate control - continue anticoagulation - titrate pressors to maintain MAP >65, weaned off - Hold all sedation, will use ativan PRN - Spontaneous breathing trials as tolerated when mental status improved - enteral feeds - DVT/GI prophylaxis - continue ICU monitoring Diana ACNP [id number]
[2020-01-11] MEDS ORDERED: FUROSEMIDE 40 MG/4 ML INJECTABLE VIAL IVPUSH ONE (10:45)
[2020-01-11] MEDS: LORazepam 2 MG/ML SDV VIAL IVPUSH PRN (11:45)
--- NOTE | 2020-01-11 12:26 | PN ---
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 (short form) - Note 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: events noted pt examined in ICU spoke with ICU team no seizures so far Vital Signs - 24 hr 01/10/20 01/10/20 01/10/20 14:00 16:00 16:10 Temperature 100.8 F H Pulse Rate 122 H 118 H Respiratory 22 H 22 H 21 H Rate Blood Pressure 91/77 105/92 O2 Sat by Pulse 88 L 91 L 92 L Oximetry (%) 01/10/20 01/10/20 01/10/20 18:00 20:08 21:00 Temperature 101 F H Pulse Rate 119 H 116 H Respiratory 21 H 16 Rate Blood Pressure 130/96 O2 Sat by Pulse 95 96 96 Oximetry (%) 01/11/20 01/11/20 01/11/20 00:00 00:10 02:00 Temperature 98.6 F Pulse Rate 101 H 108 H Respiratory 19 14 20 Rate Blood Pressure 111/86 112/87 O2 Sat by Pulse 96 Oximetry (%) 01/11/20 01/11/20 01/11/20 03:34 04:00 04:22 Temperature 98.2 F Pulse Rate 99 H 103 H 103 H Respiratory 16 16 Rate Blood Pressure 97/75 116/87 O2 Sat by Pulse 96 94 L Oximetry (%) 01/11/20 01/11/20 01/11/20 06:00 08:00 08:42 Temperature 98.2 F 98.5 F Pulse Rate 101 H 111 H 114 H Respiratory 17 16 16 Rate Blood Pressure 102/74 111/88 O2 Sat by Pulse 96 93 L 93 L Oximetry (%) 01/11/20 01/11/20 01/11/20 09:00 10:00 11:33 Temperature 98.7 F Pulse Rate 106 H Respiratory 17 22 H Rate Blood Pressure 111/89 O2 Sat by Pulse 93 L 93 L 96 Oximetry (%) 01/11/20 01/11/20 11:34 12:00 Temperature 98.5 F Pulse Rate 123 H Respiratory 17 Rate Blood Pressure 114/86 O2 Sat by Pulse 96 99 Oximetry (%) Current Medications Generic Name Dose Route Start Last Admin Trade Name Freq PRN Reason Stop Dose Admin Albuterol Sulfate 2 puff 01/04/20 05:39 Ventolin Hfa Inhaler - IH Q4H PRN SHORT OF BREATH/WHEEZING Amino Acids 30 ml 01/08/20 12:45 01/11/20 09:43 Prosource No Carb Liquid Pkt PO 30 ml DAILY [facility] Administration Apixaban 5 mg 01/04/20 08:00 01/11/20 09:42 Eliquis - PO 5 mg BID [facility] Administration Chlorhexidine Gluconate 1 applic 01/04/20 22:00 01/10/20 21:11 Hibiclens For Decolonization - TP 1 applic HS [facility] Administration Folic Acid 1 mg 01/05/20 10:00 01/11/20 09:43 Folic Acid - PO 1 mg DAILY [facility] Administration Ceftazidime 1 gm/ Dextrose 50 mls @ 100 mls/hr 01/06/20 11:45 01/11/20 09:43 IVPB 100 mls/hr Q8H-IV [facility] Administration Protocol Levetiracetam 1,000 mg 01/06/20 22:00 01/11/20 09:43 Keppra Injection - IVPB 1,000 mg BID [facility] Administration Lisinopril 2.5 mg 01/04/20 10:00 01/11/20 09:43 Prinivil PO 2.5 mg DAILY [facility] Administration Lorazepam 2 mg 01/11/20 10:34 01/11/20 11:45 Ativan Injection - IVPUSH 2 mg Q2H PRN Administration AGITATION Metoprolol Tartrate 12.5 mg 01/05/20 10:00 01/11/20 09:43 Lopressor - PO 12.5 mg BID [facility] Administration Pantoprazole Sodium 40 mg 01/04/20 10:00 01/11/20 09:43 Protonix Iv IVPUSH 40 mg DAILY [facility] Administration Thiamine HCl 100 mg 01/05/20 10:00 01/11/20 09:44 Vitamin B1 - PO 100 mg DAILY [facility] Administration Laboratory Last Values WBC 9.8 K/mm3 (4.0-10.0) 01/11/20 05:14 RBC 3.32 M/mm3 (4.00-5.60) L 01/11/20 05:14 Hgb 11.8 GM/dL (11.7-16.9) 01/11/20 05:14 Hct 34.8 % (35.4-49) L 01/11/20 05:14 MCV 105.0 fl (80-96) H 01/11/20 05:14 MCH 35.6 pg (25.7-33.7) H 01/11/20 05:14 MCHC 33.9 g/dl (32.0-35.9) 01/11/20 05:14 RDW 13.7 % (11.9-15.9) 01/11/20 05:14 Plt Count 112 K/MM3 (134-434) L 01/11/20 05:14 MPV 10.2 fl (7.5-11.1) 01/11/20 05:14 Absolute Neuts (auto) 4.3 K/mm3 (1.5-8.0) 01/09/20 06:00 Total Counted 100 01/06/20 05:11 Neutrophils % 59.0 % (42.8-82.8) 01/09/20 06:00 Neutrophils % (Manual) 63.0 % (42.8-82.8) 01/09/20 06:00 Band Neutrophils % 1.0 % 01/09/20 06:00 Lymphocytes % 12.1 % (8-40) D 01/09/20 06:00 Lymphocytes % (Manual) 11.0 % (8-40) D 01/09/20 06:00 Monocytes % 25.8 % (3.8-10.2) H 01/09/20 06:00 Monocytes % (Manual) 22 % (3.8-10.2) H 01/09/20 06:00 Eosinophils % 2.4 % (0-4.5) 01/09/20 06:00 Eosinophils % (Manual) 1.0 % (0-4.5) 01/09/20 06:00 Basophils % 0.7 % (0-2.0) 01/09/20 06:00 Basophils % (Manual) 0.0 % (0-2.0) 01/09/20 06:00 Myelocytes % (Man) 0 % (0-2) D 01/09/20 06:00 Promyelocytes % (Man) 0 % (0-2) 01/09/20 06:00 Blast Cells % (Manual) 0 % (0-0) 01/09/20 06:00 Nucleated RBC % 0 % (0-0) 01/09/20 06:00 Metamyelocytes 1 % (0-2) 01/09/20 06:00 Hypochromia 0 01/09/20 06:00 Platelet Estimate Decreased 01/09/20 06:00 Polychromasia 0 01/09/20 06:00 Poikilocytosis 0 01/09/20 06:00 Anisocytosis 1+ 01/09/20 06:00 Microcytosis 0 01/09/20 06:00 Macrocytosis 1+ 01/09/20 06:00 Stomatocytes 1+ 01/07/20 05:35 PT with INR 24.80 SEC (9.7-13.0) H 01/08/20 12:00 INR 2.09 (0.83-1.09) H 01/08/20 12:00 PTT (Actin FS) 38.3 SECONDS (25.2-36.5) H 01/08/20 12:00 Anticoagulation Therapy No Result Required. 01/11/20 05:10 Puncture Site Right radial 01/11/20 05:10 Patient Temperature No Result Required. 01/11/20 05:10 ABG pH 7.487 (7.350-7.450) H 01/11/20 05:10 ABG pCO2 40.10 mmHg (35-45) 01/11/20 05:10 ABG pO2 67.8 mmHg (80-100) L 01/11/20 05:10 ABG HCO3 29.7 mmol/L (22-27) H 01/11/20 05:10 ABG O2 Sat (Measured) 94.8 mmHg (95-98) L 01/11/20 05:10 ABG O2 Content No Result Required. 01/11/20 05:10 ABG Base Excess 5.9 mmol/L (-2-2) H 01/11/20 05:10 Nnamdi Test Positive 01/11/20 05:10 Patient On Oxygen Yes 01/11/20 05:10 O2 Delivery Device Vent 01/11/20 05:10 Oxygen Flow Rate 50% 01/11/20 05:10 Vent Mode A/c 01/11/20 05:10 Vent Rate 14 01/11/20 05:10 Mechanical Rate Yes 01/11/20 05:10 PEEP 8.0 cmH2O 01/11/20 05:10 Pressure Support Vent 450 01/11/20 05:10 Sodium 138 mmol/L (136-145) 01/11/20 05:14 Potassium 3.6 mmol/L (3.5-5.1) 01/11/20 05:14 Chloride 102 mmol/L (98-107) 01/11/20 05:14 Carbon Dioxide 33 mmol/L (21-32) H 01/11/20 05:14 Anion Gap 4 MMOL/L (8-16) L 01/11/20 05:14 BUN 16.8 mg/dL (7-18) 01/11/20 05:14 Creatinine 0.4 mg/dL (0.55-1.3) L 01/11/20 05:14 Est GFR (CKD-EPI)AfAm 158.27 01/11/20 05:14 Est GFR (CKD-EPI)NonAf 136.56 01/11/20 05:14 POC Glucometer 234 UNITS (80-120) 01/04/20 17:23 Random Glucose 102 mg/dL (74-106) 01/11/20 05:14 Lactic Acid 1.5 mmol/L (0.4-2.0) 01/06/20 11:45 Calcium 7.4 mg/dL (8.5-10.1) L 01/11/20 05:14 Phosphorus 2.2 mg/dL (2.5-4.9) L 01/11/20 05:14 Magnesium 1.8 mg/dL (1.8-2.4) 01/11/20 05:14 Total Bilirubin 1.2 mg/dL (0.2-1) H 01/11/20 05:14 AST 65 U/L (15-37) H 01/11/20 05:14 ALT 29 U/L (13-61) 01/11/20 05:14 Alkaline Phosphatase 70 U/L (45-117) 01/11/20 05:14 Creatine Kinase 56 U/L (26-308) 01/06/20 05:11 Troponin I < 0.02 ng/ml (0.00-0.05) 01/06/20 05:11 B-Natriuretic Peptide 1161.8 pg/ml (5-125) H 01/04/20 05:45 Total Protein 6.2 g/dl (6.4-8.2) L 01/11/20 05:14 Albumin 1.9 g/dl (3.4-5.0) L 01/11/20 05:14 Triglycerides 136 mg/dL (0-150) 01/04/20 03:01 Cholesterol 85 mg/dL (50-200) 01/04/20 03:01 Total LDL Cholesterol 65 mg/dL (5-100) 01/04/20 03:01 HDL Cholesterol 16 mg/dL (40-60) L 01/04/20 03:01 Tumor Marker AFP 3.8 ng/ml (0.0-8.3) 01/09/20 06:00 TSH 0.47 uIU/ml (0.358-3.74) D 01/04/20 05:45 Urine Color Dk yellow 01/03/20 19:35 Urine Appearance Clear 01/03/20 19:35 Urine pH 6.0 (5.0-8.0) 01/03/20 19:35 Ur Specific [place] 1.015 (1.010-1.035) 01/03/20 19:35 Urine Protein Negative (NEGATIVE) 01/03/20 19:35 Urine Glucose (UA) Negative (NEGATIVE) 01/03/20 19:35 Urine Ketones Trace (NEGATIVE) H 01/03/20 19:35 Urine Blood Negative (NEGATIVE) 01/03/20 19:35 Urine Nitrite Negative (NEGATIVE) 01/03/20 19:35 Urine Bilirubin 1+ (NEGATIVE) H 01/03/20 19:35 Urine Urobilinogen 4.0 e.u/dl mg/dL (0.2-1.0) 01/03/20 19:35 Ur Leukocyte Esterase Negative (NEGATIVE) 01/03/20 19:35 Alcohol, Quantitative 29.3 mg/dL (0.0-5.0) H 01/04/20 03:01 COVID-19 (STEVE) Not detected (Not Detected) 01/03/20 15:00 M.pneumoniae IgG Titer 180 U/mL (0-99) H 01/04/20 05:45 M.pneumoniae IgM Titer <770 U/mL (0-769) 01/04/20 05:45 Constitutional: Yes: Other Neck: Yes: Supple Cardiovascular: Yes: Pulse Irregular Respiratory: Yes: Diminished, intubated on vent Gastrointestinal: Yes: Soft Genitourinary: Yes: Vo Present Edema: No PLAN IV antibiotics IV fluids ON Iv Keppra seizures due to alcohol withdrawal monitor platelets if decreasing, will need to dc Eliquis repeated blood cultures pt unable to wean off from vent Problem List - Problems (1) Alcohol dependence Code(s): F10.20 - ALCOHOL DEPENDENCE, UNCOMPLICATED Qualifiers: Substance use status: other alcohol-induced disorder Qualified Code(s): F10.288 - Alcohol dependence with other alcohol-induced disorder (2) Pneumonia Code(s): J18.9 - PNEUMONIA, UNSPECIFIED ORGANISM Qualifiers: Pneumonia type: due to unspecified organism Laterality: left Lung location: lower lobe of lung Qualified Code(s): J18.9 - Pneumonia, unspecified organism (3) Respiratory failure Code(s): J96.90 - RESPIRATORY FAILURE, UNSP, UNSP W HYPOXIA OR HYPERCAPNIA (4) Weakness Code(s): R53.1 - WEAKNESS (5) Alcohol abuse Code(s): F10.10 - ALCOHOL ABUSE, UNCOMPLICATED (6) Alcohol dependence with uncomplicated withdrawal Code(s): F10.230 - ALCOHOL DEPENDENCE WITH WITHDRAWAL, UNCOMPLICATED (7) Atrial fibrillation Code(s): I48.91 - UNSPECIFIED ATRIAL FIBRILLATION Qualifiers: Atrial fibrillation type: unspecified Qualified Code(s): I48.91 - Unspecified atrial fibrillation (8) HTN (hypertension) Code(s): I10 - ESSENTIAL (PRIMARY) HYPERTENSION Qualifiers: Hypertension type: essential hypertension Qualified Code(s): I10 - Essential (primary) hypertension
[2020-01-11] MEDS ORDERED: LORazepam 2 MG/ML SDV VIAL IVPUSH ONE (18:43)
[2020-01-11] MEDS: CHLORHEXIDINE GLUCONATE 4% CLEANSER FOR DECOLONIZATION TP SCH (21:20)
[2020-01-12] MEDS: CEFTAZIDIME PENTAHYDRATE 1 GM in DEXTROSE 5%-WATER - 50 ML IVPB SCH ×3 (01:02→17:15)
[2020-01-12 05:47] LABS: ARTERIAL BLD GAS O2 SATURATION 96.1 mmHg (95-98); ARTERIAL BLOOD GAS PO2 74.1 mmHg (80-100); ARTERIAL BLOOD GAS pH 7.508 (7.350-7.450)
[2020-01-12 05:48] LABS: ALLENS TEST POSITIVE
[2020-01-12 05:49] LABS: VENT MODE A/C; VENT RATE 14
[2020-01-12 06:56] LABS: HEMOGLOBIN 12.6 GM/dL (11.7-16.9); MCH 35.7 pg (25.7-33.7); MEAN PLT VOLUME 10.1 fl (7.5-11.1); PLATELET COUNT 135 K/MM3 (134-434); RBC 3.53 M/mm3 (4.00-5.60); RDW 13.9 % (11.9-15.9); WHITE BLOOD COUNT 12.2 K/mm3 (4.0-10.0)
--- NOTE | 2020-01-12 07:04 | PN ---
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 (short form) - Note 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: Coverage for Dr. Whitaker Chief Complaint: Events noted, notes reviewed, intubated, currently off of sedation, off of pressors, atrial fibrillation is persistent History of Present Illness: Seen and examined in the ICU. Events noted, notes reviewed, intubated, currently off of sedation, off of pressors, atrial fibrillation is persistent Medications: Current Medications Generic Name Dose Route Start Last Admin Trade Name Freq PRN Reason Stop Dose Admin Albuterol Sulfate 2 puff 01/04/20 05:39 Ventolin Hfa Inhaler - IH Q4H PRN SHORT OF BREATH/WHEEZING Amino Acids 30 ml 01/08/20 12:45 01/11/20 09:43 Prosource No Carb Liquid Pkt PO 30 ml DAILY [facility] Administration Apixaban 5 mg 01/04/20 08:00 01/11/20 21:20 Eliquis - PO 5 mg BID [facility] Administration Chlorhexidine Gluconate 1 applic 01/04/20 22:00 01/11/20 21:20 Hibiclens For Decolonization - TP 1 applic HS [facility] Administration Folic Acid 1 mg 01/05/20 10:00 01/11/20 09:43 Folic Acid - PO 1 mg DAILY [facility] Administration Ceftazidime 1 gm/ Dextrose 50 mls @ 100 mls/hr 01/06/20 11:45 01/12/20 01:02 IVPB 100 mls/hr Q8H-IV [facility] Administration Protocol Levetiracetam 1,000 mg 01/06/20 22:00 01/11/20 21:20 Keppra Injection - IVPB 1,000 mg BID [facility] Administration Lisinopril 2.5 mg 01/04/20 10:00 01/11/20 09:43 Prinivil PO 2.5 mg DAILY [facility] Administration Lorazepam 2 mg 01/11/20 10:34 01/11/20 11:45 Ativan Injection - IVPUSH 2 mg Q2H PRN Administration AGITATION Metoprolol Tartrate 12.5 mg 01/05/20 10:00 01/11/20 21:22 Lopressor - PO 12.5 mg BID [facility] Administration Pantoprazole Sodium 40 mg 01/04/20 10:00 01/11/20 09:43 Protonix Iv IVPUSH 40 mg DAILY [facility] Administration Thiamine HCl 100 mg 01/05/20 10:00 01/11/20 09:44 Vitamin B1 - PO 100 mg DAILY [facility] Administration Review of Systems Unable to obtain/intubated Vital Signs: Last Vital Signs Temp Pulse Resp BP Pulse Ox 98.2 F 110 H 12 131/86 98 01/12/20 06:00 01/12/20 06:00 01/12/20 06:00 01/12/20 06:00 01/12/20 06:00 Intake & Output 01/09/20 01/10/20 01/11/20 01/12/20 23:59 23:59 23:59 23:59 Intake Total 3748.9 2027 1520.1 590 Output Total 1100 2300 3100 900 Balance 2648.9 -273 -1579.9 -310 Weight 102 lb 8 oz 226 lb 10.163 oz 232 lb 12.93 oz 216 lb 1.6 oz Neck: Supple Negative JVD Respiratory: Diminished Breath Sounds at the Bases Cardiovascular: S1 S2 Irregularly Irregular Gastrointestinal: Soft Benign Normal Bowel Sounds Ext: Edema Bilaterally Labs: CBC, BMP 01/12/20 05:00 01/12/20 05:00 Hepatic Panel Total Bilirubin 1.2 mg/dL (0.2-1) H 01/11/20 05:14 AST 65 U/L (15-37) H 01/11/20 05:14 ALT 29 U/L (13-61) 01/11/20 05:14 Alkaline Phosphatase 70 U/L (45-117) 01/11/20 05:14 Albumin 1.9 g/dl (3.4-5.0) L 01/11/20 05:14 INR, PTT INR 2.09 (0.83-1.09) H 01/08/20 12:00 Assessment/Plan ASSESSMENT: 1. Acute hypoxic respiratory failure related to probable aspiration pneumonia with sepsis syndrome in conjunction with... 2. 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 Persistent atrial fibrillation [id number] score of 2 on anticoagulation therapy with Eliquis 4. Hypertension- transient hypotensive off of pressors, related to the above noted sepsis syndrome 5. Acute/chronic alcoholism 6. Anemia/thrombocytopenia PLAN: 1. Antibiotics as per the primary team 2. Continue Lopressor therapy- hemodynamics permitting 3. Continue Lisinopril therapy- hemodynamics permitting 4. IV Lasix as needed 5. Continue anticoagulation therapy with Eliquis unless it is absolutely contraindicated 6. Ventilator management as per the critical care team Casa Olmos MD
[2020-01-12 07:17] LABS: BLOOD UREA NITROGEN 15.7 mg/dL (7-18); CALCIUM 8.2 mg/dL (8.5-10.1); CREATININE 0.4 mg/dL (0.55-1.3); MAGNESIUM 1.8 mg/dL (1.8-2.4); POTASSIUM 3.4 mmol/L (3.5-5.1)
[2020-01-12] MEDS: KCL 10 MEQ IVPB 10 MEQ/100 ML INFUS.BAG IVPB SCH ×2 (08:50→09:54)
[2020-01-12] MEDS ORDERED: PT OWN MED DRAWER 7, Y5N ONE ×2 (09:27→16:23)
[2020-01-12] MEDS: AMINO ACIDS/PROTEIN HYDROLYS 30 ML LIQUID.PKT PO SCH (09:37)
[2020-01-12] MEDS: APIXABAN 5 MG TABLET PO SCH ×2 (09:37→21:51)
[2020-01-12] MEDS: FOLIC ACID 1 MG TABLET (FP) PO SCH (09:37)
[2020-01-12] MEDS: METOPROLOL TARTRATE 25 MG TABLET (FP) PO SCH (09:37)
[2020-01-12] MEDS: THIAMINE HCL 100 MG TABLET (FP) PO SCH (09:37)
[2020-01-12] MEDS: levETIRAcetam 500 MG/5 ML INJECTION VIAL IVPB SCH ×2 (09:37→21:51)
[2020-01-12] MEDS: LISINOPRIL 5 MG TABLET PO SCH (09:37)
[2020-01-12] MEDS: PANTOPRAZOLE SODIUM 40 MG VIAL IVPUSH SCH (09:37)
--- NOTE | 2020-01-12 11:00 | PN ---
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 (short form) - Note 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: PULM/CCM SUBJECTIVE: Patient seen and examined in the ICU. patient is off sedation, unarousable, RASS-5. Present gag reflex. -CT head negative for infarct/bleed OBJECTIVE:\ Vital Signs Period Temp Pulse Resp BP Sys/Redman Pulse Ox Last 24 Hr 98.2 F-100.1 F 106-131 11-18 99-131/66-103 97-100 \\ Intake & Output 01/09/20 01/10/20 01/11/20 01/12/20 23:59 23:59 23:59 23:59 Intake Total 3748.9 2027 1520.1 590 Output Total 1100 2300 3100 1500 Balance 2648.9 -273 -1579.9 -910 Weight 46.493 kg 102.8 kg 105.6 kg 98.021 kg Active Medications Albuterol Sulfate (Ventolin Hfa Inhaler -) 2 puff IH Q4H PRN PRN Reason: SHORT OF BREATH/WHEEZING Amino Acids (Prosource No Carb Liquid Pkt) 30 ml PO DAILY [facility] Last Admin: 01/12/20 09:37 Dose: 30 ml Documented by: Apixaban (Eliquis -) 5 mg PO BID [facility] Last Admin: 01/12/20 09:37 Dose: 5 mg Documented by: Chlorhexidine Gluconate (Hibiclens For Decolonization -) 1 applic TP HS [facility] Last Admin: 01/11/20 21:20 Dose: 1 applic Documented by: Folic Acid (Folic Acid -) 1 mg PO DAILY [facility] Last Admin: 01/12/20 09:37 Dose: 1 mg Documented by: Ceftazidime 1 gm/ Dextrose 50 mls @ 100 mls/hr IVPB Q8H-IV [facility]; Protocol Last Admin: 01/12/20 09:37 Dose: 100 mls/hr Documented by: Levetiracetam (Keppra Injection -) 1,000 mg IVPB BID [facility] Last Admin: 01/12/20 09:37 Dose: 1,000 mg Documented by: Lisinopril (Prinivil) 2.5 mg PO DAILY [facility] Last Admin: 01/12/20 09:37 Dose: 2.5 mg Documented by: Lorazepam (Ativan Injection -) 2 mg IVPUSH Q2H PRN PRN Reason: AGITATION Last Admin: 01/11/20 11:45 Dose: 2 mg Documented by: Metoprolol Tartrate (Lopressor -) 12.5 mg PO BID [facility] Last Admin: 01/12/20 09:37 Dose: 12.5 mg Documented by: Pantoprazole Sodium (Protonix Iv) 40 mg IVPUSH DAILY [facility] Last Admin: 01/12/20 09:37 Dose: 40 mg Documented by: Thiamine HCl (Vitamin B1 -) 100 mg PO DAILY [facility] Last Admin: 01/12/20 09:37 Dose: 100 mg Documented by: Gen: intubated, deeply sedated Heart: RRR Lung: scattered rhonchi Abd: soft, nontender Ext: + dependent edema throughout CBC, BMP 01/12/20 05:00 01/12/20 05:00 ABG Results ABG pH 7.508 (7.350-7.450) H 01/12/20 05:20 ABG HCO3 30.5 mmol/L (22-27) H 01/12/20 05:20 ABG O2 Sat (Measured) 96.1 mmHg (95-98) 01/12/20 05:20 ABG O2 Content No Result Required. 01/12/20 05:20 ABG Base Excess 7.0 mmol/L (-2-2) H 01/12/20 05:20 ASSESSMENT AND PLAN: Acute Hypoxic Respiratory Failure Pneumonia likely Aspiration Septic Shock Lactic Acidosis Atrial Fibrillation Alcohol Abuse Thrombocytopenia Seizures - r/o Alcohol Withdrawal HTN - Spontaneous breathing trials as tolerated when mental status improved - Pulmonary toileting - Currently off pressors, keep MAP >65 - Metoprolol IVP for tachycardia - continue antibiotics as per ID - lasix for out 1-2L daily, currently net - - monitor urine output - Trend and replete lytes - rate control - continue anticoagulation with Apixaban - enteral feeds - DVT/GI prophylaxis - continue ICU monitoring Cris Kulkarni ACNP [id number]
--- NOTE | 2020-01-12 16:45 | PN ---
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 not awake Vital Signs - 24 hr 01/11/20 01/11/20 01/11/20 18:00 20:00 20:18 Temperature 100.1 F H Pulse Rate 125 H 127 H 115 H Respiratory 16 14 18 Rate Blood Pressure 111/79 107/85 O2 Sat by Pulse 99 98 99 Oximetry (%) 01/11/20 01/11/20 01/11/20 20:33 20:35 20:37 Temperature Pulse Rate Respiratory 18 18 Rate Blood Pressure O2 Sat by Pulse 98 98 98 Oximetry (%) 01/11/20 01/12/20 01/12/20 22:00 00:00 00:22 Temperature 99.4 F Pulse Rate 116 H 122 H Respiratory 13 13 16 Rate Blood Pressure 131/92 102/80 O2 Sat by Pulse 100 99 100 Oximetry (%) 01/12/20 01/12/20 01/12/20 02:00 04:00 04:10 Temperature 98.4 F Pulse Rate 113 H 114 H 106 H Respiratory 13 13 18 Rate Blood Pressure 100/74 106/88 O2 Sat by Pulse 99 98 98 Oximetry (%) 01/12/20 01/12/20 01/12/20 06:00 08:00 08:09 Temperature 98.2 F 98.6 F Pulse Rate 110 H 127 H 111 H Respiratory 12 13 16 Rate Blood Pressure 131/86 130/103 H O2 Sat by Pulse 98 97 98 Oximetry (%) 01/12/20 01/12/20 01/12/20 09:00 10:00 11:51 Temperature 98.8 F Pulse Rate 111 H Respiratory 11 15 Rate Blood Pressure 117/94 O2 Sat by Pulse 98 99 97 Oximetry (%) 01/12/20 01/12/20 01/12/20 12:00 14:00 15:46 Temperature 98.7 F 98.6 F Pulse Rate 131 H 129 H Respiratory 17 17 16 Rate Blood Pressure 123/87 117/87 O2 Sat by Pulse 100 100 100 Oximetry (%) 01/12/20 15:58 Temperature 98.7 F Pulse Rate 130 H Respiratory 18 Rate Blood Pressure 93/81 O2 Sat by Pulse 97 Oximetry (%) Current Medications Generic Name Dose Route Start Last Admin Trade Name Freq PRN Reason Stop Dose Admin Albuterol Sulfate 2 puff 01/04/20 05:39 Ventolin Hfa Inhaler - IH Q4H PRN SHORT OF BREATH/WHEEZING Amino Acids 30 ml 01/08/20 12:45 01/12/20 09:37 Prosource No Carb Liquid Pkt PO 30 ml DAILY [facility] Administration Apixaban 5 mg 01/04/20 08:00 01/12/20 09:37 Eliquis - PO 5 mg BID [facility] Administration Chlorhexidine Gluconate 1 applic 01/04/20 22:00 01/11/20 21:20 Hibiclens For Decolonization - TP 1 applic HS [facility] Administration Folic Acid 1 mg 01/05/20 10:00 01/12/20 09:37 Folic Acid - PO 1 mg DAILY [facility] Administration Ceftazidime 1 gm/ Dextrose 50 mls @ 100 mls/hr 01/06/20 11:45 01/12/20 09:37 IVPB 100 mls/hr Q8H-IV [facility] Administration Protocol Lactulose 20 gm 01/12/20 18:00 Cephulac (Oral Use) PO 01/13/20 14:01 QID [facility] Levetiracetam 1,000 mg 01/06/20 22:00 01/12/20 09:37 Keppra Injection - IVPB 1,000 mg BID [facility] Administration Lisinopril 2.5 mg 01/04/20 10:00 01/12/20 09:37 Prinivil PO 2.5 mg DAILY [facility] Administration Lorazepam 2 mg 01/11/20 10:34 01/11/20 11:45 Ativan Injection - IVPUSH 2 mg Q2H PRN Administration AGITATION Metoprolol Tartrate 12.5 mg 01/05/20 10:00 01/12/20 09:37 Lopressor - PO 12.5 mg BID [facility] Administration Pantoprazole Sodium 40 mg 01/04/20 10:00 01/12/20 09:37 Protonix Iv IVPUSH 40 mg DAILY [facility] Administration Thiamine HCl 100 mg 01/05/20 10:00 01/12/20 09:37 Vitamin B1 - PO 100 mg DAILY [facility] Administration Laboratory Results - last 24 hr 01/12/20 01/12/20 01/12/20 05:00 05:00 05:20 WBC 12.2 H RBC 3.53 L Hgb 12.6 Hct 37.0 MCV 105.0 H MCH 35.7 H MCHC 34.0 RDW 13.9 Plt Count 135 D MPV 10.1 Anticoagulation Therapy No Result Required. Puncture Site Right radial Patient Temperature No Result Required. ABG pH 7.508 H ABG pCO2 39.30 ABG pO2 74.1 L ABG HCO3 30.5 H ABG O2 Sat (Measured) 96.1 ABG O2 Content No Result Required. ABG Base Excess 7.0 H Nnamdi Test Positive Patient On Oxygen Yes O2 Delivery Device Vent Oxygen Flow Rate 50% Vent Mode A/c Vent Rate 14 Mechanical Rate Yes PEEP 8.0 Pressure Support Vent 450 Sodium 142 Potassium 3.4 L Chloride 105 Carbon Dioxide 34 H Anion Gap 3 L BUN 15.7 Creatinine 0.4 L Est GFR (CKD-EPI)AfAm 158.27 Est GFR (CKD-EPI)NonAf 136.56 Random Glucose 85 Calcium 8.2 L Phosphorus 3.0 Magnesium 1.8 Ammonia 01/12/20 14:35 WBC RBC Hgb Hct MCV MCH MCHC RDW Plt Count MPV Anticoagulation Therapy Puncture Site Patient Temperature ABG pH ABG pCO2 ABG pO2 ABG HCO3 ABG O2 Sat (Measured) ABG O2 Content ABG Base Excess Nnamdi Test Patient On Oxygen O2 Delivery Device Oxygen Flow Rate Vent Mode Vent Rate Mechanical Rate PEEP Pressure Support Vent Sodium Potassium Chloride Carbon Dioxide Anion Gap BUN Creatinine Est GFR (CKD-EPI)AfAm Est GFR (CKD-EPI)NonAf Random Glucose Calcium Phosphorus Magnesium Ammonia 45.90 H Microbiology 01/08/20 11:30 Blood Culture - Preliminary Blood - Peripheral Venous NO GROWTH OBTAINED AFTER 96 HOURS, INCUBATION TO CONTINUE FOR 1 DAYS. 01/08/20 12:00 Blood Culture - Preliminary Blood - Peripheral Venous NO GROWTH OBTAINED AFTER 96 HOURS, INCUBATION TO CONTINUE FOR 1 DAYS. Constitutional: Yes: Other Neck: Yes: Supple Cardiovascular: Yes: Pulse Irregular Respiratory: Yes: Diminished, intubated on vent Gastrointestinal: Yes: Soft Genitourinary: Yes: Vo Present Edema: No PLAN IV antibiotics IV fluids ON Iv Keppra - off sedation --poor mental status so far seizures due to alcohol withdrawal monitor platelets repeated blood cultures-- negative pt unable to wean off from vent Problem List - Problems (1) Alcohol dependence Code(s): F10.20 - ALCOHOL DEPENDENCE, UNCOMPLICATED Qualifiers: Substance use status: other alcohol-induced disorder Qualified Code(s): F10.288 - Alcohol dependence with other alcohol-induced disorder (2) Pneumonia Code(s): J18.9 - PNEUMONIA, UNSPECIFIED ORGANISM Qualifiers: Pneumonia type: due to unspecified organism Laterality: left Lung location: lower lobe of lung Qualified Code(s): J18.9 - Pneumonia, unspecified organism (3) Respiratory failure Code(s): J96.90 - RESPIRATORY FAILURE, UNSP, UNSP W HYPOXIA OR HYPERCAPNIA (4) Weakness Code(s): R53.1 - WEAKNESS (5) Alcohol abuse Code(s): F10.10 - ALCOHOL ABUSE, UNCOMPLICATED (6) Alcohol dependence with uncomplicated withdrawal Code(s): F10.230 - ALCOHOL DEPENDENCE WITH WITHDRAWAL, UNCOMPLICATED (7) Atrial fibrillation Code(s): I48.91 - UNSPECIFIED ATRIAL FIBRILLATION Qualifiers: Atrial fibrillation type: unspecified Qualified Code(s): I48.91 - Unspecified atrial fibrillation (8) HTN (hypertension) Code(s): I10 - ESSENTIAL (PRIMARY) HYPERTENSION Qualifiers: Hypertension type: essential hypertension Qualified Code(s): I10 - Essential (primary) hypertension
[2020-01-12] MEDS: LACTULOSE 20 GM/30 ML UDC (FOR ORAL USE ONLY) PO SCH ×2 (17:15→21:51)
[2020-01-12] MEDS: LORazepam 2 MG/ML SDV VIAL IVPUSH PRN (17:18)
[2020-01-12] MEDS ORDERED: ACETAMINOPHEN 1000 MG/100 ML VIAL (NON FORMULARY) IVPB ONE (18:33)
[2020-01-12] MEDS: FENTANYL IVPB 500 MCG/100 ML BAG IVPB SCH (18:35)
[2020-01-12 19:56] LABS: PH,URINE 6.5 (5.0-8.0); URINE APPEARANCE CLEAR; URINE BILIRUBIN NEGATIVE (NEGATIVE); URINE COLOR YELLOW; URINE GLUCOSE (UA) NEGATIVE (NEGATIVE); URINE KETONE NEGATIVE (NEGATIVE); URINE LEUK ESTERASE NEGATIVE (NEGATIVE); URINE NITRITE NEGATIVE (NEGATIVE); URINE PROTEIN NEGATIVE (NEGATIVE)
[2020-01-12] MEDS: CHLORHEXIDINE GLUCONATE 4% CLEANSER FOR DECOLONIZATION TP SCH (21:51)
--- NOTE | 2020-01-12 23:31 | PROC ---
Procedure Note Procedure: ARTERIAL LINE (A-Line) PLACEMENT Indication: Hemodynamic monitoring A time-out was completed verifying correct patient, procedure, site and positioning. Allens test was performed to ensure adequate perfusion. The patients right wrist was prepped and draped in sterile fashion. 1% Lidocaine was used to anesthetize the area. A 20G Arrow arterial line was introduced into the radial artery. The catheter was threaded over the guide wire and the needle was removed with appropriate pulsatile blood return. The catheter was then sutured in place to the skin and a sterile dressing applied. Perfusion to the extremity distal to the point of catheter insertion was checked and found to be adequate. Estimated Blood Loss: 5 ml The patient tolerated the procedure well and there were no complications.
[2020-01-13] MEDS ORDERED: fentaNYL CITRATE 250 MCG/5 ML VIAL ONE (00:56)
[2020-01-13] MEDS: CEFTAZIDIME PENTAHYDRATE 1 GM in DEXTROSE 5%-WATER - 50 ML IVPB SCH ×3 (01:04→18:08)
[2020-01-13] MEDS: FENTANYL IVPB 500 MCG/100 ML BAG IVPB SCH (01:04)
[2020-01-13 06:45] LABS: ARTERIAL BLD GAS O2 SATURATION 97.7 mmHg (95-98); ARTERIAL BLOOD GAS BASE EXCESS 1.8 mmol/L (-2-2); ARTERIAL BLOOD GAS PO2 97.3 mmHg (80-100); ARTERIAL BLOOD GAS pH 7.448 (7.350-7.450)
[2020-01-13 07:05] LABS: VENT MODE A/C
[2020-01-13 07:06] LABS: VENT RATE 14
[2020-01-13 07:57] LABS: BASO % 1.2 % (0-2.0); EOS % 1.7 % (0-4.5); HEMATOCRIT 35.4 % (35.4-49); LYMPH % 11.1 % (8-40); MCH 36.3 pg (25.7-33.7); MCHC 33.9 g/dl (32.0-35.9); MEAN CELL VOLUME 107.1 fl (80-96); MEAN PLT VOLUME 10.5 fl (7.5-11.1); MONO % 19.4 % (3.8-10.2); NEUT % 66.6 % (42.8-82.8); PLATELET COUNT 144 K/MM3 (134-434); RBC 3.31 M/mm3 (4.00-5.60); WHITE BLOOD COUNT 12.7 K/mm3 (4.0-10.0)
[2020-01-13 08:43] LABS: ALBUMIN 1.9 g/dl (3.4-5.0); BILIRUBIN,TOTAL 1.5 mg/dL (0.2-1); BLOOD UREA NITROGEN 17.8 mg/dL (7-18); CALCIUM 7.9 mg/dL (8.5-10.1); CREATININE 0.5 mg/dL (0.55-1.3); PHOSPHOROUS 3.2 mg/dL (2.5-4.9); POTASSIUM 3.3 mmol/L (3.5-5.1); TOT PROT 6.4 g/dl (6.4-8.2)
--- NOTE | 2020-01-13 09:21 | PN ---
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, Physician History of Present Illness: Mr Beckford is a 54 YO white man with PMHx h/o acute/chronic alcohol abuse, diastolic CHF (02/08 ECHO; mild AR; mild biatrial enlargement), HTN, AFIB (on metoprolol and eliquis), now presents with weakness and lightheadedness. Patient suspects current syptoms are 2/2 alcohol withdrawal. Mentions that his last drink was 3 hours prior to arrival. Patients reports that the patient has been lightheaded and tremulous this afternoon prior to arrival. Patient also mentions mild productive cough. Denies fever, chills, chest pain, SOB, N/V/D. Denies recent travel of sick contacts. - Current Medication List Current Medications: Active Medications Albuterol Sulfate (Ventolin Hfa Inhaler -) 2 puff IH Q4H PRN PRN Reason: SHORT OF BREATH/WHEEZING Amino Acids (Prosource No Carb Liquid Pkt) 30 ml PO DAILY [facility] Last Admin: 01/12/20 09:37 Dose: 30 ml Documented by: Apixaban (Eliquis -) 5 mg PO BID [facility] Last Admin: 01/12/20 21:51 Dose: 5 mg Documented by: Chlorhexidine Gluconate (Hibiclens For Decolonization -) 1 applic TP HS [facility] Last Admin: 01/12/20 21:51 Dose: 1 applic Documented by: Folic Acid (Folic Acid -) 1 mg PO DAILY [facility] Last Admin: 01/12/20 09:37 Dose: 1 mg Documented by: Ceftazidime 1 gm/ Dextrose 50 mls @ 100 mls/hr IVPB Q8H-IV [facility]; Protocol Last Admin: 01/13/20 01:04 Dose: 100 mls/hr Documented by: Fentanyl (Sublimaze Ivpb) 500 mcg in 100 mls @ 10 mls/hr IVPB TITR [facility]; Protocol Last Titration: 01/13/20 04:00 Dose: 0 mcg/hr, 0 mls/hr Documented by: Lactulose (Cephulac (Oral Use)) 20 gm PO QID [facility] Stop: 01/13/20 14:01 Last Admin: 01/12/20 21:51 Dose: 20 gm Documented by: Levetiracetam (Keppra Injection -) 1,000 mg IVPB BID [facility] Last Admin: 01/12/20 21:51 Dose: 1,000 mg Documented by: Lisinopril (Prinivil) 2.5 mg PO DAILY [facility] Last Admin: 01/12/20 09:37 Dose: 2.5 mg Documented by: Lorazepam (Ativan Injection -) 2 mg IVPUSH Q2H PRN PRN Reason: AGITATION Last Admin: 01/12/20 17:18 Dose: 2 mg Documented by: Metoprolol Tartrate (Lopressor -) 12.5 mg PO BID [facility] Last Admin: 01/13/20 00:00 Dose: 12.5 mg Documented by: Pantoprazole Sodium (Protonix Iv) 40 mg IVPUSH DAILY [facility] Last Admin: 01/12/20 09:37 Dose: 40 mg Documented by: Thiamine HCl (Vitamin B1 -) 100 mg PO DAILY [facility] Last Admin: 01/12/20 09:37 Dose: 100 mg Documented by: - Objective Vital Signs: Vital Signs Temperature 97.7 F 01/13/20 06:00 Pulse Rate 118 H 01/13/20 08:00 Respiratory Rate 17 01/13/20 08:25 Blood Pressure 108/88 01/13/20 08:00 O2 Sat by Pulse Oximetry (%) 100 01/13/20 08:25 Eyes: Yes: WNL, Conjunctiva Clear, EOM Intact HENT: Yes: WNL, Atraumatic, Normocephalic Neck: Yes: WNL, Supple, Trachea Midline Cardiovascular: Yes: Pulse Irregular Respiratory: Yes: Diminished, Intubated, Mechanically Ventilated Gastrointestinal: Yes: WNL, Normal Bowel Sounds Genitourinary: Yes: WNL Musculoskeletal: Yes: WNL Extremities: Yes: WNL Edema: No Integumentary: Yes: WNL Neurological: Yes: WNL, Alert, Oriented ...Motor Strength: WNL Psychiatric: Yes: WNL Labs: CBC, BMP 01/13/20 05:30 01/13/20 05:30 INR, PTT INR 2.09 (0.83-1.09) H 01/08/20 12:00 Assessment/Plan Acute/chronic alcoholism Respiratory failure:intubated; mechanically ventilated; ? aspiration PNA. Acute systolic/diastolic CHF AF, with periods of RVR leukocytosis; symptoms of URI Hx HTN; periods of hypotension this admission-->pressor TSH WNL LDL cholesterol 67 mg/dL Plan: Now off amiodarone. AF, relatively well-controlled VR. As discussed with critical care team, pt's alcoholism and liver abnormality mitigates against starting PO amiodarone. On metoprolol for HR control (and ECHO now shows systolic dysfunction). On vasopressin. ECHO: moderately reduced LVEF; normal LV size; mild-moderate RV dilatation, with mildly reduced RVEF; mild LAE. CXR: bilateral pleural changes, relatively unchanged. Continue low-dose metoprolol tartrate 12.5 mg bid for systolic CHF, AF HR control;titrate up when BP allows (problematic, given "dependence" on vasopressin). On lisinopril 2.5 mg daily. Diuresis. F/u daily weight, Is and Os. Limit fluids. PO4 now WNL; replete K and Mg; keep K+ 4.0-4.5, Mg 2.0-2.4, PO4 2.5-4.9. TNI 0.03-->0.02. Antibiotics per ID (on Zosyn). Continue detox protocol CC time spent 40 minutes
--- NOTE | 2020-01-13 09:35 | PN ---
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, Physician History of Present Illness: Pt seen/ examined in icu. chart is reviewed All follow up as noted and appreciated Remains Intubated off sedation--- since 3 AM Opens eyes----do not make eye contact. - Current Medication List Current Medications: Active Medications Albuterol Sulfate (Ventolin Hfa Inhaler -) 2 puff IH Q4H PRN PRN Reason: SHORT OF BREATH/WHEEZING Amino Acids (Prosource No Carb Liquid Pkt) 30 ml PO DAILY [facility] Last Admin: 01/12/20 09:37 Dose: 30 ml Documented by: Apixaban (Eliquis -) 5 mg PO BID [facility] Last Admin: 01/12/20 21:51 Dose: 5 mg Documented by: Chlorhexidine Gluconate (Hibiclens For Decolonization -) 1 applic TP HS [facility] Last Admin: 01/12/20 21:51 Dose: 1 applic Documented by: Folic Acid (Folic Acid -) 1 mg PO DAILY [facility] Last Admin: 01/12/20 09:37 Dose: 1 mg Documented by: Ceftazidime 1 gm/ Dextrose 50 mls @ 100 mls/hr IVPB Q8H-IV [facility]; Protocol Last Admin: 01/13/20 01:04 Dose: 100 mls/hr Documented by: Fentanyl (Sublimaze Ivpb) 500 mcg in 100 mls @ 10 mls/hr IVPB TITR [facility]; Protocol Last Titration: 01/13/20 04:00 Dose: 0 mcg/hr, 0 mls/hr Documented by: Lactulose (Cephulac (Oral Use)) 20 gm PO QID [facility] Stop: 01/13/20 14:01 Last Admin: 01/12/20 21:51 Dose: 20 gm Documented by: Levetiracetam (Keppra Injection -) 1,000 mg IVPB BID [facility] Last Admin: 01/12/20 21:51 Dose: 1,000 mg Documented by: Lisinopril (Prinivil) 2.5 mg PO DAILY [facility] Last Admin: 01/12/20 09:37 Dose: 2.5 mg Documented by: Lorazepam (Ativan Injection -) 2 mg IVPUSH Q2H PRN PRN Reason: AGITATION Last Admin: 01/12/20 17:18 Dose: 2 mg Documented by: Metoprolol Tartrate (Lopressor -) 12.5 mg PO BID [facility] Last Admin: 01/13/20 00:00 Dose: 12.5 mg Documented by: Pantoprazole Sodium (Protonix Iv) 40 mg IVPUSH DAILY [facility] Last Admin: 01/12/20 09:37 Dose: 40 mg Documented by: Thiamine HCl (Vitamin B1 -) 100 mg PO DAILY [facility] Last Admin: 01/12/20 09:37 Dose: 100 mg Documented by: - Objective Vital Signs: Vital Signs Temperature 97.7 F 01/13/20 06:00 Pulse Rate 118 H 01/13/20 08:00 Respiratory Rate 17 01/13/20 08:25 Blood Pressure 108/88 01/13/20 08:00 O2 Sat by Pulse Oximetry (%) 100 01/13/20 08:25 Constitutional: Yes: Other (Intubated). No: No Distress Cardiovascular: Yes: Pulse Irregular. No: Regular Rate and Rhythm Respiratory: Yes: Diminished Gastrointestinal: Yes: Soft, Abdomen, Obese Edema: LLE: 1+, RLE: 1+ Labs: CBC, BMP 01/13/20 05:30 01/13/20 05:30 INR, PTT INR 2.09 (0.83-1.09) H 01/08/20 12:00 Problem List - Problems (1) Alcohol dependence Code(s): F10.20 - ALCOHOL DEPENDENCE, UNCOMPLICATED Qualifiers: Substance use status: other alcohol-induced disorder Qualified Code(s): F10.288 - Alcohol dependence with other alcohol-induced disorder (2) Pneumonia Code(s): J18.9 - PNEUMONIA, UNSPECIFIED ORGANISM Qualifiers: Pneumonia type: due to unspecified organism Laterality: left Lung location: lower lobe of lung Qualified Code(s): J18.9 - Pneumonia, unspecified organism (3) Alcohol dependence with uncomplicated withdrawal Code(s): F10.230 - ALCOHOL DEPENDENCE WITH WITHDRAWAL, UNCOMPLICATED (4) Atrial fibrillation Code(s): I48.91 - UNSPECIFIED ATRIAL FIBRILLATION Qualifiers: Atrial fibrillation type: unspecified Qualified Code(s): I48.91 - Unspecified atrial fibrillation (5) Respiratory failure Code(s): J96.90 - RESPIRATORY FAILURE, UNSP, UNSP W HYPOXIA OR HYPERCAPNIA (6) Atrial fibrillation with rapid ventricular response Code(s): I48.91 - UNSPECIFIED ATRIAL FIBRILLATION Assessment/Plan remains Vent dependent Continue present care Vent support-- weaning as tolerated Abx Diffuse metabolic Encephalopathy Pneumonia Afib-- Acinobactor Bactremeia Repeat cutures -ve so far Continue present care Will continue to follow cc time approx 30 min .
[2020-01-13 09:45] LABS: ANISOCYTOSIS 2+; MACROCYTOSIS 2+; PLATELET ESTIMATE DECREASED
[2020-01-13] MEDS ORDERED: PT OWN MED DRAWER 7, Y5N ONE ×2 (09:58→17:08)
[2020-01-13] MEDS: AMINO ACIDS/PROTEIN HYDROLYS 30 ML LIQUID.PKT PO SCH (10:00)
[2020-01-13] MEDS: LACTULOSE 20 GM/30 ML UDC (FOR ORAL USE ONLY) PO SCH ×2 (10:00→16:13)
[2020-01-13] MEDS: PANTOPRAZOLE SODIUM 40 MG VIAL IVPUSH SCH (10:01)
[2020-01-13] MEDS: levETIRAcetam 500 MG/5 ML INJECTION VIAL IVPB SCH ×2 (10:01→21:47)
[2020-01-13] MEDS: METOPROLOL TARTRATE 25 MG TABLET (FP) PO SCH ×6 (10:02→21:47)
[2020-01-13] MEDS: LISINOPRIL 5 MG TABLET PO SCH (10:02)
[2020-01-13] MEDS: THIAMINE HCL 100 MG TABLET (FP) PO SCH (10:02)
[2020-01-13] MEDS: APIXABAN 5 MG TABLET PO SCH ×2 (10:02→21:47)
[2020-01-13] MEDS: FOLIC ACID 1 MG TABLET (FP) PO SCH (10:02)
[2020-01-13] MEDS ORDERED: FUROSEMIDE 40 MG/4 ML INJECTABLE VIAL IVPUSH ONE ×2 (10:19→13:30)
[2020-01-13] MEDS ORDERED: POTASSIUM CHLORIDE TABS 20 MEQ TABLET.ER (FP) PO ONE (10:30)
--- NOTE | 2020-01-13 11:06 | PN ---
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, Physician History of Present Illness: REMAINS INTUBATED EYES OPEN BUT DOES NOT MAKE EYE CONTACT NO ACUTE DISTRESS AFEBRILE WBC SL ELEVATED NO FURTHER SEIZURES REPORTED BC ACINETOBACTER CXR LLL INFILTRATE - Current Medication List Current Medications: Active Medications Albuterol Sulfate (Ventolin Hfa Inhaler -) 2 puff IH Q4H PRN PRN Reason: SHORT OF BREATH/WHEEZING Amino Acids (Prosource No Carb Liquid Pkt) 30 ml PO DAILY [facility] Last Admin: 01/13/20 10:00 Dose: 30 ml Documented by: Apixaban (Eliquis -) 5 mg PO BID [facility] Last Admin: 01/13/20 10:02 Dose: 5 mg Documented by: Chlorhexidine Gluconate (Hibiclens For Decolonization -) 1 applic TP HS [facility] Last Admin: 01/12/20 21:51 Dose: 1 applic Documented by: Folic Acid (Folic Acid -) 1 mg PO DAILY [facility] Last Admin: 01/13/20 10:02 Dose: 1 mg Documented by: Ceftazidime 1 gm/ Dextrose 50 mls @ 100 mls/hr IVPB Q8H-IV [facility]; Protocol Last Admin: 01/13/20 10:01 Dose: 100 mls/hr Documented by: Fentanyl (Sublimaze Ivpb) 500 mcg in 100 mls @ 10 mls/hr IVPB TITR [facility]; Protocol Last Titration: 01/13/20 04:00 Dose: 0 mcg/hr, 0 mls/hr Documented by: Lactulose (Cephulac (Oral Use)) 20 gm PO QID [facility] Stop: 01/13/20 14:01 Last Admin: 01/13/20 10:00 Dose: 20 gm Documented by: Levetiracetam (Keppra Injection -) 1,000 mg IVPB BID [facility] Last Admin: 01/13/20 10:01 Dose: 1,000 mg Documented by: Lisinopril (Prinivil) 2.5 mg PO DAILY [facility] Last Admin: 01/13/20 10:02 Dose: 2.5 mg Documented by: Lorazepam (Ativan Injection -) 2 mg IVPUSH Q2H PRN PRN Reason: AGITATION Last Admin: 01/12/20 17:18 Dose: 2 mg Documented by: Metoprolol Tartrate (Lopressor -) 50 mg PO TID [facility] Last Admin: 01/13/20 10:41 Dose: 50 mg Documented by: Pantoprazole Sodium (Protonix Iv) 40 mg IVPUSH DAILY [facility] Last Admin: 01/13/20 10:01 Dose: 40 mg Documented by: Thiamine HCl (Vitamin B1 -) 100 mg PO DAILY [facility] Last Admin: 01/13/20 10:02 Dose: 100 mg Documented by: - Objective Vital Signs: Vital Signs Temperature 99.5 F 01/13/20 10:00 Pulse Rate 116 H 01/13/20 10:00 Respiratory Rate 14 01/13/20 10:00 Blood Pressure 127/88 01/13/20 10:00 O2 Sat by Pulse Oximetry (%) 100 01/13/20 10:00 Constitutional: Yes: No Distress Eyes: Yes: Conjunctiva Clear Cardiovascular: Yes: Regular Rate and Rhythm, S1, S2 Respiratory: Yes: Mechanically Ventilated Gastrointestinal: Yes: Normal Bowel Sounds, Soft. No: Tenderness Labs: CBC, BMP 01/13/20 05:30 01/13/20 05:30 INR, PTT INR 2.09 (0.83-1.09) H 01/08/20 12:00 Assessment/Plan RESP FAILURE GRAM NEGATIVE SEPSIS ACINETOBACTER PROBABLE ASP PNEUMONIA LACTIC ACIDOSIS RESOLVED THROMBOCYTOPENIA IMPROVED CONTINUE CEFTAZIDIME 1GM Q8H VENTILATORY SUPPORT
--- NOTE | 2020-01-13 12:01 | PN ---
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 (short form) - Note 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: 54 year old male history of atrial fibrillation, alcohol abuse. htn. He was seen his at bed side. He came to hospital on january 03. He was brought to hospital for seizure. He has been drinking heavy and he has history of hepatomegaly and fatty liver. Patient was intubated , for airway protection and pneumonia and covid negative. He has ct head on january 05 it was negative. He is intubatd. 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 he is not repsonding to pain or verbal stimuli. ct head on monday was normal NEUROLOGICAL EXAMINATION Patient is intubated no reponse to verbal stimuli and painful stimuli pupils reactive, dolls eye movement present no face asymmetry gag and corneal reflex is present\ neck is supple ct head is normal and repeat on january 09 was unchanged eeg showed shparp wave activity would repeat eeg Assessment/Plan 54 year old male history of alcohol abuse, atrial fibrillation and htn. He came with alcohol withdrawal seizure. Ct head is negative. Supect alcohol withdrawal seizure. - not wakign up after stopping sedation, sedative not being cleared due to liver cirrhosis eeg showed sharp wave activity Plan:-- continue keppra 1 gm iv bid till patient woke up woudl repeat eeg - continue supportive care, - repeat ct head was wnl, would do mri ofbrain -cc time 35 minute Thanking you so much Dilan Don MD
--- NOTE | 2020-01-13 13:22 | PN ---
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, Physician History of Present Illness: Mr Beckford is a 54 YO white man with PMHx h/o acute/chronic alcohol abuse, diastolic CHF (02/08 ECHO; mild AR; mild biatrial enlargement), HTN, AFIB (on metoprolol and eliquis), now presents with weakness and lightheadedness. Patient suspects current syptoms are 2/2 alcohol withdrawal. Mentions that his last drink was 3 hours prior to arrival. Patients reports that the patient has been lightheaded and tremulous this afternoon prior to arrival. Patient also mentions mild productive cough. Denies fever, chills, chest pain, SOB, N/V/D. Denies recent travel of sick contacts. - Current Medication List Current Medications: Active Medications Albuterol Sulfate (Ventolin Hfa Inhaler -) 2 puff IH Q4H PRN PRN Reason: SHORT OF BREATH/WHEEZING Amino Acids (Prosource No Carb Liquid Pkt) 30 ml PO DAILY [facility] Last Admin: 01/13/20 10:00 Dose: 30 ml Documented by: Apixaban (Eliquis -) 5 mg PO BID [facility]FRED Last Admin: 01/13/20 10:02 Dose: 5 mg Documented by: Chlorhexidine Gluconate (Hibiclens For Decolonization -) 1 applic TP HS ALFRED Last Admin: 01/12/20 21:51 Dose: 1 applic Documented by: Folic Acid (Folic Acid -) 1 mg PO DAILY [facility]FR[facility] Last Admin: 01/13/20 10:02 Dose: 1 mg Documented by: Furosemide (Lasix Injection -) 40 mg IVPUSH ONCE ONE Stop: 01/13/20 12:36 Ceftazidime 1 gm/ Dextrose 50 mls @ 100 mls/hr IVPB Q8H-IV ALFRED; Protocol Last Admin: 01/13/20 10:01 Dose: 100 mls/hr Documented by: Fentanyl (Sublimaze Ivpb) 500 mcg in 100 mls @ 10 mls/hr IVPB TITR ALFRED; Protocol Last Titration: 01/13/20 04:00 Dose: 0 mcg/hr, 0 mls/hr Documented by: Lactulose (Cephulac (Oral Use)) 20 gm PO QID ALFRED Stop: 01/13/20 14:01 Last Admin: 01/13/20 10:00 Dose: 20 gm Documented by: Levetiracetam (Keppra Injection -) 1,000 mg IVPB BID [facility] Last Admin: 01/13/20 10:01 Dose: 1,000 mg Documented by: Lisinopril (Prinivil) 2.5 mg PO DAILY [facility] Last Admin: 01/13/20 10:02 Dose: 2.5 mg Documented by: Lorazepam (Ativan Injection -) 2 mg IVPUSH Q2H PRN PRN Reason: AGITATION Last Admin: 01/12/20 17:18 Dose: 2 mg Documented by: Metoprolol Tartrate (Lopressor -) 50 mg PO TID [facility] Last Admin: 01/13/20 10:41 Dose: 50 mg Documented by: Pantoprazole Sodium (Protonix Iv) 40 mg IVPUSH DAILY [facility] Last Admin: 01/13/20 10:01 Dose: 40 mg Documented by: Potassium Chloride (Potassium Chloride Oral Liquid) 40 meq PO ONCE ONE Stop: 01/13/20 12:56 Thiamine HCl (Vitamin B1 -) 100 mg PO DAILY [facility] Last Admin: 01/13/20 10:02 Dose: 100 mg Documented by: - Objective Vital Signs: Vital Signs Temperature 99.5 F 01/13/20 10:00 Pulse Rate 124 H 01/13/20 12:00 Respiratory Rate 13 01/13/20 12:00 Blood Pressure 108/87 01/13/20 12:00 O2 Sat by Pulse Oximetry (%) 100 01/13/20 12:00 Eyes: Yes: WNL, Conjunctiva Clear, EOM Intact HENT: Yes: WNL, Atraumatic, Normocephalic Neck: Yes: WNL, Supple, Trachea Midline Cardiovascular: Yes: Regular Rate and Rhythm, Pulse Irregular Respiratory: Yes: Diminished, Intubated, Mechanically Ventilated Gastrointestinal: Yes: WNL, Normal Bowel Sounds Genitourinary: Yes: WNL Musculoskeletal: Yes: WNL Extremities: Yes: WNL Edema: No Integumentary: Yes: WNL Neurological: Yes: WNL, Alert, Oriented ...Motor Strength: WNL Psychiatric: Yes: WNL Labs: CBC, BMP 01/13/20 05:30 01/13/20 05:30 INR, PTT INR 2.09 (0.83-1.09) H 01/08/20 12:00 Assessment/Plan Acute/chronic alcoholism Respiratory failure:intubated; mechanically ventilated; ? aspiration PNA. Acute systolic/diastolic CHF AF, with periods of RVR leukocytosis; symptoms of URI Hx HTN; periods of hypotension this admission-->pressor TSH WNL LDL cholesterol 67 mg/dL Plan: Now off amiodarone. AF, relatively well-controlled VR. As discussed with critical care team, pt's alcoholism and liver abnormality mitigates against starting PO amiodarone. On metoprolol for HR control (and ECHO now shows systolic dysfunction). On vasopressin. ECHO: moderately reduced LVEF; normal LV size; mild-moderate RV dilatation, with mildly reduced RVEF; mild LAE. CXR: bilateral pleural changes, relatively unchanged. Continue low-dose metoprolol tartrate 12.5 mg bid for systolic CHF, AF HR control;titrate up when BP allows (problematic, given "dependence" on vasopressin). On lisinopril 2.5 mg daily. Diuresis. F/u daily weight, Is and Os. Limit fluids. PO4 now WNL; replete K and Mg; keep K+ 4.0-4.5, Mg 2.0-2.4, PO4 2.5-4.9. TNI 0.03-->0.02. Antibiotics per ID (on Zosyn). Continue detox protocol CC time spent 40 minutes
[2020-01-13] MEDS ORDERED: POTASSIUM CHLORIDE ORAL LIQUID 20 MEQ/15 ML PO ONE ×2 (13:30→15:15)
--- NOTE | 2020-01-13 13:54 | PN ---
Teaching Attending Note Name of Resident: Ruddy Colby ATTENDING PHYSICIAN STATEMENT I saw and evaluated the patient. I reviewed the resident's note and discussed the case with the resident. I agree with the resident's findings and plan as documented. SUBJECTIVE: Patient seen and examined in the ICU. Remains intubated. Sedation stopped at 4AM and he is still poorly responsive. No pressors. AC Mode of vent, 50% FiO2 and 8 PEEP. Intake & Output 01/10/20 01/11/20 01/12/20 01/13/20 23:59 23:59 23:59 23:59 Intake Total 7 1520.1 2009 610 Output Total 2300 3100 2400 350 Balance -273 -1579.9 -390 260 Weight 226 lb 10.163 oz 232 lb 12.93 oz 216 lb 1.6 oz 216 lb 9.6 oz Last Vital Signs Temp Pulse Resp BP Pulse Ox 99.5 F 124 H 13 108/87 100 01/13/20 10:00 01/13/20 12:00 01/13/20 12:00 01/13/20 12:00 01/13/20 12:00 Active Medications Albuterol Sulfate (Ventolin Hfa Inhaler -) 2 puff IH Q4H PRN PRN Reason: SHORT OF BREATH/WHEEZING Amino Acids (Prosource No Carb Liquid Pkt) 30 ml PO DAILY [facility] Last Admin: 01/13/20 10:00 Dose: 30 ml Documented by: Apixaban (Eliquis -) 5 mg PO BID [facility] Last Admin: 01/13/20 10:02 Dose: 5 mg Documented by: Chlorhexidine Gluconate (Hibiclens For Decolonization -) 1 applic TP HS ALFRED Last Admin: 01/12/20 21:51 Dose: 1 applic Documented by: Folic Acid (Folic Acid -) 1 mg PO DAILY [facility] Last Admin: 01/13/20 10:02 Dose: 1 mg Documented by: Ceftazidime 1 gm/ Dextrose 50 mls @ 100 mls/hr IVPB Q8H-IV ALFRED; Protocol Last Admin: 01/13/20 10:01 Dose: 100 mls/hr Documented by: Fentanyl (Sublimaze Ivpb) 500 mcg in 100 mls @ 10 mls/hr IVPB TITR ALFRED; Protocol Last Titration: 01/13/20 04:00 Dose: 0 mcg/hr, 0 mls/hr Documented by: Lactulose (Cephulac (Oral Use)) 20 gm PO QID [facility] Stop: 01/13/20 14:01 Last Admin: 01/13/20 10:00 Dose: 20 gm Documented by: Levetiracetam (Keppra Injection -) 1,000 mg IVPB BID [facility] Last Admin: 01/13/20 10:01 Dose: 1,000 mg Documented by: Lisinopril (Prinivil) 2.5 mg PO DAILY [facility] Last Admin: 01/13/20 10:02 Dose: 2.5 mg Documented by: Lorazepam (Ativan Injection -) 2 mg IVPUSH Q2H PRN PRN Reason: AGITATION Last Admin: 01/12/20 17:18 Dose: 2 mg Documented by: Metoprolol Tartrate (Lopressor -) 50 mg PO TID [facility] Last Admin: 01/13/20 10:41 Dose: 50 mg Documented by: Pantoprazole Sodium (Protonix Iv) 40 mg IVPUSH DAILY [facility] Last Admin: 01/13/20 10:01 Dose: 40 mg Documented by: Thiamine HCl (Vitamin B1 -) 100 mg PO DAILY [facility] Last Admin: 01/13/20 10:02 Dose: 100 mg Documented by: Gen: intubated, Poorly responsive off sedation Heart: RRR Lung: Vented, scattered rhonchi Abd: soft, nontender Ext: + dependent edema throughout Laboratory Results - last 24 hr 01/12/20 01/12/20 01/13/20 14:35 18:40 05:30 WBC RBC Hgb Hct MCV MCH MCHC RDW Plt Count MPV Absolute Neuts (auto) Neutrophils % Lymphocytes % Monocytes % Eosinophils % Basophils % Nucleated RBC % Hypochromia Platelet Estimate Polychromasia Poikilocytosis Anisocytosis Microcytosis Macrocytosis Anticoagulation Therapy Puncture Site Patient Temperature ABG pH ABG pCO2 ABG pO2 ABG HCO3 ABG O2 Sat (Measured) ABG O2 Content ABG Base Excess Nnamdi Test Patient On Oxygen O2 Delivery Device Oxygen Flow Rate Vent Mode Vent Rate Mechanical Rate PEEP Pressure Support Vent Sodium Potassium Chloride Carbon Dioxide Anion Gap BUN Creatinine Est GFR (CKD-EPI)AfAm Est GFR (CKD-EPI)NonAf Random Glucose Calcium Phosphorus Magnesium Total Bilirubin AST ALT Alkaline Phosphatase Ammonia 45.90 H 62.10 H Total Protein Albumin Urine Color Yellow Urine Appearance Clear Urine pH 6.5 Ur Specific [place] 1.021 Urine Protein Negative Urine Glucose (UA) Negative Urine Ketones Negative Urine Blood Negative Urine Nitrite Negative Urine Bilirubin Negative Urine Urobilinogen 1.0 Ur Leukocyte Esterase Negative 01/13/20 01/13/20 01/13/20 05:30 05:30 05:40 WBC 12.7 H RBC 3.31 L Hgb 12.0 Hct 35.4 MCV 107.1 H MCH 36.3 H MCHC 33.9 RDW 14.0 Plt Count 144 MPV 10.5 Absolute Neuts (auto) 8.5 H Neutrophils % 66.6 Lymphocytes % 11.1 Monocytes % 19.4 H Eosinophils % 1.7 Basophils % 1.2 Nucleated RBC % 0 Hypochromia 0 Platelet Estimate Decreased Polychromasia 0 Poikilocytosis 0 Anisocytosis 2+ Microcytosis 0 Macrocytosis 2+ Anticoagulation Therapy No Result Required. Puncture Site Arterial line Patient Temperature No Result Required. ABG pH 7.448 ABG pCO2 38.00 ABG pO2 97.3 ABG HCO3 25.7 ABG O2 Sat (Measured) 97.7 ABG O2 Content No Result Required. ABG Base Excess 1.8 Nnamdi Test Not applicable Patient On Oxygen Yes O2 Delivery Device Vent Oxygen Flow Rate 50% Vent Mode A/c Vent Rate 14 Mechanical Rate Yes PEEP 8.0 Pressure Support Vent 450 Sodium 145 Potassium 3.3 L Chloride 106 Carbon Dioxide 33 H Anion Gap 6 L BUN 17.8 Creatinine 0.5 L Est GFR (CKD-EPI)AfAm 144.40 Est GFR (CKD-EPI)NonAf 124.59 Random Glucose 70 L Calcium 7.9 L Phosphorus 3.2 Magnesium 2.0 Total Bilirubin 1.5 H AST 66 H ALT 31 Alkaline Phosphatase 66 Ammonia Total Protein 6.4 Albumin 1.9 L Urine Color Urine Appearance Urine pH Ur Specific [place] Urine Protein Urine Glucose (UA) Urine Ketones Urine Blood Urine Nitrite Urine Bilirubin Urine Urobilinogen Ur Leukocyte Esterase ASSESSMENT AND PLAN: Acute Hypoxic Respiratory Failure Pneumonia likely Aspiration Septic Shock Lactic Acidosis Atrial Fibrillation Alcohol Abuse Thrombocytopenia Seizures - r/o Alcohol Withdrawal HTN - Spontaneous breathing trials as tolerated when mental status improved: If continued poor mental status will further discuss Trach with his - Pulmonary toileting - Currently off pressors, keep MAP >65 - Increase Metoprolol for rate control - continue antibiotics as per ID - Continue daily lasix to keep net negative - monitor urine output - Trend and replete lytes - continue anticoagulation with Apixaban - enteral feeds - DVT/GI prophylaxis - Requires continued ICU monitoring Dr Carmen Critical care time spent in reviewing chart, evaluating patient and formulating plan - 36 minutes.
--- NOTE | 2020-01-13 15:23 | PROC ---
Central Line Insertion Indication: Vasopressor Risks and Benefits Explained: Yes Consent on Chart: Yes Central Line: Triple Lumen Catheter Anesthesia: 1% Lidocaine Sterile Technique: Yes Ultrasound Guided Assistance: Yes Position: Left Internal Jugular Post Insertion: Yes: Chest X-Ray Ordered Sterile Dressing Applied: Yes
--- NOTE | 2020-01-13 17:41 | PN ---
Physical Exam: SUBJECTIVE: Patient seen and examined. Sedation was turned off yesterday; patient grimaced and reacted to pain. Fentanyl was turned off this morning to assess patient for mental status. OBJECTIVE: Vital Signs Period Temp Pulse Resp BP Sys/Redman Pulse Ox Last 24 Hr 97.7 F-100.3 F 108-141 11-18 82-127/56-88 97-100 GENERAL: Intubated and sedated HEENT: Normal with no signs of trauma. PERRL, No ptosis. dry mucous membranes LUNGS: decreased breath sounds in bases, scattered rhonci no wheezes, no crackles, no accessory muscle use. HEART:irregular rate, S1, S2 without murmur, rub or gallop. ABDOMEN: Soft, nontender, nondistended, normoactive bowel sounds, no guarding, no rebound EXTREMITIES: 2+ pulses, warm, well-perfused, no edema. Laboratory Results - last 24 hr 01/12/20 01/13/20 01/13/20 18:40 05:30 05:30 WBC 12.7 H RBC 3.31 L Hgb 12.0 Hct 35.4 MCV 107.1 H MCH 36.3 H MCHC 33.9 RDW 14.0 Plt Count 144 MPV 10.5 Absolute Neuts (auto) 8.5 H Neutrophils % 66.6 Lymphocytes % 11.1 Monocytes % 19.4 H Eosinophils % 1.7 Basophils % 1.2 Nucleated RBC % 0 Hypochromia 0 Platelet Estimate Decreased Polychromasia 0 Poikilocytosis 0 Anisocytosis 2+ Microcytosis 0 Macrocytosis 2+ Anticoagulation Therapy Puncture Site Patient Temperature ABG pH ABG pCO2 ABG pO2 ABG HCO3 ABG O2 Sat (Measured) ABG O2 Content ABG Base Excess Nnamdi Test Patient On Oxygen O2 Delivery Device Oxygen Flow Rate Vent Mode Vent Rate Mechanical Rate PEEP Pressure Support Vent Sodium Potassium Chloride Carbon Dioxide Anion Gap BUN Creatinine Est GFR (CKD-EPI)AfAm Est GFR (CKD-EPI)NonAf Random Glucose Calcium Phosphorus Magnesium Total Bilirubin AST ALT Alkaline Phosphatase Ammonia 62.10 H Total Protein Albumin Urine Color Yellow Urine Appearance Clear Urine pH 6.5 Ur Specific [place] 1.021 Urine Protein Negative Urine Glucose (UA) Negative Urine Ketones Negative Urine Blood Negative Urine Nitrite Negative Urine Bilirubin Negative Urine Urobilinogen 1.0 Ur Leukocyte Esterase Negative 01/13/20 01/13/20 05:30 05:40 WBC RBC Hgb Hct MCV MCH MCHC RDW Plt Count MPV Absolute Neuts (auto) Neutrophils % Lymphocytes % Monocytes % Eosinophils % Basophils % Nucleated RBC % Hypochromia Platelet Estimate Polychromasia Poikilocytosis Anisocytosis Microcytosis Macrocytosis Anticoagulation Therapy No Result Required. Puncture Site Arterial line Patient Temperature No Result Required. ABG pH 7.448 ABG pCO2 38.00 ABG pO2 97.3 ABG HCO3 25.7 ABG O2 Sat (Measured) 97.7 ABG O2 Content No Result Required. ABG Base Excess 1.8 Nnamdi Test Not applicable Patient On Oxygen Yes O2 Delivery Device Vent Oxygen Flow Rate 50% Vent Mode A/c Vent Rate 14 Mechanical Rate Yes PEEP 8.0 Pressure Support Vent 450 Sodium 145 Potassium 3.3 L Chloride 106 Carbon Dioxide 33 H Anion Gap 6 L BUN 17.8 Creatinine 0.5 L Est GFR (CKD-EPI)AfAm 144.40 Est GFR (CKD-EPI)NonAf 124.59 Random Glucose 70 L Calcium 7.9 L Phosphorus 3.2 Magnesium 2.0 Total Bilirubin 1.5 H AST 66 H ALT 31 Alkaline Phosphatase 66 Ammonia Total Protein 6.4 Albumin 1.9 L Urine Color Urine Appearance Urine pH Ur Specific [place] Urine Protein Urine Glucose (UA) Urine Ketones Urine Blood Urine Nitrite Urine Bilirubin Urine Urobilinogen Ur Leukocyte Esterase Active Medications Generic Name Dose Route Start Last Admin Trade Name Freq PRN Reason Stop Dose Admin Albuterol Sulfate 2 puff 01/04/20 05:39 Ventolin Hfa Inhaler - IH Q4H PRN SHORT OF BREATH/WHEEZING Amino Acids 30 ml 01/08/20 12:45 01/13/20 10:00 Prosource No Carb Liquid Pkt PO 30 ml DAILY ALFRED Administration Apixaban 5 mg 01/04/20 08:00 01/13/20 10:02 Eliquis - PO 5 mg BID ALFRED Administration Chlorhexidine Gluconate 1 applic 01/04/20 22:00 01/12/20 21:51 Hibiclens For Decolonization - TP 1 applic HS ALFRED Administration Folic Acid 1 mg 01/05/20 10:00 01/13/20 10:02 Folic Acid - PO 1 mg DAILY [facility] Administration Ceftazidime 1 gm/ Dextrose 50 mls @ 100 mls/hr 01/06/20 11:45 01/13/20 10:01 IVPB 100 mls/hr Q8H-IV ALFRED Administration Protocol Fentanyl 500 mcg in 100 mls @ 10 mls/hr 01/12/20 18:15 01/13/20 04:00 Sublimaze Ivpb IVPB 0 mcg/hr TITR ALFRED 0 mls/hr Titration Protocol 50 MCG/HR Levetiracetam 1,000 mg 01/06/20 22:00 01/13/20 10:01 Keppra Injection - IVPB 1,000 mg BID AL[facility]ED Administration Lisinopril 2.5 mg 01/04/20 10:00 01/13/20 10:02 Prinivil PO 2.5 mg DAILY [facility] Administration Lorazepam 2 mg 01/11/20 10:34 01/12/20 17:18 Ativan Injection - IVPUSH 2 mg Q2H PRN Administration AGITATION Metoprolol Tartrate 50 mg 01/13/20 10:30 01/13/20 16:13 Lopressor - PO 50 mg TID ALFRED Administration Pantoprazole Sodium 40 mg 01/04/20 10:00 01/13/20 10:01 Protonix Iv IVPUSH 40 mg DAILY [facility] Administration Thiamine HCl 100 mg 01/05/20 10:00 01/13/20 10:02 Vitamin B1 - PO 100 mg DAILY [facility] Administration ASSESSMENT/PLAN: 54 year old M with PMH afib (on eliquis), alcohol use disorder , diastolic CHF (02/08 ECHO; mild AR; mild biatrial enlargement), HTN, AFIB presented with weakness, lightheadedness, shaking. Was given Librium 10mg, Ativan 1mg for alcohol withdrawal and found to have PNA on CXR. Admitted to ICU for Afib w/ RVR, now s/p Amio drip and respiratory failure with seizures. #Neuro - Intubated. Fentanyl stopped today - Alcohol withdrawal seizures: patient already being given a benzodiazepine, (Midazolam) - continue with folic acid, thiamine daily -CTH: no significant change. moderate ventricular dilatation. generalized volume loss. mild periventricular chronic microvascular ischemic disease changes -c/w Keppra 1000 mg BID IVPB -EEG: sharp wave activity -fentanyl was turned off today. Patient did not wake up. Likely decreased clearance of sedative 2/2 liver cirrhosis? #Cardio AFib with RVR -s/p Amio drip. - On vasopressin, wean as tolerated. Maintain MAP >65 - continue with lisinopril 2.5 mg PO daily. Patient was tachycardic, so lopressor was increased to 50 mg TID - lasix 40 IV push given -c/w home eliquis 5 mg PO BID -given pt's history of alcohol use and elevated liver enzymes, hold off on starting PO amiodarone -EKG: afib, atrial rate 131 bpm, vent. rate 97 bpm, QTC 520 -ECHO: LV normal size. Moderate global LV systolic dysfunction. EF 40-45%. RV mild-moderately dilated. RV systoltic function mildly reduced. LA/RA mildly dilated. Mild aortic sclerosis. -Will consider POP and beta edwin once patient improves #Pulm -CXR: no significant changes. b/l pulmonary/pleural changes with prominent mediastinum -Rate 14, TV 450, FIO2 50%, PEEP 8, Pplat 16 -ABG WNL #GI - NG in place - Protonix 40mg - AST/ALT trended to 66/31. will continue to monitor - endorses liver disease that she attributes to alcohol use. H/o thrombocytopenia, h/o alcohol use disorder, previous PT/INR PTT were prolonged and prior ultrasound showed hepatomegaly (18.5 cm) with diffuse fatty infiltration of liver and contracted/thick walled gall bladder that could be related to hepatocellular disease. PT/INR PTT elevated -AFP 3.8 WNL -ammonia increased to 62.1 #ID - PNA likely Aspiration - s/p Ceftriaxone/Azithroycin. s/p Zosyn 3.375 gm (01/03-01/05). -blood culture X2: acinetobacter baumannii/haemolo -Mycoplasma pnuemoniae IgG titer elevated at 180. Mycoplasma pneumoniae IgM titer is WNL <770. -sputum culture (01/03): non-lactose fermenting GNB: ochrobactrum anthropi -continue with CEFTAZIDIME 1GM Q8H (01/05) for gram neg sepsis 2/2 acinetobacter -(01/11) blood culture, sputum culture pending #Renal - BUN/Cr 19.3/0.5 - Vo in place, making urine - 2009 Intake/2400 Output/ -390 mL Balance #Heme/Onc - Thrombocytopenia -plts improved to 144. In setting of thrombocytopenia hx, alcohol use disorder, prolonged PT/INR PTT and prior ultrasound showed hepatomegaly (18.5 cm) with diffuse fatty infiltration of liver and contracted/thick walled gall bladder that could be related to hepatocellular disease. PT/INR PTT elevated possibly thrombocytopenia 2/2 liver disease vs sepsis. -AFP WNL (3.8) #FEN no IVF monitor lytes Promote @55 ml/hr with H2O flush @ 20/ ml/hr #Prophylaxis eliquis 5 mg PO BID Lines R IJ triple lumen central line (01/03) REMOVED. Left IJ triple lumen central catheter (01/12) ETT (01/03) Right radial A-line (01/11) #Dispo maintain ICU Visit type - Emergency Visit Emergency Visit: Yes ED Registration Date: 01/03/20 Care time: The patient presented to the Emergency Department on the above date and was hospitalized for further evaluation of their emergent condition. - New Patient This patient is new to me today: No - Critical Care Critical Care patient: No ATTENDING PHYSICIAN STATEMENT I saw and evaluated the patient. I reviewed the resident's note and discussed the case with the resident. I agree with the resident's findings and plan as documented. SUBJECTIVE: OBJECTIVE: ASSESSMENT AND PLAN:
[2020-01-13] MEDS: CHLORHEXIDINE GLUCONATE 4% CLEANSER FOR DECOLONIZATION TP SCH (21:47)
[2020-01-14] MEDS: CEFTAZIDIME PENTAHYDRATE 1 GM in DEXTROSE 5%-WATER - 50 ML IVPB SCH ×3 (02:33→17:26)
[2020-01-14] MEDS: FENTANYL IVPB 500 MCG/100 ML BAG IVPB SCH ×2 (06:14→21:44)
[2020-01-14] MEDS: PROPOFOL 1,000,000 MCG/100 ML VIAL IVPB SCH (06:14)
[2020-01-14] MEDS: METOPROLOL TARTRATE 25 MG TABLET (FP) PO SCH ×3 (06:15→21:47)
[2020-01-14 06:31] LABS: HEMATOCRIT 36.8 % (35.4-49); HEMOGLOBIN 12.2 GM/dL (11.7-16.9); MCH 35.2 pg (25.7-33.7); MCHC 33.3 g/dl (32.0-35.9); MEAN CELL VOLUME 105.8 fl (80-96); MEAN PLT VOLUME 10.1 fl (7.5-11.1); PLATELET COUNT 176 K/MM3 (134-434); RBC 3.48 M/mm3 (4.00-5.60); WHITE BLOOD COUNT 16.9 K/mm3 (4.0-10.0)
[2020-01-14 06:37] LABS: ARTERIAL BLD GAS O2 SATURATION 98.1 mmHg (95-98); ARTERIAL BLOOD GAS BASE EXCESS 4.4 mmol/L (-2-2); ARTERIAL BLOOD GAS pH 7.491 (7.350-7.450)
[2020-01-14 06:39] LABS: ALLENS TEST POSITIVE
[2020-01-14 06:40] LABS: VENT MODE A/C; VENT RATE 14
[2020-01-14 07:03] LABS: BILIRUBIN,TOTAL 1.7 mg/dL (0.2-1); CALCIUM 7.9 mg/dL (8.5-10.1); CREATININE 0.6 mg/dL (0.55-1.3); MAGNESIUM 1.6 mg/dL (1.8-2.4); PHOSPHOROUS 3.1 mg/dL (2.5-4.9); POTASSIUM 3.6 mmol/L (3.5-5.1); TOT PROT 6.7 g/dl (6.4-8.2)
--- NOTE | 2020-01-14 08:28 | PN ---
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, Physician Chief Complaint: Pt was off sedation since yesterday; per pt's RN, he awoke at 6am today. He is now again on Propofol. History of Present Illness: Mr Beckford is a 54 YO white man with PMHx h/o acute/chronic alcohol abuse, diastolic CHF (02/08 ECHO; mild AR; mild biatrial enlargement), HTN, AFIB (on metoprolol and eliquis), now presents with weakness and lightheadedness. Patient suspects current syptoms are 2/2 alcohol withdrawal. Mentions that his last drink was 3 hours prior to arrival. Patients reports that the patient has been lightheaded and tremulous this afternoon prior to arrival. Patient also mentions mild productive cough. Denies fever, chills, chest pain, SOB, N/V/D. Denies recent travel of sick contacts. - Current Medication List Current Medications: Active Medications Acetaminophen (Ofirmev Injection -) 1,000 mg IVPB Q6H PRN PRN Reason: FEVER Stop: 01/15/20 23:00 Albuterol Sulfate (Ventolin Hfa Inhaler -) 2 puff IH Q4H PRN PRN Reason: SHORT OF BREATH/WHEEZING Amino Acids (Prosource No Carb Liquid Pkt) 30 ml PO DAILY [facility] Last Admin: 01/13/20 10:00 Dose: 30 ml Documented by: Apixaban (Eliquis -) 5 mg PO BID [facility] Last Admin: 01/13/20 21:47 Dose: 5 mg Documented by: Chlorhexidine Gluconate (Hibiclens For Decolonization -) 1 applic TP HS [facility] Last Admin: 01/13/20 21:47 Dose: 1 applic Documented by: Folic Acid (Folic Acid -) 1 mg PO DAILY [facility] Last Admin: 01/13/20 10:02 Dose: 1 mg Documented by: Ceftazidime 1 gm/ Dextrose 50 mls @ 100 mls/hr IVPB Q8H-IV [facility]; Protocol Last Admin: 01/14/20 02:33 Dose: 100 mls/hr Documented by: Fentanyl (Sublimaze Ivpb) 500 mcg in 100 mls @ 10 mls/hr IVPB TITR [facility]; Protocol Last Admin: 01/14/20 06:14 Dose: 50 mcg/hr, 10 mls/hr Documented by: Propofol (Diprivan -) 1,000,000 mcg in 100 mls @ 2.947 mls/hr IVPB TITR [facility]; Protocol Last Admin: 01/14/20 06:14 Dose: 10 mcg/kg/min, 5.895 mls/hr Documented by: Levetiracetam (Keppra Injection -) 1,000 mg IVPB BID [facility] Last Admin: 01/13/20 21:47 Dose: 1,000 mg Documented by: Lisinopril (Prinivil) 2.5 mg PO DAILY [facility] Last Admin: 01/13/20 10:02 Dose: 2.5 mg Documented by: Lorazepam (Ativan Injection -) 2 mg IVPUSH Q2H PRN PRN Reason: AGITATION Last Admin: 01/12/20 17:18 Dose: 2 mg Documented by: Metoprolol Tartrate (Lopressor -) 50 mg PO TID [facility] Last Admin: 01/14/20 06:15 Dose: 50 mg Documented by: Pantoprazole Sodium (Protonix Iv) 40 mg IVPUSH DAILY [facility] Last Admin: 01/13/20 10:01 Dose: 40 mg Documented by: Thiamine HCl (Vitamin B1 -) 100 mg PO DAILY [facility] Last Admin: 01/13/20 10:02 Dose: 100 mg Documented by: - Objective Vital Signs: Vital Signs Temperature 98.7 F 01/14/20 06:00 Pulse Rate 112 H 01/14/20 08:00 Respiratory Rate 14 01/14/20 08:00 Blood Pressure 99/79 01/14/20 08:00 O2 Sat by Pulse Oximetry (%) 100 01/14/20 08:00 Constitutional: Yes: Other (intubated; sedated) Eyes: Yes: WNL HENT: Yes: Other Neck: Yes: Decreased ROM Cardiovascular: Yes: Tachycardia, Pulse Irregular, S1 (varies in intensity), S2 Respiratory: Yes: Diminished, Mechanically Ventilated Genitourinary: Yes: Vo Present. No: Anuria Musculoskeletal: Yes: Muscle Weakness Extremities: Yes: Cool Edema: Yes Edema: LLE: Trace, RLE: Trace Peripheral Pulses WNL: Yes Integumentary: Yes: WNL Neurological: Yes: Other (at 6 am, "woke up" and moved; now sedated) Psychiatric: Yes: Other Labs: CBC, BMP 01/14/20 05:00 01/14/20 06:00 INR, PTT INR 2.09 (0.83-1.09) H 01/08/20 12:00 Abnormal Lab Results 01/15/20 01/15/20 01/15/20 05:36 05:36 06:45 WBC 12.5 H RBC 3.21 L Hgb 11.5 L Hct 34.0 L MCV 105.9 H MCH 36.0 H PT with INR 29.70 H INR 2.49 H PTT (Actin FS) 43.5 H Potassium 2.9 L* Carbon Dioxide 33 H Anion Gap 5 L Creatinine 0.5 L Random Glucose 107 H Calcium 7.5 L Total Bilirubin 1.4 H AST 65 H Total Protein 6.2 L Albumin 1.9 L - ....Imaging Chest X-ray: Image Reviewed Other: Image Reviewed (telemetry: AF with periods of RVR) Assessment/Plan Acute/chronic alcoholism Respiratory failure:intubated; mechanically ventilated; ? aspiration PNA. Acute systolic/diastolic CHF AF, with periods of RVR leukocytosis; symptoms of URI TSH WNL LDL cholesterol 67 mg/dL Plan: On metoprolol for HR control (and ECHO now shows systolic dysfunction); increased 01/13/20 to 50 mg tid for better HR control. Off pressors. Extubation per critical care team. ECHO: moderately reduced LVEF; normal LV size; mild-moderate RV dilatation, with mildly reduced RVEF; mild LAE. CXR: bilateral pleural changes, relatively unchanged. On lisinopril 2.5 mg daily; increase dose as tolerated. Continue diuresis. F/u daily weight, Is and Os. Limit fluids. Replete Mg; keep K+ 4.0-4.5, Mg 2.0-2.4, PO4 2.5-4.9. Antibiotics per ID If not done recently, plan for stress MIBI when stable. Continue detox protocol CC time spent 35 minutes
[2020-01-14] MEDS ORDERED: MAGNESIUM 1GM/D5W 100ML - 100 ML IVPB IVPB ONE (08:45)
[2020-01-14] MEDS ORDERED: PT OWN MED DRAWER 7, Y5N ONE ×3 (09:00→17:09)
[2020-01-14] MEDS ORDERED: POTASSIUM CHLORIDE 20 MEQ PREMIX IVPB 100 ML IVPB ONE (09:00)
[2020-01-14] MEDS: PANTOPRAZOLE SODIUM 40 MG VIAL IVPUSH SCH (09:13)
[2020-01-14] MEDS: THIAMINE HCL 100 MG TABLET (FP) PO SCH (09:14)
[2020-01-14] MEDS: AMINO ACIDS/PROTEIN HYDROLYS 30 ML LIQUID.PKT PO SCH (09:14)
[2020-01-14] MEDS: FOLIC ACID 1 MG TABLET (FP) PO SCH (09:14)
[2020-01-14] MEDS: APIXABAN 5 MG TABLET PO SCH ×2 (09:14→21:46)
[2020-01-14] MEDS: levETIRAcetam 500 MG/5 ML INJECTION VIAL IVPB SCH ×2 (09:14→21:46)
[2020-01-14] MEDS: LISINOPRIL 5 MG TABLET PO SCH (09:15)
[2020-01-14] MEDS ORDERED: MAGNESIUM SULFATE IN WATER 2 GM/50 ML IVPB IVPB ONE (10:00)
[2020-01-14] MEDS ORDERED: LACTULOSE 20 GM/30 ML UDC (FOR ORAL USE ONLY) PO SCH (11:30)
[2020-01-14] MEDS ORDERED: FUROSEMIDE 40 MG/4 ML INJECTABLE VIAL IVPUSH ONE (11:30)
--- NOTE | 2020-01-14 12:09 | PN ---
Physical Exam: SUBJECTIVE: Patient seen and examined. Overnight, patient was off sedation and opened his eyes & moved his limbs. However, patient's eyes were not tracking and limb movements were not purposeful. Sedation was restarted overnight because he was bucking the vent. Today, the sedation was turned off again. In the AM, patient was able to follow simple commands. OBJECTIVE: Vital Signs Period Temp Pulse Resp BP Sys/Redman Pulse Ox Last 24 Hr 97.4 F-100.5 F 93-144 13-20 99-142/73-95 98-104 GENERAL: Intubated. sedation turned off. able to follow simple commands HEENT: Normal with no signs of trauma. PERRL, No ptosis. dry mucous membranes LUNGS: decreased breath sounds in bases, scattered rhonci no wheezes, no crackles, no accessory muscle use. HEART:irregular rate, S1, S2 without murmur, rub or gallop. ABDOMEN: Soft, nontender, nondistended, normoactive bowel sounds, no guarding, no rebound EXTREMITIES: 2+ pulses, warm, well-perfused, no edema. Laboratory Results - last 24 hr 01/14/20 01/14/20 01/14/20 05:00 05:00 06:00 WBC 16.9 H RBC 3.48 L Hgb 12.2 Hct 36.8 MCV 105.8 H MCH 35.2 H MCHC 33.3 RDW 14.0 Plt Count 176 D MPV 10.1 Anticoagulation Therapy Puncture Site Patient Temperature ABG pH ABG pCO2 ABG pO2 ABG HCO3 ABG O2 Sat (Measured) ABG O2 Content ABG Base Excess Nnamdi Test Patient On Oxygen O2 Delivery Device Oxygen Flow Rate Vent Mode Vent Rate Mechanical Rate PEEP Pressure Support Vent Sodium 143 Potassium 3.6 Chloride 106 Carbon Dioxide 32 Anion Gap 4 L BUN 16.0 Creatinine 0.6 Est GFR (CKD-EPI)AfAm 133.98 Est GFR (CKD-EPI)NonAf 115.60 Random Glucose 112 H Calcium 7.9 L Phosphorus 3.1 Magnesium 1.6 L Total Bilirubin 1.7 H AST 78 H ALT 36 Alkaline Phosphatase 70 Ammonia 87.00 H Total Protein 6.7 Albumin 2.0 L 01/14/20 06:15 WBC RBC Hgb Hct MCV MCH MCHC RDW Plt Count MPV Anticoagulation Therapy No Result Required. Puncture Site Arterial line Patient Temperature No Result Required. ABG pH 7.491 H ABG pCO2 37.30 ABG pO2 103.0 H ABG HCO3 27.9 H ABG O2 Sat (Measured) 98.1 H ABG O2 Content No Result Required. ABG Base Excess 4.4 H Nnamdi Test Positive Patient On Oxygen Yes O2 Delivery Device Vent Oxygen Flow Rate 50 Vent Mode A/c Vent Rate 14 Mechanical Rate No Result Required. PEEP 8.0 Pressure Support Vent 450 Sodium Potassium Chloride Carbon Dioxide Anion Gap BUN Creatinine Est GFR (CKD-EPI)AfAm Est GFR (CKD-EPI)NonAf Random Glucose Calcium Phosphorus Magnesium Total Bilirubin AST ALT Alkaline Phosphatase Ammonia Total Protein Albumin Active Medications Generic Name Dose Route Start Last Admin Trade Name Freq PRN Reason Stop Dose Admin Acetaminophen 1,000 mg 01/13/20 20:24 Ofirmev Injection - IVPB 01/15/20 23:00 Q6H PRN FEVER Albuterol Sulfate 2 puff 01/04/20 05:39 Ventolin Hfa Inhaler - IH Q4H PRN SHORT OF BREATH/WHEEZING Amino Acids 30 ml 01/08/20 12:45 01/14/20 09:14 Prosource No Carb Liquid Pkt PO 30 ml DAILY [facility] Administration Apixaban 5 mg 01/04/20 08:00 01/14/20 09:14 Eliquis - PO 5 mg BID [facility] Administration Chlorhexidine Gluconate 1 applic 01/04/20 22:00 01/13/20 21:47 Hibiclens For Decolonization - TP 1 applic HS [facility] Administration Folic Acid 1 mg 01/05/20 10:00 01/14/20 09:14 Folic Acid - PO 1 mg DAILY [facility] Administration Ceftazidime 1 gm/ Dextrose 50 mls @ 100 mls/hr 01/06/20 11:45 01/14/20 09:11 IVPB 100 mls/hr Q8H-IV [facility] Administration Protocol Fentanyl 500 mcg in 100 mls @ 10 mls/hr 01/12/20 18:15 01/14/20 06:14 Sublimaze Ivpb IVPB 50 mcg/hr TITR [facility] 10 mls/hr Administration Protocol 50 MCG/HR Propofol 1,000,000 mcg in 100 mls @ 2.947 mls/hr 01/14/20 05:30 01/14/20 06:14 Diprivan - IVPB 10 mcg/kg/min TITR [facility] 5.895 mls/hr Administration Protocol 5 MCG/KG/MIN Lactulose 20 gm 01/14/20 11:30 01/14/20 11:34 Cephulac (Oral Use) PO 20 gm BID [facility] Administration Levetiracetam 1,000 mg 01/06/20 22:00 01/14/20 09:14 Keppra Injection - IVPB 1,000 mg BID [facility] Administration Lisinopril 2.5 mg 01/04/20 10:00 01/14/20 09:15 Prinivil PO 2.5 mg DAILY [facility] Administration Metoprolol Tartrate 50 mg 01/13/20 10:30 01/14/20 06:15 Lopressor - PO 50 mg TID [facility] Administration Pantoprazole Sodium 40 mg 01/04/20 10:00 01/14/20 09:13 Protonix Iv IVPUSH 40 mg DAILY [facility] Administration Thiamine HCl 100 mg 01/05/20 10:00 01/14/20 09:14 Vitamin B1 - PO 100 mg DAILY [facility] Administration ASSESSMENT/PLAN: 54 year old M with PMH afib (on eliquis), alcohol use disorder , diastolic CHF (02/08 ECHO; mild AR; mild biatrial enlargement), HTN, AFIB presented with weakness, lightheadedness, shaking. Was given Librium 10mg, Ativan 1mg for alco hol withdrawal and found to have PNA on CXR. Admitted to ICU for Afib w/ RVR, now s/p Amio drip and respiratory failure with seizures. #Neuro - Intubated. Fentanyl and propofol stopped today - Alcohol withdrawal seizures: patient already being given a benzodiazepine, (Midazolam) - continue with folic acid, thiamine daily -CTH: no significant change. moderate ventricular dilatation. generalized volume loss. mild periventricular chronic microvascular ischemic disease changes -c/w Keppra 1000 mg BID IVPB -EEG: sharp wave activity -sedation was turned off today. Patient was able to follow simple commands. Give precedex if needed for sedation if patient starts to breaux the vent extensively #Cardio AFib with RVR -s/p Amio drip. - On vasopressin, wean as tolerated. Maintain MAP >65 - continue with lisinopril 2.5 mg PO daily. Patient was tachycardic, so lopressor was increased to 50 mg TID - lasix 40 IV push given -c/w home eliquis 5 mg PO BID -given pt's history of alcohol use and elevated liver enzymes, hold off on starting PO amiodarone -EKG: afib, atrial rate 131 bpm, vent. rate 97 bpm, QTC 520 -ECHO: LV normal size. Moderate global LV systolic dysfunction. EF 40-45%. RV mild-moderately dilated. RV systoltic function mildly reduced. LA/RA mildly dilated. Mild aortic sclerosis. -Will consider POP and beta edwin once patient improves #Pulm -CXR: no significant changes. b/l pulmonary/pleural changes with prominent mediastinum -Rate 14, TV 450, FIO2 50%, PEEP 8, Pplat 19 -ABG WNL #GI - NG in place - Protonix 40mg -AFP 3.8 WNL -H/o thrombocytopenia, h/o alcohol use disorder, previous PT/INR PTT were prolonged and prior ultrasound showed hepatomegaly (18.5 cm) with diffuse fatty infiltration of liver and contracted/thick walled gall bladder that could be related to hepatocellular disease. - AST/ALT increased to 78/36. will continue to monitor -ammonia increased from 62 to 87. -spoke to PCP, Dr. Hawthorne. Patient has liver disease due to alcohol use, but has never had a EGD. Patient has poor follow-up and non-compliant. Per , patient has never had an EGD or seen a GI physician. -GI consult appreciated. f/u hepatitis serologies and abdominal US to evaluate for ascites and liver parenchyma -Would benefit from upper endoscopy to evaluate for varices. If varices are present, would consider stopping AC. -Lactulose 20g BID #ID - PNA likely Aspiration - s/p Ceftriaxone/Azithroycin. s/p Zosyn 3.375 gm (01/03-01/05). -blood culture X2: acinetobacter baumannii/haemolo -Mycoplasma pnuemoniae IgG titer elevated at 180. Mycoplasma pneumoniae IgM titer is WNL <770. -sputum culture (01/03): non-lactose fermenting GNB: ochrobactrum anthropi -continue with CEFTAZIDIME 1GM Q8H (01/05) for gram neg sepsis 2/2 acinetobacter -(01/11) blood culture, sputum culture pending #Renal - BUN/Cr 16/0.6 - Vo in place, making urine - 1870 Intake/2350 Output/ -480 mL Balance #Heme/Onc - Thrombocytopenia: resolved #FEN no IVF monitor lytes Jevity @50 ml/hr with H2O flush @20 ml/hr #Prophylaxis eliquis 5 mg PO BID Lines Left IJ triple lumen central catheter (01/12) ETT (01/03) Right radial A-line (01/11) #Dispo maintain ICU Visit type - Emergency Visit Emergency Visit: Yes ED Registration Date: 01/03/20 Care time: The patient presented to the Emergency Department on the above date and was hospitalized for further evaluation of their emergent condition. - New Patient This patient is new to me today: No - Critical Care Critical Care patient: No ATTENDING PHYSICIAN STATEMENT I saw and evaluated the patient. I reviewed the resident's note and discussed the case with the resident. I agree with the resident's findings and plan as documented. SUBJECTIVE: OBJECTIVE: ASSESSMENT AND PLAN:
--- NOTE | 2020-01-14 12:19 | CON.GI ---
Consult Consult Specialty:: GI Referred by:: IC team Reason for Consultation:: Elevated ammonia level - History of Present Illness Chief Complaint: Patient intubated History of Present Illness: 54M admitted here 11 days for seizures. H/o alcohol withdrawal Has been intubated since admission. Asked to evaluate for elevated ammonia level that was recently checked. Unclear if the patient has ever had outpatient evaluation for alcoholic liver disease. Unclear if he has ever had an upper endoscopy to screen for varices. He is maintained on Eliquis for A. Fib. In review of [facility], there has been one abdominal US performed in 2016 revealing fatty liver and hepatomegaly. There have been no inpatient screening hepatitis serolo gies performed. There has been no coags drawn since 01/07. INR was 2.06 at that time. There seems to be blood in his alberto catheter. - History Source History Provided By: Medical Record Limitations to Obtaining History: Intubated - Past Medical History [employer] WORKER: Yes: Seizure (withdrawal seizures) Cardio/Vascular: Yes: AFIB, CHF (diastolic ), HTN, Murmur (AR) Gastrointestinal: Yes: Other (hepatomegaly. 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 Home Medications - Allergies Allergies/Adverse Reactions: Allergies Allergy/AdvReac Type Severity Reaction Status Date / Time No Known Allergies Allergy Verified 01/03/20 13:48 - Home Medications Home Medications: Ambulatory Orders Furosemide [Lasix -] 20 mg PO DAILY 10/05/16 Lisinopril [Zestril] 2.5 mg PO DAILY 10/05/16 Spironolactone 25 mg PO DAILY 10/05/16 Apixaban [Eliquis] 5 mg PO BID 01/15/18 Metoprolol Tartrate [Lopressor -] 100 mg PO BID #60 tablet 01/31/18 Review of Systems Unable to obtain ROS, reason: intubated Physical Exam-GI Vital Signs: Vital Signs Temperature 97.4 F L 01/14/20 10:44 Pulse Rate 121 H 01/14/20 10:44 Respiratory Rate 20 01/14/20 10:44 Blood Pressure 121/89 01/14/20 10:44 O2 Sat by Pulse Oximetry (%) 98 01/14/20 10:44 Constitutional: Yes: Other (intubated) Eyes: No: Sclera Icterus Cardiovascular: Yes: Tachycardia, Pulse Irregular Gastrointestinal Inspection: No: Distention Edema: No (No LE edema) Labs: CBC, BMP 01/14/20 05:00 01/14/20 06:00 INR, PTT INR 2.09 (0.83-1.09) H 01/08/20 12:00 Assessment/Plan Alcoholic liver disease: Advise: Obtain information from PMD if outpatient work-up of his liver disease has ever been performed, including upper endoscopy to exclude varices Obtain screening hepatitis seroloigies (Hepatitis A/B panel, HCV diagnostic) Obtain abdominal US to evaluate liver parenchyma and assess for ascites If he hasn't had an upper endoscopy would benefit from EGD to screen for varices. If significant esophageal/gastric varices, anticoagulation would need to be reconsidered Unclear if coagulopathy from liver disease, NOAC or combination. Check PT/PTT Ammonia is elevated, 11 days into admission. Lactulose 20g BID Monitor mental status exam
--- NOTE | 2020-01-14 12:19 | PN ---
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 (short form) - Note 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: events noted pt examined in ICU spoke with [employer] off sedation today he is awake- not over breathing the vent opens eyes when called Vital Signs - 24 hr 01/13/20 01/13/20 01/13/20 14:00 15:39 16:00 Temperature 100.3 F H Pulse Rate 129 H 133 H Respiratory 14 18 13 Rate Blood Pressure 107/83 117/95 O2 Sat by Pulse 98 99 98 Oximetry (%) 01/13/20 01/13/20 01/13/20 18:00 20:00 20:31 Temperature 100.5 F H 100.4 F H Pulse Rate 136 H 144 H Respiratory 13 17 Rate Blood Pressure 109/81 105/75 O2 Sat by Pulse 98 100 100 Oximetry (%) 01/13/20 01/13/20 01/13/20 20:33 20:35 22:00 Temperature 99.6 F Pulse Rate 132 H Respiratory 13 13 14 Rate Blood Pressure 127/94 O2 Sat by Pulse 100 99 100 Oximetry (%) 01/13/20 01/14/20 01/14/20 23:56 00:00 02:00 Temperature 99.1 F Pulse Rate 135 H 128 H Respiratory 17 14 14 Rate Blood Pressure 123/94 106/86 O2 Sat by Pulse 104 H 100 Oximetry (%) 01/14/20 01/14/20 01/14/20 04:00 06:00 08:00 Temperature 98.7 F Pulse Rate 93 H 112 H 112 H Respiratory 14 18 14 Rate Blood Pressure 142/73 108/85 99/79 O2 Sat by Pulse 100 Oximetry (%) 01/14/20 01/14/20 01/14/20 08:24 08:50 10:44 Temperature 97.4 F L Pulse Rate 121 H Respiratory 14 15 20 Rate Blood Pressure 121/89 O2 Sat by Pulse 100 100 98 Oximetry (%) 01/14/20 01/14/20 12:00 12:07 Temperature Pulse Rate 131 H Respiratory 20 14 Rate Blood Pressure 121/90 O2 Sat by Pulse 99 98 Oximetry (%) Current Medications Generic Name Dose Route Start Last Admin Trade Name Freq PRN Reason Stop Dose Admin Acetaminophen 1,000 mg 01/13/20 20:24 Ofirmev Injection - IVPB 01/15/20 23:00 Q6H PRN FEVER Albuterol Sulfate 2 puff 01/04/20 05:39 Ventolin Hfa Inhaler - IH Q4H PRN SHORT OF BREATH/WHEEZING Amino Acids 30 ml 01/08/20 12:45 01/14/20 09:14 Prosource No Carb Liquid Pkt PO 30 ml DAILY [facility] Administration Apixaban 5 mg 01/04/20 08:00 01/14/20 09:14 Eliquis - PO 5 mg BID [facility] Administration Chlorhexidine Gluconate 1 applic 01/04/20 22:00 01/13/20 21:47 Hibiclens For Decolonization - TP 1 applic HS [facility] Administration Folic Acid 1 mg 01/05/20 10:00 01/14/20 09:14 Folic Acid - PO 1 mg DAILY [facility] Administration Ceftazidime 1 gm/ Dextrose 50 mls @ 100 mls/hr 01/06/20 11:45 01/14/20 09:11 IVPB 100 mls/hr Q8H-IV [facility] Administration Protocol Fentanyl 500 mcg in 100 mls @ 10 mls/hr 01/12/20 18:15 01/14/20 06:14 Sublimaze Ivpb IVPB 50 mcg/hr TITR [facility] 10 mls/hr Administration Protocol 50 MCG/HR Propofol 1,000,000 mcg in 100 mls @ 2.947 mls/hr 01/14/20 05:30 01/14/20 06:14 Diprivan - IVPB 10 mcg/kg/min TITR [facility] 5.895 mls/hr Administration Protocol 5 MCG/KG/MIN Lactulose 20 gm 01/14/20 11:30 01/14/20 11:34 Cephulac (Oral Use) PO 20 gm BID [facility] Administration Levetiracetam 1,000 mg 01/06/20 22:00 01/14/20 09:14 Keppra Injection - IVPB 1,000 mg BID [facility] Administration Lisinopril 2.5 mg 01/04/20 10:00 01/14/20 09:15 Prinivil PO 2.5 mg DAILY [facility] Administration Metoprolol Tartrate 50 mg 01/13/20 10:30 01/14/20 06:15 Lopressor - PO 50 mg TID [facility] Administration Pantoprazole Sodium 40 mg 01/04/20 10:00 01/14/20 09:13 Protonix Iv IVPUSH 40 mg DAILY [facility] Administration Thiamine HCl 100 mg 01/05/20 10:00 01/14/20 09:14 Vitamin B1 - PO 100 mg DAILY [facility] Administration Laboratory Results - last 24 hr 01/14/20 01/14/20 01/14/20 05:00 05:00 06:00 WBC 16.9 H RBC 3.48 L Hgb 12.2 Hct 36.8 MCV 105.8 H MCH 35.2 H MCHC 33.3 RDW 14.0 Plt Count 176 D MPV 10.1 Anticoagulation Therapy Puncture Site Patient Temperature ABG pH ABG pCO2 ABG pO2 ABG HCO3 ABG O2 Sat (Measured) ABG O2 Content ABG Base Excess Nnamdi Test Patient On Oxygen O2 Delivery Device Oxygen Flow Rate Vent Mode Vent Rate Mechanical Rate PEEP Pressure Support Vent Sodium 143 Potassium 3.6 Chloride 106 Carbon Dioxide 32 Anion Gap 4 L BUN 16.0 Creatinine 0.6 Est GFR (CKD-EPI)AfAm 133.98 Est GFR (CKD-EPI)NonAf 115.60 Random Glucose 112 H Calcium 7.9 L Phosphorus 3.1 Magnesium 1.6 L Total Bilirubin 1.7 H AST 78 H ALT 36 Alkaline Phosphatase 70 Ammonia 87.00 H Total Protein 6.7 Albumin 2.0 L 01/14/20 06:15 WBC RBC Hgb Hct MCV MCH MCHC RDW Plt Count MPV Anticoagulation Therapy No Result Required. Puncture Site Arterial line Patient Temperature No Result Required. ABG pH 7.491 H ABG pCO2 37.30 ABG pO2 103.0 H ABG HCO3 27.9 H ABG O2 Sat (Measured) 98.1 H ABG O2 Content No Result Required. ABG Base Excess 4.4 H Nnamdi Test Positive Patient On Oxygen Yes O2 Delivery Device Vent Oxygen Flow Rate 50 Vent Mode A/c Vent Rate 14 Mechanical Rate No Result Required. PEEP 8.0 Pressure Support Vent 450 Sodium Potassium Chloride Carbon Dioxide Anion Gap BUN Creatinine Est GFR (CKD-EPI)AfAm Est GFR (CKD-EPI)NonAf Random Glucose Calcium Phosphorus Magnesium Total Bilirubin AST ALT Alkaline Phosphatase Ammonia Total Protein Albumin Microbiology 01/12/20 18:30 Gram Stain - Final Sputum - Endotrachea Suction/Ventilator Sputum Culture - Preliminary NORMAL RESPIRATORY PHILL 01/12/20 18:40 Blood Culture - Preliminary Blood - Peripheral Venous NO GROWTH OBTAINED AFTER 24 HOURS, INCUBATION TO CONTINUE FOR 4 DAYS. 01/12/20 18:30 Blood Culture - Preliminary Blood - Peripheral Venous NO GROWTH OBTAINED AFTER 24 HOURS, INCUBATION TO CONTINUE FOR 4 DAYS. 01/08/20 12:00 Blood Culture - Final Blood - Peripheral Venous NO GROWTH AFTER 5 DAYS INCUBATION 01/08/20 11:30 Blood Culture - Final Blood - Peripheral Venous NO GROWTH AFTER 5 DAYS INCUBATION Constitutional: Yes: Other Neck: Yes: Supple Cardiovascular: Yes: Pulse Irregular Respiratory: Yes: Diminished, intubated on vent Gastrointestinal: Yes: Soft Genitourinary: Yes: Vo Present Edema: yes PLAN IV antibiotics per ID clinimix ON Iv Keppra for seizure prophylaxis - off sedation --he is more awake -- noted low grade temps seizures due to alcohol withdrawal platelets better ammonia levels high-- GI consulted repeated blood cultures-- negative weaning per ICU Problem List - Problems (1) Alcohol dependence Code(s): F10.20 - ALCOHOL DEPENDENCE, UNCOMPLICATED Qualifiers: Substance use status: other alcohol-induced disorder Qualified Code(s): F10.288 - Alcohol dependence with other alcohol-induced disorder (2) Pneumonia Code(s): J18.9 - PNEUMONIA, UNSPECIFIED ORGANISM Qualifiers: Pneumonia type: due to unspecified organism Laterality: left Lung location: lower lobe of lung Qualified Code(s): J18.9 - Pneumonia, unspecified organism (3) Respiratory failure Code(s): J96.90 - RESPIRATORY FAILURE, UNSP, UNSP W HYPOXIA OR HYPERCAPNIA (4) Weakness Code(s): R53.1 - WEAKNESS (5) Alcohol abuse Code(s): F10.10 - ALCOHOL ABUSE, UNCOMPLICATED (6) Alcohol dependence with uncomplicated withdrawal Code(s): F10.230 - ALCOHOL DEPENDENCE WITH WITHDRAWAL, UNCOMPLICATED (7) Atrial fibrillation Code(s): I48.91 - UNSPECIFIED ATRIAL FIBRILLATION Qualifiers: Atrial fibrillation type: unspecified Qualified Code(s): I48.91 - Unspecified atrial fibrillation (8) HTN (hypertension) Code(s): I10 - ESSENTIAL (PRIMARY) HYPERTENSION Qualifiers: Hypertension type: essential hypertension Qualified Code(s): I10 - Essential (primary) hypertension
[2020-01-14] MEDS: LACTULOSE 20 GM/30 ML UDC (FOR ORAL USE ONLY) NGT SCH ×2 (13:18→21:46)
--- NOTE | 2020-01-14 14:26 | PN ---
Teaching Attending Note Name of Resident: Ruddy Colby ATTENDING PHYSICIAN STATEMENT I saw and evaluated the patient. I reviewed the resident's note and discussed the case with the resident. I agree with the resident's findings and plan as documented. SUBJECTIVE: Patient seen and examined in the ICU. Remains intubated. Aroisable to voice. Able to follow simple commands. No pressors. AC Mode of vent, 50% FiO2. Intake & Output 01/11/20 01/12/20 01/13/20 01/14/20 23:59 23:59 23:59 23:59 Intake Total 1520.1 2009 1870 605 Output Total 3100 2400 2350 500 Balance -1579.9 -390 -480 105 Weight 232 lb 12.93 oz 216 lb 1.6 oz 216 lb 9.6 oz 211 lb 14.4 oz Last Vital Signs Temp Pulse Resp BP Pulse Ox 97.4 F L 131 H 14 121/90 98 01/14/20 10:44 01/14/20 12:00 01/14/20 12:07 01/14/20 12:00 01/14/20 12:07 Active Medications Acetaminophen (Ofirmev Injection -) 1,000 mg IVPB Q6H PRN PRN Reason: FEVER Stop: 01/15/20 23:00 Albuterol Sulfate (Ventolin Hfa Inhaler -) 2 puff IH Q4H PRN PRN Reason: SHORT OF BREATH/WHEEZING Amino Acids (Prosource No Carb Liquid Pkt) 30 ml PO DAILY [facility] Last Admin: 01/14/20 09:14 Dose: 30 ml Documented by: Apixaban (Eliquis -) 5 mg PO BID [facility] Last Admin: 01/14/20 09:14 Dose: 5 mg Documented by: Chlorhexidine Gluconate (Hibiclens For Decolonization -) 1 applic TP HS [facility] Last Admin: 01/13/20 21:47 Dose: 1 applic Documented by: Folic Acid (Folic Acid -) 1 mg PO DAILY [facility] Last Admin: 01/14/20 09:14 Dose: 1 mg Documented by: Ceftazidime 1 gm/ Dextrose 50 mls @ 100 mls/hr IVPB Q8H-IV [facility]; Protocol Last Admin: 01/14/20 09:11 Dose: 100 mls/hr Documented by: Fentanyl (Sublimaze Ivpb) 500 mcg in 100 mls @ 10 mls/hr IVPB TITR [facility]; Protocol Last Admin: 01/14/20 06:14 Dose: 50 mcg/hr, 10 mls/hr Documented by: Propofol (Diprivan -) 1,000,000 mcg in 100 mls @ 2.947 mls/hr IVPB TITR [facility]; Protocol Last Admin: 01/14/20 06:14 Dose: 10 mcg/kg/min, 5.895 mls/hr Documented by: Lactulose (Cephulac (Oral Use)) 20 gm NGT BID [facility] Last Admin: 01/14/20 13:18 Dose: Not Given Documented by: Levetiracetam (Keppra Injection -) 1,000 mg IVPB BID [facility] Last Admin: 01/14/20 09:14 Dose: 1,000 mg Documented by: Lisinopril (Prinivil) 2.5 mg PO DAILY [facility] Last Admin: 01/14/20 09:15 Dose: 2.5 mg Documented by: Metoprolol Tartrate (Lopressor -) 50 mg PO TID [facility] Last Admin: 01/14/20 14:22 Dose: 50 mg Documented by: Pantoprazole Sodium (Protonix Iv) 40 mg IVPUSH DAILY [facility] Last Admin: 01/14/20 09:13 Dose: 40 mg Documented by: Thiamine HCl (Vitamin B1 -) 100 mg PO DAILY [facility] Last Admin: 01/14/20 09:14 Dose: 100 mg Documented by: Gen: intubated, Drowsy but arousable and able to follow commands Heart: RRR Lung: Vented, scattered rhonchi Abd: soft, nontender Ext: + dependent edema throughout Laboratory Results - last 24 hr 01/14/20 01/14/20 01/14/20 05:00 05:00 06:00 WBC 16.9 H RBC 3.48 L Hgb 12.2 Hct 36.8 MCV 105.8 H MCH 35.2 H MCHC 33.3 RDW 14.0 Plt Count 176 D MPV 10.1 Anticoagulation Therapy Puncture Site Patient Temperature ABG pH ABG pCO2 ABG pO2 ABG HCO3 ABG O2 Sat (Measured) ABG O2 Content ABG Base Excess Nnamdi Test Patient On Oxygen O2 Delivery Device Oxygen Flow Rate Vent Mode Vent Rate Mechanical Rate PEEP Pressure Support Vent Sodium 143 Potassium 3.6 Chloride 106 Carbon Dioxide 32 Anion Gap 4 L BUN 16.0 Creatinine 0.6 Est GFR (CKD-EPI)AfAm 133.98 Est GFR (CKD-EPI)NonAf 115.60 Random Glucose 112 H Calcium 7.9 L Phosphorus 3.1 Magnesium 1.6 L Total Bilirubin 1.7 H AST 78 H ALT 36 Alkaline Phosphatase 70 Ammonia 87.00 H Total Protein 6.7 Albumin 2.0 L 01/14/20 06:15 WBC RBC Hgb Hct MCV MCH MCHC RDW Plt Count MPV Anticoagulation Therapy No Result Required. Puncture Site Arterial line Patient Temperature No Result Required. ABG pH 7.491 H ABG pCO2 37.30 ABG pO2 103.0 H ABG HCO3 27.9 H ABG O2 Sat (Measured) 98.1 H ABG O2 Content No Result Required. ABG Base Excess 4.4 H Nnamdi Test Positive Patient On Oxygen Yes O2 Delivery Device Vent Oxygen Flow Rate 50 Vent Mode A/c Vent Rate 14 Mechanical Rate No Result Required. PEEP 8.0 Pressure Support Vent 450 Sodium Potassium Chloride Carbon Dioxide Anion Gap BUN Creatinine Est GFR (CKD-EPI)AfAm Est GFR (CKD-EPI)NonAf Random Glucose Calcium Phosphorus Magnesium Total Bilirubin AST ALT Alkaline Phosphatase Ammonia Total Protein Albumin ASSESSMENT AND PLAN: Acute Hypoxic Respiratory Failure Pneumonia likely Aspiration Resolved Septic Shock Lactic Acidosis Atrial Fibrillation Alcohol Abuse Thrombocytopenia Seizures - r/o Alcohol Withdrawal HTN - Spontaneous breathing trials as tolerated. If cannot be weaned Trach con versation has already been addressed with his - Pulmonary toileting - Currently off pressors, keep MAP >65 - Metoprolol for rate control - continue antibiotics as per ID - Continue daily lasix to keep net negative - monitor urine output - Trend and replete lytes - continue anticoagulation with Apixaban - enteral feeds - DVT/GI prophylaxis - Requires continued ICU monitoring Dr Carmen Critical care time spent in reviewing chart, evaluating patient and formulating plan - 36 minutes.
--- NOTE | 2020-01-14 15:31 | PN ---
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 (short form) - Note 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: 54 year old male history of atrial fibrillation, alcohol abuse. htn. He was seen his at bed side. He came to hospital on january 03. He was brought to hospital for seizure. He has been drinking heavy and he has history of hepatomegaly and fatty liver. Patient was intubated , for airway protection and pneumonia and covid negative. He has ct head on january 05 it was negative. He is intubatd. -- No more clinical seizure, more reponsive, opens eye and able to move his arm and squeeze NEUROLOGICAL EXAMINATION Patient is intubated reponse to painful stimuli, opens eye, and was able to squeeze pupils reactive, dolls eye movement present no face asymmetry gag and corneal reflex is present\ neck is supple ct head is normal and repeat on january 09 was unchanged eeg showed shparp wave activity repeat eeg is pending Assessment/Plan 54 year old male history of alcohol abuse, atrial fibrillation and htn. He came with alcohol withdrawal seizure. Ct head is negative. Supect alcohol withdrawal seizure. - he is more reponsive now eeg showed sharp wave activity , repeat eeg is pending Plan:-- continue keppra 1 gm iv bid, patient is more responsive now , off sedation - continue supportive care, -cc time 35 minute Thanking you so much Dilan Don MD
[2020-01-14] MEDS ORDERED: DEXMEDETOMIDINE HCL 200 MCG in SODIUM CHLORIDE 48 ML IVPB SCH (16:00)
[2020-01-14] MEDS ORDERED: DEXMEDETOMIDINE IN 0.9 % NACL 400 MCG/100 ML VIAL IVPB SCH (18:45)
[2020-01-14] MEDS: CHLORHEXIDINE GLUCONATE 4% CLEANSER FOR DECOLONIZATION TP SCH (21:46)
--- NOTE | 2020-01-14 22:04 | PN ---
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, Physician History of Present Illness: MORE AWAKE AND ALERT FOLLOWS SIMPLE COMMANDS NO ACUTE DISTRESS LOW GRADE TEMP WBC SL ELEVATED NO FURTHER SEIZURES REPORTED BC ACINETOBACTER CXR LLL INFILTRATE - Current Medication List Current Medications: Active Medications Acetaminophen (Ofirmev Injection -) 1,000 mg IVPB Q6H PRN PRN Reason: FEVER Stop: 01/15/20 23:00 Albuterol Sulfate (Ventolin Hfa Inhaler -) 2 puff IH Q4H PRN PRN Reason: SHORT OF BREATH/WHEEZING Amino Acids (Prosource No Carb Liquid Pkt) 30 ml PO DAILY [facility] Last Admin: 01/14/20 09:14 Dose: 30 ml Documented by: Apixaban (Eliquis -) 5 mg PO BID [facility] Last Admin: 01/14/20 21:46 Dose: 5 mg Documented by: Chlorhexidine Gluconate (Hibiclens For Decolonization -) 1 applic TP HS [facility] Last Admin: 01/14/20 21:46 Dose: 1 applic Documented by: Folic Acid (Folic Acid -) 1 mg PO DAILY [facility] Last Admin: 01/14/20 09:14 Dose: 1 mg Documented by: Ceftazidime 1 gm/ Dextrose 50 mls @ 100 mls/hr IVPB Q8H-IV [facility]; Protocol Last Admin: 01/14/20 17:26 Dose: 100 mls/hr Documented by: Fentanyl (Sublimaze Ivpb) 500 mcg in 100 mls @ 10 mls/hr IVPB TITR [facility]; Protocol Last Admin: 01/14/20 21:44 Dose: 50 mcg/hr, 10 mls/hr Documented by: Propofol (Diprivan -) 1,000,000 mcg in 100 mls @ 2.947 mls/hr IVPB TITR [facility]; Protocol Last Admin: 01/14/20 06:14 Dose: 10 mcg/kg/min, 5.895 mls/hr Documented by: Dexmedetomidine/Sodium Chloride (Precedex 400 Mcg/100 Ml Inject) 400 mcg in 100 mls @ 4.806 mls/hr IVPB TITR [facility] Last Admin: 01/14/20 21:45 Dose: 0.5 mcg/kg/hr, 12.015 mls/hr Documented by: Lactulose (Cephulac (Oral Use)) 20 gm NGT BID [facility] Last Admin: 01/14/20 21:46 Dose: 20 gm Documented by: Levetiracetam (Keppra Injection -) 1,000 mg IVPB BID [facility] Last Admin: 01/14/20 21:46 Dose: 1,000 mg Documented by: Lisinopril (Prinivil) 2.5 mg PO DAILY [facility] Last Admin: 01/14/20 09:15 Dose: 2.5 mg Documented by: Metoprolol Tartrate (Lopressor -) 50 mg PO TID [facility] Last Admin: 01/14/20 21:47 Dose: 50 mg Documented by: Pantoprazole Sodium (Protonix Iv) 40 mg IVPUSH DAILY [facility] Last Admin: 01/14/20 09:13 Dose: 40 mg Documented by: Thiamine HCl (Vitamin B1 -) 100 mg PO DAILY [facility] Last Admin: 01/14/20 09:14 Dose: 100 mg Documented by: - Objective Vital Signs: Vital Signs Temperature 98.5 F 01/14/20 18:00 Pulse Rate 127 H 01/14/20 18:00 Respiratory Rate 18 01/14/20 20:00 Blood Pressure 120/83 01/14/20 18:00 O2 Sat by Pulse Oximetry (%) 98 01/14/20 20:00 Constitutional: Yes: No Distress Cardiovascular: Yes: Regular Rate and Rhythm, S1, S2 Respiratory: Yes: Mechanically Ventilated Gastrointestinal: Yes: Normal Bowel Sounds, Soft Edema: No Labs: CBC, BMP 01/14/20 05:00 01/14/20 06:00 INR, PTT INR 2.09 (0.83-1.09) H 01/08/20 12:00 Assessment/Plan RESP FAILURE GRAM NEGATIVE SEPSIS ACINETOBACTER PROBABLE ASP PNEUMONIA LACTIC ACIDOSIS RESOLVED THROMBOCYTOPENIA IMPROVED CONTINUE CEFTAZIDIME 1GM Q8H VENTILATORY SUPPORT
[2020-01-15] MEDS ORDERED: PT OWN MED DRAWER 7, Y5N ONE ×3 (02:14→16:49)
[2020-01-15] MEDS: CEFTAZIDIME PENTAHYDRATE 1 GM in DEXTROSE 5%-WATER - 50 ML IVPB SCH ×3 (02:19→17:41)
[2020-01-15] MEDS: METOPROLOL TARTRATE 25 MG TABLET (FP) PO SCH ×3 (05:17→22:02)
[2020-01-15] MEDS: PROPOFOL 1,000,000 MCG/100 ML VIAL IVPB SCH (06:00)
[2020-01-15 07:00] LABS: INR 2.49 (0.83-1.09); PROTHROMBIN TIME (PATIENT) 29.7 SEC (9.7-13.0)
[2020-01-15 07:02] LABS: HEMOGLOBIN 11.5 GM/dL (11.7-16.9); MEAN CELL VOLUME 105.9 fl (80-96); MEAN PLT VOLUME 10.3 fl (7.5-11.1); PLATELET COUNT 154 K/MM3 (134-434); RBC 3.21 M/mm3 (4.00-5.60); RDW 13.4 % (11.9-15.9); WHITE BLOOD COUNT 12.5 K/mm3 (4.0-10.0)
[2020-01-15 07:03] LABS: ACTIVATED PTT 43.5 SECONDS (25.2-36.5)
[2020-01-15 07:09] LABS: ALBUMIN 1.9 g/dl (3.4-5.0); BILIRUBIN,TOTAL 1.4 mg/dL (0.2-1); BLOOD UREA NITROGEN 16.7 mg/dL (7-18); CALCIUM 7.5 mg/dL (8.5-10.1); CREATININE 0.5 mg/dL (0.55-1.3); MAGNESIUM 1.9 mg/dL (1.8-2.4); PHOSPHOROUS 2.8 mg/dL (2.5-4.9); TOT PROT 6.2 g/dl (6.4-8.2)
--- NOTE | 2020-01-15 07:15 | PN.GI ---
GI 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 Subjective: PER STAFF - PT MAY BE EXTUBATED TODAY -- FEEDS ON HOLD; PT AWAKENING FROM SEDATION; NO REPORT OF GI BLEED - Objective Vital Signs: Vital Signs Temperature 98.1 F 01/15/20 06:00 Pulse Rate 99 H 01/15/20 06:00 Respiratory Rate 14 01/15/20 06:00 Blood Pressure 97/75 01/15/20 06:00 O2 Sat by Pulse Oximetry (%) 96 01/15/20 06:00 Constitutional: Well Nourished, No Distress, Calm Eyes: Yes: WNL HENT: Yes: WNL Cardiovascular: Yes: WNL Respiratory: Yes: WNL, Regular, CTA Bilaterally Gastrointestinal Inspection: Yes: WNL ...Auscultate: Yes: Normoactive Bowel Sounds Labs: CBC, BMP 01/15/20 06:45 01/15/20 05:36 INR, PTT INR 2.49 (0.83-1.09) H 01/15/20 05:36 Problem List - Problems (1) Liver disease due to alcohol Assessment/Plan: C/W LACTULOSE MONITOR H/H DAILY F/U LIVER SEROLOGY FOR CHRONIC DISEASE -- PENDING RESULTS AT THIS TIME OBTAIN REPORTS FROM PREVIOUS EGD ?? VARICES IF SO WILL NEED TO RE-ADDRESS A/C IN THIS PT. F/U LIVER SONOGRAM F/U INR EXTUBATION PER MICU TEAM Code(s): K70.9 - ALCOHOLIC LIVER DISEASE, UNSPECIFIED (2) Alcohol dependence Code(s): F10.20 - ALCOHOL DEPENDENCE, UNCOMPLICATED Qualifiers: Substance use status: other alcohol-induced disorder Qualified Code(s): F10.288 - Alcohol dependence with other alcohol-induced disorder (3) Respiratory failure Code(s): J96.90 - RESPIRATORY FAILURE, UNSP, UNSP W HYPOXIA OR HYPERCAPNIA
[2020-01-15] MEDS ORDERED: POTASSIUM CHLORIDE ORAL LIQUID 20 MEQ/15 ML PO ONE (08:15)
[2020-01-15] MEDS ORDERED: POTASSIUM CHLORIDE 20 MEQ PREMIX IVPB 100 ML IVPB ONE (09:00)
[2020-01-15] MEDS: LACTULOSE 20 GM/30 ML UDC (FOR ORAL USE ONLY) NGT SCH ×2 (09:03→22:03)
[2020-01-15] MEDS: PANTOPRAZOLE SODIUM 40 MG VIAL IVPUSH SCH (09:03)
[2020-01-15] MEDS: LISINOPRIL 5 MG TABLET PO SCH (09:04)
[2020-01-15] MEDS: APIXABAN 5 MG TABLET PO SCH ×2 (09:04→22:01)
[2020-01-15] MEDS: levETIRAcetam 500 MG/5 ML INJECTION VIAL IVPB SCH ×2 (09:04→22:03)
[2020-01-15] MEDS: AMINO ACIDS/PROTEIN HYDROLYS 30 ML LIQUID.PKT PO SCH (09:04)
[2020-01-15] MEDS: FOLIC ACID 1 MG TABLET (FP) PO SCH (09:04)
[2020-01-15] MEDS: THIAMINE HCL 100 MG TABLET (FP) PO SCH (09:04)
[2020-01-15 09:08] LABS: POTASSIUM 2.9 mmol/L (3.5-5.1)
[2020-01-15] MEDS ORDERED: KCL 10 MEQ IVPB 10 MEQ/100 ML INFUS.BAG IVPB SCH (09:15)
[2020-01-15] MEDS: ACETAMINOPHEN 1000 MG/100 ML VIAL (NON FORMULARY) IVPB PRN ×2 (09:54→22:04)
--- NOTE | 2020-01-15 10:03 | PN ---
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, Physician Chief Complaint: Extubated History of Present Illness: Mr is a 54 YO white man with PMHx h/o acute/chronic alcohol abuse, diastolic CHF (02/08 ECHO; mild AR; mild biatrial enlargement), HTN, AFIB (on metoprolol and eliquis), now presents with weakness and lightheadedness. Patient suspects current syptoms are 2/2 alcohol withdrawal. Mentions that his last drink was 3 hours prior to arrival. Patients reports that the patient has been lightheaded and tremulous this afternoon prior to arrival. Patient also mentions mild productive cough. Denies fever, chills, chest pain, SOB, N/V/D. Denies recent travel of sick contacts. - Current Medication List Current Medications: Active Medications Acetaminophen (Ofirmev Injection -) 1,000 mg IVPB Q6H PRN PRN Reason: FEVER Stop: 01/15/20 23:00 Last Admin: 01/15/20 09:54 Dose: 1,000 mg Documented by: Albuterol Sulfate (Ventolin Hfa Inhaler -) 2 puff IH Q4H PRN PRN Reason: SHORT OF BREATH/WHEEZING Amino Acids (Prosource No Carb Liquid Pkt) 30 ml PO DAILY [facility] [place] Last Admin: 01/15/20 09:04 Dose: 30 ml Documented by: Apixaban (Eliquis -) 5 mg PO BID [facility] [place] Last Admin: 01/15/20 09:04 Dose: 5 mg Documented by: Chlorhexidine Gluconate (Hibiclens For Decolonization -) 1 applic TP HS [facility] [place] Last Admin: 01/14/20 21:46 Dose: 1 applic Documented by: Folic Acid (Folic Acid -) 1 mg PO DAILY [facility] Last Admin: 01/15/20 09:04 Dose: 1 mg Documented by: Ceftazidime 1 gm/ Dextrose 50 mls @ 100 mls/hr IVPB Q8H-IV [facility]; Protocol Last Admin: 01/15/20 09:55 Dose: 100 mls/hr Documented by: Fentanyl (Sublimaze Ivpb) 500 mcg in 100 mls @ 10 mls/hr IVPB TITR [facility]; Protocol Last Titration: 01/15/20 06:00 Dose: 0 mcg/hr, 0 mls/hr Documented by: Propofol (Diprivan -) 1,000,000 mcg in 100 mls @ 2.947 mls/hr IVPB TITR [facility]; Protocol Last Titration: 01/15/20 06:00 Dose: 0 mcg/kg/min, 0 mls/hr Documented by: Dexmedetomidine/Sodium Chloride (Precedex 400 Mcg/100 Ml Inject) 400 mcg in 100 mls @ 4.806 mls/hr IVPB TITR [facility] Last Admin: 01/14/20 21:45 Dose: 0.5 mcg/kg/hr, 12.015 mls/hr Documented by: Potassium Chloride (Potassium Chloride 10 Meq Premix Ivpb -) 10 meq in 100 mls @ 100 mls/hr IVPB Q60M [facility] [place] Stop: 01/15/20 12:14 Lactulose (Cephulac (Oral Use)) 20 gm NGT BID [facility] [place] Last Admin: 01/15/20 09:03 Dose: 20 gm Documented by: Levetiracetam (Keppra Injection -) 1,000 mg IVPB BID [facility] [place] Last Admin: 01/15/20 09:04 Dose: 1,000 mg Documented by: Lisinopril (Prinivil) 2.5 mg PO DAILY [facility] [place] Last Admin: 01/15/20 09:04 Dose: 2.5 mg Documented by: Metoprolol Tartrate (Lopressor -) 50 mg PO TID [facility] [place] Last Admin: 01/15/20 05:17 Dose: 50 mg Documented by: Pantoprazole Sodium (Protonix Iv) 40 mg IVPUSH DAILY [facility] Last Admin: 01/15/20 09:03 Dose: 40 mg Documented by: Thiamine HCl (Vitamin B1 -) 100 mg PO DAILY [facility] [place] Last Admin: 01/15/20 09:04 Dose: 100 mg Documented by: - Objective Vital Signs: Vital Signs Temperature 98.1 F 01/15/20 06:00 Pulse Rate 115 H 01/15/20 08:09 Respiratory Rate 18 01/15/20 08:07 Blood Pressure 97/75 01/15/20 06:00 O2 Sat by Pulse Oximetry (%) 97 01/15/20 08:09 Eyes: Yes: WNL, Conjunctiva Clear, EOM Intact HENT: Yes: WNL, Atraumatic, Normocephalic Neck: Yes: WNL, Supple, Trachea Midline Cardiovascular: Yes: Pulse Irregular Respiratory: Yes: WNL, Regular, Diminished Gastrointestinal: Yes: WNL, Normal Bowel Sounds Genitourinary: Yes: WNL Musculoskeletal: Yes: WNL Extremities: Yes: WNL Edema: No Integumentary: Yes: WNL Labs: CBC, BMP 01/15/20 06:45 01/15/20 05:36 INR, PTT INR 2.49 (0.83-1.09) H 01/15/20 05:36 Assessment/Plan Acute/chronic alcoholism Respiratory failure:intubated; mechanically ventilated; ? aspiration PNA. Acute systolic/diastolic CHF AF, with periods of RVR leukocytosis; symptoms of URI TSH WNL LDL cholesterol 67 mg/dL Plan: On metoprolol for HR control (and ECHO now shows systolic dysfunction); inc reased 01/13/20 to 50 mg tid for better HR control. Off pressors. ECHO: moderately reduced LVEF; normal LV size; mild-moderate RV dilatation, with mildly reduced RVEF; mild LAE. CXR: bilateral pleural changes, relatively unchanged. On lisinopril 2.5 mg daily; increase dose as tolerated. Continue diuresis. F/u daily weight, Is and Os. Limit fluids. Replete Mg; keep K+ 4.0-4.5, Mg 2.0-2.4, PO4 2.5-4.9. Antibiotics per ID Continue detox protocol CC time spent 35 minutes
--- NOTE | 2020-01-15 10:49 | PN ---
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, Physician History of Present Illness: MORE AWAKE AND ALERT FOLLOWS SIMPLE COMMANDS WEANING ATTEMPTS IN PROGRESS NO ACUTE DISTRESS AFEBRILE WBC IMPROVED NO FURTHER SEIZURES REPORTED BC ACINETOBACTER CXR LLL INFILTRATE - Current Medication List Current Medications: Active Medications Acetaminophen (Ofirmev Injection -) 1,000 mg IVPB Q6H PRN PRN Reason: FEVER Stop: 01/15/20 23:00 Last Admin: 01/15/20 09:54 Dose: 1,000 mg Documented by: Albuterol Sulfate (Ventolin Hfa Inhaler -) 2 puff IH Q4H PRN PRN Reason: SHORT OF BREATH/WHEEZING Amino Acids (Prosource No Carb Liquid Pkt) 30 ml PO DAILY [facility] Last Admin: 01/15/20 09:04 Dose: 30 ml Documented by: Apixaban (Eliquis -) 5 mg PO BID [facility] Last Admin: 01/15/20 09:04 Dose: 5 mg Documented by: Chlorhexidine Gluconate (Hibiclens For Decolonization -) 1 applic TP HS [facility] Last Admin: 01/14/20 21:46 Dose: 1 applic Documented by: Folic Acid (Folic Acid -) 1 mg PO DAILY [facility] Last Admin: 01/15/20 09:04 Dose: 1 mg Documented by: Ceftazidime 1 gm/ Dextrose 50 mls @ 100 mls/hr IVPB Q8H-IV [facility]; Protocol Last Admin: 01/15/20 09:55 Dose: 100 mls/hr Documented by: Fentanyl (Sublimaze Ivpb) 500 mcg in 100 mls @ 10 mls/hr IVPB TITR [facility]; Protocol Last Titration: 01/15/20 06:00 Dose: 0 mcg/hr, 0 mls/hr Documented by: Propofol (Diprivan -) 1,000,000 mcg in 100 mls @ 2.947 mls/hr IVPB TITR [facility]; Protocol Last Titration: 01/15/20 06:00 Dose: 0 mcg/kg/min, 0 mls/hr Documented by: Dexmedetomidine/Sodium Chloride (Precedex 400 Mcg/100 Ml Inject) 400 mcg in 100 mls @ 4.806 mls/hr IVPB TITR [facility] Last Admin: 01/14/20 21:45 Dose: 0.5 mcg/kg/hr, 12.015 mls/hr Documented by: Potassium Chloride (Potassium Chloride 10 Meq Premix Ivpb -) 10 meq in 100 mls @ 100 mls/hr IVPB Q60M [facility] Stop: 01/15/20 12:14 Lactulose (Cephulac (Oral Use)) 20 gm NGT BID [facility] Last Admin: 01/15/20 09:03 Dose: 20 gm Documented by: Levetiracetam (Keppra Injection -) 1,000 mg IVPB BID [facility] Last Admin: 01/15/20 09:04 Dose: 1,000 mg Documented by: Lisinopril (Prinivil) 2.5 mg PO DAILY [facility] Last Admin: 01/15/20 09:04 Dose: 2.5 mg Documented by: Metoprolol Tartrate (Lopressor -) 50 mg PO TID [facility] Last Admin: 01/15/20 05:17 Dose: 50 mg Documented by: Pantoprazole Sodium (Protonix Iv) 40 mg IVPUSH DAILY [facility] Last Admin: 01/15/20 09:03 Dose: 40 mg Documented by: Thiamine HCl (Vitamin B1 -) 100 mg PO DAILY [facility] Last Admin: 01/15/20 09:04 Dose: 100 mg Documented by: - Objective Vital Signs: Vital Signs Temperature 98.1 F 01/15/20 06:00 Pulse Rate 115 H 01/15/20 08:09 Respiratory Rate 18 01/15/20 09:00 Blood Pressure 97/75 01/15/20 06:00 O2 Sat by Pulse Oximetry (%) 97 01/15/20 09:00 Constitutional: Yes: No Distress Neck: Yes: Thyromegaly Cardiovascular: Yes: S1, S2 Respiratory: Yes: Mechanically Ventilated Gastrointestinal: Yes: Normal Bowel Sounds, Soft. No: Tenderness Edema: Yes Labs: CBC, BMP 01/15/20 06:45 01/15/20 05:36 INR, PTT INR 2.49 (0.83-1.09) H 01/15/20 05:36 Assessment/Plan RESP FAILURE GRAM NEGATIVE SEPSIS ACINETOBACTER PROBABLE ASP PNEUMONIA LACTIC ACIDOSIS RESOLVED THROMBOCYTOPENIA RESOLVED CONTINUE CEFTAZIDIME 1GM Q8H VENTILATORY SUPPORT
[2020-01-15] MEDS: METOPROLOL TARTRATE 5 MG/5 ML VIAL IVPUSH PRN ×2 (11:30→19:48)
--- NOTE | 2020-01-15 12:41 | PN ---
Teaching Attending Note Name of Resident: Ruddy Colby ATTENDING PHYSICIAN STATEMENT I saw and evaluated the patient. I reviewed the resident's note and discussed the case with the resident. I agree with the resident's findings and plan as documented. SUBJECTIVE: Pt seen and examined in the ICU. Remains intubated, awake off sedation, followin g commands. Placed on CPAP/PS with good effort and RSBI so subsequently extubated to ventimask 40%. OBJECTIVE: Vital Signs Period Temp Pulse Resp BP Sys/Redman Pulse Ox Last 24 Hr 97.7 F-98.5 F 97-127 14-21 93-136/69-99 96-99 Intake & Output 01/12/20 01/13/20 01/14/20 01/15/20 23:59 23:59 23:59 23:59 Intake Total 20090 2243.8 743.6 Output Total 0 2350 2450 600 Balance -390 -480 -206.2 143.6 Weight 98.021 kg 98.248 kg 96.116 kg 99.427 kg Gen: extubated Heart: RRR Lung: scattered rhonchi Abd: soft, nontender Ext: + edema CBC, BMP 01/15/20 06:45 01/15/20 05:36 Active Medications Acetaminophen (Ofirmev Injection -) 1,000 mg IVPB Q6H PRN PRN Reason: FEVER Stop: 01/15/20 23:00 Last Admin: 01/15/20 09:54 Dose: 1,000 mg Documented by: Albuterol Sulfate (Ventolin Hfa Inhaler -) 2 puff IH Q4H PRN PRN Reason: SHORT OF BREATH/WHEEZING Amino Acids (Prosource No Carb Liquid Pkt) 30 ml PO DAILY [facility] Last Admin: 01/15/20 09:04 Dose: 30 ml Documented by: Apixaban (Eliquis -) 5 mg PO BID [facility] Last Admin: 01/15/20 09:04 Dose: 5 mg Documented by: Chlorhexidine Gluconate (Hibiclens For Decolonization -) 1 applic TP HS [facility] Last Admin: 01/14/20 21:46 Dose: 1 applic Documented by: Folic Acid (Folic Acid -) 1 mg PO DAILY [facility] Last Admin: 01/15/20 09:04 Dose: 1 mg Documented by: Ceftazidime 1 gm/ Dextrose 50 mls @ 100 mls/hr IVPB Q8H-IV [facility]; Protocol Last Admin: 01/15/20 09:55 Dose: 100 mls/hr Documented by: Fentanyl (Sublimaze Ivpb) 500 mcg in 100 mls @ 10 mls/hr IVPB TITR [facility]; Protocol Last Titration: 01/15/20 06:00 Dose: 0 mcg/hr, 0 mls/hr Documented by: Propofol (Diprivan -) 1,000,000 mcg in 100 mls @ 2.947 mls/hr IVPB TITR [facility]; Protocol Last Titration: 01/15/20 06:00 Dose: 0 mcg/kg/min, 0 mls/hr Documented by: Dexmedetomidine/Sodium Chloride (Precedex 400 Mcg/100 Ml Inject) 400 mcg in 100 mls @ 4.806 mls/hr IVPB TITR [facility] Last Admin: 01/14/20 21:45 Dose: 0.5 mcg/kg/hr, 12.015 mls/hr Documented by: Lactulose (Cephulac (Oral Use)) 20 gm NGT BID [facility] Last Admin: 01/15/20 09:03 Dose: 20 gm Documented by: Levetiracetam (Keppra Injection -) 1,000 mg IVPB BID [facility] Last Admin: 01/15/20 09:04 Dose: 1,000 mg Documented by: Lisinopril (Prinivil) 2.5 mg PO DAILY [facility] Last Admin: 01/15/20 09:04 Dose: 2.5 mg Documented by: Metoprolol Tartrate (Lopressor -) 50 mg PO TID [facility] Last Admin: 01/15/20 05:17 Dose: 50 mg Documented by: Metoprolol Tartrate (Lopressor Injection -) 5 mg IVPUSH Q4H PRN PRN Reason: HYPERTENSION Pantoprazole Sodium (Protonix Iv) 40 mg IVPUSH DAILY [facility] Last Admin: 01/15/20 09:03 Dose: 40 mg Documented by: Thiamine HCl (Vitamin B1 -) 100 mg PO DAILY [facility] Last Admin: 01/15/20 09:04 Dose: 100 mg Documented by: ASSESSMENT AND PLAN: Acute Hypoxic Respiratory Failure Pneumonia likely Aspiration Septic Shock Lactic Acidosis Atrial Fibrillation Alcohol Abuse Thrombocytopenia Seizures - r/o Alcohol Withdrawal HTN - pt extubated - continue antibiotics - monitor urine output, creatinine - rate control - continue anticoagulation - off pressors, maintain MAP >65 - DVT/GI prophylaxis - continue ICU monitoring critical care time spent in reviewing chart, evaluating patient and formulating plan 35 min
--- NOTE | 2020-01-15 13:56 | PN ---
Physical Exam: SUBJECTIVE: Patient seen and examined. Overnight, patient was biting the tube, so sedation was precedex was reintroduced. Had BM overnight, but no BM this morning. Patient was following commands, with vent settings at rate 14, TV 450, FIO2 40%,PEEP 5, Plat 17 and saturating at 96%. RSBI 31. Breathed well on CPAP, so patient was extubated and on ventimask 40%. OBJECTIVE: Vital Signs Period Temp Pulse Resp BP Sys/Redman Pulse Ox Last 24 Hr 97.7 F-100.1 F 97-128 13-21 93-136/69-99 96-99 GENERAL:awake. able to follow simple commands. extubated HEENT: Normal with no signs of trauma. PERRL, No ptosis. dry mucous membranes LUNGS: decreased breath sounds in bases, scattered rhonci no wheezes, no crackles, no accessory muscle use. HEART:irregular rate, S1, S2 without murmur, rub or gallop. ABDOMEN: Soft, nontender, nondistended, normoactive bowel sounds, no guarding, no rebound EXTREMITIES: 2+ pulses, warm, well-perfused, no edema. Laboratory Results - last 24 hr 01/15/20 01/15/20 01/15/20 05:36 05:36 05:36 WBC RBC Hgb Hct MCV MCH MCHC RDW Plt Count MPV PT with INR 29.70 H INR 2.49 H PTT (Actin FS) 43.5 H Sodium 144 Potassium 2.9 L* Chloride 106 Carbon Dioxide 33 H Anion Gap 5 L BUN 16.7 Creatinine 0.5 L Est GFR (CKD-EPI)AfAm 144.40 Est GFR (CKD-EPI)NonAf 124.59 Random Glucose 107 H Calcium 7.5 L Phosphorus 2.8 Magnesium 1.9 Total Bilirubin 1.4 H AST 65 H ALT 34 Alkaline Phosphatase 59 Ammonia 29.80 Total Protein 6.2 L Albumin 1.9 L 01/15/20 06:45 WBC 12.5 H RBC 3.21 L Hgb 11.5 L Hct 34.0 L MCV 105.9 H MCH 36.0 H MCHC 34.0 RDW 13.4 Plt Count 154 MPV 10.3 PT with INR INR PTT (Actin FS) Sodium Potassium Chloride Carbon Dioxide Anion Gap BUN Creatinine Est GFR (CKD-EPI)AfAm Est GFR (CKD-EPI)NonAf Random Glucose Calcium Phosphorus Magnesium Total Bilirubin AST ALT Alkaline Phosphatase Ammonia Total Protein Albumin Active Medications Generic Name Dose Route Start Last Admin Trade Name Freq PRN Reason Stop Dose Admin Acetaminophen 1,000 mg 01/13/20 20:24 01/15/20 09:54 Ofirmev Injection - IVPB 01/15/20 23:00 1,000 mg Q6H PRN Administration FEVER Albuterol Sulfate 2 puff 01/04/20 05:39 Ventolin Hfa Inhaler - IH Q4H PRN SHORT OF BREATH/WHEEZING Amino Acids 30 ml 01/08/20 12:45 01/15/20 09:04 Prosource No Carb Liquid Pkt PO 30 ml DAILY ALFRED Administration Apixaban 5 mg 01/04/20 08:00 01/15/20 09:04 Eliquis - PO 5 mg BID ALFRED Administration Chlorhexidine Gluconate 1 applic 01/04/20 22:00 01/14/20 21:46 Hibiclens For Decolonization - TP 1 applic HS ALFRED Administration Folic Acid 1 mg 01/05/20 10:00 01/15/20 09:04 Folic Acid - PO 1 mg DAILY ALFRED Administration Ceftazidime 1 gm/ Dextrose 50 mls @ 100 mls/hr 01/06/20 11:45 01/15/20 09:55 IVPB 100 mls/hr Q8H-IV ALFRED Administration Protocol Fentanyl 500 mcg in 100 mls @ 10 mls/hr 01/12/20 18:15 01/15/20 06:00 Sublimaze Ivpb IVPB 0 mcg/hr TITR ALFRED 0 mls/hr Titration Protocol 50 MCG/HR Propofol 1,000,000 mcg in 100 mls @ 2.947 mls/hr 01/14/20 05:30 01/15/20 06:00 Diprivan - IVPB 0 mcg/kg/min TITR ALFRED 0 mls/hr Titration Protocol 5 MCG/KG/MIN Dexmedetomidine/Sodium Chloride 400 mcg in 100 mls @ 4.806 mls/hr 01/14/20 18:45 01/15/20 12:39 Precedex 400 Mcg/100 Ml Inject IVPB 0 mcg/kg/hr TITR ALFRED 0 mls/hr Infusion 0.2 MCG/KG/HR Lactulose 20 gm 01/14/20 12:45 01/15/20 09:03 Cephulac (Oral Use) NGT 20 gm BID ALFRED Administration Levetiracetam 1,000 mg 01/06/20 22:00 01/15/20 09:04 Keppra Injection - IVPB 1,000 mg BID ALFRED Administration Lisinopril 2.5 mg 01/04/20 10:00 01/15/20 09:04 Prinivil PO 2.5 mg DAILY ALFRED Administration Metoprolol Tartrate 50 mg 01/13/20 10:30 01/15/20 05:17 Lopressor - PO 50 mg TID ALFRED Administration Metoprolol Tartrate 5 mg 01/15/20 11:05 01/15/20 11:30 Lopressor Injection - IVPUSH 5 mg Q4H PRN Administration HYPERTENSION Pantoprazole Sodium 40 mg 01/04/20 10:00 01/15/20 09:03 Protonix Iv IVPUSH 40 mg DAILY ALFRED Administration Thiamine HCl 100 mg 01/05/20 10:00 01/15/20 09:04 Vitamin B1 - PO 100 mg DAILY ALFRED Administration ASSESSMENT/PLAN: 54 year old M with PMH afib (on eliquis), alcohol use disorder , diastolic CHF (02/08 ECHO; mild AR; mild biatrial enlargement), HTN, AFIB presented with weakness, lightheadedness, shaking. Was given Librium 10mg, Ativan 1mg for alcohol withdrawal and found to have PNA on CXR. Admitted to ICU for Afib w/ RVR, now s/p Amio drip and respiratory failure with seizures. #Neuro - extubated today. Follows simple commands - Alcohol withdrawal seizures - continue with folic acid, thiamine daily -CTH: no significant change. moderate ventricular dilatation. generalized volume loss. mild periventricular chronic microvascular ischemic disease changes -EEG: sharp wave activity -c/w Keppra 1000 mg BID IVPB #Cardio AFib with RVR -s/p Amio drip. - off pressors . Maintain MAP >65 - continue with lopressor 50 mg TID. Tachycardic to 130s in the AM, so Lopressor 5 mg IV push Q4H PRN was added -c/w home eliquis 5 mg PO BID -given pt's history of alcohol use and elevated liver enzymes, hold off on starting PO amiodarone -EKG: afib, atrial rate 131 bpm, vent. rate 97 bpm, QTC 520 -ECHO: LV normal size. Moderate global LV systolic dysfunction. EF 40-45%. RV mild-moderately dilated. RV systoltic function mildly reduced. LA/RA mildly dilated. Mild aortic sclerosis. -Will consider POP and beta edwin once patient improves #Pulm -CXR (01/13/20): no significant changes. b/l pulmonary/pleural changes with prominent mediastinum -ABG (01/14/20) WNL -extubated #GI - NG in place - Protonix 40mg -AFP 3.8 WNL -H/o thrombocytopenia, h/o alcohol use disorder, previous PT/INR PTT were prolonged and prior ultrasound showed hepatomegaly (18.5 cm) with diffuse fatty infiltration of liver and contracted/thick walled gall bladder that could be related to hepatocellular disease. - AST/ALT decreased from 78/36 to 65/34. will continue to monitor -ammonia decreased from 87 to 29.8 -awaiting hepatitis serologies and abdominal US to evaluate for ascites and liver parenchyma -GI consulta appreciated. Would benefit from upper endoscopy to evaluate for varices. If varices are present, would consider stopping AC. -Lactulose 20g BID. Will uptitrate as needed #ID - PNA likely Aspiration - s/p Ceftriaxone/Azithroycin. s/p Zosyn 3.375 gm (01/03-01/05). -blood culture X2: acinetobacter baumannii/haemolo -Mycoplasma pnuemoniae IgG titer elevated at 180. Mycoplasma pneumoniae IgM titer is WNL <770. -sputum culture (01/03): non-lactose fermenting GNB: ochrobactrum anthropi -continue with CEFTAZIDIME 1GM Q8H (01/05) for gram neg sepsis 2/2 acinetobacter -(01/11) blood culture no growth -(01/11) sputum culture: non lactose fermenting Gnb #Renal - BUN/Cr 16/0.5 - Vo in place, making urine - 2243.8 Intake/2450 Output/ -206.2 mL Balance #Heme/Onc - Thrombocytopenia: resolved #FEN no IVF monitor lytes Jevity @50 ml/hr with H2O flush @20 ml/hr #Prophylaxis eliquis 5 mg PO BID Lines Left IJ triple lumen central catheter (01/12) ETT (01/03) Right radial A-line (01/11) #Dispo maintain ICU Visit type - Emergency Visit Emergency Visit: Yes ED Registration Date: 01/03/20 Care time: The patient presented to the Emergency Department on the above date and was hospitalized for further evaluation of their emergent condition. - New Patient This patient is new to me today: No - Critical Care Critical Care patient: No ATTENDING PHYSICIAN STATEMENT I saw and evaluated the patient. I reviewed the resident's note and discussed the case with the resident. I agree with the resident's findings and plan as documented. SUBJECTIVE: OBJECTIVE: ASSESSMENT AND PLAN:
--- NOTE | 2020-01-15 17:22 | PN ---
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 (short form) - Note 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: events noted pt examined in ICU extubated on ventimask Vital Signs - 24 hr 01/15/20 01/15/20 01/15/20 00:00 00:06 02:00 Temperature 97.7 F Pulse Rate 104 H 98 H Respiratory 14 14 14 Rate Blood Pressure 105/75 100/75 O2 Sat by Pulse 98 98 96 Oximetry (%) 01/15/20 01/15/20 01/15/20 04:00 04:25 06:00 Temperature 98.1 F Pulse Rate 97 H 99 H Respiratory 14 14 14 Rate Blood Pressure 97/70 97/75 O2 Sat by Pulse 96 97 96 Oximetry (%) 01/15/20 01/15/20 01/15/20 08:00 08:07 08:09 Temperature Pulse Rate 107 H 115 H Respiratory 13 18 Rate Blood Pressure 124/85 O2 Sat by Pulse 97 97 97 Oximetry (%) 01/15/20 01/15/20 01/15/20 09:00 10:00 11:17 Temperature 100.1 F H Pulse Rate 128 H Respiratory 18 15 16 Rate Blood Pressure 129/85 O2 Sat by Pulse 97 97 99 Oximetry (%) 01/15/20 01/15/20 01/15/20 11:18 11:30 11:47 Temperature Pulse Rate 123 H 124 H Respiratory 16 Rate Blood Pressure 119/93 O2 Sat by Pulse 99 99 Oximetry (%) 01/15/20 01/15/20 01/15/20 12:00 14:00 15:45 Temperature Pulse Rate 126 H 129 H 131 H Respiratory 17 12 Rate Blood Pressure 116/89 116/79 O2 Sat by Pulse 98 96 97 Oximetry (%) Laboratory Results - last 24 hr 01/15/20 01/15/20 01/15/20 05:36 05:36 05:36 WBC RBC Hgb Hct MCV MCH MCHC RDW Plt Count MPV PT with INR 29.70 H INR 2.49 H PTT (Actin FS) 43.5 H Sodium 144 Potassium 2.9 L* Chloride 106 Carbon Dioxide 33 H Anion Gap 5 L BUN 16.7 Creatinine 0.5 L Est GFR (CKD-EPI)AfAm 144.40 Est GFR (CKD-EPI)NonAf 124.59 Random Glucose 107 H Calcium 7.5 L Phosphorus 2.8 Magnesium 1.9 Total Bilirubin 1.4 H AST 65 H ALT 34 Alkaline Phosphatase 59 Ammonia 29.80 Total Protein 6.2 L Albumin 1.9 L 01/15/20 06:45 WBC 12.5 H RBC 3.21 L Hgb 11.5 L Hct 34.0 L MCV 105.9 H MCH 36.0 H MCHC 34.0 RDW 13.4 Plt Count 154 MPV 10.3 PT with INR INR PTT (Actin FS) Sodium Potassium Chloride Carbon Dioxide Anion Gap BUN Creatinine Est GFR (CKD-EPI)AfAm Est GFR (CKD-EPI)NonAf Random Glucose Calcium Phosphorus Magnesium Total Bilirubin AST ALT Alkaline Phosphatase Ammonia Total Protein Albumin Current Medications Generic Name Dose Route Start Last Admin Trade Name Freq PRN Reason Stop Dose Admin Albuterol Sulfate 2 puff 01/04/20 05:39 Ventolin Hfa Inhaler - IH Q4H PRN SHORT OF BREATH/WHEEZING Amino Acids 30 ml 01/08/20 12:45 01/15/20 09:04 Prosource No Carb Liquid Pkt PO 30 ml DAILY ALFRED Administration Apixaban 5 mg 01/04/20 08:00 01/15/20 22:01 Eliquis - PO 5 mg BID ALFRED Administration Chlorhexidine Gluconate 1 applic 01/04/20 22:00 01/15/20 22:03 Hibiclens For Decolonization - TP 1 applic HS ALFRED Administration Folic Acid 1 mg 01/05/20 10:00 01/15/20 09:04 Folic Acid - PO 1 mg DAILY ALFRED Administration Ceftazidime 1 gm/ Dextrose 50 mls @ 100 mls/hr 01/06/20 11:45 01/15/20 17:41 IVPB 100 mls/hr Q8H-IV ALFRED Administration Protocol Fentanyl 500 mcg in 100 mls @ 10 mls/hr 01/12/20 18:15 01/15/20 06:00 Sublimaze Ivpb IVPB 0 mcg/hr TITR ALFRED 0 mls/hr Titration Protocol 50 MCG/HR Propofol 1,000,000 mcg in 100 mls @ 2.947 mls/hr 01/14/20 05:30 01/15/20 06:0 0 Diprivan - IVPB 0 mcg/kg/min TITR ALFRED 0 mls/hr Titration Protocol 5 MCG/KG/MIN Dexmedetomidine/Sodium Chloride 400 mcg in 100 mls @ 4.806 mls/hr 01/14/20 18:45 01/15/20 12:39 Precedex 400 Mcg/100 Ml Inject IVPB 0 mcg/kg/hr TITR ALFRED 0 mls/hr Infusion 0.2 MCG/KG/HR Lactulose 20 gm 01/14/20 12:45 01/15/20 22:03 Cephulac (Oral Use) NGT 20 gm BID ALFRED Administration Levetiracetam 1,000 mg 01/06/20 22:00 01/15/20 22:03 Keppra Injection - IVPB 1,000 mg BID ALFRED Administration Lisinopril 2.5 mg 01/04/20 10:00 01/15/20 09:04 Prinivil PO 2.5 mg DAILY ALFRED Administration Metoprolol Tartrate 50 mg 01/13/20 10:30 01/15/20 22:02 Lopressor - PO 50 mg TID ALFRED Administration Metoprolol Tartrate 5 mg 01/15/20 11:05 01/15/20 19:48 Lopressor Injection - IVPUSH 5 mg Q4H PRN Administration HYPERTENSION Pantoprazole Sodium 40 mg 01/04/20 10:00 01/15/20 09:03 Protonix Iv IVPUSH 40 mg DAILY ALFRED Administration Thiamine HCl 100 mg 01/05/20 10:00 01/15/20 09:04 Vitamin B1 - PO 100 mg DAILY ALFRED Administration Microbiology 01/12/20 18:40 Blood Culture - Preliminary Blood - Peripheral Venous NO GROWTH OBTAINED AFTER 72 HOURS, INCUBATION TO CONTINUE FOR 2 DAYS. 01/12/20 18:30 Blood Culture - Preliminary Blood - Peripheral Venous NO GROWTH OBTAINED AFTER 72 HOURS, INCUBATION TO CONTINUE FOR 2 DAYS. 01/12/20 18:30 Gram Stain - Final Sputum - Endotrachea Suction/Ventilator Sputum Culture - Preliminary Non Lactose Fermenting Gnb Non Lactose Fermenting Gnb#2 Constitutional: Yes: Other Neck: Yes: Supple Cardiovascular: Yes: Pulse Irregular Respiratory: Yes: Diminished, intubated on vent Gastrointestinal: Yes: Soft Genitourinary: Yes: Vo Present Edema: yes PLAN IV antibiotics per ID clinimix ON Iv Keppra for seizure prophylaxis -extubated platelets stable with Eliquis swallow eval in AM ' Problem List - Problems (1) Alcohol dependence Code(s): F10.20 - ALCOHOL DEPENDENCE, UNCOMPLICATED Qualifiers: Substance use status: other alcohol-induced disorder Qualified Code(s): F10.288 - Alcohol dependence with other alcohol-induced disorder (2) Pneumonia Code(s): J18.9 - PNEUMONIA, UNSPECIFIED ORGANISM Qualifiers: Pneumonia type: due to unspecified organism Laterality: left Lung location: lower lobe of lung Qualified Code(s): J18.9 - Pneumonia, unspecified organism (3) Respiratory failure Code(s): J96.90 - RESPIRATORY FAILURE, UNSP, UNSP W HYPOXIA OR HYPERCAPNIA (4) Weakness Code(s): R53.1 - WEAKNESS (5) Alcohol abuse Code(s): F10.10 - ALCOHOL ABUSE, UNCOMPLICATED (6) Alcohol dependence with uncomplicated withdrawal Code(s): F10.230 - ALCOHOL DEPENDENCE WITH WITHDRAWAL, UNCOMPLICATED (7) Atrial fibrillation Code(s): I48.91 - UNSPECIFIED ATRIAL FIBRILLATION Qualifiers: Atrial fibrillation type: unspecified Qualified Code(s): I48.91 - Unspecified atrial fibrillation (8) HTN (hypertension) Code(s): I10 - ESSENTIAL (PRIMARY) HYPERTENSION Qualifiers: Hypertension type: essential hypertension Qualified Code(s): I10 - Essential (primary) hypertension
[2020-01-15] MEDS ORDERED: METOPROLOL TARTRATE 50 MG TABLET (FP) PO ONE (21:27)
[2020-01-15] MEDS: CHLORHEXIDINE GLUCONATE 4% CLEANSER FOR DECOLONIZATION TP SCH (22:03)
[2020-01-16] MEDS ORDERED: PT OWN MED DRAWER 7, Y5N ONE ×3 (01:22→17:02)
[2020-01-16] MEDS: METOPROLOL TARTRATE 5 MG/5 ML VIAL IVPUSH PRN (01:25)
[2020-01-16] MEDS: CEFTAZIDIME PENTAHYDRATE 1 GM in DEXTROSE 5%-WATER - 50 ML IVPB SCH ×3 (01:26→17:14)
[2020-01-16] MEDS: DILTIAZEM INJECTION 125 MG in SODIUM CHLORIDE 100 ML IVPB SCH (04:11)
[2020-01-16] MEDS ORDERED: MIDAZOLAM HCL 2 MG/2 ML SINGLE DOSE VIAL IVPUSH ONE (05:12)
[2020-01-16] MEDS ORDERED: MIDAZOLAM HCL 2 MG/2 ML SINGLE DOSE VIAL ONE (05:17)
[2020-01-16] MEDS: PROPOFOL 1,000,000 MCG/100 ML VIAL IVPB SCH (05:19)
[2020-01-16] MEDS: METOPROLOL TARTRATE 25 MG TABLET (FP) PO SCH ×3 (05:23→21:38)
[2020-01-16 06:05] LABS: ARTERIAL BLD GAS O2 SATURATION 93.7 mmHg (95-98); ARTERIAL BLOOD GAS BASE EXCESS 3.5 mmol/L (-2-2); ARTERIAL BLOOD GAS pH 7.485 (7.350-7.450)
[2020-01-16 07:19] LABS: HEMATOCRIT 34.4 % (35.4-49); HEMOGLOBIN 11.4 GM/dL (11.7-16.9); MCHC 33.1 g/dl (32.0-35.9); MEAN CELL VOLUME 105.6 fl (80-96); MEAN PLT VOLUME 10.5 fl (7.5-11.1); PLATELET COUNT 182 K/MM3 (134-434); RBC 3.25 M/mm3 (4.00-5.60); RDW 13.6 % (11.9-15.9); WHITE BLOOD COUNT 13.8 K/mm3 (4.0-10.0)
[2020-01-16 07:38] LABS: INR 2.52 (0.83-1.09)
[2020-01-16 07:43] LABS: BILIRUBIN,TOTAL 1.6 mg/dL (0.2-1); BLOOD UREA NITROGEN 12.9 mg/dL (7-18); CALCIUM 7.9 mg/dL (8.5-10.1); CREATININE 0.4 mg/dL (0.55-1.3); MAGNESIUM 1.7 mg/dL (1.8-2.4); PHOSPHOROUS 2.8 mg/dL (2.5-4.9); TOT PROT 6.7 g/dl (6.4-8.2)
[2020-01-16] MEDS ORDERED: MAGNESIUM SULF 50% (8.12 MEQ/2 ML-1 GM VIAL) IVPB ONE (08:45)
[2020-01-16] MEDS ORDERED: POTASSIUM CHLORIDE ORAL LIQUID 20 MEQ/15 ML PO ONE (08:45)
[2020-01-16] MEDS: KCL 10 MEQ IVPB 10 MEQ/100 ML INFUS.BAG IVPB SCH ×3 (09:11→11:37)
[2020-01-16] MEDS: LACTULOSE 20 GM/30 ML UDC (FOR ORAL USE ONLY) NGT SCH ×2 (09:13→21:38)
[2020-01-16] MEDS: AMINO ACIDS/PROTEIN HYDROLYS 30 ML LIQUID.PKT PO SCH (09:14)
[2020-01-16] MEDS: PANTOPRAZOLE SODIUM 40 MG VIAL IVPUSH SCH (09:15)
[2020-01-16] MEDS ORDERED: MAGNESIUM 1GM/D5W 100ML - 100 ML IVPB IVPB ONE (09:15)
[2020-01-16] MEDS: levETIRAcetam 500 MG/5 ML INJECTION VIAL IVPB SCH ×2 (09:15→21:38)
[2020-01-16] MEDS: APIXABAN 5 MG TABLET PO SCH ×2 (09:16→21:38)
[2020-01-16] MEDS: THIAMINE HCL 100 MG TABLET (FP) PO SCH (09:16)
[2020-01-16] MEDS: LISINOPRIL 5 MG TABLET PO SCH (09:16)
[2020-01-16] MEDS: FOLIC ACID 1 MG TABLET (FP) PO SCH (09:16)
--- NOTE | 2020-01-16 11:30 | PN ---
Teaching Attending Note Name of Resident: Ruddy Colby ATTENDING PHYSICIAN STATEMENT I saw and evaluated the patient. I reviewed the resident's note and discussed the case with the resident. I agree with the resident's findings and plan as documented. SUBJECTIVE: Patient seen and examined in the ICU. Remains extubated. Awake and responsive. Able to answer some simple questions. Denies CP or SOB. Intake & Output 01/13/20 01/14/20 01/15/20 01/16/20 23:59 23:59 23:59 23:59 Intake Total 1870 2243.8 969.6 1230 Output Total 2350 2450 1850 300 Balance -480 -206.2 -880.4 930 Weight 216 lb 9.6 oz 211 lb 14.4 oz 219 lb 3.2 oz 209 lb 5 oz Last Vital Signs Temp Pulse Resp BP Pulse Ox 98.3 F 115 H 20 118/85 95 01/16/20 10:00 01/16/20 10:00 01/16/20 10:00 01/16/20 10:00 01/16/20 10:00 Microbiology 01/12/20 18:30 Gram Stain - Final Sputum - Endotrachea Suction/Ventilator Sputum Culture - Preliminary Non Lactose Fermenting Gnb Non Lactose Fermenting Gnb#2 01/12/20 18:40 Blood Culture - Preliminary Blood - Peripheral Venous NO GROWTH OBTAINED AFTER 72 HOURS, INCUBATION TO CONTINUE FOR 2 DAYS. 01/12/20 18:30 Blood Culture - Preliminary Blood - Peripheral Venous NO GROWTH OBTAINED AFTER 72 HOURS, INCUBATION TO CONTINUE FOR 2 DAYS. Gen: Extubated, Awake and responsive and able to follow commands Heart: RRR Lung:scattered rhonchi Abd: soft, nontender Ext: + dependent edema throughout Laboratory Results - last 24 hr 01/15/20 01/16/20 01/16/20 05:36 05:30 05:30 WBC 13.8 H RBC 3.25 L Hgb 11.4 L Hct 34.4 L MCV 105.6 H MCH 35.0 H MCHC 33.1 RDW 13.6 Plt Count 182 MPV 10.5 PT with INR 30.00 H INR 2.52 H PTT (Actin FS) 43.0 H Anticoagulation Therapy Puncture Site Patient Temperature ABG pH ABG pCO2 ABG pO2 ABG HCO3 ABG O2 Sat (Measured) ABG O2 Content ABG Base Excess Nnamdi Test Patient On Oxygen O2 Delivery Device Oxygen Flow Rate Vent Mode Vent Rate Mechanical Rate PEEP Pressure Support Vent Sodium Potassium Chloride Carbon Dioxide Anion Gap BUN Creatinine Est GFR (CKD-EPI)AfAm Est GFR (CKD-EPI)NonAf Random Glucose Calcium Phosphorus Magnesium Total Bilirubin AST ALT Alkaline Phosphatase Ammonia Total Protein Albumin Hep C Ab Diagnostic 0.2 01/16/20 01/16/20 01/16/20 05:30 05:30 05:50 WBC RBC Hgb Hct MCV MCH MCHC RDW Plt Count MPV PT with INR INR PTT (Actin FS) Anticoagulation Therapy No Result Required. Puncture Site Arterial line Patient Temperature No Result Required. ABG pH 7.485 H ABG pCO2 36.30 ABG pO2 63.0 L ABG HCO3 26.7 ABG O2 Sat (Measured) 93.7 L ABG O2 Content No Result Required. ABG Base Excess 3.5 H Nnamdi Test Not applicable Patient On Oxygen Yes O2 Delivery Device Nasal Oxygen Flow Rate 5l Vent Mode No Result Required. Vent Rate No Result Required. Mechanical Rate No Result Required. PEEP No Result Required. Pressure Support Vent No Result Required. Sodium 146 H Potassium 3.0 L Chloride 109 H Carbon Dioxide 13 L Anion Gap 24 H BUN 12.9 Creatinine 0.4 L Est GFR (CKD-EPI)AfAm 158.27 Est GFR (CKD-EPI)NonAf 136.56 Random Glucose 84 Calcium 7.9 L Phosphorus 2.8 Magnesium 1.7 L Total Bilirubin 1.6 H AST 77 H ALT 40 Alkaline Phosphatase 67 Ammonia 59.10 H Total Protein 6.7 Albumin 2.0 L Hep C Ab Diagnostic ASSESSMENT AND PLAN: Acute Hypoxic Respiratory Failure Pneumonia likely Aspiration Resolved Septic Shock Lactic Acidosis Atrial Fibrillation Alcohol Abuse Thrombocytopenia Seizures - r/o Alcohol Withdrawal HTN - NC O2 as tolerated - Pulmonary toileting - Currently off pressors, keep MAP >65 - Metoprolol for rate control - continue antibiotics as per ID - Continue daily lasix to keep net negative - monitor urine output - Trend and replete lytes - continue anticoagulation with Apixaban - Swallow evaluation - AYLIN Garduno - DVT/GI prophylaxis - Cardiac Telemetry monitoring Dr Carmen
--- NOTE | 2020-01-16 11:54 | PN ---
Problem List - Problems (1) Alcohol dependence Code(s): F10.20 - ALCOHOL DEPENDENCE, UNCOMPLICATED Qualifiers: Substance use status: other alcohol-induced disorder Qualified Code(s): F10.288 - Alcohol dependence with other alcohol-induced disorder (2) Pneumonia Code(s): J18.9 - PNEUMONIA, UNSPECIFIED ORGANISM Qualifiers: Pneumonia type: due to unspecified organism Laterality: left Lung location: lower lobe of lung Qualified Code(s): J18.9 - Pneumonia, unspecified organism (3) Respiratory failure Code(s): J96.90 - RESPIRATORY FAILURE, UNSP, UNSP W HYPOXIA OR HYPERCAPNIA (4) Weakness Code(s): R53.1 - WEAKNESS (5) Alcohol abuse Code(s): F10.10 - ALCOHOL ABUSE, UNCOMPLICATED (6) Alcohol dependence with uncomplicated withdrawal Code(s): F10.230 - ALCOHOL DEPENDENCE WITH WITHDRAWAL, UNCOMPLICATED (7) Atrial fibrillation Code(s): I48.91 - UNSPECIFIED ATRIAL FIBRILLATION Qualifiers: Atrial fibrillation type: unspecified Qualified Code(s): I48.91 - Unspecified atrial fibrillation (8) HTN (hypertension) Code(s): I10 - ESSENTIAL (PRIMARY) HYPERTENSION Qualifiers: Hypertension type: essential hypertension Qualified Code(s): I10 - Essential (primary) hypertension
--- NOTE | 2020-01-16 12:12 | CONSULT ---
Admitting History and Physical - Admission History of Present Illness: 54 year old male history of atrial fibrillation, alcohol abuse, htn, admitted 01/03 for seizures,intubated for airway protection and pneumonia Extubated 01/14 Selected Entries 01/13/20 01/13/20 01/13/20 00:00 00:25 02:00 Supper Temperature Pulse Rate Blood Pressure O2 Sat by Pulse 98 98 99 Oximetry (%) Oxygen Delivery Method 01/13/20 01/13/20 01/13/20 04:00 04:28 06:00 Supper Temperature Pulse Rate Blood Pressure O2 Sat by Pulse 98 99 98 Oximetry (%) Oxygen Delivery Mechanical Method Ventilator 01/13/20 01/13/20 01/13/20 07:44 08:00 08:25 Supper Temperature Pulse Rate Blood Pressure O2 Sat by Pulse 99 100 100 Oximetry (%) Oxygen Delivery Mechanical Mechanical Method Ventilator Ventilator 01/13/20 01/13/20 01/13/20 10:00 11:32 11:41 Supper Temperature Pulse Rate Blood Pressure O2 Sat by Pulse 100 100 100 Oximetry (%) Oxygen Delivery Mechanical Method Ventilator 01/13/20 01/13/20 01/13/20 11:45 12:00 14:00 Supper Temperature Pulse Rate Blood Pressure O2 Sat by Pulse 100 100 98 Oximetry (%) Oxygen Delivery Method 01/13/20 01/13/20 01/13/20 15:39 16:00 18:00 Supper Temperature Pulse Rate Blood Pressure O2 Sat by Pulse 99 98 98 Oximetry (%) Oxygen Delivery Method 01/13/20 01/13/20 01/13/20 20:00 20:31 20:33 Supper Temperature Pulse Rate Blood Pressure O2 Sat by Pulse 100 100 100 Oximetry (%) Oxygen Delivery Mechanical Mechanical Method Ventilator Ventilator 01/13/20 01/13/20 01/15/20 20:35 22:00 00:00 Supper Temperature Pulse Rate 104 H Blood Pressure O2 Sat by Pulse 99 100 Oximetry (%) Oxygen Delivery Method 01/15/20 01/15/20 01/15/20 02:00 04:00 06:00 Supper NPO Temperature 97.7 F 98.1 F Pulse Rate 98 H 97 H 99 H Blood Pressure O2 Sat by Pulse Oximetry (%) Oxygen Delivery Method 01/15/20 01/15/20 01/15/20 08:00 08:09 10:00 Supper Temperature 100.1 F H Pulse Rate 107 H 115 H 128 H Blood Pressure O2 Sat by Pulse Oximetry (%) Oxygen Delivery Method 01/15/20 01/15/20 01/15/20 11:30 11:47 12:00 Supper Temperature Pulse Rate 123 H 124 H 126 H Blood Pressure O2 Sat by Pulse Oximetry (%) Oxygen Delivery Method 01/15/20 01/15/20 01/15/20 14:00 15:00 15:45 Supper NPO Temperature Pulse Rate 129 H 131 H Blood Pressure O2 Sat by Pulse Oximetry (%) Oxygen Delivery Method 01/15/20 01/15/20 01/15/20 16:00 19:48 20:00 Supper Temperature 99.9 F H 99 F Pulse Rate 127 H 154 H 130 H Blood Pressure O2 Sat by Pulse Oximetry (%) Oxygen Delivery Method 01/15/20 01/15/20 01/16/20 22:00 23:00 00:00 Supper NPO Temperature 100.8 F H Pulse Rate 123 H 128 H Blood Pressure 117/91 O2 Sat by Pulse 98 Oximetry (%) Oxygen Delivery Method 01/16/20 01/16/20 01/16/20 01:25 02:00 04:00 Supper Temperature 99 F Pulse Rate 134 H 132 H 129 H Blood Pressure 117/91 114/84 144/95 O2 Sat by Pulse 98 98 Oximetry (%) Oxygen Delivery Method 01/16/20 01/16/20 01/16/20 04:11 06:00 08:00 Supper Temperature 99.6 F Pulse Rate 140 H 123 H 111 H Blood Pressure 134/101 H 126/61 134/97 O2 Sat by Pulse 97 94 L Oximetry (%) Oxygen Delivery Method 01/16/20 01/16/20 01/16/20 08:01 08:40 10:00 Supper Temperature 98.3 F Pulse Rate 115 H Blood Pressure 118/85 O2 Sat by Pulse 97 96 95 Oximetry (%) Oxygen Delivery Nasal Cannula Nasal Cannula Method Laboratory Tests 01/03/20 01/04/20 01/13/20 15:00 05:45 05:30 WBC 12.7 H Sodium COVID-19 (STEVE) Not detected M.pneumoniae IgG Titer 180 H 01/14/20 01/15/20 01/16/20 05:00 06:45 05:30 WBC 16.9 H 12.5 H 13.8 H Sodium COVID-19 (STEVE) M.pneumoniae IgG Titer 01/16/20 05:30 WBC Sodium 146 H COVID-19 (STEVE) M.pneumoniae IgG Titer History Source: Medical Record Limitations to Obtaining History: Clinical Condition - Past Medical History [employer] 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 History - Admission Reason For Visit: ALCOHOL DEPENDENCE PNEUMONIA - Diagnostics X-ray: Report Reviewed CT Scan: Report Reviewed - General Mental Status: Awake and Alert, Forgetful, Vague, Confused, Flat Affect Attention: Distractible, Mild Impairment, Moderate Impairment Ability to Follow Directions: Fair Head/Neck Control: Fair - Hearing Hearing: Functional Speech Evaluation - Communication Primary Language: PASHTO Communication: Yes: Simple Responses Oral Expression Ability: Yes: Mild Impairment - Speech Production Able to Make Needs Known: Yes: Mildly Impaired Intelligibility: Yes: Mildly Impaired - Speech Characteristics Voice Loudness: Mildly Soft/Quiet Voice Pitch: Yes: Normal Voice Phonatory-based Quality: Yes: Dysphonia (intermittent) Speech Clarity: < 75% Nasal Resonance: Normal Articulation: Yes: Imprecise - Language/Auditory Comprehension Follows: Yes: 1 Stage Simple Commands Observation: Able to respond to yes/no queries: Yes, Yes/No Confusion: No, Comprehends Conversational Speech: Yes (simple), Benefits from Slow Speech: Yes, Benefits from Repetiton: Yes, Benefits from Increased Volume of Speech: Yes - Language/Verbal Expression Functional Communication Status: Yes: Mildly Impaired - Swallow Evaluation/Bedside Assessment Current Nutritional Intake: NG Tube Oral Secretions: Yes: WFL Dentition: Yes: Adequate Facial Symmetry at Rest: Symmetrical Facial Symmetry on Retraction: Symmetrical Facial Movement: Controlled Pucker Lips: Normal, Weak Smile: Normal, Weak Lingual Movement: Symmetric Lingual Speed of Movement: Reduced Lingual Movement Strgth Against Opposition: Reduced Laryngeal Elevation: Impaired Laryngeal Movement: Reduced Excursion, Labored,delay initiation, Reduced Velocity Needs Assistance: Yes Rate of Intake: WFL Bolus Size: WFL Labial Seal: WFL Chewing: Impaired Oral Prep Time: Increased Timing of Swallow: Delayed Coughing/Throat Clear: Yes (thin liquid) Recommendations - Speech Evaluation, Impression/Plan Impression: Seizues. Extubated yesterday, Voice intermittently dysphonic, verbal, confused, distractible. Cough response with sip of water c/w aspiration. 3-4 swallows generated with puree-stasis? NGT in place - Dysphagia Impressions/Plan Swallowing Skills: Impaired Dysphagia Impressions: Mild Impairment, Moderate Impairment, Suspect Aspiration *Silent aspiration: cannot be R/O at bedside Recommendations: Modified Barium Swallow, Other (Continue NGT feedings for now. To reassess, may benefit from MBS to r/o stasis/aspiration) - Recommendations Diet Consistency: NPO
--- NOTE | 2020-01-16 15:31 | PN ---
Teaching Attending Note Name of Resident: Ruddy Colby ATTENDING PHYSICIAN STATEMENT I saw and evaluated the patient. I reviewed the resident's note and discussed the case with the resident. I agree with the resident's findings and plan as documented. SUBJECTIVE: Patient seen and examined in the ICU. Remains extubated. Awake and responsive. Able to answer some simple questions. Denies CP or SOB. Gen: Extubated, Awake and responsive and able to follow commands Heart: RRR Lung:scattered rhonchi Abd: soft, nontender Ext: + dependent edema throughout Laboratory Results - last 24 hr 01/15/20 01/16/20 01/16/20 05:36 05:30 05:30 WBC 13.8 H RBC 3.25 L Hgb 11.4 L Hct 34.4 L MCV 105.6 H MCH 35.0 H MCHC 33.1 RDW 13.6 Plt Count 182 MPV 10.5 PT with INR 30.00 H INR 2.52 H PTT (Actin FS) 43.0 H Anticoagulation Therapy Puncture Site Patient Temperature ABG pH ABG pCO2 ABG pO2 ABG HCO3 ABG O2 Sat (Measured) ABG O2 Content ABG Base Excess Nnamdi Test Patient On Oxygen O2 Delivery Device Oxygen Flow Rate Vent Mode Vent Rate Mechanical Rate PEEP Pressure Support Vent Sodium Potassium Chloride Carbon Dioxide Anion Gap BUN Creatinine Est GFR (CKD-EPI)AfAm Est GFR (CKD-EPI)NonAf Random Glucose Calcium Phosphorus Magnesium Total Bilirubin AST ALT Alkaline Phosphatase Ammonia Total Protein Albumin Hep C Ab Diagnostic 0.2 01/16/20 01/16/20 01/16/20 05:30 05:30 05:50 WBC RBC Hgb Hct MCV MCH MCHC RDW Plt Count MPV PT with INR INR PTT (Actin FS) Anticoagulation Therapy No Result Required. Puncture Site Arterial line Patient Temperature No Result Required. ABG pH 7.485 H ABG pCO2 36.30 ABG pO2 63.0 L ABG HCO3 26.7 ABG O2 Sat (Measured) 93.7 L ABG O2 Content No Result Required. ABG Base Excess 3.5 H Nnamdi Test Not applicable Patient On Oxygen Yes O2 Delivery Device Nasal Oxygen Flow Rate 5l Vent Mode No Result Required. Vent Rate No Result Required. Mechanical Rate No Result Required. PEEP No Result Required. Pressure Support Vent No Result Required. Sodium 146 H Potassium 3.0 L Chloride 109 H Carbon Dioxide 13 L Anion Gap 24 H BUN 12.9 Creatinine 0.4 L Est GFR (CKD-EPI)AfAm 158.27 Est GFR (CKD-EPI)NonAf 136.56 Random Glucose 84 Calcium 7.9 L Phosphorus 2.8 Magnesium 1.7 L Total Bilirubin 1.6 H AST 77 H ALT 40 Alkaline Phosphatase 67 Ammonia 59.10 H Total Protein 6.7 Albumin 2.0 L Hep C Ab Diagnostic ASSESSMENT AND PLAN: Acute Hypoxic Respiratory Failure Pneumonia likely Aspiration Resolved Septic Shock Lactic Acidosis Atrial Fibrillation Alcohol Abuse Thrombocytopenia Seizures - r/o Alcohol Withdrawal HTN - NC O2 as tolerated - Pulmonary toileting - Currently off pressors, keep MAP >65 - Metoprolol for rate control - continue antibiotics as per ID - Continue daily lasix to keep net negative - monitor urine output - Trend and replete lytes - continue anticoagulation with Apixaban - Swallow evaluation - AYLIN Garduno - DVT/GI prophylaxis - Cardiac Telemetry monitoring Dr Carmen OBJECTIVE: ASSESSMENT AND PLAN:
--- NOTE | 2020-01-16 16:39 | PN ---
Physical Exam: SUBJECTIVE: Patient seen and examined. Overnight, patient was hallucinating and unable to sleep, so patient was given versed by overnight team. HR was 140s despite lopressors PRN pushes, so cardizem drip was started. 3 BM's. Vo and A-line were removed. Was on 4 L NC, but now breathing comfortably on Room air. OBJECTIVE: Vital Signs Period Temp Pulse Resp BP Sys/Redman Pulse Ox Last 24 Hr 98.3 F-100.8 F 81-154 16-20 113-144/61-101 93-98 GENERAL: AAOX2 (person,place). able to follow simple commands. extubated HEENT: Normal with no signs of trauma. PERRL, No ptosis. dry mucous membranes LUNGS: decreased breath sounds in bases, scattered rhonci no wheezes, no crackles, no accessory muscle use. HEART:irregular rate, S1, S2 without murmur, rub or gallop. ABDOMEN: Soft, nontender, nondistended, normoactive bowel sounds, no guarding, no rebound EXTREMITIES: 2+ pulses, warm, well-perfused, dependent edema Laboratory Results - last 24 hr 01/15/20 01/16/20 01/16/20 05:36 05:30 05:30 WBC 13.8 H RBC 3.25 L Hgb 11.4 L Hct 34.4 L MCV 105.6 H MCH 35.0 H MCHC 33.1 RDW 13.6 Plt Count 182 MPV 10.5 PT with INR 30.00 H INR 2.52 H PTT (Actin FS) 43.0 H Anticoagulation Therapy Puncture Site Patient Temperature ABG pH ABG pCO2 ABG pO2 ABG HCO3 ABG O2 Sat (Measured) ABG O2 Content ABG Base Excess Nnamdi Test Patient On Oxygen O2 Delivery Device Oxygen Flow Rate Vent Mode Vent Rate Mechanical Rate PEEP Pressure Support Vent Sodium Potassium Chloride Carbon Dioxide Anion Gap BUN Creatinine Est GFR (CKD-EPI)AfAm Est GFR (CKD-EPI)NonAf Random Glucose Calcium Phosphorus Magnesium Total Bilirubin AST ALT Alkaline Phosphatase Ammonia Total Protein Albumin Hep C Ab Diagnostic 0.2 01/16/20 01/16/20 01/16/20 05:30 05:30 05:50 WBC RBC Hgb Hct MCV MCH MCHC RDW Plt Count MPV PT with INR INR PTT (Actin FS) Anticoagulation Therapy No Result Required. Puncture Site Arterial line Patient Temperature No Result Required. ABG pH 7.485 H ABG pCO2 36.30 ABG pO2 63.0 L ABG HCO3 26.7 ABG O2 Sat (Measured) 93.7 L ABG O2 Content No Result Required. ABG Base Excess 3.5 H Nnamdi Test Not applicable Patient On Oxygen Yes O2 Delivery Device Nasal Oxygen Flow Rate 5l Vent Mode No Result Required. Vent Rate No Result Required. Mechanical Rate No Result Required. PEEP No Result Required. Pressure Support Vent No Result Required. Sodium 146 H Potassium 3.0 L Chloride 109 H Carbon Dioxide 13 L Anion Gap 24 H BUN 12.9 Creatinine 0.4 L Est GFR (CKD-EPI)AfAm 158.27 Est GFR (CKD-EPI)NonAf 136.56 Random Glucose 84 Calcium 7.9 L Phosphorus 2.8 Magnesium 1.7 L Total Bilirubin 1.6 H AST 77 H ALT 40 Alkaline Phosphatase 67 Ammonia 59.10 H Total Protein 6.7 Albumin 2.0 L Hep C Ab Diagnostic Active Medications Generic Name Dose Route Start Last Admin Trade Name Freq PRN Reason Stop Dose Admin Albuterol Sulfate 2 puff 01/04/20 05:39 Ventolin Hfa Inhaler - IH Q4H PRN SHORT OF BREATH/WHEEZING Amino Acids 30 ml 01/08/20 12:45 01/16/20 09:14 Prosource No Carb Liquid Pkt PO 30 ml DAILY ALFRED Administration Apixaban 5 mg 01/04/20 08:00 01/16/20 09:16 Eliquis - PO 5 mg BID ALFRED Administration Chlorhexidine Gluconate 1 applic 01/04/20 22:00 01/15/20 22:03 Hibiclens For Decolonization - TP 1 applic HS ALFRED Administration Folic Acid 1 mg 01/05/20 10:00 01/16/20 09:16 Folic Acid - PO 1 mg DAILY ALFRED Administration Ceftazidime 1 gm/ Dextrose 50 mls @ 100 mls/hr 01/06/20 11:45 01/16/20 09:17 IVPB 100 mls/hr Q8H-IV ALFRED Administration Protocol Diltiazem HCl 125 mg/ Sodium 125 mls @ 5 mls/hr 01/16/20 03:30 01/16/20 04:11 Chloride IVPB 5 mg/hr TITR ALFRED 5 mls/hr Administration Protocol 5 MG/HR Lactulose 20 gm 01/14/20 12:45 01/16/20 09:13 Cephulac (Oral Use) NGT 20 gm BID ALFRED Administration Levetiracetam 1,000 mg 01/06/20 22:00 01/16/20 09:15 Keppra Injection - IVPB 1,000 mg BID ALFRED Administration Lisinopril 2.5 mg 01/04/20 10:00 01/16/20 09:16 Prinivil PO 2.5 mg DAILY ALFRED Administration Melatonin 5 mg 01/16/20 22:00 Melatonin PO HS PRN INSOMNIA Metoprolol Tartrate 5 mg 01/15/20 11:05 01/16/20 01:25 Lopressor Injection - IVPUSH 5 mg Q4H PRN Administration HYPERTENSION Metoprolol Tartrate 75 mg 01/16/20 14:00 01/16/20 13:39 Lopressor - PO 75 mg TID ALFRED Administration Pantoprazole Sodium 40 mg 01/04/20 10:00 01/16/20 09:15 Protonix Iv IVPUSH 40 mg DAILY ALFRED Administration Thiamine HCl 100 mg 01/05/20 10:00 01/16/20 09:16 Vitamin B1 - PO 100 mg DAILY ALFRED Administration ASSESSMENT/PLAN: 54 year old M with PMH afib (on eliquis), alcohol use disorder , diastolic CHF (02/08 ECHO; mild AR; mild biatrial enlargement), HTN, AFIB presented with weakness, lightheadedness, shaking. Was given Librium 10mg, Ativan 1mg for alcohol withdrawal and found to have PNA on CXR. Admitted to ICU for Afib w/ RVR, now s/p Amio drip and respiratory failure with seizures. #Neuro -s/p extubated. Follows simple commands - Alcohol withdrawal seizures - continue with folic acid, thiamine daily -CTH: no significant change. moderate ventricular dilatation. generalized volume loss. mild periventricular chronic microvascular ischemic disease changes -EEG: sharp wave activity -c/w Keppra 1000 mg BID IVPB -speech & swallow: aspirated H2O. Will re-evaluate swallowing again tomorrow #Cardio AFib with RVR -s/p Amio drip. - off pressors . Maintain MAP >65 -HR >140 overnight. On diltiazem drip @ 10 mg/hr. Will switch to PO meds once cleared by speech and swallow - lopressor increased from 50 mg TID to 75 mg TID. Continue with Lopressor 5 mg IV push Q4H PRN -c/w home eliquis 5 mg PO BID -given pt's history of alcohol use and elevated liver enzymes, hold off on starting PO amiodarone -EKG: afib, atrial rate 131 bpm, vent. rate 97 bpm, QTC 520 -ECHO: LV normal size. Moderate global LV systolic dysfunction. EF 40-45%. RV mild-moderately dilated. RV systoltic function mildly reduced. LA/RA mildly dilated. Mild aortic sclerosis. -Will consider POP and beta edwin once patient improves #Pulm -ABG (01/15): INCREASED pH 7.485, base excess 3.5//DECREASED PO2 63 -s/p extubation -CXR (01/16/20): NG tube persists. b/l pulmonary & pleural changes have increased. Left worse than Right -on room air #GI - NG in place - Protonix 40mg -AFP 3.8 WNL -H/o thrombocytopenia, h/o alcohol use disorder, previous PT/INR PTT were prolonged and prior ultrasound showed hepatomegaly (18.5 cm) with diffuse fatty infiltration of liver and contracted/thick walled gall bladder that could be related to hepatocellular disease. - AST/ALT increased from 65/34 to 77/40. will continue to monitor -ammonia increased from 29.8 to 59.1 -abd US: 1) trace ascites, (2) distended gallbladder w/o evidence of cholelithiasis, (3) hepatomegaly & diffuse infiltration of liver -awaiting hepatitis serologies. -GI consult appreciated. Would benefit from upper endoscopy to evaluate for varices. If varices are present, would consider stopping AC. -Lactulose 20g BID. Will uptitrate as needed. 3 BM overnight #ID - PNA likely Aspiration - s/p Ceftriaxone/Azithroycin. s/p Zosyn 3.375 gm (01/03-01/05). -blood culture X2: acinetobacter baumannii/haemolo -Mycoplasma pnuemoniae IgG titer elevated at 180. Mycoplasma pneumoniae IgM titer is WNL <770. -sputum culture (01/03): non-lactose fermenting GNB: ochrobactrum anthropi -continue with CEFTAZIDIME 1GM Q8H (01/05) for gram neg sepsis 2/2 acinetobacter -(01/11) blood culture no growth -(01/11) sputum culture: non lactose fermenting Gnb #Renal - BUN/Cr 12.9/0.4 - Vo REMOVED. Monitor urine output - 969.6 Intake/1850 Output/ -880.4 mL Balance #Heme/Onc - Thrombocytopenia: resolved #FEN no IVF monitor lytes Jevity @50 ml/hr with H2O flush @35 ml/hr #Prophylaxis eliquis 5 mg PO BID Lines Left IJ triple lumen central catheter (01/12) Right radial A-line (01/11) was REMOVED Vo REMOVED. #Dispo maintain ICU ATTENDING PHYSICIAN STATEMENT I saw and evaluated the patient. I reviewed the resident's note and discussed the case with the resident. I agree with the resident's findings and plan as documented. SUBJECTIVE: OBJECTIVE: ASSESSMENT AND PLAN:
--- NOTE | 2020-01-16 17:39 | PN ---
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 (short form) - Note 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: events noted pt examined in ICU extubated on ventimask Vital Signs - 24 hr 01/15/20 01/15/20 01/15/20 19:48 20:00 21:00 Temperature 99 F Pulse Rate 154 H 130 H Respiratory 18 18 Rate Blood Pressure 119/85 113/87 O2 Sat by Pulse 98 97 Oximetry (%) 01/15/20 01/15/20 01/16/20 21:21 22:00 00:00 Temperature 100.8 F H Pulse Rate 123 H 128 H Respiratory 16 16 Rate Blood Pressure 115/87 117/91 O2 Sat by Pulse 97 98 98 Oximetry (%) 01/16/20 01/16/20 01/16/20 01:25 02:00 04:00 Temperature 99 F Pulse Rate 134 H 132 H 129 H Respiratory 18 18 Rate Blood Pressure 117/91 114/84 144/95 O2 Sat by Pulse 98 98 Oximetry (%) 01/16/20 01/16/20 01/16/20 04:11 06:00 08:00 Temperature 99.6 F Pulse Rate 140 H 123 H 111 H Respiratory 19 20 Rate Blood Pressure 134/101 H 126/61 134/97 O2 Sat by Pulse 97 94 L Oximetry (%) 01/16/20 01/16/20 01/16/20 08:01 08:40 10:00 Temperature 98.3 F Pulse Rate 115 H Respiratory 20 Rate Blood Pressure 118/85 O2 Sat by Pulse 97 96 95 Oximetry (%) 01/16/20 01/16/20 01/16/20 12:00 14:00 16:00 Temperature 98.7 F Pulse Rate 110 H 81 91 H Respiratory 17 18 16 Rate Blood Pressure 115/88 119/80 118/84 O2 Sat by Pulse 93 L 94 L 95 Oximetry (%) Current Medications Generic Name Dose Route Start Last Admin Trade Name Freq PRN Reason Stop Dose Admin Albuterol Sulfate 2 puff 01/04/20 05:39 Ventolin Hfa Inhaler - IH Q4H PRN SHORT OF BREATH/WHEEZING Amino Acids 30 ml 01/08/20 12:45 01/16/20 09:14 Prosource No Carb Liquid Pkt PO 30 ml DAILY ALFRED Administration Apixaban 5 mg 01/04/20 08:00 01/16/20 09:16 Eliquis - PO 5 mg BID ALFRED Administration Chlorhexidine Gluconate 1 applic 01/04/20 22:00 01/15/20 22:03 Hibiclens For Decolonization - TP 1 applic HS ALFRED Administration Folic Acid 1 mg 01/05/20 10:00 01/16/20 09:16 Folic Acid - PO 1 mg DAILY ALFRED Administration Ceftazidime 1 gm/ Dextrose 50 mls @ 100 mls/hr 01/06/20 11:45 01/16/20 17:14 IVPB 100 mls/hr Q8H-IV ALFRED Administration Protocol Diltiazem HCl 125 mg/ Sodium 125 mls @ 5 mls/hr 01/16/20 03:30 01/16/20 04:11 Chloride IVPB 5 mg/hr TITR ALFRED 5 mls/hr Administration Protocol 5 MG/HR Lactulose 20 gm 01/14/20 12:45 01/16/20 09:13 Cephulac (Oral Use) NGT 20 gm BID ALFRED Administration Levetiracetam 1,000 mg 01/06/20 22:00 01/16/20 09:15 Keppra Injection - IVPB 1,000 mg BID ALFRED Administration Lisinopril 2.5 mg 01/04/20 10:00 01/16/20 09:16 Prinivil PO 2.5 mg DAILY ALFRED Administration Melatonin 5 mg 01/16/20 22:00 Melatonin PO HS PRN INSOMNIA Metoprolol Tartrate 5 mg 01/15/20 11:05 01/16/20 01:25 Lopressor Injection - IVPUSH 5 mg Q4H PRN Administration HYPERTENSION Metoprolol Tartrate 75 mg 01/16/20 14:00 01/16/20 13:39 Lopressor - PO 75 mg TID ALFRED Administration Pantoprazole Sodium 40 mg 01/04/20 10:00 01/16/20 09:15 Protonix Iv IVPUSH 40 mg DAILY ALFRED Administration Thiamine HCl 100 mg 01/05/20 10:00 01/16/20 09:16 Vitamin B1 - PO 100 mg DAILY ALFRED Administration Laboratory Results - last 24 hr 01/15/20 01/16/20 01/16/20 05:36 05:30 05:30 WBC 13.8 H RBC 3.25 L Hgb 11.4 L Hct 34.4 L MCV 105.6 H MCH 35.0 H MCHC 33.1 RDW 13.6 Plt Count 182 MPV 10.5 PT with INR 30.00 H INR 2.52 H PTT (Actin FS) 43.0 H Anticoagulation Therapy Puncture Site Patient Temperature ABG pH ABG pCO2 ABG pO2 ABG HCO3 ABG O2 Sat (Measured) ABG O2 Content ABG Base Excess Nnamdi Test Patient On Oxygen O2 Delivery Device Oxygen Flow Rate Vent Mode Vent Rate Mechanical Rate PEEP Pressure Support Vent Sodium Potassium Chloride Carbon Dioxide Anion Gap BUN Creatinine Est GFR (CKD-EPI)AfAm Est GFR (CKD-EPI)NonAf Random Glucose Calcium Phosphorus Magnesium Total Bilirubin AST ALT Alkaline Phosphatase Ammonia Total Protein Albumin Hep C Ab Diagnostic 0.2 01/16/20 01/16/20 01/16/20 05:30 05:30 05:50 WBC RBC Hgb Hct MCV MCH MCHC RDW Plt Count MPV PT with INR INR PTT (Actin FS) Anticoagulation Therapy No Result Required. Puncture Site Arterial line Patient Temperature No Result Required. ABG pH 7.485 H ABG pCO2 36.30 ABG pO2 63.0 L ABG HCO3 26.7 ABG O2 Sat (Measured) 93.7 L ABG O2 Content No Result Required. ABG Base Excess 3.5 H Nnamdi Test Not applicable Patient On Oxygen Yes O2 Delivery Device Nasal Oxygen Flow Rate 5l Vent Mode No Result Required. Vent Rate No Result Required. Mechanical Rate No Result Required. PEEP No Result Required. Pressure Support Vent No Result Required. Sodium 146 H Potassium 3.0 L Chloride 109 H Carbon Dioxide 13 L Anion Gap 24 H BUN 12.9 Creatinine 0.4 L Est GFR (CKD-EPI)AfAm 158.27 Est GFR (CKD-EPI)NonAf 136.56 Random Glucose 84 Calcium 7.9 L Phosphorus 2.8 Magnesium 1.7 L Total Bilirubin 1.6 H AST 77 H ALT 40 Alkaline Phosphatase 67 Ammonia 59.10 H Total Protein 6.7 Albumin 2.0 L Hep C Ab Diagnostic Constitutional: Yes: Other Neck: Yes: Supple Cardiovascular: Yes: Pulse Irregular Respiratory: Yes: Diminished Gastrointestinal: Yes: Soft Genitourinary: Yes: Vo Present Edema: yes PLAN IV antibiotics per ID clinimix ON Iv Keppra for seizure prophylaxis -extubated platelets stable with Eliquis swallow eval noted replace lytes spoke with ICU team ' Problem List - Problems (1) Alcohol dependence Code(s): F10.20 - ALCOHOL DEPENDENCE, UNCOMPLICATED Qualifiers: Substance use status: other alcohol-induced disorder Qualified Code(s): F10.288 - Alcohol dependence with other alcohol-induced disorder (2) Pneumonia Code(s): J18.9 - PNEUMONIA, UNSPECIFIED ORGANISM Qualifiers: Pneumonia type: due to unspecified organism Laterality: left Lung location: lower lobe of lung Qualified Code(s): J18.9 - Pneumonia, unspecified organism (3) Respiratory failure Code(s): J96.90 - RESPIRATORY FAILURE, UNSP, UNSP W HYPOXIA OR HYPERCAPNIA (4) Weakness Code(s): R53.1 - WEAKNESS (5) Alcohol abuse Code(s): F10.10 - ALCOHOL ABUSE, UNCOMPLICATED (6) Alcohol dependence with uncomplicated withdrawal Code(s): F10.230 - ALCOHOL DEPENDENCE WITH WITHDRAWAL, UNCOMPLICATED (7) Atrial fibrillation Code(s): I48.91 - UNSPECIFIED ATRIAL FIBRILLATION Qualifiers: Atrial fibrillation type: unspecified Qualified Code(s): I48.91 - Unspecified atrial fibrillation (8) HTN (hypertension) Code(s): I10 - ESSENTIAL (PRIMARY) HYPERTENSION Qualifiers: Hypertension type: essential hypertension Qualified Code(s): I10 - Essential (primary) hypertension
[2020-01-16] MEDS: CHLORHEXIDINE GLUCONATE 4% CLEANSER FOR DECOLONIZATION TP SCH (21:38)
[2020-01-16] MEDS ORDERED: MELATONIN 5 MG TABLETS PO PRN (22:00)
--- NOTE | 2020-01-16 22:11 | PN ---
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, Physician History of Present Illness: MORE AWAKE AND ALERT ANSWERS SIMPLE QUESTIONS EXTUBATED NO ACUTE DISTRESS AFEBRILE WBC IMPROVED NO FURTHER SEIZURES REPORTED BC ACINETOBACTER CXR LLL INFILTRATE - Current Medication List Current Medications: Active Medications Albuterol Sulfate (Ventolin Hfa Inhaler -) 2 puff IH Q4H PRN PRN Reason: SHORT OF BREATH/WHEEZING Amino Acids (Prosource No Carb Liquid Pkt) 30 ml PO DAILY [facility] Last Admin: 01/16/20 09:14 Dose: 30 ml Documented by: Apixaban (Eliquis -) 5 mg PO BID [facility] Last Admin: 01/16/20 21:38 Dose: 5 mg Documented by: Chlorhexidine Gluconate (Hibiclens For Decolonization -) 1 applic TP HS [facility] Last Admin: 01/16/20 21:38 Dose: 1 applic Documented by: Folic Acid (Folic Acid -) 1 mg PO DAILY [facility] Last Admin: 01/16/20 09:16 Dose: 1 mg Documented by: Ceftazidime 1 gm/ Dextrose 50 mls @ 100 mls/hr IVPB Q8H-IV [facility]; Protocol Last Admin: 01/16/20 17:14 Dose: 100 mls/hr Documented by: Diltiazem HCl 125 mg/ Sodium (Chloride) 125 mls @ 5 mls/hr IVPB TITR [facility]; Protocol Last Titration: 01/16/20 16:30 Dose: 5 mg/hr, 5 mls/hr Documented by: Lactulose (Cephulac (Oral Use)) 20 gm NGT BID [facility] Last Admin: 01/16/20 21:38 Dose: 20 gm Documented by: Levetiracetam (Keppra Injection -) 1,000 mg IVPB BID [facility] Last Admin: 01/16/20 21:38 Dose: 1,000 mg Documented by: Lisinopril (Prinivil) 2.5 mg PO DAILY [facility] Last Admin: 01/16/20 09:16 Dose: 2.5 mg Documented by: Melatonin (Melatonin) 5 mg PO HS PRN PRN Reason: INSOMNIA Last Admin: 01/16/20 21:38 Dose: 5 mg Documented by: Metoprolol Tartrate (Lopressor Injection -) 5 mg IVPUSH Q4H PRN PRN Reason: HYPERTENSION Last Admin: 01/16/20 01:25 Dose: 5 mg Documented by: Metoprolol Tartrate (Lopressor -) 75 mg PO TID [facility] Last Admin: 01/16/20 21:38 Dose: 75 mg Documented by: Pantoprazole Sodium (Protonix Iv) 40 mg IVPUSH DAILY [facility] Last Admin: 01/16/20 09:15 Dose: 40 mg Documented by: Thiamine HCl (Vitamin B1 -) 100 mg PO DAILY [facility] Last Admin: 01/16/20 09:16 Dose: 100 mg Documented by: - Objective Vital Signs: Vital Signs Temperature 98.4 F 01/16/20 18:00 Pulse Rate 126 H 01/16/20 20:00 Respiratory Rate 17 01/16/20 20:20 Blood Pressure 138/98 01/16/20 20:00 O2 Sat by Pulse Oximetry (%) 95 01/16/20 20:20 Constitutional: No: No Distress Eyes: Yes: Conjunctiva Clear Neck: Yes: Supple Cardiovascular: Yes: Regular Rate and Rhythm Respiratory: Yes: Diminished Gastrointestinal: Yes: Normal Bowel Sounds, Soft Edema: No Labs: CBC, BMP 01/16/20 05:30 01/16/20 05:30 INR, PTT INR 2.52 (0.83-1.09) H 01/16/20 05:30 Assessment/Plan RESP FAILURE GRAM NEGATIVE SEPSIS ACINETOBACTER PROBABLE ASP PNEUMONIA LACTIC ACIDOSIS RESOLVED THROMBOCYTOPENIA RESOLVED CONTINUE CEFTAZIDIME 1GM Q8H VENTILATORY SUPPORT
[2020-01-16] MEDS ORDERED: MELATONIN 5 MG TABLETS PO ONE (22:43)
[2020-01-17 02:31] LABS: HEP B CORE AB, TOT Negative (Negative)
[2020-01-17] MEDS: CEFTAZIDIME PENTAHYDRATE 1 GM in DEXTROSE 5%-WATER - 50 ML IVPB SCH ×3 (02:35→17:44)
[2020-01-17] MEDS: DILTIAZEM INJECTION 125 MG in SODIUM CHLORIDE 100 ML IVPB SCH (04:00)
[2020-01-17] MEDS: METOPROLOL TARTRATE 25 MG TABLET (FP) PO SCH (06:01)
[2020-01-17] MEDS ORDERED: POTASSIUM CHLORIDE TABS 20 MEQ TABLET.ER (FP) PO ONE (06:15)
[2020-01-17] MEDS ORDERED: MAGNESIUM OXIDE 400 MG TABLET (FP) PO ONE (06:15)
--- NOTE | 2020-01-17 07:04 | PN ---
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, Physician Chief Complaint: Pt extubated;lethargic, but easily arousable; responds to verbal queries;denies chest pain. His is at bedside. History of Present Illness: Mr Beckford is a 54 YO white man with PMHx h/o acute/chronic alcohol abuse, diastolic CHF (02/08 ECHO; mild AR; mild biatrial enlargement), HTN, AFIB (on metoprolol and eliquis), now presents with weakness and lightheadedness. Patient suspects current syptoms are 2/2 alcohol withdrawal. Mentions that his last drink was 3 hours prior to arrival. Patients reports that the patient has been lightheaded and tremulous this afternoon prior to arrival. Patient also mentions mild productive cough. Denies fever, chills, chest pain, SOB, N/V/D. Denies recent travel of sick contacts. - Current Medication List Current Medications: Active Medications Albuterol Sulfate (Ventolin Hfa Inhaler -) 2 puff IH Q4H PRN PRN Reason: SHORT OF BREATH/WHEEZING Amino Acids (Prosource No Carb Liquid Pkt) 30 ml PO DAILY [facility] Last Admin: 01/16/20 09:14 Dose: 30 ml Documented by: Apixaban (Eliquis -) 5 mg PO BID [facility] Last Admin: 01/16/20 21:38 Dose: 5 mg Documented by: Chlorhexidine Gluconate (Hibiclens For Decolonization -) 1 applic TP HS [facility] Last Admin: 01/16/20 21:38 Dose: 1 applic Documented by: Folic Acid (Folic Acid -) 1 mg PO DAILY [facility] Last Admin: 01/16/20 09:16 Dose: 1 mg Documented by: Ceftazidime 1 gm/ Dextrose 50 mls @ 100 mls/hr IVPB Q8H-IV [facility]; Protocol Last Admin: 01/17/20 02:35 Dose: 100 mls/hr Documented by: Diltiazem HCl 125 mg/ Sodium (Chloride) 125 mls @ 5 mls/hr IVPB TITR [facility]; Protocol Last Admin: 01/17/20 04:00 Dose: 5 mg/hr, 5 mls/hr Documented by: Lactulose (Cephulac (Oral Use)) 20 gm NGT BID [facility] Last Admin: 01/16/20 21:38 Dose: 20 gm Documented by: Levetiracetam (Keppra Injection -) 1,000 mg IVPB BID [facility] Last Admin: 01/16/20 21:38 Dose: 1,000 mg Documented by: Lisinopril (Prinivil) 2.5 mg PO DAILY [facility] Last Admin: 01/16/20 09:16 Dose: 2.5 mg Documented by: Melatonin (Melatonin) 5 mg PO HS PRN PRN Reason: INSOMNIA Last Admin: 01/16/20 21:38 Dose: 5 mg Documented by: Metoprolol Tartrate (Lopressor Injection -) 5 mg IVPUSH Q4H PRN PRN Reason: HYPERTENSION Last Admin: 01/16/20 01:25 Dose: 5 mg Documented by: Metoprolol Tartrate (Lopressor -) 75 mg PO TID [facility] Last Admin: 01/17/20 06:01 Dose: 75 mg Documented by: Pantoprazole Sodium (Protonix Iv) 40 mg IVPUSH DAILY [facility] Last Admin: 01/16/20 09:15 Dose: 40 mg Documented by: Thiamine HCl (Vitamin B1 -) 100 mg PO DAILY [facility] Last Admin: 01/16/20 09:16 Dose: 100 mg Documented by: - Objective Vital Signs: Vital Signs Temperature 99.2 F 01/17/20 04:00 Pulse Rate 102 H 01/17/20 06:00 Respiratory Rate 17 01/17/20 06:00 Blood Pressure 127/87 01/17/20 06:00 O2 Sat by Pulse Oximetry (%) 98 01/17/20 06:00 Constitutional: Yes: Calm Eyes: Yes: WNL HENT: Yes: WNL Neck: Yes: WNL Cardiovascular: Yes: Pulse Irregular, S1 (varies in intensity), S2 Respiratory: Yes: Diminished Gastrointestinal: Yes: Soft ...Rectal Exam: Yes: Deferred Genitourinary: No: Anuria Musculoskeletal: Yes: Muscle Weakness Extremities: Yes: Cool Edema: Yes Edema: LLE: Trace, RLE: Trace Peripheral Pulses WNL: Yes Integumentary: Yes: WNL Neurological: Yes: Alert, Oriented, Paresthesia Psychiatric: Yes: Other (addiction to alcohol) Labs: INR, PTT INR 2.52 (0.83-1.09) H 01/16/20 05:30 Abnormal Lab Results 01/15/20 01/16/20 01/16/20 05:36 05:30 05:30 WBC 13.8 H RBC 3.25 L Hgb 11.4 L Hct 34.4 L MCV 105.6 H MCH 35.0 H PT with INR 30.00 H INR 2.52 H PTT (Actin FS) 43.0 H Sodium Potassium Chloride Carbon Dioxide Anion Gap Creatinine Calcium Magnesium Total Bilirubin AST Ammonia Albumin Hep A IgM Ab Confirm Indeterminate H Hepatitis A Ab Total Positive H 01/16/20 01/16/20 05:30 05:30 WBC RBC Hgb Hct MCV MCH PT with INR INR PTT (Actin FS) Sodium 146 H Potassium 3.0 L Chloride 109 H Carbon Dioxide 13 L Anion Gap 24 H Creatinine 0.4 L Calcium 7.9 L Magnesium 1.7 L Total Bilirubin 1.6 H AST 77 H Ammonia 59.10 H Albumin 2.0 L Hep A IgM Ab Confirm Hepatitis A Ab Total - ....Imaging Chest X-ray: Image Reviewed EKG: Image Reviewed Other: Image Reviewed (telemetry: AF with controlled VR) Assessment/Plan Acute/chronic alcoholism Respiratory failure:now extubated. Acute systolic/diastolic CHF AF, with periods of RVR leukocytosis; symptoms of URI TSH WNL LDL cholesterol 67 mg/dL Plan: On metoprolol for HR control (and ECHO now shows moderate systolic dysfunction); increased 01/13/20 to 50 mg tid for better HR control (AF). Would not use diltiazem for HR control, given LV dysfunction. If IV medication is needed, would use metoprolol or Esmolol. ECHO: moderately reduced LVEF; normal LV size; mild-moderate RV dilatation, with mildly reduced RVEF; mild LAE. CXR: worsening bilateral pleural changes. On lisinopril 2.5 mg daily; increase dose as tolerated. IV furosemide if required for CHF. F/u daily weight, Is and Os, BUN/Cr. Replete Mg; keep K+ 4.0-4.5, Mg 2.0-2.4, PO4 2.5-4.9. Antibiotics per ID If not done recently, plan for stress MIBI when stable. Continue detox protocol CC time spent 35 minutes
[2020-01-17 07:17] LABS: HEMOGLOBIN 10.9 GM/dL (11.7-16.9); MCH 35.2 pg (25.7-33.7); MCHC 33.2 g/dl (32.0-35.9); MEAN CELL VOLUME 105.9 fl (80-96); MEAN PLT VOLUME 10.4 fl (7.5-11.1); PLATELET COUNT 191 K/MM3 (134-434); RBC 3.11 M/mm3 (4.00-5.60); RDW 13.8 % (11.9-15.9); WHITE BLOOD COUNT 13.5 K/mm3 (4.0-10.0)
[2020-01-17 07:26] LABS: BLOOD UREA NITROGEN 11.9 mg/dL (7-18); CALCIUM 7.8 mg/dL (8.5-10.1); CREATININE 0.4 mg/dL (0.55-1.3); MAGNESIUM 1.7 mg/dL (1.8-2.4); PHOSPHOROUS 3.2 mg/dL (2.5-4.9); POTASSIUM 3.4 mmol/L (3.5-5.1); TOT PROT 6.7 g/dl (6.4-8.2)
--- NOTE | 2020-01-17 08:42 | PN ---
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, Physician Chief Complaint: Extubated History of Present Illness: Mr is a 54 YO white man with PMHx h/o acute/chronic alcohol abuse, diastolic CHF (02/08 ECHO; mild AR; mild biatrial enlargement), HTN, AFIB (on metoprolol and eliquis), now presents with weakness and lightheadedness. Patient suspects current syptoms are 2/2 alcohol withdrawal. Mentions that his last drink was 3 hours prior to arrival. Patients reports that the patient has been lightheaded and tremulous this afternoon prior to arrival. Patient also mentions mild productive cough. Denies fever, chills, chest pain, SOB, N/V/D. Denies recent travel of sick contacts. - Current Medication List Current Medications: Active Medications Albuterol Sulfate (Ventolin Hfa Inhaler -) 2 puff IH Q4H PRN PRN Reason: SHORT OF BREATH/WHEEZING Amino Acids (Prosource No Carb Liquid Pkt) 30 ml PO DAILY [facility] Last Admin: 01/16/20 09:14 Dose: 30 ml Documented by: Apixaban (Eliquis -) 5 mg PO BID [facility] Last Admin: 01/16/20 21:38 Dose: 5 mg Documented by: Chlorhexidine Gluconate (Hibiclens For Decolonization -) 1 applic TP HS [facility] Last Admin: 01/16/20 21:38 Dose: 1 applic Documented by: Folic Acid (Folic Acid -) 1 mg PO DAILY [facility] Last Admin: 01/16/20 09:16 Dose: 1 mg Documented by: Ceftazidime 1 gm/ Dextrose 50 mls @ 100 mls/hr IVPB Q8H-IV [facility]; Protocol Last Admin: 01/17/20 02:35 Dose: 100 mls/hr Documented by: Diltiazem HCl 125 mg/ Sodium (Chloride) 125 mls @ 5 mls/hr IVPB TITR [facility]; Protocol Last Admin: 01/17/20 04:00 Dose: 5 mg/hr, 5 mls/hr Documented by: Lactulose (Cephulac (Oral Use)) 20 gm NGT BID [facility] Last Admin: 01/16/20 21:38 Dose: 20 gm Documented by: Levetiracetam (Keppra Injection -) 1,000 mg IVPB BID [facility] Last Admin: 09/24/20 21:38 Dose: 1,000 mg Documented by: Lisinopril (Prinivil) 2.5 mg PO DAILY [facility] Last Admin: 01/16/20 09:16 Dose: 2.5 mg Documented by: Melatonin (Melatonin) 5 mg PO HS PRN PRN Reason: INSOMNIA Last Admin: 01/16/20 21:38 Dose: 5 mg Documented by: Metoprolol Tartrate (Lopressor Injection -) 5 mg IVPUSH Q4H PRN PRN Reason: HYPERTENSION Last Admin: 01/16/20 01:25 Dose: 5 mg Documented by: Metoprolol Tartrate (Lopressor -) 75 mg PO TID [facility] Last Admin: 01/17/20 06:01 Dose: 75 mg Documented by: Pantoprazole Sodium (Protonix Iv) 40 mg IVPUSH DAILY [facility] Last Admin: 01/16/20 09:15 Dose: 40 mg Documented by: Thiamine HCl (Vitamin B1 -) 100 mg PO DAILY [facility] Last Admin: 01/16/20 09:16 Dose: 100 mg Documented by: - Objective Vital Signs: Vital Signs Temperature 99.2 F 01/17/20 04:00 Pulse Rate 105 H 01/17/20 08:00 Respiratory Rate 18 01/17/20 08:00 Blood Pressure 138/94 01/17/20 08:00 O2 Sat by Pulse Oximetry (%) 97 01/17/20 08:27 Eyes: Yes: WNL, Conjunctiva Clear, EOM Intact HENT: Yes: WNL, Atraumatic, Normocephalic Neck: Yes: WNL, Supple, Trachea Midline Cardiovascular: Yes: Pulse Irregular Respiratory: Yes: WNL, Regular, CTA Bilaterally Gastrointestinal: Yes: WNL, Normal Bowel Sounds Genitourinary: Yes: WNL Musculoskeletal: Yes: WNL Extremities: Yes: WNL Edema: No Integumentary: Yes: WNL Neurological: Yes: WNL, Alert, Oriented ...Motor Strength: WNL Psychiatric: Yes: WNL Labs: CBC, BMP 01/17/20 05:30 01/17/20 05:30 INR, PTT INR 2.52 (0.83-1.09) H 01/16/20 05:30 Assessment/Plan Acute/chronic alcoholism Respiratory failure:now extubated. Acute systolic/diastolic CHF AF, with periods of RVR leukocytosis; symptoms of URI TSH WNL LDL cholesterol 67 mg/dL Plan: On metoprolol for HR control (and ECHO now shows moderate systolic dysfunction); increased 01/13/20 to 50 mg tid for better HR control (AF). Would not use diltiazem for HR control, given LV dysfunction. If IV medication is needed, would use metoprolol or Esmolol. ECHO: moderately reduced LVEF; normal LV size; mild-moderate RV dilatation, with mildly reduced RVEF; mild LAE. CXR: worsening bilateral pleural changes. On lisinopril 2.5 mg daily; increase dose as tolerated. IV furosemide if required for CHF. F/u daily weight, Is and Os, BUN/Cr. Replete Mg; keep K+ 4.0-4.5, Mg 2.0-2.4, PO4 2.5-4.9. Antibiotics per ID If not done recently, plan for stress MIBI when stable. Continue detox protocol CC time spent 35 minutes
[2020-01-17] MEDS ORDERED: PT OWN MED DRAWER 7, Y5N ONE ×2 (09:01→17:15)
[2020-01-17] MEDS: LACTULOSE 20 GM/30 ML UDC (FOR ORAL USE ONLY) NGT SCH ×2 (09:16→21:27)
[2020-01-17] MEDS: APIXABAN 5 MG TABLET PO SCH ×2 (09:16→21:27)
[2020-01-17] MEDS: AMINO ACIDS/PROTEIN HYDROLYS 30 ML LIQUID.PKT PO SCH (09:19)
[2020-01-17] MEDS: FOLIC ACID 1 MG TABLET (FP) PO SCH (09:19)
[2020-01-17] MEDS: PANTOPRAZOLE SODIUM 40 MG VIAL IVPUSH SCH (09:19)
[2020-01-17] MEDS: levETIRAcetam 500 MG/5 ML INJECTION VIAL IVPB SCH ×2 (09:19→21:27)
[2020-01-17] MEDS: THIAMINE HCL 100 MG TABLET (FP) PO SCH (09:19)
[2020-01-17] MEDS: LISINOPRIL 5 MG TABLET PO SCH (09:19)
--- NOTE | 2020-01-17 10:35 | PN ---
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: Selected Entries 01/17/20 01/17/20 01/17/20 00:00 02:00 04:00 Skin Risk Level Supper Total Score - Skin Risk Assessment Temperature 99.2 F 99.2 F Pulse Rate 101 H 103 H 102 H Blood Pressure 125/88 122/89 127/91 O2 Sat by Pulse 98 98 98 Oximetry (%) Oxygen Delivery Method Oxygen Flow Rate 01/17/20 01/17/20 01/17/20 06:00 07:37 08:00 Skin Risk Level Supper NPO Total Score - Skin Risk Assessment Temperature Pulse Rate 102 H 105 H Blood Pressure 127/87 138/94 O2 Sat by Pulse 98 98 Oximetry (%) Oxygen Delivery Nasal Cannula Method Oxygen Flow 2 Rate 01/17/20 08:27 Skin Risk Level High Risk Supper Total Score - 10 Skin Risk Assessment Temperature Pulse Rate Blood Pressure O2 Sat by Pulse 97 Oximetry (%) Oxygen Delivery Nasal Cannula Method Oxygen Flow 2 Rate
--- NOTE | 2020-01-17 10:53 | PN ---
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 (short form) - Note 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: 54 year old male history of atrial fibrillation, alcohol abuse. htn. He was seen his at bed side. He came to hospital on january 03. He was brought to hospital for seizure. He has been drinking heavy and he has history of hepatomegaly and fatty liver. Patient was intubated , for airway protection and pneumonia and covid negative. He has ct head on january 05 it was negative. -- Patinet is extubated, and remains confused, oriented x 2. Patient has not had any seizure like actiivty NEUROLOGICAL EXAMINATION alert oriented x 2, tract object and following command moving all extremity pupils reactive, eomi, no face asymetry no face asymmetry moving all ext neck is supple ct head is normal and repeat on january 09 was unchanged eeg showed shparp wave activity repeat eeg showed generaliaed encephalopathy Assessment/Plan 54 year old male history of alcohol abuse, atrial fibrillation and htn. He came with alcohol withdrawal seizure. Ct head is negative. Supect alcohol withdrawal seizure. extubated and improved, no seizure and still remains confused Plan:-- continue keppra 1 gm iv bid for now - continue supportive care, -cc time 35 minute Thanking you so much Dilan Don MD
--- NOTE | 2020-01-17 11:47 | PN ---
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, Physician History of Present Illness: Pt seen/ examined in icu. chart is reviewed All follow up as noted and appreciated Extubated Drowsy but arousable Afebrile - Current Medication List Current Medications: Active Medications Albuterol Sulfate (Ventolin Hfa Inhaler -) 2 puff IH Q4H PRN PRN Reason: SHORT OF BREATH/WHEEZING Amino Acids (Prosource No Carb Liquid Pkt) 30 ml PO DAILY [facility] Last Admin: 01/17/20 09:19 Dose: 30 ml Documented by: Apixaban (Eliquis -) 5 mg PO BID [facility] Last Admin: 01/17/20 09:16 Dose: 5 mg Documented by: Chlorhexidine Gluconate (Hibiclens For Decolonization -) 1 applic TP HS [facility] Last Admin: 01/16/20 21:38 Dose: 1 applic Documented by: Folic Acid (Folic Acid -) 1 mg PO DAILY [facility] Last Admin: 01/17/20 09:19 Dose: 1 mg Documented by: Ceftazidime 1 gm/ Dextrose 50 mls @ 100 mls/hr IVPB Q8H-IV [facility]; Protocol Last Admin: 01/17/20 09:19 Dose: 100 mls/hr Documented by: Lactulose (Cephulac (Oral Use)) 20 gm NGT BID [facility] Last Admin: 01/17/20 09:16 Dose: 20 gm Documented by: Levetiracetam (Keppra Injection -) 1,000 mg IVPB BID [facility] Last Admin: 01/17/20 09:19 Dose: 1,000 mg Documented by: Lisinopril (Prinivil) 2.5 mg PO DAILY [facility] Last Admin: 01/17/20 09:19 Dose: 2.5 mg Documented by: Melatonin (Melatonin) 5 mg PO HS PRN PRN Reason: INSOMNIA Last Admin: 01/16/20 21:38 Dose: 5 mg Documented by: Metoprolol Succinate (Toprol Xl -) 200 mg PO DAILY [facility] Pantoprazole Sodium (Protonix Iv) 40 mg IVPUSH DAILY [facility] Last Admin: 01/17/20 09:19 Dose: 40 mg Documented by: Thiamine HCl (Vitamin B1 -) 100 mg PO DAILY [facility] Last Admin: 01/17/20 09:19 Dose: 100 mg Documented by: - Objective Vital Signs: Vital Signs Temperature 99.2 F 01/17/20 04:00 Pulse Rate 105 H 01/17/20 08:00 Respiratory Rate 18 01/17/20 08:00 Blood Pressure 138/94 01/17/20 08:00 O2 Sat by Pulse Oximetry (%) 97 01/17/20 08:27 Constitutional: Yes: No Distress, Calm Neck: Yes: Supple Cardiovascular: Yes: Pulse Irregular Respiratory: Yes: Diminished Gastrointestinal: Yes: Soft Edema: No Labs: CBC, BMP 01/17/20 05:30 01/17/20 05:30 INR, PTT INR 2.52 (0.83-1.09) H 01/16/20 05:30 Problem List - Problems (1) Alcohol dependence Code(s): F10.20 - ALCOHOL DEPENDENCE, UNCOMPLICATED Qualifiers: Substance use status: other alcohol-induced disorder Qualified Code(s): F10.288 - Alcohol dependence with other alcohol-induced disorder (2) Pneumonia Code(s): J18.9 - PNEUMONIA, UNSPECIFIED ORGANISM Qualifiers: Pneumonia type: due to unspecified organism Laterality: left Lung location: lower lobe of lung Qualified Code(s): J18.9 - Pneumonia, unspecified organism (3) Alcohol dependence with uncomplicated withdrawal Code(s): F10.230 - ALCOHOL DEPENDENCE WITH WITHDRAWAL, UNCOMPLICATED (4) Atrial fibrillation Code(s): I48.91 - UNSPECIFIED ATRIAL FIBRILLATION Qualifiers: Atrial fibrillation type: unspecified Qualified Code(s): I48.91 - Unspecified atrial fibrillation (5) Respiratory failure Code(s): J96.90 - RESPIRATORY FAILURE, UNSP, UNSP W HYPOXIA OR HYPERCAPNIA (6) Atrial fibrillation with rapid ventricular response Code(s): I48.91 - UNSPECIFIED ATRIAL FIBRILLATION Assessment/Plan Discussed with RN Continue present care Abx Diffuse metabolic Encephalopathy Pneumonia-- Aspiration Afib-- Acinobactor Bactremeia Repeat cutures -ve so far Continue present care Will continue to follow cc time approx 25 min .
--- NOTE | 2020-01-17 12:30 | PN ---
Teaching Attending Note Name of Resident: Ruddy Colby ATTENDING PHYSICIAN STATEMENT I saw and evaluated the patient. I reviewed the resident's note and discussed the case with the resident. I agree with the resident's findings and plan as documented. SUBJECTIVE: Patient seen and examined in the ICU. Remains extubated. Awake and responsive. Able to answer some simple questions. Denies CP or SOB. Remains on Cardizem drip @ 5mg/hr. Intake & Output 01/14/20 01/15/20 01/16/20 01/17/20 23:59 23:59 23:59 23:59 Intake Total 2243.8 969.6 2945 1290 Output Total 2450 1850 300 Balance -206.2 -880.4 2645 1290 Weight 211 lb 14.4 oz 219 lb 3.2 oz 209 lb 5 oz 210 lb Last Vital Signs Temp Pulse Resp BP Pulse Ox 99.2 F 105 H 18 138/94 97 01/17/20 04:00 01/17/20 08:00 01/17/20 08:00 01/17/20 08:00 01/17/20 08:27 Active Medications Albuterol Sulfate (Ventolin Hfa Inhaler -) 2 puff IH Q4H PRN PRN Reason: SHORT OF BREATH/WHEEZING Amino Acids (Prosource No Carb Liquid Pkt) 30 ml PO DAILY [facility] Last Admin: 01/17/20 09:19 Dose: 30 ml Documented by: Apixaban (Eliquis -) 5 mg PO BID [facility] Last Admin: 01/17/20 09:16 Dose: 5 mg Documented by: Chlorhexidine Gluconate (Hibiclens For Decolonization -) 1 applic TP HS [facility] Last Admin: 01/16/20 21:38 Dose: 1 applic Documented by: Folic Acid (Folic Acid -) 1 mg PO DAILY [facility] Last Admin: 01/17/20 09:19 Dose: 1 mg Documented by: Ceftazidime 1 gm/ Dextrose 50 mls @ 100 mls/hr IVPB Q8H-IV [facility]; Protocol Last Admin: 01/17/20 09:19 Dose: 100 mls/hr Documented by: Lactulose (Cephulac (Oral Use)) 20 gm NGT BID [facility] Last Admin: 01/17/20 09:16 Dose: 20 gm Documented by: Levetiracetam (Keppra Injection -) 1,000 mg IVPB BID [facility] Last Admin: 01/17/20 09:19 Dose: 1,000 mg Documented by: Lisinopril (Prinivil) 2.5 mg PO DAILY [facility] Last Admin: 01/17/20 09:19 Dose: 2.5 mg Documented by: Melatonin (Melatonin) 5 mg PO HS PRN PRN Reason: INSOMNIA Last Admin: 01/16/20 21:38 Dose: 5 mg Documented by: Metoprolol Succinate (Toprol Xl -) 200 mg PO DAILY [facility] Pantoprazole Sodium (Protonix Iv) 40 mg IVPUSH DAILY [facility] Last Admin: 01/17/20 09:19 Dose: 40 mg Documented by: Thiamine HCl (Vitamin B1 -) 100 mg PO DAILY [facility] Last Admin: 01/17/20 09:19 Dose: 100 mg Documented by: Gen: Extubated, Awake and responsive and able to follow commands Heart: RRR Lung:scattered rhonchi Abd: soft, nontender Ext: + dependent edema throughout Laboratory Results - last 24 hr 01/15/20 01/17/20 01/17/20 05:36 05:30 05:30 WBC 13.5 H RBC 3.11 L Hgb 10.9 L Hct 33.0 L MCV 105.9 H MCH 35.2 H MCHC 33.2 RDW 13.8 Plt Count 191 MPV 10.4 Sodium 147 H Potassium 3.4 L Chloride 114 H Carbon Dioxide 28 Anion Gap 5 L BUN 11.9 Creatinine 0.4 L Est GFR (CKD-EPI)AfAm 158.27 Est GFR (CKD-EPI)NonAf 136.56 Random Glucose 102 Calcium 7.8 L Phosphorus 3.2 Magnesium 1.7 L Total Bilirubin 1.0 AST 80 H ALT 46 Alkaline Phosphatase 64 Ammonia Total Protein 6.7 Albumin 2.0 L Hep A IgM Ab Confirm Indeterminate H Hepatitis A Ab Total Positive H Hep Bs Antigen Negative Hep Bs Antibody Non reactive Hep B Core Total Ab Negative Hep B Core IgM Ab Negative Hepatitis Be Antibody Negative Hepatitis Be Antigen Negative 01/17/20 05:30 WBC RBC Hgb Hct MCV MCH MCHC RDW Plt Count MPV Sodium Potassium Chloride Carbon Dioxide Anion Gap BUN Creatinine Est GFR (CKD-EPI)AfAm Est GFR (CKD-EPI)NonAf Random Glucose Calcium Phosphorus Magnesium Total Bilirubin AST ALT Alkaline Phosphatase Ammonia 34.70 H Total Protein Albumin Hep A IgM Ab Confirm Hepatitis A Ab Total Hep Bs Antigen Hep Bs Antibody Hep B Core Total Ab Hep B Core IgM Ab Hepatitis Be Antibody Hepatitis Be Antigen ASSESSMENT AND PLAN: Acute Hypoxic Respiratory Failure Pneumonia likely Aspiration Resolved Septic Shock Lactic Acidosis Atrial Fibrillation Alcohol Abuse Thrombocytopenia Seizures - r/o Alcohol Withdrawal HTN - NC O2 as tolerated - Pulmonary toileting - Currently off pressors, keep MAP >65 - Metoprolol for rate control - continue antibiotics as per ID - Continue daily lasix to keep net negative - monitor urine output - Trend and replete lytes - continue anticoagulation with Apixaban - Swallow evaluation - AYLIN Garduno - DVT/GI prophylaxis - Cardiac Telemetry monitoring Dr Carmen
--- NOTE | 2020-01-17 12:59 | PN ---
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: Selected Entries 01/17/20 01/17/20 01/17/20 00:00 02:00 04:00 Breakfast Temperature 99.2 F 99.2 F Pulse Rate 101 H 103 H 102 H Blood Pressure 125/88 122/89 127/91 O2 Sat by Pulse 98 98 98 Oximetry (%) Oxygen Delivery Method 01/17/20 01/17/20 01/17/20 06:00 07:37 08:00 Breakfast Temperature Pulse Rate 102 H 105 H Blood Pressure 127/87 138/94 O2 Sat by Pulse 98 98 Oximetry (%) Oxygen Delivery Nasal Cannula Method 01/17/20 01/17/20 01/17/20 08:27 10:00 10:24 Breakfast NPO Temperature 98.7 F Pulse Rate 90 Blood Pressure 113/83 O2 Sat by Pulse 97 95 Oximetry (%) Oxygen Delivery Nasal Cannula Method 01/17/20 12:00 Breakfast Temperature Pulse Rate 104 H Blood Pressure 126/92 O2 Sat by Pulse 97 Oximetry (%) Oxygen Delivery Method Laboratory Tests 01/15/20 01/16/20 01/17/20 06:45 05:30 05:30 WBC 12.5 H 13.8 H 13.[address] Rate of swallow onset and excursion improving. Cough response with single ,careful sip of thin water For MBS to r/o aspiration/stasis with goal to initiate po diet with safety
--- NOTE | 2020-01-17 13:53 | PN ---
Physical Exam: SUBJECTIVE: Patient seen and examined. Overnight patient slept more than the night before; sleep improved with melatonin. In the morning, patient was on dilatiazem 5 mg/h, but drip now stopped. Modified barium swallow today; dysphagia puree diet recommended OBJECTIVE: Vital Signs Period Temp Pulse Resp BP Sys/Redman Pulse Ox Last 24 Hr 98.4 F-99.4 F 81-126 14-18 113-138/79-98 94-98 GENERAL: AAOX2 (person,place). able to follow simple commands. extubated HEENT: Normal with no signs of trauma. PERRL, No ptosis. MMM LUNGS: decreased breath sounds in bases, scattered rhonci no wheezes, no crackles, no accessory muscle use. HEART:irregular rate, S1, S2 without murmur, rub or gallop. ABDOMEN: Soft, nontender, nondistended, normoactive bowel sounds, no guarding, no rebound EXTREMITIES: 2+ pulses, warm, well-perfused, dependent edema Laboratory Results - last 24 hr 01/15/20 01/17/20 01/17/20 05:36 05:30 05:30 WBC 13.5 H RBC 3.11 L Hgb 10.9 L Hct 33.0 L MCV 105.9 H MCH 35.2 H MCHC 33.2 RDW 13.8 Plt Count 191 MPV 10.4 Sodium 147 H Potassium 3.4 L Chloride 114 H Carbon Dioxide 28 Anion Gap 5 L BUN 11.9 Creatinine 0.4 L Est GFR (CKD-EPI)AfAm 158.27 Est GFR (CKD-EPI)NonAf 136.56 Random Glucose 102 Calcium 7.8 L Phosphorus 3.2 Magnesium 1.7 L Total Bilirubin 1.0 AST 80 H ALT 46 Alkaline Phosphatase 64 Ammonia Total Protein 6.7 Albumin 2.0 L Hep A IgM Ab Confirm Indeterminate H Hepatitis A Ab Total Positive H Hep Bs Antigen Negative Hep Bs Antibody Non reactive Hep B Core Total Ab Negative Hep B Core IgM Ab Negative Hepatitis Be Antibody Negative Hepatitis Be Antigen Negative 01/17/20 05:30 WBC RBC Hgb Hct MCV MCH MCHC RDW Plt Count MPV Sodium Potassium Chloride Carbon Dioxide Anion Gap BUN Creatinine Est GFR (CKD-EPI)AfAm Est GFR (CKD-EPI)NonAf Random Glucose Calcium Phosphorus Magnesium Total Bilirubin AST ALT Alkaline Phosphatase Ammonia 34.70 H Total Protein Albumin Hep A IgM Ab Confirm Hepatitis A Ab Total Hep Bs Antigen Hep Bs Antibody Hep B Core Total Ab Hep B Core IgM Ab Hepatitis Be Antibody Hepatitis Be Antigen Active Medications Generic Name Dose Route Start Last Admin Trade Name Shilo PRN Reason Stop Dose Admin Albuterol Sulfate 2 puff 01/04/20 05:39 Ventolin Hfa Inhaler - IH Q4H PRN SHORT OF BREATH/WHEEZING Amino Acids 30 ml 01/08/20 12:45 01/17/20 09:19 Prosource No Carb Liquid Pkt PO 30 ml DAILY ALFRED Administration Apixaban 5 mg 01/04/20 08:00 01/17/20 09:16 Eliquis - PO 5 mg BID ALFRED Administration Chlorhexidine Gluconate 1 applic 01/04/20 22:00 01/16/20 21:38 Hibiclens For Decolonization - TP 1 applic HS ALFRED Administration Folic Acid 1 mg 01/05/20 10:00 01/17/20 09:19 Folic Acid - PO 1 mg DAILY ALFRED Administration Ceftazidime 1 gm/ Dextrose 50 mls @ 100 mls/hr 01/06/20 11:45 01/17/20 09:19 IVPB 100 mls/hr Q8H-IV ALFRED Administration Protocol Lactulose 20 gm 01/14/20 12:45 01/17/20 09:16 Cephulac (Oral Use) NGT 20 gm BID ALFRED Administration Levetiracetam 1,000 mg 01/06/20 22:00 01/17/20 09:19 Keppra Injection - IVPB 1,000 mg BID ALFRED Administration Lisinopril 2.5 mg 01/04/20 10:00 01/17/20 09:19 Prinivil PO 2.5 mg DAILY ALFRED Administration Melatonin 5 mg 01/16/20 22:00 01/16/20 21:38 Melatonin PO 5 mg HS PRN Administration INSOMNIA Metoprolol Succinate 200 mg 01/17/20 11:45 Toprol Xl - PO DAILY ALFRED Pantoprazole Sodium 40 mg 01/04/20 10:00 01/17/20 09:19 Protonix Iv IVPUSH 40 mg DAILY ALFRED Administration Thiamine HCl 100 mg 01/05/20 10:00 01/17/20 09:19 Vitamin B1 - PO 100 mg DAILY ALFRED Administration ASSESSMENT/PLAN: 54 year old M with PMH afib (on eliquis), alcohol use disorder , diastolic CHF (02/08 ECHO; mild AR; mild biatrial enlargement), HTN, AFIB presented with weakness, lightheadedness, shaking. Was given Librium 10mg, Ativan 1mg for alcohol withdrawal and found to have PNA on CXR. Admitted to ICU for Afib w/ RVR, now s/p Amio drip and respiratory failure with seizures. #Neuro -s/p extubated. Follows simple commands - Alcohol withdrawal seizures - continue with folic acid, thiamine daily -CTH: no significant change. moderate ventricular dilatation. generalized volume loss. mild periventricular chronic microvascular ischemic disease changes -EEG: sharp wave activity -neuro consult appreciated. c/w Keppra 1000 mg BID IVPB -speech & swallow: #Cardio AFib with RVR -s/p Amio drip. - off pressors . Maintain MAP >65 -HR stable. Cardio consult appreciated. diltiazem drip stopped. Metoprolol succinate (Toprol XL) 200 mg PO daily was recommended. However, toprol is unable to be crushed, so patient was restarted on tartrate (lopressor) 75 mg PO daily. -s/p lopressor 75 mg TID & Lopressor 5 mg IV push Q4H PRN -c/w home eliquis 5 mg PO BID -given pt's history of alcohol use and elevated liver enzymes, hold off on starting PO amiodarone -EKG (01/05): afib, atrial rate 131 bpm, vent. rate 97 bpm, QTC 520 -EKG (01/16): afib, 90 bpm QTC 467 -ECHO: LV normal size. Moderate global LV systolic dysfunction. EF 40-45%. RV mild-moderately dilated. RV systoltic function mildly reduced. LA/RA mildly dilated. Mild aortic sclerosis. -Will consider POP and beta edwin once patient improves #Pulm -ABG (01/15): INCREASED pH 7.485, base excess 3.5//DECREASED PO2 63 -s/p extubation -CXR (01/16/20): NG tube persists. b/l pulmonary & pleural changes have increased. Left worse than Right -on room air #GI - NG in place - Protonix 40mg -AFP 3.8 WNL -H/o thrombocytopenia, h/o alcohol use disorder, previous PT/INR PTT were prolonged and prior ultrasound showed hepatomegaly (18.5 cm) with diffuse fatty infiltration of liver and contracted/thick walled gall bladder that could be related to hepatocellular disease. -abd US: 1) trace ascites, (2) distended gallbladder w/o evidence of cholelithiasis, (3) hepatomegaly & diffuse infiltration of liver -Hep serology positive for Hep A ab positive, & Hep A IgM ab indeterminate - AST/ALT increased from 77/40 to 80/46. will continue to monitor -ammonia decreased from 59.1 to 34.7 -awaiting hepatitis serologies. -GI consult appreciated. Would benefit from upper endoscopy to evaluate for varices. If varices are present, would consider stopping AC. -Lactulose 20g BID. Will uptitrate as needed. 3 BM overnight #ID - PNA likely Aspiration - s/p Ceftriaxone/Azithroycin. s/p Zosyn 3.375 gm (01/03-01/05). -blood culture X2: acinetobacter baumannii/haemolo -Mycoplasma pnuemoniae IgG titer elevated at 180. Mycoplasma pneumoniae IgM titer is WNL <770. -sputum culture (01/03): non-lactose fermenting GNB: ochrobactrum anthropi -continue with CEFTAZIDIME 1GM Q8H (01/05) for gram neg sepsis 2/2 acinetobacter -(01/11) blood culture no growth -(01/11) sputum culture: proteus mirabilus-ESBL production, #2 non lactose fermenting Gnb #Renal - BUN/Cr 11.9/0.4 - Vo REMOVED. Monitor urine output - 2945 Intake/300 Output/ 2645 mL Balance #Heme/Onc - Thrombocytopenia: resolved #FEN no IVF monitor lytes Modified barium swallow today; NG tube REMOVED. dysphagia puree diet #Prophylaxis eliquis 5 mg PO BID Lines Left IJ triple lumen central catheter (01/12) REMOVED #Dispo maintain ICU ATTENDING PHYSICIAN STATEMENT I saw and evaluated the patient. I reviewed the resident's note and discussed the case with the resident. I agree with the resident's findings and plan as documented. SUBJECTIVE: OBJECTIVE: ASSESSMENT AND PLAN:
--- NOTE | 2020-01-17 14:30 | EKG ---
Test Reason : Blood Pressure : / mmHG Vent. Rate : 090 BPM Atrial Rate : 105 BPM P-R Int : 000 ms QRS Dur : 096 ms QT Int : 382 ms P-R-T Axes : 000 000 -76 degrees QTc Int : 467 ms ATRIAL FIBRILLATION LOW VOLTAGE QRS NONSPECIFIC T WAVE ABNORMALITY PROLONGED QT ABNORMAL ECG WHEN COMPARED WITH ECG OF 06-JAN-2020 09:58, NO SIGNIFICANT CHANGE WAS FOUND Confirmed by EARNEST LECHUGA MD ([id number]) on 01/17/2020 2:30:25 PM Referred By: CHAVA KIRK Confirmed By:EARNEST LECHUGA MD
[2020-01-17] MEDS ORDERED: METOPROLOL TARTRATE 50 MG TABLET (FP) PO SCH (14:31)
--- NOTE | 2020-01-17 15:19 | PN ---
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, Physician History of Present Illness: AWAKE AND ALERT ANSWERS QUESTIONS EXTUBATED NO ACUTE DISTRESS AFEBRILE WBC IMPROVED NO FURTHER SEIZURES REPORTED BC ACINETOBACTER SPUTUM CS/ ESBL LIKELY COLONIZER CXR LLL INFILTRATE - Current Medication List Current Medications: Active Medications Albuterol Sulfate (Ventolin Hfa Inhaler -) 2 puff IH Q4H PRN PRN Reason: SHORT OF BREATH/WHEEZING Amino Acids (Prosource No Carb Liquid Pkt) 30 ml PO DAILY [facility] Last Admin: 01/17/20 09:19 Dose: 30 ml Documented by: Apixaban (Eliquis -) 5 mg PO BID [facility] Last Admin: 01/17/20 09:16 Dose: 5 mg Documented by: Chlorhexidine Gluconate (Hibiclens For Decolonization -) 1 applic TP HS [facility] Last Admin: 01/16/20 21:38 Dose: 1 applic Documented by: Folic Acid (Folic Acid -) 1 mg PO DAILY [facility] Last Admin: 01/17/20 09:19 Dose: 1 mg Documented by: Ceftazidime 1 gm/ Dextrose 50 mls @ 100 mls/hr IVPB Q8H-IV ALFRED; Protocol Last Admin: 01/17/20 09:19 Dose: 100 mls/hr Documented by: Lactulose (Cephulac (Oral Use)) 20 gm NGT BID [facility] Last Admin: 01/17/20 09:16 Dose: 20 gm Documented by: Levetiracetam (Keppra Injection -) 1,000 mg IVPB BID [facility] Last Admin: 01/17/20 09:19 Dose: 1,000 mg Documented by: Lisinopril (Prinivil) 2.5 mg PO DAILY [facility] Last Admin: 01/17/20 09:19 Dose: 2.5 mg Documented by: Melatonin (Melatonin) 5 mg PO HS PRN PRN Reason: INSOMNIA Last Admin: 01/16/20 21:38 Dose: 5 mg Documented by: Metoprolol Tartrate (Lopressor -) 75 mg PO TID [facility] Pantoprazole Sodium (Protonix Iv) 40 mg IVPUSH DAILY [facility] Last Admin: 01/17/20 09:19 Dose: 40 mg Documented by: Thiamine HCl (Vitamin B1 -) 100 mg PO DAILY [facility] Last Admin: 01/17/20 09:19 Dose: 100 mg Documented by: - Objective Vital Signs: Vital Signs Temperature 98.7 F 01/17/20 10:00 Pulse Rate 104 H 01/17/20 12:00 Respiratory Rate 17 01/17/20 12:00 Blood Pressure 126/92 01/17/20 12:00 O2 Sat by Pulse Oximetry (%) 97 01/17/20 12:00 Constitutional: Yes: No Distress Eyes: Yes: Conjunctiva Clear Cardiovascular: Yes: Regular Rate and Rhythm, S1, S2 Respiratory: Yes: Diminished Gastrointestinal: Yes: Normal Bowel Sounds, Soft Edema: Yes Labs: CBC, BMP 01/17/20 05:30 01/17/20 05:30 INR, PTT INR 2.52 (0.83-1.09) H 01/16/20 05:30 Assessment/Plan RESP FAILURE GRAM NEGATIVE SEPSIS ACINETOBACTER PROBABLE ASP PNEUMONIA LACTIC ACIDOSIS RESOLVED THROMBOCYTOPENIA RESOLVED CONTINUE CEFTAZIDIME 1GM Q8H VENTILATORY SUPPORT
[2020-01-17] MEDS: METOPROLOL TARTRATE 50 MG TABLET (FP) PO SCH ×2 (15:55→21:27)
[2020-01-17] MEDS: CHLORHEXIDINE GLUCONATE 4% CLEANSER FOR DECOLONIZATION TP SCH (21:27)
[2020-01-18] MEDS ORDERED: PT OWN MED DRAWER 7, Y5N ONE ×4 (00:58→20:31)
[2020-01-18] MEDS: CEFTAZIDIME PENTAHYDRATE 1 GM in DEXTROSE 5%-WATER - 50 ML IVPB SCH ×3 (01:00→18:05)
[2020-01-18] MEDS: METOPROLOL TARTRATE 50 MG TABLET (FP) PO SCH ×3 (06:17→21:10)
[2020-01-18 06:37] LABS: HEMOGLOBIN 12.4 GM/dL (11.7-16.9); MCH 35.7 pg (25.7-33.7); MCHC 33.5 g/dl (32.0-35.9); MEAN CELL VOLUME 106.7 fl (80-96); MEAN PLT VOLUME 10.3 fl (7.5-11.1); PLATELET COUNT 206 K/MM3 (134-434); RBC 3.47 M/mm3 (4.00-5.60); RDW 13.6 % (11.9-15.9); WHITE BLOOD COUNT 11.8 K/mm3 (4.0-10.0)
[2020-01-18 07:05] LABS: BLOOD UREA NITROGEN 13.8 mg/dL (7-18); CALCIUM 8.2 mg/dL (8.5-10.1); CREATININE 0.5 mg/dL (0.55-1.3); MAGNESIUM 1.6 mg/dL (1.8-2.4); PHOSPHOROUS 3.4 mg/dL (2.5-4.9); POTASSIUM 3.3 mmol/L (3.5-5.1)
[2020-01-18] MEDS ORDERED: MAGNESIUM SULF 50% (8.12 MEQ/2 ML-1 GM VIAL) IVPB ONE (08:28)
[2020-01-18] MEDS ORDERED: MAGNESIUM 1GM/D5W - 1 GM/100 ML IVPB IVPB ONE (08:45)
[2020-01-18] MEDS: FOLIC ACID 1 MG TABLET (FP) PO SCH (09:32)
[2020-01-18] MEDS: LISINOPRIL 5 MG TABLET PO SCH (09:32)
[2020-01-18] MEDS: LACTULOSE 20 GM/30 ML UDC (FOR ORAL USE ONLY) NGT SCH ×2 (09:32→22:00)
[2020-01-18] MEDS: PANTOPRAZOLE SODIUM 40 MG VIAL IVPUSH SCH (09:33)
[2020-01-18] MEDS: APIXABAN 5 MG TABLET PO SCH ×2 (09:34→21:10)
[2020-01-18] MEDS: THIAMINE HCL 100 MG TABLET (FP) PO SCH (09:35)
[2020-01-18] MEDS: AMINO ACIDS/PROTEIN HYDROLYS 30 ML LIQUID.PKT PO SCH (09:35)
[2020-01-18] MEDS: levETIRAcetam 500 MG/5 ML INJECTION VIAL IVPB SCH ×2 (09:36→21:09)
[2020-01-18 09:43] LABS: ALBUMIN 2.2 g/dl (3.4-5.0)
--- NOTE | 2020-01-18 10:21 | PN ---
Physical Exam: SUBJECTIVE: Patient seen and examined. No overnight events. Endorsed sleeping better overnight. Patient is More conversant & interactive. OBJECTIVE: Vital Signs Period Temp Pulse Resp BP Sys/Redman Pulse Ox Last 24 Hr 98.6 F-98.9 F 101-123 14-18 121-138/75-99 94-97 GENERAL: AAOX2 (person,place). more conversant & interactive. able to follow commands. HEENT: Normal with no signs of trauma. PERRL, No ptosis. MMM LUNGS: decreased breath sounds in bases, no wheezes, no crackles, no accessory muscle use. HEART:irregular rate, S1, S2 without murmur, rub or gallop. ABDOMEN: Soft, nontender, nondistended, normoactive bowel sounds, no guarding, no rebound EXTREMITIES: 2+ pulses, warm, well-perfused, dependent edema Laboratory Results - last 24 hr 01/18/20 01/18/20 01/18/20 05:48 05:48 05:48 WBC 11.8 H RBC 3.47 L Hgb 12.4 Hct 37.0 MCV 106.7 H MCH 35.7 H MCHC 33.5 RDW 13.6 Plt Count 206 MPV 10.3 Sodium 148 H Potassium 3.3 L Chloride 116 H Carbon Dioxide 28 Anion Gap 4 L BUN 13.8 Creatinine 0.5 L Est GFR (CKD-EPI)AfAm 144.40 Est GFR (CKD-EPI)NonAf 124.59 Random Glucose 79 Calcium 8.2 L Phosphorus 3.4 Magnesium 1.6 L AST 72 H ALT 51 Alkaline Phosphatase 66 Ammonia 13.50 Albumin 2.2 L Active Medications Generic Name Dose Route Start Last Admin Trade Name Freq PRN Reason Stop Dose Admin Albuterol Sulfate 2 puff 01/04/20 05:39 Ventolin Hfa Inhaler - IH Q4H PRN SHORT OF BREATH/WHEEZING Amino Acids 30 ml 01/08/20 12:45 01/18/20 09:35 Prosource No Carb Liquid Pkt PO 30 ml DAILY ALFRED Administration Apixaban 5 mg 01/04/20 08:00 01/18/20 09:34 Eliquis - PO 5 mg BID ALFRED Administration Chlorhexidine Gluconate 1 applic 01/04/20 22:00 01/17/20 21:27 Hibiclens For Decolonization - TP 1 applic HS ALFRED Administration Folic Acid 1 mg 01/05/20 10:00 01/18/20 09:32 Folic Acid - PO 1 mg DAILY ALFRED Administration Ceftazidime 1 gm/ Dextrose 50 mls @ 100 mls/hr 01/06/20 11:45 01/18/20 09:59 IVPB 100 mls/hr Q8H-IV ALFRED Administration Protocol Lactulose 20 gm 01/14/20 12:45 01/18/20 09:32 Cephulac (Oral Use) NGT 20 gm BID ALFRED Administration Levetiracetam 1,000 mg 01/06/20 22:00 01/18/20 09:36 Keppra Injection - IVPB 1,000 mg BID ALFRED Administration Lisinopril 2.5 mg 01/04/20 10:00 01/18/20 09:32 Prinivil PO 2.5 mg DAILY ALFRED Administration Melatonin 5 mg 01/16/20 22:00 01/16/20 21:38 Melatonin PO 5 mg HS PRN Administration INSOMNIA Metoprolol Tartrate 75 mg 01/17/20 14:45 01/18/20 06:17 Lopressor - PO 75 mg TID ALFRED Administration Pantoprazole Sodium 40 mg 01/04/20 10:00 01/18/20 09:33 Protonix Iv IVPUSH 40 mg DAILY ALFRED Administration Thiamine HCl 100 mg 01/05/20 10:00 01/18/20 09:35 Vitamin B1 - PO 100 mg DAILY ALFRED Administration ASSESSMENT/PLAN: 54 year old M with PMH afib (on eliquis), alcohol use disorder , diastolic CHF (02/08 ECHO; mild AR; mild biatrial enlargement), HTN, AFIB presented with we akness, lightheadedness, shaking. Was given Librium 10mg, Ativan 1mg for alcohol withdrawal and found to have PNA on CXR. Admitted to ICU for Afib w/ RVR, now s/p Amio drip and respiratory failure with seizures. #Neuro -s/p extubated. Follows simple commands - Alcohol withdrawal seizures - continue with folic acid, thiamine daily -CTH: no significant change. moderate ventricular dilatation. generalized volume loss. mild periventricular chronic microvascular ischemic disease changes -EEG: sharp wave activity -c/w Keppra 1000 mg BID IVPB #Cardio AFib with RVR -s/p Amio drip. - off pressors . Maintain MAP >65 -HR stable. Cardio consult appreciated. diltiazem drip stopped. Metoprolol succinate (Toprol XL) 200 mg PO daily was recommended. However, toprol is unable to be crushed, so continue with tartrate (lopressor) 75 mg PO daily. -s/p Lopressor 5 mg IV push Q4H PRN -c/w home eliquis 5 mg PO BID -given pt's history of alcohol use and elevated liver enzymes, hold off on starting PO amiodarone -EKG (01/05): afib, atrial rate 131 bpm, vent. rate 97 bpm, QTC 520 -EKG (01/16): afib, 90 bpm QTC 467 -ECHO: LV normal size. Moderate global LV systolic dysfunction. EF 40-45%. RV mild-moderately dilated. RV systoltic function mildly reduced. LA/RA mildly dilated. Mild aortic sclerosis. -Will consider POP and beta edwin once patient improves #Pulm -ABG (01/15): INCREASED pH 7.485, base excess 3.5//DECREASED PO2 63 -s/p extubation -CXR (01/16/20): NG tube persists. b/l pulmonary & pleural changes have increased. Left worse than Right -on room air #GI - NG in place - Protonix 40mg -AFP 3.8 WNL -H/o thrombocytopenia, h/o alcohol use disorder, previous PT/INR PTT were prolonged and prior ultrasound showed hepatomegaly (18.5 cm) with diffuse fatty infiltration of liver and contracted/thick walled gall bladder that could be related to hepatocellular disease. -abd US: 1) trace ascites, (2) distended gallbladder w/o evidence of cholelithiasis, (3) hepatomegaly & diffuse infiltration of liver -Hep serology positive for Hep A ab positive, & Hep A IgM ab indeterminate - AST/ALT trended to 72/51. will continue to monitor -ammonia decreased from 34.7 to 13.5 -GI consult appreciated. Would benefit from upper endoscopy to evaluate for varices. If varices are present, would consider stopping AC. -Lactulose 20g BID. Will uptitrate as needed. 2 BM overnight #ID - PNA likely Aspiration - s/p Ceftriaxone/Azithroycin. s/p Zosyn 3.375 gm (01/03-01/05). -blood culture X2: acinetobacter baumannii/haemolo -Mycoplasma pnuemoniae IgG titer elevated at 180. Mycoplasma pneumoniae IgM titer is WNL <770. -sputum culture (01/03): non-lactose fermenting GNB: ochrobactrum anthropi -continue with CEFTAZIDIME 1GM Q8H (01/05) for gram neg sepsis 2/2 acinetobacter -(01/11) blood culture no growth -(01/11) sputum culture: proteus mirabilus-ESBL production, #2 non lactose fermenting Gnb #Renal - BUN/Cr 11.9/0.4 - no Vo. Monitor urine output #Heme/Onc - Thrombocytopenia: resolved #FEN no IVF monitor lytes dysphagia puree diet #Prophylaxis eliquis 5 mg PO BID #Dispo transfer to tele ATTENDING PHYSICIAN STATEMENT I saw and evaluated the patient. I reviewed the resident's note and discussed the case with the resident. I agree with the resident's findings and plan as documented. SUBJECTIVE: OBJECTIVE: ASSESSMENT AND PLAN:
--- NOTE | 2020-01-18 10:21 | PN ---
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 (short form) - Note 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: events noted pt examined in ICU extubated eating without difficulty-- thickened liquids Vital Signs - 24 hr 01/17/20 01/17/20 01/17/20 14:00 16:00 18:00 Temperature 98.9 F 98.9 F Pulse Rate 117 H 117 H 109 H Respiratory 16 14 17 Rate Blood Pressure 125/95 134/88 123/94 O2 Sat by Pulse 94 L 97 96 Oximetry (%) 01/17/20 01/17/20 01/17/20 20:00 20:26 20:30 Temperature Pulse Rate 111 H Respiratory 14 14 Rate Blood Pressure 126/87 O2 Sat by Pulse 96 96 96 Oximetry (%) 01/17/20 01/18/20 01/18/20 22:00 00:00 02:00 Temperature 98.7 F 98.6 F Pulse Rate 107 H 108 H 110 H Respiratory 15 16 17 Rate Blood Pressure 138/98 135/95 133/90 O2 Sat by Pulse 96 95 95 Oximetry (%) 01/18/20 01/18/20 01/18/20 04:00 06:00 07:53 Temperature 98.6 F Pulse Rate 111 H 123 H 101 H Respiratory 16 18 17 Rate Blood Pressure 121/75 137/96 131/99 O2 Sat by Pulse 96 95 96 Oximetry (%) Current Medications Generic Name Dose Route Start Last Admin Trade Name Freq PRN Reason Stop Dose Admin Albuterol Sulfate 2 puff 01/04/20 05:39 Ventolin Hfa Inhaler - IH Q4H PRN SHORT OF BREATH/WHEEZING Amino Acids 30 ml 01/08/20 12:45 01/18/20 09:35 Prosource No Carb Liquid Pkt PO 30 ml DAILY ALFRED Administration Apixaban 5 mg 01/04/20 08:00 01/18/20 09:34 Eliquis - PO 5 mg BID ALFRED Administration Chlorhexidine Gluconate 1 applic 01/04/20 22:00 01/17/20 21:27 Hibiclens For Decolonization - TP 1 applic HS ALFRED Administration Folic Acid 1 mg 01/05/20 10:00 01/18/20 09:32 Folic Acid - PO 1 mg DAILY ALFRED Administration Ceftazidime 1 gm/ Dextrose 50 mls @ 100 mls/hr 01/06/20 11:45 01/18/20 09:59 IVPB 100 mls/hr Q8H-IV ALFRED Administration Protocol Lactulose 20 gm 01/14/20 12:45 01/18/20 09:32 Cephulac (Oral Use) NGT 20 gm BID ALFRED Administration Levetiracetam 1,000 mg 01/06/20 22:00 01/18/20 09:36 Keppra Injection - IVPB 1,000 mg BID ALFRED Administration Lisinopril 2.5 mg 01/04/20 10:00 01/18/20 09:32 Prinivil PO 2.5 mg DAILY ALFRED Administration Melatonin 5 mg 01/16/20 22:00 01/16/20 21:38 Melatonin PO 5 mg HS PRN Administration INSOMNIA Metoprolol Tartrate 75 mg 01/17/20 14:45 01/18/20 06:17 Lopressor - PO 75 mg TID ALFRED Administration Pantoprazole Sodium 40 mg 01/04/20 10:00 01/18/20 09:33 Protonix Iv IVPUSH 40 mg DAILY ALFRED Administration Thiamine HCl 100 mg 01/05/20 10:00 01/18/20 09:35 Vitamin B1 - PO 100 mg DAILY ALFRED Administration Laboratory Results - last 24 hr 01/18/20 01/18/20 01/18/20 05:48 05:48 05:48 WBC 11.8 H RBC 3.47 L Hgb 12.4 Hct 37.0 MCV 106.7 H MCH 35.7 H MCHC 33.5 RDW 13.6 Plt Count 206 MPV 10.3 Sodium 148 H Potassium 3.3 L Chloride 116 H Carbon Dioxide 28 Anion Gap 4 L BUN 13.8 Creatinine 0.5 L Est GFR (CKD-EPI)AfAm 144.40 Est GFR (CKD-EPI)NonAf 124.59 Random Glucose 79 Calcium 8.2 L Phosphorus 3.4 Magnesium 1.6 L AST 72 H ALT 51 Alkaline Phosphatase 66 Ammonia 13.50 Albumin 2.2 L Constitutional: Yes: Other Neck: Yes: Supple Cardiovascular: Yes: Pulse Irregular Respiratory: Yes: Diminished Gastrointestinal: Yes: Soft Genitourinary: Yes: Vo Present Edema: yes PLAN IV antibiotics per ID aspiration precautions replace potassium platelets stable with Eliquis swallow eval noted ammonia decreased - mental status better Problem List - Problems (1) Alcohol dependence Code(s): F10.20 - ALCOHOL DEPENDENCE, UNCOMPLICATED Qualifiers: Substance use status: other alcohol-induced disorder Qualified Code(s): F10.288 - Alcohol dependence with other alcohol-induced disorder (2) Pneumonia Code(s): J18.9 - PNEUMONIA, UNSPECIFIED ORGANISM Qualifiers: Pneumonia type: due to unspecified organism Laterality: left Lung location: lower lobe of lung Qualified Code(s): J18.9 - Pneumonia, unspecified organism (3) Respiratory failure Code(s): J96.90 - RESPIRATORY FAILURE, UNSP, UNSP W HYPOXIA OR HYPERCAPNIA (4) Weakness Code(s): R53.1 - WEAKNESS (5) Alcohol abuse Code(s): F10.10 - ALCOHOL ABUSE, UNCOMPLICATED (6) Alcohol dependence with uncomplicated withdrawal Code(s): F10.230 - ALCOHOL DEPENDENCE WITH WITHDRAWAL, UNCOMPLICATED (7) Atrial fibrillation Code(s): I48.91 - UNSPECIFIED ATRIAL FIBRILLATION Qualifiers: Atrial fibrillation type: unspecified Qualified Code(s): I48.91 - Unspecified atrial fibrillation (8) HTN (hypertension) Code(s): I10 - ESSENTIAL (PRIMARY) HYPERTENSION Qualifiers: Hypertension type: essential hypertension Qualified Code(s): I10 - Essential (primary) hypertension
--- NOTE | 2020-01-18 10:38 | PN ---
Teaching Attending Note Name of Resident: Ruddy Colby ATTENDING PHYSICIAN STATEMENT I saw and evaluated the patient. I reviewed the resident's note and discussed the case with the resident. I agree with the resident's findings and plan as documented. SUBJECTIVE: Pt seen and examined in the ICU. Saturating well on nasal cannula. Tolerating PO . OBJECTIVE: Vital Signs Period Temp Pulse Resp BP Sys/Redman Pulse Ox Last 24 Hr 98.6 F-98.9 F 101-123 14-18 121-138/75-99 94-97 Intake & Output 01/15/20 01/16/20 01/17/20 01/18/20 23:59 23:59 23:59 23:59 Intake Total 969.6 2945 2400 250 Output Total 1850 300 Balance -880.4 2645 2400 250 Weight 99.427 kg 94.943 kg 95.254 kg 95.708 kg Gen: NAD at rest Heart: RRR Lung: scattered rhonchi Abd: soft, nontender Ext: less edema CBC, BMP 01/18/20 05:48 01/18/20 05:48 Active Medications Albuterol Sulfate (Ventolin Hfa Inhaler -) 2 puff IH Q4H PRN PRN Reason: SHORT OF BREATH/WHEEZING Amino Acids (Prosource No Carb Liquid Pkt) 30 ml PO DAILY [facility] Last Admin: 01/18/20 09:35 Dose: 30 ml Documented by: Apixaban (Eliquis -) 5 mg PO BID [facility] Last Admin: 01/18/20 09:34 Dose: 5 mg Documented by: Chlorhexidine Gluconate (Hibiclens For Decolonization -) 1 applic TP HS [facility] Last Admin: 01/17/20 21:27 Dose: 1 applic Documented by: Folic Acid (Folic Acid -) 1 mg PO DAILY [facility] Last Admin: 01/18/20 09:32 Dose: 1 mg Documented by: Ceftazidime 1 gm/ Dextrose 50 mls @ 100 mls/hr IVPB Q8H-IV [facility]; Protocol Last Admin: 01/18/20 09:59 Dose: 100 mls/hr Documented by: Lactulose (Cephulac (Oral Use)) 20 gm NGT BID [facility] Last Admin: 01/18/20 09:32 Dose: 20 gm Documented by: Levetiracetam (Keppra Injection -) 1,000 mg IVPB BID [facility] Last Admin: 01/18/20 09:36 Dose: 1,000 mg Documented by: Lisinopril (Prinivil) 2.5 mg PO DAILY [facility] Last Admin: 01/18/20 09:32 Dose: 2.5 mg Documented by: Melatonin (Melatonin) 5 mg PO HS PRN PRN Reason: INSOMNIA Last Admin: 01/16/20 21:38 Dose: 5 mg Documented by: Metoprolol Tartrate (Lopressor -) 75 mg PO TID [facility] Last Admin: 01/18/20 06:17 Dose: 75 mg Documented by: Pantoprazole Sodium (Protonix Iv) 40 mg IVPUSH DAILY [facility] Last Admin: 01/18/20 09:33 Dose: 40 mg Documented by: Thiamine HCl (Vitamin B1 -) 100 mg PO DAILY [facility] Last Admin: 01/18/20 09:35 Dose: 100 mg Documented by: ASSESSMENT AND PLAN: Acute Hypoxic Respiratory Failure Pneumonia likely Aspiration Septic Shock Lactic Acidosis Atrial Fibrillation Alcohol Abuse Thrombocytopenia Seizures - r/o Alcohol Withdrawal HTN - continue antibiotics - monitor urine output, creatinine - rate control - continue anticoagulation - off pressors, maintain MAP >65 - advance diet as tolerated - rehab/PT - DVT/GI prophylaxis - can monitor on telemetry
--- NOTE | 2020-01-18 11:34 | HOSP ---
Physical Examination Vital Signs: Vital Signs Temperature 98.6 F 01/18/20 06:00 Pulse Rate 101 H 01/18/20 07:53 Respiratory Rate 17 01/18/20 07:53 Blood Pressure 131/99 01/18/20 07:53 O2 Sat by Pulse Oximetry (%) 96 01/18/20 07:53 Constitutional: Yes: No Distress HENT: Yes: Atraumatic, Normocephalic Cardiovascular: Yes: Tachycardia, S1, S2 Respiratory: Yes: Regular, CTA Bilaterally, Diminished (decreased breath sounds at bases) Gastrointestinal: Yes: Normal Bowel Sounds Neurological: Yes: Alert, Oriented (Oriented to person and place) Labs: CBC, BMP 01/18/20 05:48 01/18/20 05:48 Hospitalist Encounter Assessment: 54 year old M with PMH afib (on eliquis), alcohol use disorder , diastolic CHF (02/08 ECHO; mild AR; mild biatrial enlargement), HTN, AFIB presented with generalized weakness, lightheadedness, shaking, and mild productive cough. Was given Librium 10mg, Ativan 1mg for alcohol withdrawal and started on folic acid and thiamine. He was started on Ceftriaxone/Azithroycin for PNA found on CXR. Patient went into afib with RVR, so he was given lopressor and amiodarone, but then developed seizures. He was intubated to protect his airway and sedated to control his seizure activity. However, he became hypotensive and required a ce ntral line. Patient was admitted to ICU for Afib w/ RVR with Amio drip and acute respiratory failure. Blood cultures (01/02) showed acinetobacter baumannii/haemolo & sputum cultures (01/03) grew ochrobactrum anthropi.For patient's PNA, antibiotics were switched from ceftriaxone/azithromycin to Zosyn 3.375 gm (01/03). However, on 01/05, ID switched his antibiotics to CEFTAZIDIME 1GM Q8H (01/05) for gram neg sepsis 2/2 acinetobacter. Blood cultures from 01/11 showed no growth, and sputum culture form 01/11 grew proteus mirabilus-ESBL production. Neurology evaluated the patient and recommended keppra 1000 mg BID IVPB for seizures (01/05). CT head was performed on 01/05 and showed no significant nam ge. moderate ventricular dilatation. generalized volume loss. mild periventricular chronic microvascular ischemic disease changes. CT head from 01/09 showed no significant changes. However, EEG showed sharp wave activity, so keppra was continued. On 01/13 began following simple commands after sedation was turned off. On 01/14, the patient continued to follow commands, with vent settings at rate 14, TV 450, FIO2 40%,PEEP 5, Plat 17 and saturating at 96%. RSBI 31. He was breathing well after being put on CPAP, so patient was extubated successfully and on ventimask 40%. Patient is now on 3L O2 Nasal cannula. He underwent a barium swallow yesterday per speech and swallow. He was started on dysphagia puree diet beginning yesterday. Patient has been off the amio drip since 01/05 and has been off of the diltiazem drip. Patient's afib and HR have been controlled by uptitrating his lopressor. He is now s/p lopressor 5 mg IV push Q4H PRN. His HR has been stable, so yesterday Cardio recommended Metoprolol succinate (Toprol XL) 200 mg PO daily. However, toprol cannot be crushed, so tartrate (lopressor) 75 mg PO daily was continued for rate control. Patient has been on home eliquis 5 mg PO BID t hroughout his stay. With elevated LFTs, history of thrombocytopenia, alcohol use disorder, and prior ultrasound showed hepatomegaly (18.5 cm) with diffuse fatty infiltration of liver, hep serology and abdominal ultrasound were ordered. Hep serology was positive for Hep A ab positive, & Hep A IgM ab indeterminate, while repeat abd US showed: 1) trace ascites, (2) distended gallbladder w/o evidence of cholelithiasis, (3) hepatomegaly & diffuse infiltration of liver. Lactulose 20 g BID was started rising ammonia levels. Ammonia levels have decreased to normal limits at 13.5 today. GI recommended that the patient would benefit from upper endoscopy to evaluate for varices. If varices are present, would consider stopping AC. Patient is stable to transfer to [facility].
--- NOTE | 2020-01-18 11:54 | PN ---
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, Physician Chief Complaint: Extubated History of Present Illness: Mr is a 54 YO white man with PMHx h/o acute/chronic alcohol abuse, diastolic CHF (02/08 ECHO; mild AR; mild biatrial enlargement), HTN, AFIB (on metoprolol and eliquis), now presents with weakness and lightheadedness. Patient suspects current syptoms are 2/2 alcohol withdrawal. Mentions that his last drink was 3 hours prior to arrival. Patients reports that the patient has been lightheaded and tremulous this afternoon prior to arrival. Patient also mentions mild productive cough. Denies fever, chills, chest pain, SOB, N/V/D. Denies recent travel of sick contacts. - Current Medication List Current Medications: Active Medications Albuterol Sulfate (Ventolin Hfa Inhaler -) 2 puff IH Q4H PRN PRN Reason: SHORT OF BREATH/WHEEZING Amino Acids (Prosource No Carb Liquid Pkt) 30 ml PO DAILY [facility] Last Admin: 01/18/20 09:35 Dose: 30 ml Documented by: Apixaban (Eliquis -) 5 mg PO BID [facility] Last Admin: 01/18/20 09:34 Dose: 5 mg Documented by: Chlorhexidine Gluconate (Hibiclens For Decolonization -) 1 applic TP HS [facility] Last Admin: 01/17/20 21:27 Dose: 1 applic Documented by: Folic Acid (Folic Acid -) 1 mg PO DAILY [facility] Last Admin: 01/18/20 09:32 Dose: 1 mg Documented by: Ceftazidime 1 gm/ Dextrose 50 mls @ 100 mls/hr IVPB Q8H-IV [facility]; Protocol Last Admin: 01/18/20 09:59 Dose: 100 mls/hr Documented by: Lactulose (Cephulac (Oral Use)) 20 gm NGT BID [facility] Last Admin: 01/18/20 09:32 Dose: 20 gm Documented by: Levetiracetam (Keppra Injection -) 1,000 mg IVPB BID [facility] Last Admin: 01/18/20 09:36 Dose: 1,000 mg Documented by: Lisinopril (Prinivil) 2.5 mg PO DAILY [facility] Last Admin: 01/18/20 09:32 Dose: 2.5 mg Documented by: Melatonin (Melatonin) 5 mg PO HS PRN PRN Reason: INSOMNIA Last Admin: 01/16/20 21:38 Dose: 5 mg Documented by: Metoprolol Tartrate (Lopressor -) 75 mg PO TID [facility] Last Admin: 01/18/20 06:17 Dose: 75 mg Documented by: Pantoprazole Sodium (Protonix Iv) 40 mg IVPUSH DAILY [facility] Last Admin: 01/18/20 09:33 Dose: 40 mg Documented by: Thiamine HCl (Vitamin B1 -) 100 mg PO DAILY [facility] Last Admin: 01/18/20 09:35 Dose: 100 mg Documented by: - Objective Vital Signs: Vital Signs Temperature 98.6 F 01/18/20 06:00 Pulse Rate 101 H 01/18/20 07:53 Respiratory Rate 17 01/18/20 07:53 Blood Pressure 131/99 01/18/20 07:53 O2 Sat by Pulse Oximetry (%) 96 01/18/20 07:53 Eyes: Yes: WNL, Conjunctiva Clear, EOM Intact HENT: Yes: WNL, Atraumatic, Normocephalic Neck: Yes: WNL, Supple, Trachea Midline Cardiovascular: Yes: Pulse Irregular Respiratory: Yes: WNL, Regular, CTA Bilaterally Gastrointestinal: Yes: WNL, Normal Bowel Sounds Genitourinary: Yes: WNL Musculoskeletal: Yes: WNL Extremities: Yes: WNL Edema: No Integumentary: Yes: WNL Neurological: Yes: Alert Psychiatric: Yes: Alert Labs: CBC, BMP 01/18/20 05:48 01/18/20 05:48 INR, PTT INR 2.52 (0.83-1.09) H 01/16/20 05:30 Assessment/Plan Acute/chronic alcoholism Respiratory failure:intubated; mechanically ventilated; ? aspiration PNA. Acute systolic/diastolic CHF AF, with periods of RVR leukocytosis; symptoms of URI Hx HTN; periods of hypotension this admission-->pressor TSH WNL LDL cholesterol 67 mg/dL Plan: Now off amiodarone. AF, relatively well-controlled VR. As discussed with critical care team, pt's alcoholism and liver abnormality mitigates against starting PO amiodarone. On metoprolol for HR control (and ECHO now shows systolic dysfunction). On vasopressin. ECHO: moderately reduced LVEF; normal LV size; mild-moderate RV dilatation, with mildly reduced RVEF; mild LAE. CXR: bilateral pleural changes, relatively unchanged. Continue low-dose metoprolol tartrate 12.5 mg bid for systolic CHF, AF HR con trol;titrate up when BP allows (problematic, given "dependence" on vasopressin). On lisinopril 2.5 mg daily. Diuresis. F/u daily weight, Is and Os. Limit fluids. PO4 now WNL; replete K and Mg; keep K+ 4.0-4.5, Mg 2.0-2.4, PO4 2.5-4.9. TNI 0.03-->0.02. Antibiotics per ID (on Zosyn). Continue detox protocol CC time spent 37minutes
--- NOTE | 2020-01-18 12:29 | PN ---
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, Physician History of Present Illness: AWAKE AND ALERT ANSWERS QUESTIONS EXTUBATED NO ACUTE DISTRESS AFEBRILE WBC IMPROVED NO FURTHER SEIZURES REPORTED BC ACINETOBACTER SPUTUM CS/ ESBL LIKELY COLONIZER CXR LLL INFILTRATE - Current Medication List Current Medications: Active Medications Albuterol Sulfate (Ventolin Hfa Inhaler -) 2 puff IH Q4H PRN PRN Reason: SHORT OF BREATH/WHEEZING Amino Acids (Prosource No Carb Liquid Pkt) 30 ml PO DAILY [facility] Last Admin: 01/18/20 09:35 Dose: 30 ml Documented by: Apixaban (Eliquis -) 5 mg PO BID [facility] Last Admin: 01/18/20 09:34 Dose: 5 mg Documented by: Chlorhexidine Gluconate (Hibiclens For Decolonization -) 1 applic TP HS [facility] Last Admin: 01/17/20 21:27 Dose: 1 applic Documented by: Folic Acid (Folic Acid -) 1 mg PO DAILY [facility] Last Admin: 01/18/20 09:32 Dose: 1 mg Documented by: Ceftazidime 1 gm/ Dextrose 50 mls @ 100 mls/hr IVPB Q8H-IV [facility]; Protocol Last Admin: 01/18/20 09:59 Dose: 100 mls/hr Documented by: Lactulose (Cephulac (Oral Use)) 20 gm NGT BID [facility] Last Admin: 01/18/20 09:32 Dose: 20 gm Documented by: Levetiracetam (Keppra Injection -) 1,000 mg IVPB BID [facility] Last Admin: 01/18/20 09:36 Dose: 1,000 mg Documented by: Lisinopril (Prinivil) 2.5 mg PO DAILY [facility] Last Admin: 01/18/20 09:32 Dose: 2.5 mg Documented by: Melatonin (Melatonin) 5 mg PO HS PRN PRN Reason: INSOMNIA Last Admin: 01/16/20 21:38 Dose: 5 mg Documented by: Metoprolol Tartrate (Lopressor -) 75 mg PO TID [facility] Last Admin: 01/18/20 06:17 Dose: 75 mg Documented by: Pantoprazole Sodium (Protonix Iv) 40 mg IVPUSH DAILY [facility] Last Admin: 01/18/20 09:33 Dose: 40 mg Documented by: Thiamine HCl (Vitamin B1 -) 100 mg PO DAILY [facility] Last Admin: 01/18/20 09:35 Dose: 100 mg Documented by: - Objective Vital Signs: Vital Signs Temperature 98.6 F 01/18/20 06:00 Pulse Rate 101 H 01/18/20 07:53 Respiratory Rate 17 01/18/20 07:53 Blood Pressure 131/99 01/18/20 07:53 O2 Sat by Pulse Oximetry (%) 96 01/18/20 07:53 Constitutional: Yes: No Distress Eyes: Yes: Conjunctiva Clear Cardiovascular: Yes: Regular Rate and Rhythm, S1, S2 Respiratory: Yes: CTA Bilaterally Gastrointestinal: Yes: Normal Bowel Sounds, Soft Edema: No Labs: CBC, BMP 01/18/20 05:48 01/18/20 05:48 INR, PTT INR 2.52 (0.83-1.09) H 01/16/20 05:30 Assessment/Plan RESP FAILURE GRAM NEGATIVE SEPSIS ACINETOBACTER PROBABLE ASP PNEUMONIA LACTIC ACIDOSIS RESOLVED THROMBOCYTOPENIA RESOLVED CONTINUE CEFTAZIDIME 1GM Q8H VENT[facility]ATORY SUPPORT
[2020-01-18] MEDS ORDERED: ALBUTEROL SO4 HFA INHALER IH PRN (15:25)
[2020-01-18] MEDS ORDERED: POTASSIUM CHLORIDE ORAL LIQUID 20 MEQ/15 ML PO ONE (15:35)
[2020-01-19] MEDS: CEFTAZIDIME PENTAHYDRATE 1 GM in DEXTROSE 5%-WATER - 50 ML IVPB SCH ×3 (02:16→17:04)
[2020-01-19] MEDS ORDERED: PT OWN MED DRAWER 7, Y5N ONE ×2 (02:58→13:32)
[2020-01-19] MEDS: METOPROLOL TARTRATE 50 MG TABLET (FP) PO SCH ×3 (05:03→21:56)
[2020-01-19] MEDS: MELATONIN 5 MG TABLETS PO PRN (05:03)
[2020-01-19 07:02] LABS: HEMATOCRIT 33.5 % (35.4-49); HEMOGLOBIN 11.3 GM/dL (11.7-16.9); MCH 35.4 pg (25.7-33.7); MCHC 33.7 g/dl (32.0-35.9); MEAN CELL VOLUME 105.1 fl (80-96); MEAN PLT VOLUME 10.2 fl (7.5-11.1); PLATELET COUNT 209 K/MM3 (134-434); RBC 3.18 M/mm3 (4.00-5.60); RDW 13.7 % (11.9-15.9); WHITE BLOOD COUNT 10.4 K/mm3 (4.0-10.0)
[2020-01-19 07:23] LABS: BILIRUBIN,TOTAL 1.6 mg/dL (0.2-1); BLOOD UREA NITROGEN 12.9 mg/dL (7-18); CREATININE 0.4 mg/dL (0.55-1.3); MAGNESIUM 1.2 mg/dL (1.8-2.4); PHOSPHOROUS 2.8 mg/dL (2.5-4.9); POTASSIUM 3.2 mmol/L (3.5-5.1); TOT PROT 6.3 g/dl (6.4-8.2)
[2020-01-19] MEDS: THIAMINE HCL 100 MG TABLET (FP) PO SCH (09:33)
[2020-01-19] MEDS: APIXABAN 5 MG TABLET PO SCH ×2 (09:33→21:58)
[2020-01-19] MEDS: FOLIC ACID 1 MG TABLET (FP) PO SCH (09:33)
[2020-01-19] MEDS: LISINOPRIL 5 MG TABLET PO SCH (09:33)
[2020-01-19] MEDS: levETIRAcetam 500 MG/5 ML INJECTION VIAL IVPB SCH ×2 (09:33→21:56)
[2020-01-19] MEDS: AMINO ACIDS/PROTEIN HYDROLYS 30 ML LIQUID.PKT PO SCH (09:33)
[2020-01-19] MEDS: PANTOPRAZOLE SODIUM 40 MG VIAL IVPUSH SCH (09:33)
[2020-01-19] MEDS: LACTULOSE 20 GM/30 ML UDC (FOR ORAL USE ONLY) NGT SCH ×2 (09:34→21:55)
--- NOTE | 2020-01-19 10:01 | PN ---
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, Physician Chief Complaint: Extubated History of Present Illness: Mr Beckford is a 54 YO white man with PMHx h/o acute/chronic alcohol abuse, diastolic CHF (02/08 ECHO; mild AR; mild biatrial enlargement), HTN, AFIB (on metoprolol and eliquis), now presents with weakness and lightheadedness. Patient suspects current syptoms are 2/2 alcohol withdrawal. Mentions that his last drink was 3 hours prior to arrival. Patients reports that the patient has been lightheaded and tremulous this afternoon prior to arrival. Patient also mentions mild productive cough. Denies fever, chills, chest pain, SOB, N/V/D. Denies recent travel of sick contacts. - Current Medication List Current Medications: Active Medications Albuterol Sulfate (Ventolin Hfa Inhaler -) 2 puff IH Q4H PRN PRN Reason: SHORT OF BREATH/WHEEZING Amino Acids (Prosource No Carb Liquid Pkt) 30 ml PO DAILY [facility] Last Admin: 01/19/20 09:33 Dose: 30 ml Documented by: Apixaban (Eliquis -) 5 mg PO BID [facility] Last Admin: 01/19/20 09:33 Dose: 5 mg Documented by: Folic Acid (Folic Acid -) 1 mg PO DAILY [facility] Last Admin: 01/19/20 09:33 Dose: 1 mg Documented by: Ceftazidime 1 gm/ Dextrose 50 mls @ 100 mls/hr IVPB Q8H-IV [facility]; Protocol Last Admin: 01/19/20 02:16 Dose: 100 mls/hr Documented by: Lactulose (Cephulac (Oral Use)) 20 gm NGT BID [facility] Last Admin: 01/19/20 09:34 Dose: Not Given Documented by: Levetiracetam (Keppra Injection -) 1,000 mg IVPB BID [facility] Last Admin: 01/19/20 09:33 Dose: 1,000 mg Documented by: Lisinopril (Prinivil) 2.5 mg PO DAILY [facility] Last Admin: 01/19/20 09:33 Dose: 2.5 mg Documented by: Melatonin (Melatonin) 5 mg PO HS PRN PRN Reason: INSOMNIA Last Admin: 01/19/20 05:03 Dose: 5 mg Documented by: Metoprolol Tartrate (Lopressor -) 75 mg PO TID [facility] Last Admin: 01/19/20 05:03 Dose: 75 mg Documented by: Pantoprazole Sodium (Protonix Iv) 40 mg IVPUSH DAILY [facility] Last Admin: 01/19/20 09:33 Dose: 40 mg Documented by: Thiamine HCl (Vitamin B1 -) 100 mg PO DAILY [facility] Last Admin: 01/19/20 09:33 Dose: 100 mg Documented by: - Objective Vital Signs: Vital Signs Temperature 98.5 F 01/19/20 05:01 Pulse Rate 119 H 01/19/20 05:01 Respiratory Rate 01/19/20 05:01 Blood Pressure 138/95 01/19/20 05:01 O2 Sat by Pulse Oximetry (%) 94 L 01/19/20 05:01 Eyes: Yes: WNL, Conjunctiva Clear, EOM Intact HENT: Yes: WNL, Atraumatic, Normocephalic Neck: Yes: WNL, Supple, Trachea Midline Cardiovascular: Yes: Pulse Irregular Respiratory: Yes: WNL, Regular, CTA Bilaterally Gastrointestinal: Yes: WNL, Normal Bowel Sounds Genitourinary: Yes: WNL Musculoskeletal: Yes: WNL Extremities: Yes: WNL Edema: No Integumentary: Yes: WNL Neurological: Yes: WNL, Alert, Oriented ...Motor Strength: WNL Psychiatric: Yes: WNL Labs: CBC, BMP 01/19/20 05:29 01/19/20 05:29 INR, PTT INR 2.52 (0.83-1.09) H 01/16/20 05:30 Assessment/Plan Acute/chronic alcoholism Respiratory failure:intubated; mechanically ventilated; ? aspiration PNA. Acute systolic/diastolic CHF AF, with periods of RVR leukocytosis; symptoms of URI Hx HTN; periods of hypotension this admission-->pressor TSH WNL LDL cholesterol 67 mg/dL Plan: Now off amiodarone. AF, relatively well-controlled VR. As discussed with crit [facility] care team, pt's alcoholism and liver abnormality mitigates against starting PO amiodarone. On metoprolol for HR control (and ECHO now shows systolic dysfunction). On vasopressin. ECHO: moderately reduced LVEF; normal LV size; mild-moderate RV dilatation, with mildly reduced RVEF; mild LAE. CXR: bilateral pleural changes, relatively unchanged. Continue low-dose metoprolol tartrate 12.5 mg bid for systolic CHF, AF HR control;titrate up when BP allows (problematic, given "dependence" on vasop ressin). On lisinopril 2.5 mg daily. Diuresis. F/u daily weight, Is and Os. Limit fluids. PO4 now WNL; replete K and Mg; keep K+ 4.0-4.5, Mg 2.0-2.4, PO4 2.5-4.9. TNI 0.03-->0.02. Antibiotics per ID (on Zosyn). Continue detox protocol
--- NOTE | 2020-01-19 11:18 | PN ---
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 (short form) - Note 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: PULMONARY Denies shortness of breath, cough. No fevers recorded. Vital Signs Period Temp Pulse Resp BP Sys/Redman Pulse Ox Last 24 Hr 98 F-98.5 F 101-126 17-20 103-139/57-108 93-97 Gen: NAD at rest Heart: irregular Lung: decreased breath sounds at the bases Abd: soft, nontender Ext: no edema CBC, BMP 01/19/20 05:29 01/19/20 05:29 Active Medications Albuterol Sulfate (Ventolin Hfa Inhaler -) 2 puff IH Q4H PRN PRN Reason: SHORT OF BREATH/WHEEZING Amino Acids (Prosource No Carb Liquid Pkt) 30 ml PO DAILY [facility] Last Admin: 01/19/20 09:33 Dose: 30 ml Documented by: Apixaban (Eliquis -) 5 mg PO BID [facility] Last Admin: 01/19/20 09:33 Dose: 5 mg Documented by: Folic Acid (Folic Acid -) 1 mg PO DAILY [facility] Last Admin: 01/19/20 09:33 Dose: 1 mg Documented by: Ceftazidime 1 gm/ Dextrose 50 mls @ 100 mls/hr IVPB Q8H-IV [facility]; Protocol Last Admin: 01/19/20 10:33 Dose: 100 mls/hr Documented by: Lactulose (Cephulac (Oral Use)) 20 gm NGT BID [facility] Last Admin: 01/19/20 09:34 Dose: Not Given Documented by: Levetiracetam (Keppra Injection -) 1,000 mg IVPB BID [facility] Last Admin: 01/19/20 09:33 Dose: 1,000 mg Documented by: Lisinopril (Prinivil) 2.5 mg PO DAILY [facility] Last Admin: 01/19/20 09:33 Dose: 2.5 mg Documented by: Melatonin (Melatonin) 5 mg PO HS PRN PRN Reason: INSOMNIA Last Admin: 01/19/20 05:03 Dose: 5 mg Documented by: Metoprolol Tartrate (Lopressor -) 75 mg PO TID [facility] Last Admin: 01/19/20 05:03 Dose: 75 mg Documented by: Pantoprazole Sodium (Protonix Iv) 40 mg IVPUSH DAILY [facility] Last Admin: 01/19/20 09:33 Dose: 40 mg Documented by: Thiamine HCl (Vitamin B1 -) 100 mg PO DAILY [facility] Last Admin: 01/19/20 09:33 Dose: 100 mg Documented by: A/P Acute Hypoxic Respiratory Failure Pneumonia likely Aspiration Septic Shock Lactic Acidosis Atrial Fibrillation Alcohol Abuse Thrombocytopenia Seizures - r/o Alcohol Withdrawal HTN - continue antibiotics - monitor urine output, creatinine - rate control - continue anticoagulation - advance diet as tolerated - rehab/PT - DVT/GI prophylaxis
[2020-01-19] MEDS ORDERED: POTASSIUM CHLORIDE TABS 20 MEQ TABLET.ER (FP) PO ONE (15:32)
[2020-01-19] MEDS ORDERED: MAGNESIUM SULFATE IN WATER 2 GM/50 ML IVPB IVPB ONE (16:15)
[2020-01-20] MEDS ORDERED: PT OWN MED DRAWER 7, Y5N ONE ×2 (03:24→15:49)
[2020-01-20] MEDS: CEFTAZIDIME PENTAHYDRATE 1 GM in DEXTROSE 5%-WATER - 50 ML IVPB SCH ×3 (03:25→17:01)
[2020-01-20 07:25] LABS: ALBUMIN 2.1 g/dl (3.4-5.0); BLOOD UREA NITROGEN 10.4 mg/dL (7-18); MAGNESIUM 1.6 mg/dL (1.8-2.4); POTASSIUM 3.3 mmol/L (3.5-5.1)
[2020-01-20 07:30] LABS: BILIRUBIN,TOTAL 1.8 mg/dL (0.2-1); CREATININE 0.5 mg/dL (0.55-1.3); TOT PROT 6.7 g/dl (6.4-8.2)
--- NOTE | 2020-01-20 09:15 | PN ---
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, Physician Chief Complaint: Extubated History of Present Illness: Mr is a 54 YO white man with PMHx h/o acute/chronic alcohol abuse, diastolic CHF (02/08 ECHO; mild AR; mild biatrial enlargement), HTN, AFIB (on metoprolol and eliquis), now presents with weakness and lightheadedness. Patient suspects current syptoms are 2/2 alcohol withdrawal. Mentions that his last drink was 3 hours prior to arrival. Patients reports that the patient has been lightheaded and tremulous this afternoon prior to arrival. Patient also mentions mild productive cough. Denies fever, chills, chest pain, SOB, N/V/D. Denies recent travel of sick contacts. - Current Medication List Current Medications: Active Medications Albuterol Sulfate (Ventolin Hfa Inhaler -) 2 puff IH Q4H PRN PRN Reason: SHORT OF BREATH/WHEEZING Amino Acids (Prosource No Carb Liquid Pkt) 30 ml PO DAILY [facility] Last Admin: 01/19/20 09:33 Dose: 30 ml Documented by: Apixaban (Eliquis -) 5 mg PO BID [facility] Last Admin: 01/19/20 21:58 Dose: 5 mg Documented by: Folic Acid (Folic Acid -) 1 mg PO DAILY [facility] Last Admin: 01/19/20 09:33 Dose: 1 mg Documented by: Ceftazidime 1 gm/ Dextrose 50 mls @ 100 mls/hr IVPB Q8H-IV [facility]; Protocol Last Admin: 01/20/20 03:25 Dose: 100 mls/hr Documented by: Lactulose (Cephulac (Oral Use)) 20 gm NGT BID [facility] Last Admin: 01/19/20 21:55 Dose: 20 gm Documented by: Levetiracetam (Keppra Injection -) 1,000 mg IVPB BID [facility] Last Admin: 01/19/20 21:56 Dose: 1,000 mg Documented by: Lisinopril (Prinivil) 2.5 mg PO DAILY [facility] Last Admin: 01/19/20 09:33 Dose: 2.5 mg Documented by: Melatonin (Melatonin) 5 mg PO HS PRN PRN Reason: INSOMNIA Last Admin: 01/19/20 05:03 Dose: 5 mg Documented by: Metoprolol Tartrate (Lopressor -) 75 mg PO TID [facility] Last Admin: 01/19/20 21:56 Dose: 75 mg Documented by: Pantoprazole Sodium (Protonix Iv) 40 mg IVPUSH DAILY [facility] Last Admin: 01/19/20 09:33 Dose: 40 mg Documented by: Thiamine HCl (Vitamin B1 -) 100 mg PO DAILY [facility] Last Admin: 01/19/20 09:33 Dose: 100 mg Documented by: - Objective Vital Signs: Vital Signs Temperature 98.2 F 01/20/20 05:27 Pulse Rate 105 H 01/20/20 05:27 Respiratory Rate 01/20/20 05:27 Blood Pressure 144/90 01/20/20 05:27 O2 Sat by Pulse Oximetry (%) 98 01/20/20 05:27 Eyes: Yes: WNL, Conjunctiva Clear, EOM Intact HENT: Yes: WNL, Atraumatic, Normocephalic Neck: Yes: WNL, Supple, Trachea Midline Cardiovascular: Yes: Pulse Irregular Respiratory: Yes: WNL, Regular, CTA Bilaterally Gastrointestinal: Yes: WNL, Normal Bowel Sounds Genitourinary: Yes: WNL Musculoskeletal: Yes: WNL Extremities: Yes: WNL Edema: No Integumentary: Yes: WNL Labs: CBC, BMP 01/19/20 05:29 01/20/20 05:25 INR, PTT INR 2.52 (0.83-1.09) H 01/16/20 05:30 Assessment/Plan Acute/chronic alcoholism Respiratory failure:intubated; mechanically ventilated; ? aspiration PNA. Acute systolic/diastolic CHF AF, with periods of RVR leukocytosis; symptoms of URI Hx HTN; periods of hypotension this admission-->pressor TSH WNL LDL cholesterol 67 mg/dL Plan: Now off amiodarone. AF, relatively well-controlled VR. As discussed with critical care team, pt's alcoholism and liver abnormality mitigates against starting PO amiodarone. On metoprolol for HR control (and ECHO now shows systolic dysfunction). On vasopressin. ECHO: moderately reduced LVEF; normal LV size; mild-moderate RV dilatation, with mildly reduced RVEF; mild LAE. CXR: bilateral pleural changes, relatively unchanged. Continue low-dose metoprolol tartrate 12.5 mg bid for systolic CHF, AF HR control;titrate up when BP allows (problematic, given "dependence" on vasopressin). On lisinopril 2.5 mg daily. Diuresis. F/u daily weight, Is and Os. Limit fluids. PO4 now WNL; replete K and Mg; keep K+ 4.0-4.5, Mg 2.0-2.4, PO4 2.5-4.9. TNI 0.03-->0.02. Antibiotics per ID (on Zosyn). Continue detox protocol
--- NOTE | 2020-01-20 10:00 | PN ---
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 (short form) - Note 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: 54 year old male history of atrial fibrillation, alcohol abuse. htn. He was seen his at bed side. He came to hospital on january 03. He was brought to hospital for seizure. He has been drinking heavy and he has history of hepatomegaly and fatty liver. Patient was intubated , for airway protection and pneumonia and covid negative. He has ct head on january 05 it was negative. -- Now to regualr floor, feeling better, moving all ext NEUROLOGICAL EXAMINATION alert oriented x 2, follow command moving all extremity pupils reactive, eomi, no face asymetry no face asymmetry moving all ext neck is supple ct head is normal and repeat on january 09 was unchanged eeg showed shparp wave activity repeat eeg showed generaliaed encephalopathy Assessment/Plan 54 year old male history of alcohol abuse, atrial fibrillation and htn. He came with alcohol withdrawal seizure. Ct head is negative. Supect alcohol withdrawal seizure. extubated and improved Plan:-- continue keppra 1 gm iv bid for now - continue supportive care, Thanking you so much Dilan Don MD
--- NOTE | 2020-01-20 10:07 | PN ---
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, CLEANER TOUCH UP WORKER - Note 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: 54 yo male seen at bedside for follow up to MBS with recommendations for pureed with thicken liquids. Pt and discharge rn report good intake with no s/s of aspiration at this time. CLEANER TOUCH UP WORKER offered to try advanced solid diet but pt refused as he was not hungry after breakfast. Chart review indicate pt is consuming better than 50% of meals. Recommendations: Continue po intake of pureed solids with nectar thicken liquids at tolerated. Observe standard aspiration precautions. Provide oral care before and after meals. Medication can be given crushed with applesauce. Results given verbally to discharge rn and PCP via chart. CLEANER TOUCH UP WORKER to follow up for diet tolerance.
[2020-01-20] MEDS: PANTOPRAZOLE SODIUM 40 MG VIAL IVPUSH SCH (10:30)
[2020-01-20] MEDS: levETIRAcetam 500 MG/5 ML INJECTION VIAL IVPB SCH ×2 (10:31→21:54)
[2020-01-20] MEDS: LACTULOSE 20 GM/30 ML UDC (FOR ORAL USE ONLY) NGT SCH ×2 (10:31→21:54)
[2020-01-20] MEDS: APIXABAN 5 MG TABLET PO SCH ×2 (10:34→21:54)
[2020-01-20] MEDS: FOLIC ACID 1 MG TABLET (FP) PO SCH (10:34)
[2020-01-20] MEDS: LISINOPRIL 5 MG TABLET PO SCH (10:35)
[2020-01-20] MEDS: AMINO ACIDS/PROTEIN HYDROLYS 30 ML LIQUID.PKT PO SCH (10:35)
[2020-01-20] MEDS: THIAMINE HCL 100 MG TABLET (FP) PO SCH (10:35)
[2020-01-20] MEDS: METOPROLOL TARTRATE 50 MG TABLET (FP) PO SCH ×3 (10:39→21:54)
--- NOTE | 2020-01-20 10:55 | PN ---
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 (short form) - Note 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: Pt examined in telemetry -- 01/19/2020 No complaints He is eating without difficulty Vitals and labs noted Constitutional: Yes: Other Neck: Yes: Supple Cardiovascular: Yes: Pulse Irregular Respiratory: Yes: Diminished Gastrointestinal: Yes: Soft Genitourinary: Yes: Vo Present Edema: yes PLAN IV antibiotics per ID aspiration precautions replace potassium platelets stable with Eliquis swallow eval noted ammonia decreased - mental status oscar PT eval Problem List - Problems (1) Alcohol dependence Code(s): F10.20 - ALCOHOL DEPENDENCE, UNCOMPLICATED Qualifiers: Substance use status: other alcohol-induced disorder Qualified Code(s): F10.288 - Alcohol dependence with other alcohol-induced disorder (2) Pneumonia Code(s): J18.9 - PNEUMONIA, UNSPECIFIED ORGANISM Qualifiers: Pneumonia type: due to unspecified organism Laterality: left Lung location: lower lobe of lung Qualified Code(s): J18.9 - Pneumonia, unspecified organism (3) Respiratory failure Code(s): J96.90 - RESPIRATORY FAILURE, UNSP, UNSP W HYPOXIA OR HYPERCAPNIA (4) Weakness Code(s): R53.1 - WEAKNESS (5) Alcohol abuse Code(s): F10.10 - ALCOHOL ABUSE, UNCOMPLICATED (6) Alcohol dependence with uncomplicated withdrawal Code(s): F10.230 - ALCOHOL DEPENDENCE WITH WITHDRAWAL, UNCOMPLICATED (7) Atrial fibrillation Code(s): I48.91 - UNSPECIFIED ATRIAL FIBRILLATION Qualifiers: Atrial fibrillation type: unspecified Qualified Code(s): I48.91 - Unspecified atrial fibrillation (8) HTN (hypertension) Code(s): I10 - ESSENTIAL (PRIMARY) HYPERTENSION Qualifiers: Hypertension type: essential hypertension Qualified Code(s): I10 - Essential (primary) hypertension
--- NOTE | 2020-01-20 11:58 | PN ---
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 (short form) - Note 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: PULMONARY Denies shortness of breath, cough. No fevers recorded. Vital Signs Period Temp Pulse Resp BP Sys/Redman Pulse Ox Last 24 Hr 98.0 F-98.6 F 105-130 20-20 130-144/87-98 95-98 Gen: NAD at rest Heart: irregular Lung: decreased breath sounds at the bases Abd: soft, nontender Ext: no edema CBC, BMP 01/19/20 05:29 01/20/20 05:25 Active Medications Albuterol Sulfate (Ventolin Hfa Inhaler -) 2 puff IH Q4H PRN PRN Reason: SHORT OF BREATH/WHEEZING Amino Acids (Prosource No Carb Liquid Pkt) 30 ml PO DAILY [facility] Last Admin: 01/20/20 10:35 Dose: 30 ml Documented by: Apixaban (Eliquis -) 5 mg PO BID [facility] Last Admin: 01/20/20 10:34 Dose: 5 mg Documented by: Folic Acid (Folic Acid -) 1 mg PO DAILY [facility] Last Admin: 01/20/20 10:34 Dose: 1 mg Documented by: Ceftazidime 1 gm/ Dextrose 50 mls @ 100 mls/hr IVPB Q8H-IV [facility]; Protocol Last Admin: 01/20/20 03:25 Dose: 100 mls/hr Documented by: Lactulose (Cephulac (Oral Use)) 20 gm NGT BID [facility] Last Admin: 01/20/20 10:31 Dose: 20 gm Documented by: Levetiracetam (Keppra Injection -) 1,000 mg IVPB BID [facility] Last Admin: 01/20/20 10:31 Dose: 1,000 mg Documented by: Lisinopril (Prinivil) 2.5 mg PO DAILY [facility] Last Admin: 01/20/20 10:35 Dose: 2.5 mg Documented by: Melatonin (Melatonin) 5 mg PO HS PRN PRN Reason: INSOMNIA Last Admin: 01/19/20 05:03 Dose: 5 mg Documented by: Metoprolol Tartrate (Lopressor -) 75 mg PO TID [facility] Last Admin: 01/20/20 10:39 Dose: 75 mg Documented by: Pantoprazole Sodium (Protonix Iv) 40 mg IVPUSH DAILY [facility] Last Admin: 01/20/20 10:30 Dose: 40 mg Documented by: Thiamine HCl (Vitamin B1 -) 100 mg PO DAILY [facility] Last Admin: 01/20/20 10:35 Dose: 100 mg Documented by: A/P Acute Hypoxic Respiratory Failure Pneumonia likely Aspiration Septic Shock Lactic Acidosis Atrial Fibrillation Alcohol Abuse Thrombocytopenia Seizures - r/o Alcohol Withdrawal HTN - continue antibiotics - monitor urine output, creatinine - rate control - continue anticoagulation - advance diet as tolerated - rehab/PT - DVT/GI prophylaxis
[2020-01-20] MEDS ORDERED: MAGNESIUM SULF 50% (8.12 MEQ/2 ML-1 GM VIAL) IVPB ONE (13:55)
--- NOTE | 2020-01-20 13:56 | PN ---
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, Physician History of Present Illness: Pt seen/ examined chart is reviewed All follow ups noted and appreciated More awake and comfortable Eating okay afebrile - Current Medication List Current Medications: Active Medications Albuterol Sulfate (Ventolin Hfa Inhaler -) 2 puff IH Q4H PRN PRN Reason: SHORT OF BREATH/WHEEZING Amino Acids (Prosource No Carb Liquid Pkt) 30 ml PO DAILY [facility] Last Admin: 01/20/20 10:35 Dose: 30 ml Documented by: Apixaban (Eliquis -) 5 mg PO BID [facility] Last Admin: 01/20/20 10:34 Dose: 5 mg Documented by: Folic Acid (Folic Acid -) 1 mg PO DAILY [facility] [place] Last Admin: 01/20/20 10:34 Dose: 1 mg Documented by: Ceftazidime 1 gm/ Dextrose 50 mls @ 100 mls/hr IVPB Q8H-IV [facility]; Protocol Last Admin: 01/20/20 03:25 Dose: 100 mls/hr Documented by: Lactulose (Cephulac (Oral Use)) 20 gm NGT BID [facility] [place] Last Admin: 01/20/20 10:31 Dose: 20 gm Documented by: Levetiracetam (Keppra Injection -) 1,000 mg IVPB BID [facility] Last Admin: 01/20/20 10:31 Dose: 1,000 mg Documented by: Lisinopril (Prinivil) 2.5 mg PO DAILY [facility] [place] Last Admin: 01/20/20 10:35 Dose: 2.5 mg Documented by: Melatonin (Melatonin) 5 mg PO HS PRN PRN Reason: INSOMNIA Last Admin: 01/19/20 05:03 Dose: 5 mg Documented by: Metoprolol Tartrate (Lopressor -) 75 mg PO TID [facility] [place] Last Admin: 01/20/20 10:39 Dose: 75 mg Documented by: Pantoprazole Sodium (Protonix Iv) 40 mg IVPUSH DAILY [facility] [place] Last Admin: 01/20/20 10:30 Dose: 40 mg Documented by: Thiamine HCl (Vitamin B1 -) 100 mg PO DAILY [facility] [place] Last Admin: 01/20/20 10:35 Dose: 100 mg Documented by: - Objective Vital Signs: Vital Signs Temperature 98.2 F 01/20/20 05:27 Pulse Rate 105 H 01/20/20 05:27 Respiratory Rate 20 01/20/20 05:27 Blood Pressure 144/90 01/20/20 05:27 O2 Sat by Pulse Oximetry (%) 98 01/20/20 05:27 Constitutional: Yes: No Distress, Calm Neck: Yes: Supple Cardiovascular: Yes: Pulse Irregular Respiratory: Yes: CTA Bilaterally Gastrointestinal: Yes: Soft Edema: No Neurological: Yes: Alert Labs: CBC, BMP 01/19/20 05:29 01/20/20 05:25 INR, PTT INR 2.52 (0.83-1.09) H 01/16/20 05:30 Problem List - Problems (1) Alcohol dependence Code(s): F10.20 - ALCOHOL DEPENDENCE, UNCOMPLICATED Qualifiers: Substance use status: other alcohol-induced disorder Qualified Code(s): F10.288 - Alcohol dependence with other alcohol-induced disorder (2) Pneumonia Code(s): J18.9 - PNEUMONIA, UNSPECIFIED ORGANISM Qualifiers: Pneumonia type: due to unspecified organism Laterality: left Lung location: lower lobe of lung Qualified Code(s): J18.9 - Pneumonia, unspecified organism (3) Alcohol dependence with uncomplicated withdrawal Code(s): F10.230 - ALCOHOL DEPENDENCE WITH WITHDRAWAL, UNCOMPLICATED (4) Atrial fibrillation Code(s): I48.91 - UNSPECIFIED ATRIAL FIBRILLATION Qualifiers: Atrial fibrillation type: unspecified Qualified Code(s): I48.91 - Unspecified atrial fibrillation (5) Respiratory failure Code(s): J96.90 - RESPIRATORY FAILURE, UNSP, UNSP W HYPOXIA OR HYPERCAPNIA (6) Atrial fibrillation with rapid ventricular response Code(s): I48.91 - UNSPECIFIED ATRIAL FIBRILLATION Assessment/Plan Clinically improved continue present care k/ mag supplement Antibiotics per ID Monitor lites out of bed to chair- Physical therapy Will continue to follow
[2020-01-20] MEDS: POTASSIUM CHLORIDE ORAL LIQUID 20 MEQ/15 ML PO SCH (16:10)
--- NOTE | 2020-01-20 22:46 | PN ---
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, Physician History of Present Illness: AWAKE AND ALERT IN BED ANSWERS QUESTIONS NO ACUTE DISTRESS AFEBRILE WBC IMPROVED NO FURTHER SEIZURES REPORTED BC ACINETOBACTER SPUTUM CS/ ESBL LIKELY COLONIZER CXR LLL INFILTRATE - Current Medication List Current Medications: Active Medications Albuterol Sulfate (Ventolin Hfa Inhaler -) 2 puff IH Q4H PRN PRN Reason: SHORT OF BREATH/WHEEZING Amino Acids (Prosource No Carb Liquid Pkt) 30 ml PO DAILY [facility] Last Admin: 01/20/20 10:35 Dose: 30 ml Documented by: Apixaban (Eliquis -) 5 mg PO BID [facility] Last Admin: 01/20/20 21:54 Dose: 5 mg Documented by: Folic Acid (Folic Acid -) 1 mg PO DAILY [facility] Last Admin: 01/20/20 10:34 Dose: 1 mg Documented by: Ceftazidime 1 gm/ Dextrose 50 mls @ 100 mls/hr IVPB Q8H-IV [facility]; Protocol Last Admin: 01/20/20 17:01 Dose: 100 mls/hr Documented by: Lactulose (Cephulac (Oral Use)) 20 gm NGT BID [facility] Last Admin: 01/20/20 21:54 Dose: 20 gm Documented by: Levetiracetam (Keppra Injection -) 1,000 mg IVPB BID [facility] Last Admin: 01/20/20 21:54 Dose: 1,000 mg Documented by: Lisinopril (Prinivil) 2.5 mg PO DAILY [facility] Last Admin: 01/20/20 10:35 Dose: 2.5 mg Documented by: Melatonin (Melatonin) 5 mg PO HS PRN PRN Reason: INSOMNIA Last Admin: 01/19/20 05:03 Dose: 5 mg Documented by: Metoprolol Tartrate (Lopressor -) 75 mg PO TID [facility] Last Admin: 01/20/20 21:54 Dose: 75 mg Documented by: Pantoprazole Sodium (Protonix Iv) 40 mg IVPUSH DAILY [facility] Last Admin: 01/20/20 10:30 Dose: 40 mg Documented by: Potassium Chloride (Potassium Chloride Oral Liquid) 20 meq PO DAILY [facility] Last Admin: 01/20/20 16:10 Dose: 20 meq Documented by: Thiamine HCl (Vitamin B1 -) 100 mg PO DAILY [facility] Last Admin: 01/20/20 10:35 Dose: 100 mg Documented by: - Objective Vital Signs: Vital Signs Temperature 97.4 F L 01/20/20 18:00 Pulse Rate 98 H 01/20/20 18:00 Respiratory Rate 20 01/20/20 18:00 Blood Pressure 143/100 01/20/20 18:00 O2 Sat by Pulse Oximetry (%) 97 01/20/20 18:00 Constitutional: Yes: No Distress Eyes: Yes: Conjunctiva Clear Cardiovascular: Yes: Regular Rate and Rhythm, S1, S2 Respiratory: Yes: Diminished Gastrointestinal: Yes: Normal Bowel Sounds, Soft Edema: No Labs: CBC, BMP 01/19/20 05:29 01/20/20 05:25 INR, PTT INR 2.52 (0.83-1.09) H 01/16/20 05:30 Assessment/Plan RESP FAILURE GRAM NEGATIVE SEPSIS ACINETOBACTER PROBABLE ASP PNEUMONIA LACTIC ACIDOSIS RESOLVED THROMBOCYTOPENIA RESOLVED CONTINUE CEFTAZIDIME 1GM Q8H DISCUSSED WITH AT BEDSIDE
[2020-01-21] MEDS ORDERED: PT OWN MED DRAWER 7, Y5N ONE ×2 (01:32→10:47)
[2020-01-21] MEDS: CEFTAZIDIME PENTAHYDRATE 1 GM in DEXTROSE 5%-WATER - 50 ML IVPB SCH ×2 (01:51→11:03)
[2020-01-21] MEDS: METOPROLOL TARTRATE 50 MG TABLET (FP) PO SCH ×3 (06:40→21:32)
--- NOTE | 2020-01-21 11:00 | PN ---
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, FLUID DYNAMICIST - Note 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: Selected Entries 01/17/20 01/17/20 01/20/20 06:00 23:00 02:00 Breakfast Diet Tolerated Lunch Supper NPO 25% Temperature Pulse Rate Blood Pressure O2 Sat by Pulse 98 Oximetry (%) Oxygen Delivery Method Bowel Movement 01/20/20 01/20/20 01/20/20 05:26 05:27 10:00 Breakfast Diet Tolerated Lunch Supper Temperature Pulse Rate Blood Pressure O2 Sat by Pulse 98 98 98 Oximetry (%) Oxygen Delivery Nasal Cannula Method Bowel Movement 01/20/20 01/20/20 01/20/20 10:02 14:35 18:00 Breakfast 50% Diet Tolerated Fair Poor Lunch 25% Supper Temperature Pulse Rate Blood Pressure O2 Sat by Pulse 97 Oximetry (%) Oxygen Delivery Method Bowel Movement 01/20/20 01/20/20 01/20/20 21:00 22:00 23:00 Breakfast Diet Tolerated Fair Lunch Supper 25% Temperature Pulse Rate Blood Pressure O2 Sat by Pulse 96 96 Oximetry (%) Oxygen Delivery Nasal Cannula Nasal Cannula Method Bowel Movement 01/21/20 01/21/20 01/21/20 01:42 06:00 10:24 Breakfast 50% Diet Tolerated Well Lunch Supper Temperature 98.1 F 98.4 F Pulse Rate 105 H 116 H Blood Pressure 135/90 135/97 O2 Sat by Pulse Oximetry (%) Oxygen Delivery Method Bowel Movement No Laboratory Tests 01/17/20 01/18/20 01/19/20 05:30 05:48 05:29 WBC 13.5 H 11.8 H 10.4 H MJBS completed. NGT removed. Dys puree/nectar ordered. Confused, needs reminders to stay focused, trigger swallow, swallow hard with effort Accepted to [facility] for acute rehabilitation. Contrinue swallowing tx with good potential for diet upgrade
[2020-01-21] MEDS: APIXABAN 5 MG TABLET PO SCH ×2 (11:01→21:32)
[2020-01-21] MEDS: LACTULOSE 20 GM/30 ML UDC (FOR ORAL USE ONLY) NGT SCH ×2 (11:01→21:36)
[2020-01-21] MEDS: FOLIC ACID 1 MG TABLET (FP) PO SCH (11:02)
[2020-01-21] MEDS: POTASSIUM CHLORIDE ORAL LIQUID 20 MEQ/15 ML PO SCH (11:03)
[2020-01-21] MEDS: levETIRAcetam 500 MG/5 ML INJECTION VIAL IVPB SCH (11:03)
[2020-01-21] MEDS: LISINOPRIL 5 MG TABLET PO SCH (11:03)
[2020-01-21] MEDS: AMINO ACIDS/PROTEIN HYDROLYS 30 ML LIQUID.PKT PO SCH (11:03)
[2020-01-21] MEDS: THIAMINE HCL 100 MG TABLET (FP) PO SCH (11:04)
[2020-01-21] MEDS: PANTOPRAZOLE SODIUM 40 MG VIAL IVPUSH SCH (11:04)
--- NOTE | 2020-01-21 14:10 | PN ---
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 (short form) - Note 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: Pt examined in telemetry trying to get OOB he is confused No complaints He is eating without difficulty Vitals and labs noted Vital Signs - 24 hr 01/20/20 01/20/20 01/20/20 18:00 21:00 22:00 Temperature 97.4 F L 98.5 F Pulse Rate 98 H 99 H Respiratory 20 19 Rate Blood Pressure 143/100 131/98 O2 Sat by Pulse 97 96 96 Oximetry (%) 01/21/20 01/21/20 01/21/20 01:42 06:00 10:00 Temperature 98.1 F 98.4 F 98.5 F Pulse Rate 105 H 116 H 119 H Respiratory 20 18 20 Rate Blood Pressure 135/90 135/97 143/100 O2 Sat by Pulse 96 Oximetry (%) Current Medications Generic Name Dose Route Start Last Admin Trade Name Freq PRN Reason Stop Dose Admin Albuterol Sulfate 2 puff 01/18/20 15:25 Ventolin Hfa Inhaler - IH Q4H PRN SHORT OF BREATH/WHEEZING Amino Acids 30 ml 01/19/20 10:00 01/21/20 11:03 Prosource No Carb Liquid Pkt PO 30 ml DAILY [facility] Administration Apixaban 5 mg 01/18/20 22:00 01/21/20 11:01 Eliquis - PO 5 mg BID [facility] Administration Folic Acid 1 mg 01/19/20 10:00 01/21/20 11:02 Folic Acid - PO 1 mg DAILY [facility] Administration Ceftazidime 1 gm/ Dextrose 50 mls @ 100 mls/hr 01/18/20 18:00 01/21/20 11:03 IVPB 100 mls/hr Q8H-IV [facility] Administration Protocol Lactulose 20 gm 01/18/20 22:00 01/21/20 11:01 Cephulac (Oral Use) NGT 20 gm BID [facility] Administration Levetiracetam 1,000 mg 01/18/20 22:00 01/21/20 11:03 Keppra Injection - IVPB 1,000 mg BID [facility] Administration Lisinopril 2.5 mg 01/19/20 10:00 01/21/20 11:03 Prinivil PO 2.5 mg DAILY [facility] Administration Melatonin 5 mg 01/18/20 15:25 01/19/20 05:03 Melatonin PO 5 mg HS PRN Administration INSOMNIA Metoprolol Tartrate 75 mg 01/18/20 22:00 01/21/20 06:40 Lopressor - PO 75 mg TID [facility] Administration Pantoprazole Sodium 40 mg 01/19/20 10:00 01/21/20 11:04 Protonix Iv IVPUSH 40 mg DAILY [facility] Administration Potassium Chloride 20 meq 01/20/20 14:00 01/21/20 11:03 Potassium Chloride Oral Liquid PO 20 meq DAILY [facility] Administration Thiamine HCl 100 mg 01/19/20 10:00 01/21/20 11:04 Vitamin B1 - PO 100 mg DAILY [facility] Administration Constitutional: Yes: Other Neck: Yes: Supple Cardiovascular: Yes: Pulse Irregular Respiratory: Yes: Diminished Gastrointestinal: Yes: Soft Genitourinary: Yes: Vo Present Edema: yes PLAN IV antibiotics per ID-- may change to PO per ID aspiration precautions replace potassium platelets stable with Eliquis swallow eval noted change meds to PO PT eval dc planning Problem List - Problems (1) Alcohol dependence Code(s): F10.20 - ALCOHOL DEPENDENCE, UNCOMPLICATED Qualifiers: Substance use status: other alcohol-induced disorder Qualified Code(s): F10.288 - Alcohol dependence with other alcohol-induced disorder (2) Pneumonia Code(s): J18.9 - PNEUMONIA, UNSPECIFIED ORGANISM Qualifiers: Pneumonia type: due to unspecified organism Laterality: left Lung location: lower lobe of lung Qualified Code(s): J18.9 - Pneumonia, unspecified organism (3) Respiratory failure Code(s): J96.90 - RESPIRATORY FAILURE, UNSP, UNSP W HYPOXIA OR HYPERCAPNIA (4) Weakness Code(s): R53.1 - WEAKNESS (5) Alcohol abuse Code(s): F10.10 - ALCOHOL ABUSE, UNCOMPLICATED (6) Alcohol dependence with uncomplicated withdrawal Code(s): F10.230 - ALCOHOL DEPENDENCE WITH WITHDRAWAL, UNCOMPLICATED (7) Atrial fibrillation Code(s): I48.91 - UNSPECIFIED ATRIAL FIBRILLATION Qualifiers: Atrial fibrillation type: unspecified Qualified Code(s): I48.91 - Unspecified atrial fibrillation (8) HTN (hypertension) Code(s): I10 - ESSENTIAL (PRIMARY) HYPERTENSION Qualifiers: Hypertension type: essential hypertension Qualified Code(s): I10 - Essential (primary) hypertension
--- NOTE | 2020-01-21 14:17 | PN ---
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, Physician History of Present Illness: AWAKE AND ALERT IN BED NO ACUTE DISTRESS AFEBRILE WBC IMPROVED NO FURTHER SEIZURES REPORTED BC ACINETOBACTER SPUTUM CS/ ESBL LIKELY COLONIZER CXR LLL INFILTRATE - Current Medication List Current Medications: Active Medications Albuterol Sulfate (Ventolin Hfa Inhaler -) 2 puff IH Q4H PRN PRN Reason: SHORT OF BREATH/WHEEZING Amino Acids (Prosource No Carb Liquid Pkt) 30 ml PO DAILY [facility] Last Admin: 01/21/20 11:03 Dose: 30 ml Documented by: Apixaban (Eliquis -) 5 mg PO BID [facility] Last Admin: 01/21/20 11:01 Dose: 5 mg Documented by: Folic Acid (Folic Acid -) 1 mg PO DAILY [facility] Last Admin: 01/21/20 11:02 Dose: 1 mg Documented by: Ceftazidime 1 gm/ Dextrose 50 mls @ 100 mls/hr IVPB Q8H-IV [facility]; Protocol Last Admin: 01/21/20 11:03 Dose: 100 mls/hr Documented by: Lactulose (Cephulac (Oral Use)) 20 gm NGT BID [facility] Last Admin: 01/21/20 11:01 Dose: 20 gm Documented by: Levetiracetam (Keppra -) 1,000 mg PO BID [facility] Lisinopril (Prinivil) 2.5 mg PO DAILY [facility] Last Admin: 01/21/20 11:03 Dose: 2.5 mg Documented by: Melatonin (Melatonin) 5 mg PO HS PRN PRN Reason: INSOMNIA Last Admin: 01/19/20 05:03 Dose: 5 mg Documented by: Metoprolol Tartrate (Lopressor -) 75 mg PO TID [facility] Last Admin: 01/21/20 06:40 Dose: 75 mg Documented by: Pantoprazole Sodium (Protonix -) 40 mg PO DAILY [facility] Potassium Chloride (Potassium Chloride Oral Liquid) 20 meq PO DAILY [facility] Last Admin: 01/21/20 11:03 Dose: 20 meq Documented by: Thiamine HCl (Vitamin B1 -) 100 mg PO DAILY [facility] Last Admin: 01/21/20 11:04 Dose: 100 mg Documented by: - Objective Vital Signs: Vital Signs Temperature 98.5 F 01/21/20 10:00 Pulse Rate 119 H 01/21/20 10:00 Respiratory Rate 20 01/21/20 10:00 Blood Pressure 143/100 01/21/20 10:00 O2 Sat by Pulse Oximetry (%) 96 01/21/20 10:00 Constitutional: Yes: No Distress Eyes: Yes: Conjunctiva Clear Cardiovascular: Yes: Regular Rate and Rhythm, S1, S2 Respiratory: Yes: Diminished Gastrointestinal: Yes: Normal Bowel Sounds, Soft. No: Tenderness Edema: No Labs: CBC, BMP 01/19/20 05:29 01/20/20 05:25 INR, PTT INR 2.52 (0.83-1.09) H 01/16/20 05:30 Assessment/Plan RESP FAILURE GRAM NEGATIVE SEPSIS ACINETOBACTER PROBABLE ASP PNEUMONIA LACTIC ACIDOSIS RESOLVED THROMBOCYTOPENIA RESOLVED SUBSTITUTE BACTRIM DS PO BID X 7D
--- NOTE | 2020-01-21 15:03 | PN ---
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, Physician History of Present Illness: pulmonary awake,comfortable on nasal o2 - Current Medication List Current Medications: Active Medications Albuterol Sulfate (Ventolin Hfa Inhaler -) 2 puff IH Q4H PRN PRN Reason: SHORT OF BREATH/WHEEZING Amino Acids (Prosource No Carb Liquid Pkt) 30 ml PO DAILY [facility] Last Admin: 01/21/20 11:03 Dose: 30 ml Documented by: Apixaban (Eliquis -) 5 mg PO BID [facility] Last Admin: 01/21/20 11:01 Dose: 5 mg Documented by: Folic Acid (Folic Acid -) 1 mg PO DAILY [facility] Last Admin: 01/21/20 11:02 Dose: 1 mg Documented by: Lactulose (Cephulac (Oral Use)) 20 gm NGT BID [facility] Last Admin: 01/21/20 11:01 Dose: 20 gm Documented by: Levetiracetam (Keppra -) 1,000 mg PO BID [facility] Lisinopril (Prinivil) 2.5 mg PO DAILY [facility] Last Admin: 01/21/20 11:03 Dose: 2.5 mg Documented by: Melatonin (Melatonin) 5 mg PO HS PRN PRN Reason: INSOMNIA Last Admin: 01/19/20 05:03 Dose: 5 mg Documented by: Metoprolol Tartrate (Lopressor -) 75 mg PO TID [facility] Last Admin: 01/21/20 14:58 Dose: 75 mg Documented by: Pantoprazole Sodium (Protonix -) 40 mg PO DAILY [facility] Potassium Chloride (Potassium Chloride Oral Liquid) 20 meq PO DAILY [facility] Last Admin: 01/21/20 11:03 Dose: 20 meq Documented by: Thiamine HCl (Vitamin B1 -) 100 mg PO DAILY [facility] Last Admin: 01/21/20 11:04 Dose: 100 mg Documented by: Trimethoprim/Sulfamethoxazole (Bactrim Ds -) 1 each PO BID [facility] - Objective Vital Signs: Vital Signs Temperature 97.5 F L 01/21/20 14:26 Pulse Rate 146 H 01/21/20 14:26 Respiratory Rate 22 H 01/21/20 14:26 Blood Pressure 135/114 H 01/21/20 14:26 O2 Sat by Pulse Oximetry (%) 96 01/21/20 10:00 Constitutional: Yes: Well Nourished, Calm Eyes: Yes: WNL HENT: Yes: WNL Neck: Yes: WNL Cardiovascular: Yes: Pulse Irregular, S1, S2 Respiratory: Yes: Diminished Gastrointestinal: Yes: Normal Bowel Sounds, Soft Extremities: Yes: WNL Edema: No Labs: CBC, BMP 01/19/20 05:29 Assessment/Plan A/P Acute Hypoxic Respiratory Failure improved Pneumonia likely Aspiration clinically improved Septic Shock Lactic Acidosis Atrial Fibrillation improved Alcohol Abuse Thrombocytopenia improved Seizures - r/o Alcohol Withdrawal HTN - monitor urine output, creatinine - rate control - continue anticoagulation - advance diet as tolerated - rehab/PT - DVT/GI prophylaxis DR GEORGE
--- NOTE | 2020-01-21 15:12 | PN ---
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, Physician Chief Complaint: Pt is agitated, shaking, confused, uncooperative. His is at bedside. History of Present Illness: Mr is a 54 YO white man with PMHx h/o acute/chronic alcohol abuse, d iastolic CHF (02/08 ECHO; mild AR; mild biatrial enlargement), HTN, AFIB (on metoprolol and eliquis), now presents with weakness and lightheadedness. Patient suspects current syptoms are 2/2 alcohol withdrawal. Mentions that his last drink was 3 hours prior to arrival. Patients reports that the patient has been lightheaded and tremulous this afternoon prior to arrival. Patient also mentions mild productive cough. Denies fever, chills, chest pain, SOB, N/V/D. Denies recent travel of sick contacts. - Current Medication List Current Medications: Active Medications Albuterol Sulfate (Ventolin Hfa Inhaler -) 2 puff IH Q4H PRN PRN Reason: SHORT OF BREATH/WHEEZING Amino Acids (Prosource No Carb Liquid Pkt) 30 ml PO DAILY [facility] Last Admin: 01/21/20 11:03 Dose: 30 ml Documented by: Apixaban (Eliquis -) 5 mg PO BID [facility] Last Admin: 01/21/20 11:01 Dose: 5 mg Documented by: Folic Acid (Folic Acid -) 1 mg PO DAILY [facility] Last Admin: 01/21/20 11:02 Dose: 1 mg Documented by: Lactulose (Cephulac (Oral Use)) 20 gm NGT BID [facility] Last Admin: 01/21/20 11:01 Dose: 20 gm Documented by: Levetiracetam (Keppra -) 1,000 mg PO BID [facility] Lisinopril (Prinivil) 2.5 mg PO DAILY [facility] Last Admin: 01/21/20 11:03 Dose: 2.5 mg Documented by: Melatonin (Melatonin) 5 mg PO HS PRN PRN Reason: INSOMNIA Last Admin: 01/19/20 05:03 Dose: 5 mg Documented by: Metoprolol Tartrate (Lopressor -) 75 mg PO TID [facility] Last Admin: 01/21/20 14:58 Dose: 75 mg Documented by: Pantoprazole Sodium (Protonix -) 40 mg PO DAILY [facility] Potassium Chloride (Potassium Chloride Oral Liquid) 20 meq PO DAILY [facility] Last Admin: 01/21/20 11:03 Dose: 20 meq Documented by: Thiamine HCl (Vitamin B1 -) 100 mg PO DAILY [facility] Last Admin: 01/21/20 11:04 Dose: 100 mg Documented by: Trimethoprim/Sulfamethoxazole (Bactrim Ds -) 1 each PO BID [facility] - Objective Vital Signs: Vital Signs Temperature 97.5 F L 01/21/20 14:26 Pulse Rate 146 H 01/21/20 14:26 Respiratory Rate 22 H 01/21/20 14:26 Blood Pressure 135/114 H 01/21/20 14:26 O2 Sat by Pulse Oximetry (%) 96 01/21/20 10:00 Constitutional: Yes: Anxious Eyes: Yes: WNL HENT: Yes: WNL Cardiovascular: Yes: Tachycardia, Pulse Irregular, S1 (varies in intenstiy), S2 Respiratory: Yes: Regular Gastrointestinal: Yes: Soft ...Rectal Exam: Yes: Deferred Genitourinary: No: Anuria Musculoskeletal: Yes: Muscle Weakness Extremities: Yes: Cool Edema: No Peripheral Pulses WNL: Yes Integumentary: Yes: WNL Neurological: Yes: Confusion Psychiatric: Yes: Other (alcoholism) Labs: CBC, BMP 01/19/20 05:29 01/20/20 05:25 INR, PTT INR 2.52 (0.83-1.09) H 01/16/20 05:30 Abnormal Lab Results 01/21/20 01/22/20 14:10 05:50 Potassium 3.4 L Chloride 112 H Anion Gap 6 L 5 L Creatinine 0.5 L Random Glucose 109 H 69 L Calcium 8.2 L 8.0 L Magnesium 1.4 L 1.4 L - ....Imaging Chest X-ray: Image Reviewed EKG: Image Reviewed Assessment/Plan Acute/chronic alcoholism: presently in ?DTs/alcoholic encephalopathy; seizures Agitated; confused. Respiratory failure:now extubated. Acute/chronic systolic/diastolic CHF AF, with periods of RVR leukocytosis; symptoms of URI TSH WNL LDL cholesterol 67 mg/dL Plan: Detox protocol; long-term Rx is essential. F/u with neurology (seizures; confusion). On metoprolol for HR control (and ECHO now shows moderate systolic dysfunction); increased 01/13/20 to 50 mg tid for better HR control (AF). Would not use diltiazem for HR control, given LV dysfunction. If IV medication is needed, would increase dose of metoprolol or use IV Esmolol. ECHO: moderately reduced LVEF; normal LV size; mild-moderate RV dilatation, with mildly reduced RVEF; mild LAE. On lisinopril 2.5 mg daily; increase dose as tolerated. IV furosemide if required for CHF. F/u daily weight, Is and Os, BUN/Cr. Replete Mg; keep K+ 4.0-4.5, Mg 2.0-2.4, PO4 2.5-4.9. If not done recently, plan for stress MIBI when stable.
--- NOTE | 2020-01-21 15:26 | PN ---
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 (short form) - Note 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: 54 year old male history of atrial fibrillation, alcohol abuse. htn. He was seen his at bed side. He came to hospital on january 03. He was brought to hospital for seizure. He has been drinking heavy and he has history of hepatomegaly and fatty liver. Patient was intubated , for airway protection and pneumonia and covid negative. He has ct head on january 05 it was negative. -- still confused, at times trying to get out of bed NEUROLOGICAL EXAMINATION alert oriented x 1, follow command moving all extremity pupils reactive, eomi, no face asymetry no face asymmetry moving all ext neck is supple ct head is normal and repeat on january 09 was unchanged eeg showed shparp wave activity repeat eeg showed generaliaed encephalopathy Assessment/Plan 54 year old male history of alcohol abuse, atrial fibrillation and htn. He came with alcohol withdrawal seizure. Ct head is negative. Supect alcohol withdrawal seizure. extubated and improved Plan:-- continue keppra 1 gm iv bid for now, can be discontinue after one month from the ictal event - continue supportive care, [facility] Thanking you so much Dilan Don MD
[2020-01-21 15:42] LABS: BLOOD UREA NITROGEN 8.8 mg/dL (7-18); CALCIUM 8.2 mg/dL (8.5-10.1); CREATININE 0.6 mg/dL (0.55-1.3); MAGNESIUM 1.4 mg/dL (1.8-2.4); POTASSIUM 3.6 mmol/L (3.5-5.1)
[2020-01-21 15:46] VITALS: BMI 28.6
[2020-01-21] MEDS ORDERED: LORazepam 1 MG TABLET PO ONE (17:55)
[2020-01-21] MEDS: levETIRAcetam 500 MG TABLET (FP) PO SCH (21:32)
[2020-01-21] MEDS: SULFAMETHOXAZOLE/TRIMETHOPRIM 800MG/160MG D.S. TABLET PO SCH (21:32)
[2020-01-21] MEDS: MELATONIN 5 MG TABLETS PO PRN (21:33)
[2020-01-22] MEDS: METOPROLOL TARTRATE 50 MG TABLET (FP) PO SCH (05:55)
--- NOTE | 2020-01-22 07:17 | PN ---
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, Physician History of Present Illness: PULMONARY AWAKE,COMFORTABLE,-RESP DISTRESS - Current Medication List Current Medications: Active Medications Albuterol Sulfate (Ventolin Hfa Inhaler -) 2 puff IH Q4H PRN PRN Reason: SHORT OF BREATH/WHEEZING Amino Acids (Prosource No Carb Liquid Pkt) 30 ml PO DAILY [facility] Last Admin: 01/21/20 11:03 Dose: 30 ml Documented by: Apixaban (Eliquis -) 5 mg PO BID [facility] Last Admin: 01/21/20 21:32 Dose: 5 mg Documented by: Folic Acid (Folic Acid -) 1 mg PO DAILY [facility] Last Admin: 01/21/20 11:02 Dose: 1 mg Documented by: Lactulose (Cephulac (Oral Use)) 20 gm NGT BID [facility] Last Admin: 01/21/20 21:36 Dose: 20 gm Documented by: Levetiracetam (Keppra -) 1,000 mg PO BID [facility] Last Admin: 01/21/20 21:32 Dose: 1,000 mg Documented by: Lisinopril (Prinivil) 2.5 mg PO DAILY [facility] Last Admin: 01/21/20 11:03 Dose: 2.5 mg Documented by: Melatonin (Melatonin) 5 mg PO HS PRN PRN Reason: INSOMNIA Last Admin: 01/21/20 21:33 Dose: 5 mg Documented by: Metoprolol Tartrate (Lopressor -) 75 mg PO TID [facility] Last Admin: 01/22/20 05:55 Dose: 75 mg Documented by: Pantoprazole Sodium (Protonix -) 40 mg PO DAILY [facility] Potassium Chloride (Potassium Chloride Oral Liquid) 20 meq PO DAILY [facility] Last Admin: 01/21/20 11:03 Dose: 20 meq Documented by: Thiamine HCl (Vitamin B1 -) 100 mg PO DAILY [facility] Last Admin: 01/21/20 11:04 Dose: 100 mg Documented by: Trimethoprim/Sulfamethoxazole (Bactrim Ds -) 1 each PO BID [facility] Last Admin: 01/21/20 21:32 Dose: 1 each Documented by: - Objective Vital Signs: Vital Signs Temperature 97.4 F L 01/22/20 06:00 Pulse Rate 122 H 01/22/20 06:00 Respiratory Rate 19 01/22/20 06:00 Blood Pressure 142/97 01/22/20 06:00 O2 Sat by Pulse Oximetry (%) 95 01/22/20 06:00 Constitutional: Yes: Well Nourished, Calm Eyes: Yes: WNL HENT: Yes: WNL Neck: Yes: WNL Cardiovascular: Yes: Pulse Irregular, S1, S2 Respiratory: Yes: Diminished Gastrointestinal: Yes: Normal Bowel Sounds, Soft Extremities: Yes: WNL Edema: No Labs: Assessment/Plan A/P Acute Hypoxic Respiratory Failure improved Pneumonia likely Aspiration clinically improved Septic Shock Lactic Acidosis Atrial Fibrillation improved Alcohol Abuse Thrombocytopenia improved Seizures - r/o Alcohol Withdrawal HTN - monitor urine output, creatinine - rate control - anticoagulation - advance diet as tolerated - rehab/PT - DVT/GI prophylaxis DR GEORGE
[2020-01-22 07:22] LABS: BLOOD UREA NITROGEN 7.3 mg/dL (7-18); CREATININE 0.5 mg/dL (0.55-1.3); MAGNESIUM 1.4 mg/dL (1.8-2.4); POTASSIUM 3.4 mmol/L (3.5-5.1)
--- NOTE | 2020-01-22 08:46 | PN ---
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 (short form) - Note 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: 54 year old male history of atrial fibrillation, alcohol abuse. htn. He was seen his at bed side. He came to hospital on january 03. He was brought to hospital for seizure. He has been drinking heavy and he has history of hepatomegaly and fatty liver. Patient was intubated , for airway protection and pneumonia and covid negative. He has ct head on january 05 it was negative. -- still confused,no new complain, got ativan yesterday and less agitate today NEUROLOGICAL EXAMINATION alert oriented x 1, follow command moving all extremity pupils reactive, eomi, no face asymetry no face asymmetry moving all ext neck is supple ct head is normal and repeat on january 09 was unchanged eeg showed shparp wave activity repeat eeg showed generaliaed encephalopathy Assessment/Plan 54 year old male history of alcohol abuse, atrial fibrillation and htn. He came with alcohol withdrawal seizure. Ct head is negative. Supect alcohol withdrawal seizure. extubated and improved Plan:-- continue keppra 1 gm iv bid for now, can be discontinue after one month from the ictal event - continue supportive care, [facility] Thanking you so much Dilan Don MD
[2020-01-22] MEDS ORDERED: PANTOPRAZOLE 40 MG TABLET PO SCH (10:00)
--- NOTE | 2020-01-22 10:29 | DS ---
Physical Examination Vital Signs: Vital Signs Temperature 97.4 F L 01/22/20 06:00 Pulse Rate 122 H 01/22/20 06:00 Respiratory Rate 19 01/22/20 06:00 Blood Pressure 142/97 01/22/20 06:00 O2 Sat by Pulse Oximetry (%) 95 01/22/20 06:00 Constitutional: Yes: No Distress, Calm Cardiovascular: Yes: Regular Rate and Rhythm Respiratory: Yes: Diminished Gastrointestinal: Yes: Normal Bowel Sounds, Soft, Abdomen, Obese. No: T enderness Edema: Yes Edema: LLE: Trace, RLE: Trace Psychiatric: Yes: Alert, Oriented Labs: CBC, BMP 01/19/20 05:29 01/22/20 05:50 Discharge Summary Problems reviewed: Yes Reason For Visit: ALCOHOL DEPENDENCE PNEUMONIA Current Active Problems Alcohol dependence (Acute) Liver disease due to alcohol (Acute) Pneumonia (Acute) Respiratory failure (Acute) Weakness (Acute) Hospital Course: The patient is a 54-year-old male with a past medical history significant for Afib (on Eliquis) and chronic alcohol use (daily alcohol use, last drink was this afternoon) who presents to the emergency department with weakness and lightheadedness. The patient presents with generalized weakness and feeling lightheadedness, the patients reports the patient had an episode of lightheadedness and shaking, like he was going to pass out, denies LOC. The patient reports associated symptoms of mild productive cough. Denies fever, chills, chest pain, leg swelling, shortness of breath, nausea, vomiting, back pain. Denies recent travel or sick contact. HOSPITAL COURSE He went in to acute respiratory failure and seizures due to alcohol withdrawal-- was intubated and admitted in ICU Had thrombocytopenia due to chronic alcoholism which later improved blood cultures were positive for acinetobacter -- was on Ceftazidine - placed by ID Evaluated by GI, Hematology, Cardiology,ID Pt was eventually extubated and is on NC Pt is alert but has periods of confusion He is on Keppra for seizure prophylaxis Pt is deconditioned due to prolonged hospitalization and illness He needs STR stable for dc to STR on PO Bactrim DS x 7days Condition: Improved - Instructions Diet, Activity, Other Instructions: monitor twice weekly cbc, cmp while in rehab Referrals: Stacy Hawthorne MD [Primary Care Provider] - Disposition: [facility] - Home Medications Comprehensive Discharge Medication List: Ambulatory Orders Lisinopril [Zestril] 2.5 mg PO DAILY 10/05/16 Apixaban [Eliquis] 5 mg PO BID 01/15/18 Albuterol Sulfate Inhaler - [Ventolin HFA Inhaler -] 2 puff IH Q4H PRN #20 inhaler 01/22/20 Amino Acids/Protein Hydrolys [Prosource No Carb Liquid Pkt] 30 ml PO DAILY #30 packet 01/22/20 Folic Acid - 1 mg PO DAILY #30 tablet 01/22/20 Lactulose (Oral Use) [Cephulac -] 20 gm NGT BID #30 [facility] 01/22/20 Melatonin 5 mg PO HS PRN #30 tab 01/22/20 Metoprolol Tartrate [Lopressor -] 75 mg PO TID #90 tablet 01/22/20 Pantoprazole Sodium [Protonix -] 40 mg PO DAILY #30 tablet.ec 01/22/20 Potassium Chloride [Potassium Chloride Oral Liquid] 20 meq PO DAILY #20 cup 01/22/20 Sulfamethoxazole/Trimethoprim [Bactrim DS -] 1 each PO BID #14 tablet 01/22/20 Thiamine HCl [Vitamin B1 -] 100 mg PO DAILY #30 tablet 01/22/20 levETIRAcetam [Keppra -] 1,000 mg PO BID #60 tablet 01/22/20
[2020-01-22] MEDS: LACTULOSE 20 GM/30 ML UDC (FOR ORAL USE ONLY) NGT SCH (10:38)
[2020-01-22] MEDS: levETIRAcetam 500 MG TABLET (FP) PO SCH (10:38)
[2020-01-22] MEDS: SULFAMETHOXAZOLE/TRIMETHOPRIM 800MG/160MG D.S. TABLET PO SCH (10:38)
[2020-01-22] MEDS: POTASSIUM CHLORIDE ORAL LIQUID 20 MEQ/15 ML PO SCH (10:38)
[2020-01-22] MEDS: APIXABAN 5 MG TABLET PO SCH (10:38)
[2020-01-22] MEDS: FOLIC ACID 1 MG TABLET (FP) PO SCH (10:38)
[2020-01-22] MEDS: LISINOPRIL 5 MG TABLET PO SCH (10:39)
[2020-01-22] MEDS: AMINO ACIDS/PROTEIN HYDROLYS 30 ML LIQUID.PKT PO SCH (10:39)
[2020-01-22] MEDS: THIAMINE HCL 100 MG TABLET (FP) PO SCH (10:39)
--- NOTE | 2020-01-22 11:02 | PN ---
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, Physician Chief Complaint: Extubated History of Present Illness: Mr Beckford is a 54 YO white man with PMHx h/o acute/chronic alcohol abuse, diastolic CHF (02/08 ECHO; mild AR; mild biatrial enlargement), HTN, AFIB (on metoprolol and eliquis), now presents with weakness and lightheadedness. Patient suspects current syptoms are 2/2 alcohol withdrawal. Mentions that his last drink was 3 hours prior to arrival. Patients reports that the patient has been lightheaded and tremulous this afternoon prior to arrival. Patient also mentions mild productive cough. Denies fever, chills, chest pain, SOB, N/V/D. Denies recent travel of sick contacts. - Current Medication List Current Medications: Active Medications Albuterol Sulfate (Ventolin Hfa Inhaler -) 2 puff IH Q4H PRN PRN Reason: SHORT OF BREATH/WHEEZING Amino Acids (Prosource No Carb Liquid Pkt) 30 ml PO DAILY [facility] Last Admin: 01/22/20 10:39 Dose: 30 ml Documented by: Apixaban (Eliquis -) 5 mg PO BID [facility] Last Admin: 01/22/20 10:38 Dose: 5 mg Documented by: Folic Acid (Folic Acid -) 1 mg PO DAILY [facility] Last Admin: 01/22/20 10:38 Dose: 1 mg Documented by: Lactulose (Cephulac (Oral Use)) 20 gm NGT BID [facility] Last Admin: 01/22/20 10:38 Dose: 20 gm Documented by: Levetiracetam (Keppra -) 1,000 mg PO BID [facility] Last Admin: 01/22/20 10:38 Dose: 1,000 mg Documented by: Lisinopril (Prinivil) 2.5 mg PO DAILY [facility] Last Admin: 01/22/20 10:39 Dose: 2.5 mg Documented by: Melatonin (Melatonin) 5 mg PO HS PRN PRN Reason: INSOMNIA Last Admin: 01/21/20 21:33 Dose: 5 mg Documented by: Metoprolol Tartrate (Lopressor -) 75 mg PO TID [facility] Last Admin: 01/22/20 05:55 Dose: 75 mg Documented by: Pantoprazole Sodium (Protonix -) 40 mg PO DAILY [facility] Last Admin: 01/22/20 10:39 Dose: 40 mg Documented by: Potassium Chloride (Potassium Chloride Oral Liquid) 20 meq PO DAILY [facility] Last Admin: 01/22/20 10:38 Dose: 20 meq Documented by: Thiamine HCl (Vitamin B1 -) 100 mg PO DAILY [facility] Last Admin: 01/22/20 10:39 Dose: 100 mg Documented by: Trimethoprim/Sulfamethoxazole (Bactrim Ds -) 1 each PO BID [facility] Last Admin: 01/22/20 10:38 Dose: 1 each Documented by: - Objective Vital Signs: Vital Signs Temperature 97.4 F L 01/22/20 06:00 Pulse Rate 122 H 01/22/20 06:00 Respiratory Rate 19 01/22/20 06:00 Blood Pressure 142/97 01/22/20 06:00 O2 Sat by Pulse Oximetry (%) 95 01/22/20 06:00 Eyes: Yes: WNL, Conjunctiva Clear, EOM Intact HENT: Yes: WNL, Atraumatic, Normocephalic Neck: Yes: WNL, Supple, Trachea Midline Cardiovascular: Yes: Pulse Irregular Respiratory: Yes: WNL, Regular, CTA Bilaterally Gastrointestinal: Yes: WNL, Normal Bowel Sounds Genitourinary: Yes: WNL Musculoskeletal: Yes: WNL Extremities: Yes: WNL Edema: No Integumentary: Yes: WNL Neurological: Yes: Alert Labs: CBC, BMP 01/19/20 05:29 01/22/20 05:50 INR, PTT INR 2.52 (0.83-1.09) H 01/16/20 05:30 Assessment/Plan Acute/chronic alcoholism: presently in ?DTs/alcoholic encephalopathy; seizures Agitated; confused. Respiratory failure:now extubated. Acute/chronic systolic/diastolic CHF AF, with periods of RVR leukocytosis; symptoms of URI TSH WNL LDL cholesterol 67 mg/dL Plan: Detox protocol; long-term Rx is essential. F/u with neurology (seizures; confusion). On metoprolol for HR control (and ECHO now shows moderate systolic dysfunction); increased 01/13/20 to 50 mg tid for better HR control (AF). Would not use diltiazem for HR control, given LV dysfunction. If IV medication is needed, would increase dose of metoprolol or use IV Esmolol. ECHO: moderately reduced LVEF; normal LV size; mild-moderate RV dilatation, with mildly reduced RVEF; mild LAE. On lisinopril 2.5 mg daily; increase dose as tolerated. IV furosemide if required for CHF. F/u daily weight, Is and Os, BUN/Cr. Replete Mg; keep K+ 4.0-4.5, Mg 2.0-2.4, PO4 2.5-4.9. If not done recently, plan for stress MIBI when stable.
[2020-01-22 11:47] VITALS: BP 135/78; PULSE 115; TEMP 98.1
== END 2020-01-22 13:17 | DRG 710 ==
LOC: JER 13:42 → JERBED 19:28 → JICU 01-04 03:51 → J4W 01-18 16:40
PROVIDERS: ADMIT Internal Medicine; ATTEND Internal Medicine Pulmonary Disease
PROC: 5A1955Z Respiratory Ventilation, Greater than 96 Consecutive Hours (ICD-10-PCS; principal; 2020-01-04)
PROC: 0BH17EZ Insertion of Endotracheal Airway into Trachea, Via Natural or Artificial Opening (ICD-10-PCS; 2020-01-04)
PROC: 0DH67UZ Insertion of Feeding Device into Stomach, Via Natural or Artificial Opening (ICD-10-PCS; 2020-01-04)
PROC: 3E0G76Z Introduction of Nutritional Substance into Upper GI, Via Natural or Artificial Opening (ICD-10-PCS; 2020-01-04)
PROC: 02HV33Z Insertion of Infusion Device into Superior Vena Cava, Percutaneous Approach (ICD-10-PCS; 2020-01-04)
PROC: B548ZZA Ultrasonography of Superior Vena Cava, Guidance (ICD-10-PCS; 2020-01-04)
PROC: 4A10X4Z Monitoring of Central Nervous Electrical Activity, External Approach (ICD-10-PCS; 2020-01-09)
PROC: 03HY32Z Insertion of Monitoring Device into Upper Artery, Percutaneous Approach (ICD-10-PCS; 2020-01-12)
PROC: 4A133B1 Monitoring of Arterial Pressure, Peripheral, Percutaneous Approach (ICD-10-PCS; 2020-01-12)
PROC: 4A133J1 Monitoring of Arterial Pulse, Peripheral, Percutaneous Approach (ICD-10-PCS; 2020-01-12)
PROC: 02HV33Z Insertion of Infusion Device into Superior Vena Cava, Percutaneous Approach (ICD-10-PCS; 2020-01-13)
PROC: B548ZZA Ultrasonography of Superior Vena Cava, Guidance (ICD-10-PCS; 2020-01-13)
DX: A41.59 Other Gram-negative sepsis (principal); J96.01 Acute respiratory failure with hypoxia; J69.0 Pneumonitis due to inhalation of food and vomit; R56.9 Unspecified convulsions; R65.21 Severe sepsis with septic shock; G93.41 Metabolic encephalopathy; I50.43 Acute on chronic combined systolic (congestive) and diastolic (congestive) heart failure; I11.0 Hypertensive heart disease with heart failure; I48.19 Other persistent atrial fibrillation; R16.0 Hepatomegaly, not elsewhere classified; D69.6 Thrombocytopenia, unspecified; E87.2 Acidosis; Z79.01 Long term (current) use of anticoagulants; K70.9 Alcoholic liver disease, unspecified; F10.230 Alcohol dependence with withdrawal, uncomplicated; E66.9 Obesity, unspecified; K76.0 Fatty (change of) liver, not elsewhere classified; D64.9 Anemia, unspecified
CPT/HCPCS: 36415; 36600; 70450-TC; 71045-TC-FY; 74230-TC-FY; 76705-TC; 80048; 80053; 80061; 80307; 81003; 82040; 82105; 82140; 82550; 82803; 82962; 83605; 83721; 83735; 83880; 84075; 84100; 84443; 84450; 84460; 84484; 85025; 85027; 85610; 85730; 86704; 86706; 86707; 86708; 86709; 86738; 86803; 87040; 87070; 87086; 87186; 87205; 87340; 87899; 92611-GN; 93005; 93010; 93306-TC; 94002; 95816; 97116-GP; 97162-GP; 99285-25; J0131; J0282; U0003